=== PATIENT | male | born 1930 | race Caucasian/White ===

== ENCOUNTER 2018-11-11 22:08 | Inpatient (IN) | payer MEDICARE, OTHER ==
[~2018-11-11] VITALS: Ht 177.8 cm; Wt 76.3 kg
[2018-11-11 22:09] VITALS: BP 97/47
--- NOTE | 2018-11-11 22:09 | NUR ---
ED Nurse Note: Patient BIBA from home with complaints of respiratory distress. Full septic work-up initiated.
[2018-11-11] MEDS ORDERED: Albuterol ud Inhalation HHN ONE (22:15)
--- NOTE | 2018-11-11 22:18 | NUR ---
RESPIRATORY NOTE: Pt came in ED via EMT on portable CPAP c/o SOB/Respiratory Distress. Pt placed on BiPAP 15/5, backup rate 14, 60%. Pt still tachycardic & tachypneic on BiPAP. Breathing Tx to be given. Pt alert, follows commands. B/S hector. crackles, nonproductive cough. BiPAP plugged into red outlet. Pt tolerating tx well. Will continue to monitor pt.
--- NOTE | 2018-11-11 22:19 | Emergency Room Report ---
History of Present Illness General Chief Complaint: Dyspnea/Respdistress Source: Medical Record, EMS Present Illness HPI This is an 87-year-old elderly English-speaking male presents with chief complaint of respiratory distress. Per EMS, family said he has a history of high blood pressure and COPD. Unknown medication. He presents with chief complaint of shortness of breath started today. Also with nausea vomiting and diarrhea. On route rest or distress worse and so he was put on CPAP. History is limited in this patient because of his condition. Unknown fever. Patient has a cough here. Per , he had shaking chills at home. Allergies: Coded Allergies: No Known Allergies (Unverified , 12/10/11) Patient History Past Medical History: see triage record, old chart reviewed, HTN, COPD Past Surgical History: other Pertinent Family History: none Social History: Denies: smoking Immunizations: other Reviewed Nursing Documentation: PMH: Agreed; PSxH: Agreed Nursing Documentation-PMH Hx Cardiac Problems: Yes - COPD Hx Hypertension: Yes Review of Systems Eye: Denies: eye pain, blurred vision ENT: Denies: ear pain, nose congestion, throat swelling Respiratory: Reports: cough, shortness of breath Cardiovascular: Denies: chest pain, palpitations Gastrointestinal: Reports: diarrhea, nausea, vomiting; Denies: abdominal pain Musculoskeletal: Denies: back pain, joint pain Skin: Denies: rash Neurological: Denies: headache, numbness Endocrine: Denies: increased thirst, increased urine Hematologic/Lymphatic: Denies: easy bruising All Other Systems: negative except mentioned in HPI Physical Exam Vital Signs Date Time Temp Pulse Resp B/P (MAP) Pulse Ox O2 Delivery O2 Flow Rate FiO2 11/11/18 22:09 98.1 132 26 97 Room Air vitals with tachycardia and hypoxia. Pulse ox 94% on BiPAP Sp02 EP Interpretation: abnormal General Appearance: moderate distress, Chronically Ill Head: normocephalic, atraumatic Eyes: bilateral eye PERRL, bilateral eye EOMI ENT: hearing grossly normal, normal pharynx Neck: full range of motion, supple, no meningismus Respiratory: chest non-tender, respiratory distress, decreased breath sounds, wheezing Cardiovascular #1: regular rate, rhythm, no murmur, tachycardia Gastrointestinal: normal bowel sounds, non tender, no mass, no organomegaly, no bruit, distended Musculoskeletal: back normal, normal range of motion Psychiatric: mood/affect normal Skin: warm/dry Procedures Critical Care Time Critical Care Time Critical care is mandated in this patient who presented with severe sepsis from pneumonia. Patient require my urgent intervention to attenuate the risks of metabolic collapse which may lead to cardiovascular collapse and . Critical care time is 35 minutes excluding any reportable procedure. Critical care time included evaluation, multiple reevaluation, looking at old charts, interpreting laboratory and diagnostic data, discussing case with patient and family and consultants, and charting. Medical Decision Making Diagnostic Impression: Primary Impression: Severe sepsis Additional Impressions: Pneumonia Qualified Codes: J18.1 - Lobar pneumonia, unspecified organism Respiratory failure with hypoxia Qualified Codes: J96.01 - Acute respiratory failure with hypoxia COPD exacerbation ER Course Patient with severe sepsis from bilateral lobar pneumonia. He had respiratory failure secondary to hypoxemia. Much improved on BiPAP. Breathing much more comfortably. White spectrum antibiotic started. I discussed the CODE STATUS with his and son. She wanted him to be Comfort Care DO NOT RESUSCITATE. No intubation. No CPR. Discussed the case with Dr. Malave and Dr. Nugent for admission. Sepsis reevaluation: Vitals: Heart rate 100, blood pressure 97/47, respiration rate 16, pulse oxing 100% on BiPAP. Mental status: More alert Cardiovascular: Regular rate and rhythm. Lungs: Better air movement Abdomen: Soft nontender Extremity: No edema Skin: No mottling Capillary refills: Less than 2 second Lab Results Impression labs with leukocytosis EKG Diagnostic Results Rate: tachycardiac Rhythm: NSR ST Segments: other - NSST changes Rhythm Strip Diag. Results EP Interpretation: yes Rate: 110 Rhythm: NSR, no PVC's, no ectopy Chest X-Ray Diagnostic Results Chest X-Ray Diagnostic Results : Chest X-Ray Ordered: Yes # of Views/Limited/Complete: 1 View Indication: Shortness of Breath EP Interpretation: Yes Interpretation: no effusion, no pneumothorax, other - Bilateral lobar infiltrates Impression: Other - b/l infiltrates Electronically Signed by: Drew Rice MD Last Vital Signs Date Time Temp Pulse Resp B/P (MAP) Pulse Ox O2 Delivery O2 Flow Rate FiO2 11/11/18 22:09 98.1 132 26 97 Room Air Status: improved Disposition: ADMITTED INPATIENT Condition: Critical Drew Rice MD November 11, 2018 22:19
[2018-11-11] MEDS ORDERED: BYSTOLIC2.5 MG ORAL (22:30)
[2018-11-11] MEDS ORDERED: CRESTOR20 MG ORAL (22:30)
[2018-11-11] MEDS ORDERED: PREDNISONE2.5 MG ORAL (22:30)
[2018-11-11 22:39] VITALS: BP 88/49
[2018-11-11 22:50] LABS: HEMATOCRIT 47.1 % (42.0-52.0); HEMOGLOBIN 15.7 G/DL (14.2-18.0); MEAN CORPUSCULAR VOLUME 90 FL (80-99); PLATELET COUNT 120 K/UL (150-450); RED BLOOD COUNT 5.25 M/UL (4.70-6.10); RED CELL DISTRIBUTION WIDTH 15.4 % (11.6-14.8); WHITE BLOOD COUNT 15.6 K/UL (4.8-10.8)
[2018-11-11 22:51] LABS: BASOPHILS % (AUTO) 0.7 % (0.0-2.0); EOSINOPHILS % (AUTO) 0.3 % (0.0-3.0); MONOCYTES % (AUTO) 1.4 % (1.0-10.0); NEUTROPHILS % (AUTO) 86.6 % (45.0-75.0)
[2018-11-11 22:54] VITALS: BP 88/46
[2018-11-11] MEDS ORDERED: Cefepime HCl 1 GM in D5W 55 ML IVPB ONE (23:00)
--- NOTE | 2018-11-11 23:00 | NUR ---
ED Nurse Note: Patient is hypotensive, ERMD informed. orders carried out.
[2018-11-11 23:03] LABS: INR 1.2 (0.9-1.1)
[2018-11-11 23:04] LABS: ANION GAP 10 mmol/L (5-15); BLOOD UREA NITROGEN 43 mg/dL (7-18); CALCIUM 8.7 MG/DL (8.5-10.1); CARBON DIOXIDE 23 MMOL/L (21-32); CHLORIDE 104 MMOL/L (98-107); CREATININE 1.2 MG/DL (0.55-1.30); POTASSIUM 4.5 MMOL/L (3.5-5.1); SODIUM 137 MMOL/L (136-145)
[2018-11-11 23:15] VITALS: BP 81/48
[2018-11-11 23:19] LABS: ALANINE AMINOTRANSFERASE 67 U/L (12-78); ALBUMIN 3.5 G/DL (3.4-5.0); ALKALINE PHOSPHATASE 65 U/L (46-116); ASPARTATE AMINO TRANSFERASE 38 U/L (15-37); BILIRUBIN,TOTAL 1.2 MG/DL (0.2-1.0); CKMB 1.8 NG/ML (0.0-3.6); CREATINE KINASE 97 U/L (26-308)
--- NOTE | 2018-11-11 23:22 | NUR ---
ED Nurse Note: Patient BP responsive to iV fluid. Patient tolerated antibiotics well, family , and son, at bedside.
[2018-11-11 23:23] LABS: BILIRUBIN,DIRECT 0.2 MG/DL (0.0-0.3)
[2018-11-11 23:30] VITALS: BP 97/47
[2018-11-11 23:45] VITALS: BP 97/47
[2018-11-12] VITALS (25 sets, daily range): BP systolic 70–130; BP diastolic 43–74
--- NOTE | 2018-11-12 00:05 | NUR ---
ED Nurse Note: Patient ready for transport to floor. Report called in to [facility] prior to departure. Patient accompanied by an RN and [employer] along with manager cardiac and o2 mask. RT notified before departure and awaited patient arrival in the room. Patient transported to SDU without incident, belonging sheet completed in SDU to sign.
--- NOTE | 2018-11-12 00:40 | NUR ---
NURSE NOTES: Pt admitted from ER. Given report from ANN Esteves. Pt is drowsy, confused and agitated. Able to open the eyes spontaneously. Family; his and son stay at bedside. On BiPAP setting with 15/5 and FiO2 70% and SaO2 97% noted. IV site on Rt. AC area patent and no sign of infiltration noted. Lt AC IV site occluded and removed. Applied Tele monitor. Checked belonging list and belongings noted. Noted Brownish diarrhea noted. Cleaned Pt and applied lotion and cream. Applied condom cath. Given admission instruction to Pt and family but Pt didn't understand at this time. Denied pain at this time. Noted perianal excoriation with redness. Provided skin barrier cream. no open wound on pressure point area. Changed position. Placed fall precaution. Will continue to care plan.
--- NOTE | 2018-11-12 01:00 | NUR ---
NURSE NOTES: Rechecked BT 98.8F by axillary. Keep cooling measure. Family didn't remember his home medications. His said she will bring medication list in the morning. Will continue to monitor any change of condition.
--- NOTE | 2018-11-12 01:40 | NUR ---
NURSE NOTES: Pt admitted from ER. Given report from ANN Esteves. Pt is drowsy, confused and agitated. Able to open the eyes spontaneously. Family; his and son stay at bedside. On BiPAP setting with 15/5 and FiO2 70% and SaO2 97% noted. IV site on Rt. AC area patent and no sign of infiltration noted. Lt AC IV site occluded and removed. Applied Tele monitor. Checked belonging list and belongings noted. Noted Brownish diarrhea noted. Cleaned Pt and applied lotion and cream. Applied condom cath. Given admission instruction to Pt and family but Pt didn't understand at this time. Denied pain at this time. Noted perianal excoriation with redness. Provided skin barrier cream. no open wound on pressure point area. Changed position. Placed fall precaution. Will continue to care plan. Addendum: 11/12/18 at 0305 by RANDY MARTINEZ RN RN incorrect time change time to 00:40am
[2018-11-12] MEDS ORDERED: Vancomycin 750mg/NS 275ml IVPB SCH ×2 (02:00)
--- NOTE | 2018-11-12 04:54 | NUR ---
NURSE NOTES: Pt is resting on the bed and awake and confused and agitated. Able to open the eyes spontaneously,. On BiPAP and setting with 15/5 FiO2 70% and Sao2 93%. But noted low BP 70/46mmHg and HR: 90's and SR. Keep Trendelenburg position. BS checked 96mg/dl. BT: 98.9F. Notified to Charge nurse. Called BLOCK SAW OPERATOR.
--- NOTE | 2018-11-12 04:55 | NUR ---
NURSE NOTES: Paged Dr. Nugent and Ananda Arias and awaiting call back.
--- NOTE | 2018-11-12 05:10 | NUR ---
NURSE NOTES: Rechecked BP 85/45mmHg, HR: 95's with SR. Get ABG result with PH:7.292, PCo2: 37.5, PO2:82.2, HCO3 17.7 O2 Sat: 94.9. Left message to Dr. Nugent and Dr. Ananda smith awaiting call back.
--- NOTE | 2018-11-12 05:20 | NUR ---
NURSE NOTES: Pt is resting on the bed and able to response. Rechecked BP 98/48 HR: 90 SaO2 94% noted. Dindn't call back fro, Dr. tricia crouch amd awaiting call back.
--- NOTE | 2018-11-12 05:20 | NUR ---
DIATHERMY EQUIPMENT REPAIRER Note: DIATHERMY EQUIPMENT REPAIRER was called at 0454 by sdu, and notified MD solorio. Pt transferred to at . See DIATHERMY EQUIPMENT REPAIRER documentation form for full report.drill press operator for metal called due to hypotension, bp 70/46, ivf of normal saline one liter bolus given, compliance monitor shows sinus tach at 102/min, blood sugar 96, abg 's done, patient on bipap 15/5 fio2 70%. o2 sat 93-95%, after iv bolus, bp improved to 98/48, patient remains in sdu, pls see drill press operator for metal record
[2018-11-12 05:53] LABS: HEMATOCRIT 37.9 % (42.0-52.0); HEMOGLOBIN 12.5 G/DL (14.2-18.0); MEAN CORPUSCULAR VOLUME 91 FL (80-99); PLATELET COUNT 93 K/UL (150-450); RED BLOOD COUNT 4.16 M/UL (4.70-6.10); RED CELL DISTRIBUTION WIDTH 16.3 % (11.6-14.8); WHITE BLOOD COUNT 7.3 K/UL (4.8-10.8)
[2018-11-12 06:06] LABS: ALBUMIN 2.1 G/DL (3.4-5.0); ANION GAP 10 mmol/L (5-15); BLOOD UREA NITROGEN 46 mg/dL (7-18); CALCIUM 7.1 MG/DL (8.5-10.1); CARBON DIOXIDE 21 MMOL/L (21-32); CHLORIDE 112 MMOL/L (98-107); CREATININE 1.5 MG/DL (0.55-1.30); PHOSPHORUS 3.4 MG/DL (2.5-4.9); POTASSIUM 3.9 MMOL/L (3.5-5.1); SODIUM 143 MMOL/L (136-145)
--- NOTE | 2018-11-12 06:20 | NUR ---
NURSE NOTES: Left message to Dr. Malave and awaiting call back. Pt was resting on the bed and on BiPAP setting with 15/5 and FiO2 100% and SaO2 97% noted. BP checked 109/48mmHg. On tele monitor with SR. Will continue to monitor any change of condition.
--- NOTE | 2018-11-12 06:58 | NUR ---
NURSE NOTES: Get call back from Dr. Nugent and new order received with transfer to ICU. Informed Charge nurse and nursing supervisor hot dip tinning.
--- NOTE | 2018-11-12 07:05 | NUR ---
RESPIRATORY NOTE:Received pt on bipap 15/5 with facial mask and tape in place. No signs of skin breakdown on face or redness. pt is resting comfortably with no s/s of distress. will cont. to monitor pt.
--- NOTE | 2018-11-12 07:45 | NUR ---
NURSE NOTES: Inserted Chavez cath and cl color urine urinated. Rechecked BP 109/48mmHg. Awaing room for ICU.
--- NOTE | 2018-11-12 08:00 | NUR ---
TRANSFER TO FLOOR: Patient transferred to ICU. Report given to ANN Karimi. No belongings noted. Family; Son; Javy informed of transfer.
[2018-11-12] MEDS ORDERED: Albuterol/Ipratropium 3ml neb HHN PRN ×2 (08:08)
[2018-11-12] MEDS ORDERED: Promethazine/Codeine 5ml UD ORAL PRN ×2 (08:09)
[2018-11-12] MEDS ORDERED: Miralax 17gm pkt ORAL PRN ×2 (08:09)
[2018-11-12] MEDS ORDERED: Nitroglycerin Subl 0.4mg tab SL PRN ×2 (08:15)
--- NOTE | 2018-11-12 08:45 | NUR ---
ST NOTE: PT TRANSFERRED TO ICU WITH BIPAP. HOLD OFF THE B/S EVAL. D/W RN, HOSSEIN.
[2018-11-12] MEDS ORDERED: Heparin 5000 units/ml inj SUBQ SCH ×2 (09:00)
[2018-11-12] MEDS ORDERED: Cefepime HCl 1 GM in D5W 55 ML IV SCH (09:00)
--- NOTE | 2018-11-12 09:25 | Diagnostic Imaging Report ---
Indication: Dyspnea Comparison: 12/10/2011 A single view chest radiograph was obtained. Findings: Pulmonary vascular congestion suspected with prominent vascularity and heart size. Interstitial densities are noted. There is also some degree of new airspace disease in the right upper lung field. Query pneumonia. IMPRESSION: Pulmonary vascular congestion suspected. Airspace disease in the right mid and upper lung field. Could be superimposed pneumonia or related to the vascular congestion. Correlate clinically
--- NOTE | 2018-11-12 09:30 | NUR ---
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 RESPIRATORY FAILURE W/HYPOXIA . PNA VS: BP 151/103, P 132, T 102.9, RR 30, SpO2 97 on Bi-pap WBC 15.6, RBC 4.16, H&H 12.5/37.9, PLT. COUNT 93, BUN 46, Cr 1.5, LACTIC ACID 3.40 CXR: Pulmonary vascular congestion suspected. IS:PROVENTIL 2.5mg LEVOFLOXACIN 100ml IVPB CEFEPIME HCI 55ml IVPB NS x1L IV ADMITTED TO ICU DCP: RETURN HOME
[2018-11-12] MEDS: Cefepime HCl 1 GM in D5W 55 ML IV SCH ×2 (10:00→21:16)
--- NOTE | 2018-11-12 10:03 | Consultation ---
History of Present Illness General Date patient seen: November 12, 2018 Chief Complaint: Dyspnea/Respdistress Present Illness HPI 87-year-old elderly Tongan-speaking male with hx of HTN, COPD (Unknown medication) presented to ER with chief complaint of shortness of breath started yesterday, with nausea vomiting and diarrhea. On route to ER his respiratory status worsened and he was put on CPAP. Er physician apparently had a conversation with the family members who agreed with DNR. Allergies: Coded Allergies: No Known Allergies (Unverified , 12/10/11) Medication History Scheduled Nebivolol Hcl* (Bystolic*), 5 MG ORAL DAILY, (Reported) Prednisone* (Prednisone*), MG ORAL DAILY, (Reported) Rosuvastatin Calcium* (Crestor*), 20 MG ORAL DAILY, (Reported) Patient History Healthcare decision maker Resuscitation status Full Code Advanced Directive on File Past Medical/Surgical History Past Medical/Surgical History: (1) Arrhythmia (2) History of hypertension Review of Systems Constitutional: Reports: chills, fever Respiratory: Reports: shortness of breath All Other Systems: negative except mentioned in HPI Physical Exam General Appearance: WD/WN Lines, tubes and drains: peripheral HEENT: normocephalic, atraumatic Neck: non-tender, normal alignment Respiratory/Chest: rhonchi - left, rhonchi - right Cardiovascular/Chest: normal peripheral pulses, normal rate Abdomen: normal bowel sounds, non tender Genitourinary/Rectal: normal genital exam Extremities: normal range of motion, non-tender Skin Exam: normal pigmentation Neurologic: livestock agent II-XII grossly normal Last 24 Hour Vital Signs Date Time Temp Pulse Resp B/P (MAP) Pulse Ox O2 Delivery O2 Flow Rate FiO2 11/12/18 09:08 102 26 95 Facial 100 11/12/18 09:00 103 23 95/49 (64) 96 11/12/18 08:00 96 27 88/50 (63) 93 11/12/18 07:50 95 24 84/52 (63) 93 11/12/18 07:04 100 24 93 Facial 100 11/12/18 05:20 90 98/48 (65) 11/12/18 05:10 95 85/47 (60) 94 11/12/18 05:07 89 22 94 Facial 100 11/12/18 05:02 94 89/43 (58) 95 11/12/18 04:59 90 81/50 (60) 94 11/12/18 04:54 98.9 90 22 70/46 (54) 93 11/12/18 04:00 101 11/12/18 04:00 Bi-pap 11/12/18 04:00 98.9 91 22 90/55 (67) 94 11/12/18 04:00 70 11/12/18 03:13 104 34 94 Facial 70 11/12/18 01:03 102 11/12/18 01:01 102 25 96 Facial 70 11/12/18 01:00 Bi-pap 11/12/18 01:00 70 11/12/18 00:57 98.8 11/12/18 00:40 98.8 107 22 108/67 (81) 97 11/12/18 00:05 102.9 116 34 97/47 93 Bi-pap 100 11/12/18 00:02 102.9 103 25 130/54 93 Bi-pap 100 11/11/18 23:45 102.9 114 28 97/47 93 100 11/11/18 23:30 102.9 114 28 97/47 93 100 11/11/18 23:30 126 34 93 Facial 100 11/11/18 23:15 102.9 122 32 81/48 100 Bi-pap 100 11/11/18 22:54 102.9 121 30 88/46 100 Bi-pap 100 11/11/18 22:39 102.9 118 28 88/49 100 Bi-pap 100 11/11/18 22:35 116 30 93 Bi-pap 60 11/11/18 22:20 127 35 97 Bi-pap 60 11/11/18 22:15 133 37 96 Facial 60 11/11/18 22:15 133 37 96 Bi-pap 60 11/11/18 22:09 102.9 116 26 97/47 100 Bi-pap 100 11/11/18 22:09 98.1 132 26 97 Room Air 11/11/18 22:09 132 26 Room Air Intake and Output 11/11/18 11/12/18 19:00 07:00 Intake Total 6436.000 ml Output Total 1 ml Balance 6435.000 ml Intake Oral 0 ml IV Total 6436.000 ml Output Stool Total 1 ml # Voids 1 # Bowel Movements 1 Laboratory Tests Test 11/11/18 22:28 11/12/18 00:30 11/12/18 04:49 11/12/18 05:40 White Blood Count 15.6 K/UL (4.8-10.8) H 7.3 K/UL (4.8-10.8) # Red Blood Count 5.25 M/UL (4.70-6.10) 4.16 M/UL (4.70-6.10) L Hemoglobin 15.7 G/DL (14.2-18.0) 12.5 G/DL (14.2-18.0) L Hematocrit 47.1 % (42.0-52.0) 37.9 % (42.0-52.0) L Mean Corpuscular Volume 90 FL (80-99) 91 FL (80-99) Mean Corpuscular Hemoglobin 29.9 PG (27.0-31.0) 30.0 PG (27.0-31.0) Mean Corpuscular Hemoglobin Concent 33.3 G/DL (32.0-36.0) 33.0 G/DL (32.0-36.0) Red Cell Distribution Width 15.4 % (11.6-14.8) H 16.3 % (11.6-14.8) H Platelet Count 120 K/UL (150-450) L 93 K/UL (150-450) L Mean Platelet Volume 6.7 FL (6.5-10.1) 6.7 FL (6.5-10.1) Neutrophils (%) (Auto) 86.6 % (45.0-75.0) H % (45.0-75.0) Lymphocytes (%) (Auto) 11.0 % (20.0-45.0) L % (20.0-45.0) Monocytes (%) (Auto) 1.4 % (1.0-10.0) % (1.0-10.0) Eosinophils (%) (Auto) 0.3 % (0.0-3.0) % (0.0-3.0) Basophils (%) (Auto) 0.7 % (0.0-2.0) % (0.0-2.0) Prothrombin Time 12.2 SEC (9.30-11.50) H Prothromb Time International Ratio 1.2 (0.9-1.1) H Activated Partial Thromboplast Time 23 SEC (23-33) Sodium Level 137 MMOL/L (136-145) 143 MMOL/L (136-145) Potassium Level 4.5 MMOL/L (3.5-5.1) 3.9 MMOL/L (3.5-5.1) Chloride Level 104 MMOL/L (98-107) 112 MMOL/L (98-107) H Carbon Dioxide Level 23 MMOL/L (21-32) 21 MMOL/L (21-32) Anion Gap 10 mmol/L (5-15) 10 mmol/L (5-15) Blood Urea Nitrogen 43 mg/dL (7-18) H 46 mg/dL (7-18) H Creatinine 1.2 MG/DL (0.55-1.30) 1.5 MG/DL (0.55-1.30) H Estimat Glomerular Filtration Rate mL/min (>60) mL/min (>60) Glucose Level 110 MG/DL (74-106) H 93 MG/DL (74-106) Lactic Acid Level 3.40 mmol/L (0.4-2.0) H 1.70 mmol/L (0.66-2.22) 2.40 mmol/L (0.4-2.0) H Calcium Level 8.7 MG/DL (8.5-10.1) 7.1 MG/DL (8.5-10.1) L Total Bilirubin 1.2 MG/DL (0.2-1.0) H Direct Bilirubin 0.2 MG/DL (0.0-0.3) Aspartate Amino Transf (AST/SGOT) 38 U/L (15-37) H Alanine Aminotransferase (ALT/SGPT) 67 U/L (12-78) Alkaline Phosphatase 65 U/L (46-116) Total Creatine Kinase 97 U/L (26-308) Creatine Kinase MB 1.8 NG/ML (0.0-3.6) Creatine Kinase MB Relative Index 1.8 Troponin I 0.015 ng/mL (0.000-0.056) Pro-B-Type Natriuretic Peptide 506 pg/mL (0-125) H Total Protein 7.0 G/DL (6.4-8.2) Albumin 3.5 G/DL (3.4-5.0) 2.1 G/DL (3.4-5.0) L Globulin 3.5 g/dL Albumin/Globulin Ratio 1.0 (1.0-2.7) Arterial Blood pH 7.292 (7.350-7.450) Arterial Blood Partial Pressure CO2 37.5 mmHg (35.0-45.0) Arterial Blood Partial Pressure O2 82.2 mmHg (75.0-100.0) Arterial Blood HCO3 17.7 mmol/L (22.0-26.0) *L Arterial Blood Oxygen Saturation 94.9 % (95-100) L Arterial Blood Base Excess -8.1 (-2-2) L Alejandro Test Positive Differential Total Cells Counted 100 Neutrophils % (Manual) 69 % (45-75) Lymphocytes % (Manual) 8 % (20-45) L Monocytes % (Manual) 1 % (1-10) Eosinophils % (Manual) 0 % (0-3) Basophils % (Manual) 0 % (0-2) Band Neutrophils 22 % (0-8) H Platelet Estimate Decreased L Platelet Morphology Normal Anisocytosis 1+ Phosphorus Level 3.4 MG/DL (2.5-4.9) Height (Feet): 5 Height (Inches): 10.00 Weight (Pounds): 185 Medications Current Medications Medications (Trade) Dose Ordered Sig/Keith Route PRN Reason Start Time Stop Time Status Last Admin Dose Admin Acetaminophen (Tylenol) 650 mg Q4H PRN ORAL Mild Pain/Temp > 100.5 11/12/18 08:08 12/12/18 08:07 Albuterol/ Ipratropium (Albuterol/ Ipratropium) 3 ml Q4H PRN HHN Shortness of Breath 11/12/18 08:08 11/17/18 08:07 Cefepime HCl 1 gm/ Dextrose 55 ml @ 110 mls/hr EVERY 12 HOURS IV 11/12/18 09:00 11/19/18 08:59 Heparin Sodium (Porcine) (Heparin 5000 units/ml) 5,000 units EVERY 12 HOURS SUBQ 11/12/18 09:00 12/12/18 08:59 Nitroglycerin (Ntg) 0.4 mg Q5M PRN SL Prn Chest Pain 11/12/18 08:15 12/12/18 00:00 Ondansetron HCl (Zofran) 4 mg Q6H PRN IVP Nausea & Vomiting 11/12/18 08:09 12/12/18 08:08 Polyethylene Glycol (Miralax) 17 gm DAILYPRN PRN ORAL Constipation 11/12/18 08:09 12/12/18 08:08 Promethazine HCl/ Codeine (Phenergan with Codeine) 5 ml Q4H PRN ORAL For Cough 11/12/18 08:09 12/12/18 08:08 Temazepam (Restoril) 15 mg HSPRN PRN ORAL Insomnia 11/12/18 08:09 11/19/18 08:08 Vancomycin HCl (Vanco rx to dose) 1 ea DAILY PRN MISC Per rx protocol 11/12/18 09:00 12/12/18 00:00 Vancomycin HCl 750 mg/Sodium Chloride 275 ml @ 183.333 mls/hr Q12H IVPB 11/12/18 14:00 11/17/18 01:59 Assessment/Plan Problem List: (1) Respiratory failure with hypoxia ICD Codes: J96.91 - Respiratory failure, unspecified with hypoxia SNOMED: 13411716414443853 Qualifiers: Qualified Codes: J96.01 - Acute respiratory failure with hypoxia (2) Severe sepsis ICD Codes: A41.9 - Sepsis, unspecified organism; R65.20 - Severe sepsis without septic shock SNOMED: 88334716 (3) Pneumonia ICD Codes: J18.9 - Pneumonia, unspecified organism SNOMED: 610284138 Qualifiers: Qualified Codes: J18.1 - Lobar pneumonia, unspecified organism (4) Arrhythmia ICD Codes: I49.9 - Cardiac arrhythmia, unspecified SNOMED: 376734984 (5) History of hypertension ICD Codes: Z86.79 - Personal history of other diseases of the circulatory system SNOMED: 603615485 Respiratory: monitor respiratory rate, adjust FIO2, CXR Cardiac: continue to monitor HR/BP Renal: F/U I&O, keep IV fluid, check electrolytes Infectious Disease: check cultures Gastrointestinal: continue feedings/current rate, hold feedings Endocrine: monitor blood sugar Hematologic: monitor H/H Neurologic: PRN Ativan, PRN Morphine, keep patient comfortable Prophylaxis: Protonix, Heparin Time Spent (Minutes): 40 Notes Reviewed: weight inspector, cardio, renal Discussed with: nurses, consultants, rehabilitation caseworker Joan Nugent MD November 12, 2018 10:03
[2018-11-12 10:34] LABS: CREATINE KINASE 68 U/L (26-308)
--- NOTE | 2018-11-12 10:45 | NUR ---
NURSE NOTES: Spoke with Family son Javy and for clarification of of patient code status since er report states patient wishes to be placed on do no resuscitate or intubate, after explanation of the use of ventilator and compression, they decided to have patient remain on full code, Dr. Nugent made aware of decision and patient remains at full code, remains at 15/5 with FIO2 of 100% with respiratrion at 25-32 shallow and rapid, no verbal orders given at this time,
--- NOTE | 2018-11-12 12:00 | NUR ---
NURSE NOTES: Son gave the phone numbers of patient previous hospital medical doctors, who are Dr. henri Carlson for consultation for travel information center supervisor, Dr. Malave called to inform of consult and agrees with consulting,
--- NOTE | 2018-11-12 12:39 | NUR ---
Social Service Note BIA met with patient's Felicity Glover [phone] at patient's bedside. Patient is alert, wearing a bipap, provided eye contact and nodded head as SW met with his . states patient has had lung issues for a long time and has been treated at [facility]. Prior to admission patient was independent and occasionally required O2. Patient not currently on home health. states upon discharge home she would like to resume home health from Dr. Earl's office. BIA left a message for Dr. Earl [phone] to obtain home health information. states she has a cell phone however never answers the calls due to be hard of hearing and the best number to reach her is the home number, . Patient's son Javy [phone] and dgt Sharon [phone]. Code status readdressed as ER indicated patient is DNR/DNI. Primary nurse discussed with son who indicated Full Code. BIA addressed with who also indicated Full Code. No advance directives. Will monitor and assist as needed.
--- NOTE | 2018-11-12 13:22 | Cardiology Report ---
APPROVED REPORT EXAM: Two-dimensional and M-mode echocardiogram with Doppler and color Doppler. INDICATION LV FUNCTION M-Mode DIMENSIONS IVSd1.0 (0.7-1.1cm)Left Atrium (MM)3.9 (1.6-4.0cm) LVDd4.5 (3.5-5.6cm)Aortic Root3.5 (2.0-3.7cm) PWd1.0 (0.7-1.1cm)Aortic Cusp Exc.1.8 (1.5-2.0cm) IVSs3.1 cm LVDs1.2 (2.5-4.0cm) Technically difficult study off axis views Normal left ventricular chamber size, systolic function and wall motion. Left ventricular ejection fraction estimated to be 60-65%. No evidence of left ventricular hypertrophy . No evidence of pericardial effusion. Mild left atrial enlargement. Right cardiac chamber sizes are within normal limits. Aortic valve calcification with normal cusp excursion . Mildly thickened mitral valve leaflets with normal excursion. Mild mitral annulus and aortic root calcification. Pulmonic valve not well visualized. IVC dilated at 2.6 cm with physiologic collapse suggestive of mildly increased RA pressure. A color flow and spectral Doppler study was performed and revealed: No aortic insufficiency .PG across the aortic valve of 15 mmhg and MG of 6 mmhg Mitral diastolic velocities suggest reduced left ventricular relaxation c/w mild LV diastolic dysfunction (Grade I ) Trace mitral regurgitation. Trace tricuspid regurgitation. Tricuspid systolic velocities suggests peak right ventricular systolic pressure of 23 mmHg.
--- NOTE | 2018-11-12 13:45 | NUR ---
NURSE NOTES: Patient had a soft bowel movement with color of brown and loose, there is a redness noted on the sacral region, will continue to monitor. Patient titrated to 80% FIO2 and remains saturating at 98-99% with RR of 30-34 remains shallow and rapid, will continue plan of care.
[2018-11-12 14:12] LABS: APPEARANCE,URINE CLEAR; BILIRUBIN, URINE NEGATIVE (NEGATIVE); GLUCOSE, URINE (UA) NEGATIVE (NEGATIVE); KETONES,URINE NEGATIVE (NEGATIVE); LEUKOCYTE ESTERASE ,URINE 1+ (NEGATIVE); NITRITE,URINE NEGATIVE (NEGATIVE); PH,URINE 5 (4.5-8.0); PROTEIN,URINE 2+ (NEGATIVE); UROBILINOGEN,URINE NORMAL MG/DL (0.0-1.0)
[2018-11-12 14:19] LABS: COLOR,URINE YELLOW
--- NOTE | 2018-11-12 14:30 | NUR ---
NURSE NOTES: Dr. Solis made aware of consultation placed by Dr. Malave, patient seen by Dr. Solis at the bedside, at 0800 11/13/[address] Kim will continue to monitor
[2018-11-12] MEDS: Vancomycin 750 MG in NS 275 ML IVPB SCH (14:42)
--- NOTE | 2018-11-12 16:39 | Consultation ---
History of Present Illness General Date patient seen: November 12, 2018 Chief Complaint: Dyspnea/Respdistress Present Illness HPI 87 y/o M with hx of HTN, COPD presents to ED on 11/11 with respiratory distress, nausea, vomiting and diarrhea Allergies: Coded Allergies: No Known Allergies (Unverified , 12/10/11) Medication History Scheduled Alfuzosin 10Mg (Uroxatral), 10 MG ORAL DAILY, (Reported) Azilsartan Medoxomil (Edarbi), 40 MG ORAL DAILY, (Reported) Dutasteride (Dutasteride), 0.5 MG PO DAILY, (Reported) Nebivolol Hcl* (Bystolic*), 5 MG ORAL DAILY, (Reported) Prednisone (Prednisone), 10 MG PO DAILY, (Reported) Rosuvastatin Calcium* (Crestor*), 20 MG ORAL DAILY, (Reported) Vitamin D (Vitamin D3), 2,000 UNITS ORAL DAILY, (Reported) Miscellaneous Medications Azelastine Hcl (Azelastine Hcl), NS, (Reported) Cyanocobalamin/Fa/Pyridoxine (Folplex 2.2 Tablet), 1 EACH PO, (Reported) Cyclosporine (Restasis), 1 DROP BOTH EYES, (Reported) Gabapentin* (Gabapentin*), 300 MG ORAL, (Reported) Loratadine (Loratadine), MG PO, (Reported) Montelukast Sodium* (Montelukast Sodium*), 10 MG ORAL, (Reported) Olopatadine (Patanol), 1 DROP, (Reported) Umeclidinium [place] (Incruse Ellipta), 62.5 MCG IH, (Reported) Patient History Healthcare decision maker Resuscitation status Full Code Advanced Directive on File Patient History Narrative Pmhx: as above Shx: Denies: smoking Fhx: non contributory Review of Systems All Other Systems: negative except mentioned in HPI Physical Exam Physical Exam Narrative General Appearance: WD/WN Lines, tubes and drains: peripheral HEENT: normocephalic, atraumatic Neck: non-tender, normal alignment Respiratory/Chest: rhonchi - left, rhonchi - right Cardiovascular/Chest: normal peripheral pulses, normal rate Abdomen: normal bowel sounds, non tender Genitourinary/Rectal: normal genital exam Extremities: normal range of motion, non-tender Skin Exam: normal pigmentation Neurologic: dental therapist II-XII grossly normal Last 24 Hour Vital Signs Date Time Temp Pulse Resp B/P (MAP) Pulse Ox O2 Delivery O2 Flow Rate FiO2 11/12/18 14:51 100 34 98 Facial 80 11/12/18 14:00 98 31 122/56 (78) 98 11/12/18 13:00 101 31 100 Facial 80 11/12/18 13:00 99 27 109/60 (76) 100 11/12/18 12:00 99.1 97 27 121/50 (73) 98 11/12/18 12:00 96 11/12/18 12:00 100 11/12/18 12:00 Bi-pap 11/12/18 11:30 96 29 100 Facial 100 11/12/18 11:00 95 26 91/55 (67) 98 11/12/18 10:00 99.6 95 24 103/47 (65) 96 11/12/18 09:08 102 26 95 Facial 100 11/12/18 09:00 103 23 95/49 (64) 96 11/12/18 08:00 96 27 88/50 (63) 93 11/12/18 08:00 Bi-pap 11/12/18 08:00 100 11/12/18 08:00 91 11/12/18 07:50 95 24 84/52 (63) 93 11/12/18 07:04 100 24 93 Facial 100 11/12/18 05:20 90 98/48 (65) 11/12/18 05:10 95 85/47 (60) 94 11/12/18 05:07 89 22 94 Facial 100 11/12/18 05:02 94 89/43 (58) 95 11/12/18 04:59 90 81/50 (60) 94 11/12/18 04:54 98.9 90 22 70/46 (54) 93 11/12/18 04:00 101 11/12/18 04:00 Bi-pap 11/12/18 04:00 98.9 91 22 90/55 (67) 94 11/12/18 04:00 70 11/12/18 03:13 104 34 94 Facial 70 11/12/18 01:03 102 11/12/18 01:01 102 25 96 Facial 70 11/12/18 01:00 Bi-pap 11/12/18 01:00 70 11/12/18 00:57 98.8 11/12/18 00:40 98.8 107 22 108/67 (81) 97 11/12/18 00:05 102.9 116 34 97/47 93 Bi-pap 100 11/12/18 00:02 102.9 103 25 130/54 93 Bi-pap 100 11/11/18 23:45 102.9 114 28 97/47 93 100 11/11/18 23:30 102.9 114 28 97/47 93 100 11/11/18 23:30 126 34 93 Facial 100 11/11/18 23:15 102.9 122 32 81/48 100 Bi-pap 100 11/11/18 22:54 102.9 121 30 88/46 100 Bi-pap 100 11/11/18 22:39 102.9 118 28 88/49 100 Bi-pap 100 11/11/18 22:35 116 30 93 Bi-pap 60 11/11/18 22:20 127 35 97 Bi-pap 60 11/11/18 22:15 133 37 96 Facial 60 11/11/18 22:15 133 37 96 Bi-pap 60 11/11/18 22:09 102.9 116 26 97/47 100 Bi-pap 100 11/11/18 22:09 98.1 132 26 97 Room Air 11/11/18 22:09 132 26 Room Air Intake and Output 11/11/18 11/12/18 19:00 07:00 Intake Total 6436.000 ml Output Total 1 ml Balance 6435.000 ml Intake Oral 0 ml IV Total 6436.000 ml Stool Total 1 ml # Voids 1 # Bowel Movements 1 Laboratory Tests Test 11/11/18 22:28 11/12/18 00:30 11/12/18 04:49 11/12/18 05:40 White Blood Count 15.6 K/UL (4.8-10.8) H 7.3 K/UL (4.8-10.8) # Red Blood Count 5.25 M/UL (4.70-6.10) 4.16 M/UL (4.70-6.10) L Hemoglobin 15.7 G/DL (14.2-18.0) 12.5 G/DL (14.2-18.0) L Hematocrit 47.1 % (42.0-52.0) 37.9 % (42.0-52.0) L Mean Corpuscular Volume 90 FL (80-99) 91 FL (80-99) Mean Corpuscular Hemoglobin 29.9 PG (27.0-31.0) 30.0 PG (27.0-31.0) Mean Corpuscular Hemoglobin Concent 33.3 G/DL (32.0-36.0) 33.0 G/DL (32.0-36.0) Red Cell Distribution Width 15.4 % (11.6-14.8) H 16.3 % (11.6-14.8) H Platelet Count 120 K/UL (150-450) L 93 K/UL (150-450) L Mean Platelet Volume 6.7 FL (6.5-10.1) 6.7 FL (6.5-10.1) Neutrophils (%) (Auto) 86.6 % (45.0-75.0) H % (45.0-75.0) Lymphocytes (%) (Auto) 11.0 % (20.0-45.0) L % (20.0-45.0) Monocytes (%) (Auto) 1.4 % (1.0-10.0) % (1.0-10.0) Eosinophils (%) (Auto) 0.3 % (0.0-3.0) % (0.0-3.0) Basophils (%) (Auto) 0.7 % (0.0-2.0) % (0.0-2.0) Prothrombin Time 12.2 SEC (9.30-11.50) H Prothromb Time International Ratio 1.2 (0.9-1.1) H Activated Partial Thromboplast Time 23 SEC (23-33) Sodium Level 137 MMOL/L (136-145) 143 MMOL/L (136-145) Potassium Level 4.5 MMOL/L (3.5-5.1) 3.9 MMOL/L (3.5-5.1) Chloride Level 104 MMOL/L (98-107) 112 MMOL/L (98-107) H Carbon Dioxide Level 23 MMOL/L (21-32) 21 MMOL/L (21-32) Anion Gap 10 mmol/L (5-15) 10 mmol/L (5-15) Blood Urea Nitrogen 43 mg/dL (7-18) H 46 mg/dL (7-18) H Creatinine 1.2 MG/DL (0.55-1.30) 1.5 MG/DL (0.55-1.30) H Estimat Glomerular Filtration Rate mL/min (>60) mL/min (>60) Glucose Level 110 MG/DL (74-106) H 93 MG/DL (74-106) Lactic Acid Level 3.40 mmol/L (0.4-2.0) H 1.70 mmol/L (0.66-2.22) 2.40 mmol/L (0.4-2.0) H Calcium Level 8.7 MG/DL (8.5-10.1) 7.1 MG/DL (8.5-10.1) L Total Bilirubin 1.2 MG/DL (0.2-1.0) H Direct Bilirubin 0.2 MG/DL (0.0-0.3) Aspartate Amino Transf (AST/SGOT) 38 U/L (15-37) H Alanine Aminotransferase (ALT/SGPT) 67 U/L (12-78) Alkaline Phosphatase 65 U/L (46-116) Total Creatine Kinase 97 U/L (26-308) Creatine Kinase MB 1.8 NG/ML (0.0-3.6) Creatine Kinase MB Relative Index 1.8 Troponin I 0.015 ng/mL (0.000-0.056) Pro-B-Type Natriuretic Peptide 506 pg/mL (0-125) H Total Protein 7.0 G/DL (6.4-8.2) Albumin 3.5 G/DL (3.4-5.0) 2.1 G/DL (3.4-5.0) L Globulin 3.5 g/dL Albumin/Globulin Ratio 1.0 (1.0-2.7) Arterial Blood pH 7.292 (7.350-7.450) Arterial Blood Partial Pressure CO2 37.5 mmHg (35.0-45.0) Arterial Blood Partial Pressure O2 82.2 mmHg (75.0-100.0) Arterial Blood HCO3 17.7 mmol/L (22.0-26.0) *L Arterial Blood Oxygen Saturation 94.9 % (95-100) L Arterial Blood Base Excess -8.1 (-2-2) L Alejandro Test Positive Differential Total Cells Counted 100 Neutrophils % (Manual) 69 % (45-75) Lymphocytes % (Manual) 8 % (20-45) L Monocytes % (Manual) 1 % (1-10) Eosinophils % (Manual) 0 % (0-3) Basophils % (Manual) 0 % (0-2) Band Neutrophils 22 % (0-8) H Platelet Estimate Decreased L Platelet Morphology Normal Anisocytosis 1+ Phosphorus Level 3.4 MG/DL (2.5-4.9) Test 11/12/18 07:15 11/12/18 13:10 Uric Acid 4.3 MG/DL (2.6-7.2) Total Creatine Kinase 68 U/L (26-308) Urine Color Yellow Urine Appearance Clear Urine pH 5 (4.5-8.0) Urine Specific [place] 1.020 (1.005-1.035) Urine Protein 2+ (NEGATIVE) H Urine Glucose (UA) Negative (NEGATIVE) Urine Ketones Negative (NEGATIVE) Urine Blood 2+ (NEGATIVE) H Urine Nitrite Negative (NEGATIVE) Urine Bilirubin Negative (NEGATIVE) Urine Urobilinogen Normal MG/DL (0.0-1.0) Urine Leukocyte Esterase 1+ (NEGATIVE) H Urine RBC 2-4 /HPF (0 - 0) H Urine WBC 0-2 /HPF (0 - 0) Urine Squamous Epithelial Cells Occasional /LPF Urine Bacteria Few /HPF (NONE) Urine Granular Casts 2-4 /LPF (NONE) H Urine Eosinophils None seen (NONE SEEN) Urine Osmolality 782 mOsm/kg (429-449) H Urine Random Creatinine Pending Urine Random Microalbumin Pending Urine Random Sodium 81 mmol/L (20-110) Urine Microalbumin/Creatinine Ratio Pending Height (Feet): 5 Height (Inches): 10.00 Weight (Pounds): 185 Medications Current Medications Medications (Trade) Dose Ordered Sig/Keith Route PRN Reason Start Time Stop Time Status Last Admin Dose Admin Acetaminophen (Tylenol) 650 mg Q4H PRN ORAL Mild Pain/Temp > 100.5 11/12/18 08:08 12/12/18 08:07 Albuterol/ Ipratropium (Albuterol/ Ipratropium) 3 ml Q4H PRN HHN Shortness of Breath 11/12/18 08:08 11/17/18 08:07 Cefepime HCl 1 gm/ Dextrose 55 ml @ 110 mls/hr EVERY 12 HOURS IV 11/12/18 09:00 11/19/18 08:59 11/12/18 10:00 Heparin Sodium (Porcine) (Heparin 5000 units/ml) 5,000 units EVERY 12 HOURS SUBQ 11/12/18 21:00 12/12/18 08:59 Ondansetron HCl (Zofran) 4 mg Q6H PRN IVP Nausea & Vomiting 11/12/18 08:09 12/12/18 08:08 Promethazine HCl/ Codeine (Phenergan with Codeine) 5 ml Q4H PRN ORAL For Cough 11/12/18 08:09 12/12/18 08:08 Temazepam (Restoril) 15 mg HSPRN PRN ORAL Insomnia 11/12/18 08:09 11/19/18 08:08 Vancomycin HCl (Vanco rx to dose) 1 ea DAILY PRN MISC Per rx protocol 11/12/18 09:00 12/12/18 00:00 Vancomycin HCl 750 mg/Sodium Chloride 275 ml @ 183.333 mls/hr Q12H IVPB 11/12/18 14:00 11/17/18 01:59 11/12/18 14:42 Assessment/Plan Assessment/Plan: Abx: IV Vancomycin 11/12- Cefepime 11/11- Levaquin x 1 11/11 Assessment: Sepsis 2ry to PNA -u/a neg -Bcx p -CXR: Pulmonary vascular congestion suspected. Airspace disease in the right mid and upper lung field. Could be superimposed pneumonia or related to the vascular congestion. Correlate clinically Fever, improving Leukocytosis, SP Diarrhea- r/o Cdiff Lactic acidosis; improving VARSHA HTN COPD Plan: -Continue empiric IV Vancomycin #1 and Cefepime #2 and add empiric Azithromycin for atypical coverage -f/u cx -Monitor CBC/CMP, temperatures -Cdiff, sp cx, influenza sc, legionella ag urine -ICU care -aspiration precautions Thank you for this consultation. Will continue to follow along with you. Discussed with Bety Carrasco M.D. November 12, 2018 16:39
--- NOTE | 2018-11-12 17:45 | NUR ---
NURSE NOTES: Dr. Galarza updated on patient condition and transfer to ICU, made aware of patient is unable to have fluids or food due to NPO status, will place orders for fluids.
--- NOTE | 2018-11-12 18:09 | History & Physical ---
History and Physical History & Physicial Dictated for Int Med-Dr Malave no. [id number]. Louis Galarza MD November 12, 2018 18:09
[2018-11-12] MEDS: Azithromycin 500 MG in D5W 275 ML IV SCH (18:30)
--- NOTE | 2018-11-12 19:46 | NUR ---
HAND-OFF: Report given to ANN Vasquez.
--- NOTE | 2018-11-12 19:47 | NUR ---
NURSE NOTES: Endorsement received from ANN Karimi. Patient opens eyes spontaneously, follows commands. [place] Rican speaking, understands a little bit Jordanian. On BiPAP 15/5 80%. With right AC g 20 heplock, left AC g 22. Right AC noted with bleeding and leaking, removed and applied dressing. [place] F 16 connected to urine bag. Head of bed elevated. Bed locked and in low position. Call light within reach. Reminded patient to use call light for assistance. Bed alarm on.
[2018-11-12] MEDS: D5 1/2NS w/KCl 20mEq 1,000 ML IV SCH (19:54)
--- NOTE | 2018-11-12 20:00 | NUR ---
NURSE NOTES: Inserted g20 IV at left hand.
[2018-11-12] MEDS: Heparin 5000 units/ml inj SUBQ SCH (21:00)
--- NOTE | 2018-11-12 21:00 | NUR ---
NURSE NOTES: Heparin SQ not given due to low platelet count
--- NOTE | 2018-11-12 21:30 | NUR ---
NURSE NOTES: Son at bedside with list of medications the patient was taking at home. Home medications updated. Son translated to the patient regarding how to use call light
[2018-11-12] MEDS ORDERED: GABAPENTIN300 MG ORAL (21:45)
[2018-11-12] MEDS ORDERED: DUTASTERIDE0.5 MG PO (21:46)
[2018-11-12] MEDS ORDERED: FOLPLEX 2.2 TA1 EACH PO (21:56)
[2018-11-12] MEDS ORDERED: PREDNISONE10 M2 PO (21:56)
[2018-11-12] MEDS ORDERED: LORATADINE10 M2 PO (21:56)
[2018-11-12] MEDS ORDERED: INCRUSE ELLI62.5 MCG IH (21:56)
[2018-11-12] MEDS ORDERED: EDARBI40 MG ORAL (21:56)
[2018-11-12] MEDS ORDERED: PATANOL1 DROP (22:01)
[2018-11-12] MEDS ORDERED: AZELASTINE137 MCG/0. NS (22:01)
[2018-11-12] MEDS ORDERED: VITAMIN D400 INTLU ORAL (22:08)
[2018-11-12] MEDS ORDERED: MONTELUKAST SOD10 MG ORAL (22:08)
[2018-11-12] MEDS ORDERED: UROXATRAL10 MG ORAL (22:08)
[2018-11-12] MEDS ORDERED: RESTASIS1 EACH BOTH EYES (22:08)
--- NOTE | 2018-11-12 22:15 | History and Physical Report ---
DATE OF ADMISSION: 11/11/2018 CHIEF COMPLAINT: The patient is an 87-year-old [place] male, who presents with a chief complaint of nausea, vomiting, diarrhea, and shortness of breath. HISTORY OF PRESENT ILLNESS: It began two days prior to admission. The patient began to experience nausea and vomiting. The patient then had profuse diarrhea. The patient then began to experience cough and shortness of breath. The patient was evaluated at [facility] emergency room. The patient was admitted. The patient was found to be in respiratory distress. The patient was admitted for respiratory distress to rule out aspiration pneumonia. REVIEW OF SYSTEMS: Unable to assess secondary to the patient's mental status. PAST MEDICAL HISTORY: Significant for, 1. Hypertension. 2. Chronic obstructive pulmonary disease. PAST SURGICAL HISTORY: Significant for hip replacement. CURRENT MEDICATIONS: 1. Bystolic 5 mg one tablet p.o. daily. 2. Prednisone 2.5 mg p.o. daily. 3. Crestor 20 mg p.o. daily. ALLERGIES: No known drug allergies. SOCIAL HISTORY: The patient is and lives with his . The patient denies tobacco use having quit 20 years previously. The patient admits to rare alcohol use. PHYSICAL EXAMINATION: VITAL SIGNS: Temperature 99.6, respirations 24, blood pressure 84/52, pulse 95 to 100, and oxygen saturation 93% on BiPAP. GENERAL: The patient is well-developed and well-nourished white male, in respiratory distress. HEENT: Eyes, pupils are equal and responsive to light and accommodation. Extraocular movements are intact. NECK: Supple without lymphadenopathy. CHEST: Decreased breath sounds in bilateral bases with crackles on the left. Otherwise, without wheezes. ABDOMEN: Soft, nontender, and nondistended. Positive bowel sounds. No evidence of hepatosplenomegaly. Currently, no rebound or guarding noted. EXTREMITIES: Negative for clubbing, cyanosis, or edema. RECTAL/GENITAL: Refused. NEUROLOGIC: Cranial nerves II through XII are grossly intact without focal deficits. Motor strength is 5/5 bilaterally. Deep tendon reflexes are 2+ plantar. LABORATORY STUDIES: WBC 15.6, hemoglobin 15.7, hematocrit 47.7, and platelets 120,000. Sodium 143, potassium 3.9, chloride 112, CO2 21, BUN 46, creatinine 1.5, and glucose 93. Lactic acid 3.40. A chest x-ray was reported as pulmonary vascular congestion with airspace disease in the right mid to right upper lung field. ASSESSMENT: This is an 87-year-old white male. 1. Pneumonia. 2. Respiratory failure. 3. Diarrhea. 4. Nausea with vomiting. 5. Fever. 6. Hypertension. 7. Hypercholesterolemia. TREATMENT: 1. Pneumonia/respiratory failure. A Pulmonary consultation has been obtained with Dr. Joan Nugent. The patient is currently on BiPAP in the intensive care unit. We will follow recommendations of Pulmonary. The patient has been started empirically on intravenous vancomycin, cefepime, and azithromycin. 2. Diarrhea/nausea/vomiting. A Gastroenterology consultation has been obtained with Dr. Nito Joseph. 3. Fever. This probably is secondary to pneumonia as above. 4. Hypertension. The patient is currently hypotensive. 5. Hypercholesterolemia. Continue Crestor as above. Louis Galarza M.D. DR: OMAR JOB#: [id number] CC:
--- NOTE | 2018-11-12 23:00 | NUR ---
NURSE NOTES: Patient asleep. Afebrile. No shortness of breath. Vital signs stable.
--- NOTE | 2018-11-12 23:55 | NUR ---
NURSE NOTES: Urine sample sent for Legionella antigen urine
[2018-11-13] VITALS (24 sets, daily range): BP systolic 82–119; BP diastolic 26–86
[2018-11-13] MEDS: Vancomycin 750 MG in NS 275 ML IVPB SCH (01:35)
--- NOTE | 2018-11-13 02:00 | NUR ---
NURSE NOTES: Patient asleep at this time. Bed locked and in low position. Bed alarm on. No episode of diarrhea or bowel movement.
--- NOTE | 2018-11-13 03:45 | NUR ---
NURSE NOTES: Patient's rhythm afib with RVR, rate between 120s-140s. 12L EKG done. Called Dr. Malave on his emergency line. Left a message, awaiting for return call.
--- NOTE | 2018-11-13 04:05 | NUR ---
NURSE NOTES: Still no return call from Dr. Malave. Called Dr. Malave again, as per him no new order at this time.
--- NOTE | 2018-11-13 04:25 | NUR ---
NURSE NOTES: Patient still Afib with RVR. Called Dr. Nugent, left a message. Awaiting for return call.
[2018-11-13 05:16] LABS: HEMATOCRIT 36.1 % (42.0-52.0); MEAN CORPUSCULAR VOLUME 90 FL (80-99); PLATELET COUNT 71 K/UL (150-450); RED BLOOD COUNT 3.99 M/UL (4.70-6.10); RED CELL DISTRIBUTION WIDTH 16.2 % (11.6-14.8); WHITE BLOOD COUNT 11.8 K/UL (4.8-10.8)
--- NOTE | 2018-11-13 05:30 | NUR ---
NURSE NOTES: Patient converted back to sinus rhythm. Rhythm strip attached to chart
[2018-11-13 05:53] LABS: ALANINE AMINOTRANSFERASE 38 U/L (12-78); ALBUMIN/GLOBULIN RATIO 0.7 (1.0-2.7); ALKALINE PHOSPHATASE 39 U/L (46-116); ANION GAP 10 mmol/L (5-15); ASPARTATE AMINO TRANSFERASE 20 U/L (15-37); BLOOD UREA NITROGEN 42 mg/dL (7-18); CALCIUM 7.7 MG/DL (8.5-10.1); CARBON DIOXIDE 19 MMOL/L (21-32); CHLORIDE 110 MMOL/L (98-107); CREATININE 1.2 MG/DL (0.55-1.30); PHOSPHORUS 3.8 MG/DL (2.5-4.9); POTASSIUM 4.2 MMOL/L (3.5-5.1); SODIUM 139 MMOL/L (136-145)
--- NOTE | 2018-11-13 06:39 | NUR ---
NURSE NOTES: Received a telephone order from Dr. Nugent to give Digoxin 0.5mg IV times one. Informed him that patient converted back to sinus rhythm at 5:30AM and if he still wants it to be given. Awaiting for return call.
--- NOTE | 2018-11-13 07:18 | NUR ---
NURSE NOTES: Received a verification of a telephone order from Dr. Nugent to cancel his previous Digoxin IVP x1 order as patient has converted back to sinus.
--- NOTE | 2018-11-13 07:35 | NUR ---
HAND-OFF: Report given to ANN Cardoso per SBAR.
[2018-11-13] MEDS: D5 1/2NS w/KCl 20mEq 1,000 ML IV SCH ×2 (08:20→12:41)
--- NOTE | 2018-11-13 08:30 | NUR ---
AWAKE/ALERT FOLLOWS SIMPLE COMANDS CON ON BIPAP/ENCOURAGED TO TAKE DEEP BREATH, COUGH WILL NEED REINFORCED HOB UP
--- NOTE | 2018-11-13 08:42 | NUR ---
RADIOLOGY DEPT., CHEST X-RAY DONE.-P.DYE
[2018-11-13] MEDS: Heparin 5000 units/ml inj SUBQ SCH ×2 (09:00→21:00)
[2018-11-13] MEDS: Cefepime HCl 1 GM in D5W 55 ML IV SCH ×2 (09:18→21:05)
--- NOTE | 2018-11-13 10:09 | GI Initial Consult Note ---
History of Present Illness General Date patient seen: November 13, 2018 Time patient seen: 10:01 Reason for Hospitalization: Dyspnea/Respdistress Referring physician: MARTINA KOEHLER Reason for Consultation: DIARRHEA Present Illness HPI This is an 87-year-old elderly Jordanian-speaking male presents with chief complaint of respiratory distress. Per EMS, family said he has a history of high blood pressure and COPD. Unknown medication. He presents with chief complaint of shortness of breath started today. Also with nausea vomiting and diarrhea. On route rest or distress worse and so he was put on CPAP. History is limited in this patient because of his condition. Unknown fever. Patient has a cough here. Per , he had shaking chills at home. GI consulted for reported nausea vomiting, diarrhea. Patient seen, awake alert and oriented currently on BiPAP. ROS limited, patient unable to provide any history at this time. No reports of melena or hematochezia, no reports of coffee-ground or not emesis. No active nausea or vomiting at this time. Labs reviewed; no leukocytosis, hemoglobin of 12, no transaminitis, hypomagnesemia. Unknown history of endoscopic or colonoscopy at this time. Home Meds Reported Medications Vitamin D (Vitamin D3) 400 Unit Tablet, 2000 UNITS ORAL DAILY, TAB 11/12/18 Cyclosporine (RESTASIS) 1 Each Droperette, 1 DROP BOTH EYES, #1 EA 0 Refills 11/12/18 Montelukast Sodium* (MONTELUKAST SODIUM*) 10 Mg Tablet, 10 MG ORAL, TAB 11/12/18 Alfuzosin 10Mg (Uroxatral) 10 Mg Tab.er.24h, 10 MG ORAL DAILY, #10 TAB 11/12/18 Azelastine Hcl (AZELASTINE HCL) 137 Mcg/0.137 Ml [place].pump, NS 11/12/18 Olopatadine (Patanol) 5 Ml Drops, 1 DROP, ML 11/12/18 Prednisone (PREDNISONE) 10 Mg Tab.ds.pk, 10 MG PO DAILY, PACK 2 tabs 11/12/18 Azilsartan Medoxomil (EDARBI) 40 Mg Tablet, 40 MG ORAL DAILY, TAB 11/12/18 Loratadine (LORATADINE) 10 Mg Tablet, MG PO, TAB unknown dose 11/12/18 Cyanocobalamin/Fa/Pyridoxine (FOLPLEX 2.2 TABLET) 1 Each Tablet, 1 EACH PO, TAB 11/12/18 Umeclidinium [place] (Incruse Ellipta) 62.5 Mcg Blst.w.dev, 62.5 MCG IH 11/12/18 Dutasteride (Dutasteride) 0.5 Mg Capsule, 0.5 MG PO DAILY, CAP 11/12/18 Gabapentin* (GABAPENTIN*) 300 Mg Capsule, 300 MG ORAL, CAP 0 Refills 11/12/18 Rosuvastatin Calcium* (CRESTOR*) 20 Mg Tablet, 20 MG ORAL DAILY, TAB 11/11/18 Nebivolol Hcl* (BYSTOLIC*) 2.5 Mg Tablet, 5 MG ORAL DAILY, TAB 11/11/18 Med list reviewed/reconciled: Yes Allergies: Coded Allergies: No Known Allergies (Unverified , 12/10/11) Patient History Limited by: medical condition History Provided By: Medical Record PMH Narrative Past Medical History: see triage record, old chart reviewed, HTN, COPD Past Surgical History: other Pertinent Family History: none Social History: Denies: smoking Immunizations: other Reviewed Nursing Documentation: PMH: Agreed; PSxH: Agreed Nursing Documentation-PMH Hx Cardiac Problems: Yes - COPD Hx Hypertension: Yes PAST MEDICAL HISTORY: Significant for, 1. Hypertension. 2. Chronic obstructive pulmonary disease. PAST SURGICAL HISTORY: Significant for hip replacement. Review of Systems All Other Systems: limited Physical Exam Vital Signs Date Time Temp Pulse Resp B/P (MAP) Pulse Ox O2 Delivery O2 Flow Rate FiO2 11/11/18 22:09 132 26 Room Air 11/11/18 22:09 98.1 97 11/11/18 22:09 97/47 100 Sp02 EP Interpretation: reviewed, normal Labs Laboratory Tests Test 11/12/18 13:10 11/12/18 18:30 11/12/18 23:50 11/13/18 04:30 Urine Color Yellow Urine Appearance Clear Urine pH 5 (4.5-8.0) Urine Specific [place] 1.020 (1.005-1.035) Urine Protein 2+ (NEGATIVE) H Urine Glucose (UA) Negative (NEGATIVE) Urine Ketones Negative (NEGATIVE) Urine Blood 2+ (NEGATIVE) H Urine Nitrite Negative (NEGATIVE) Urine Bilirubin Negative (NEGATIVE) Urine Urobilinogen Normal MG/DL (0.0-1.0) Urine Leukocyte Esterase 1+ (NEGATIVE) H Urine RBC 2-4 /HPF (0 - 0) H Urine WBC 0-2 /HPF (0 - 0) Urine Squamous Epithelial Cells Occasional /LPF Urine Bacteria Few /HPF (NONE) Urine Granular Casts 2-4 /LPF (NONE) H Urine Eosinophils None seen (NONE SEEN) Urine Osmolality 782 mOsm/kg (429-449) H Urine Random Creatinine Pending Urine Random Microalbumin Pending Urine Random Sodium 81 mmol/L (20-110) Urine Microalbumin/Creatinine Ratio Pending Lactic Acid Level 2.00 mmol/L (0.4-2.0) 1.60 mmol/L (0.4-2.0) Urine Legionella Antigen Pending White Blood Count 11.8 K/UL (4.8-10.8) #H Red Blood Count 3.99 M/UL (4.70-6.10) L Hemoglobin 12.0 G/DL (14.2-18.0) L Hematocrit 36.1 % (42.0-52.0) L Mean Corpuscular Volume 90 FL (80-99) Mean Corpuscular Hemoglobin 30.0 PG (27.0-31.0) Mean Corpuscular Hemoglobin Concent 33.2 G/DL (32.0-36.0) Red Cell Distribution Width 16.2 % (11.6-14.8) H Platelet Count 71 K/UL (150-450) L Mean Platelet Volume 8.3 FL (6.5-10.1) Neutrophils (%) (Auto) % (45.0-75.0) Lymphocytes (%) (Auto) % (20.0-45.0) Monocytes (%) (Auto) % (1.0-10.0) Eosinophils (%) (Auto) % (0.0-3.0) Basophils (%) (Auto) % (0.0-2.0) Differential Total Cells Counted 100 Neutrophils % (Manual) 79 % (45-75) H Lymphocytes % (Manual) 3 % (20-45) L Monocytes % (Manual) 2 % (1-10) Eosinophils % (Manual) 0 % (0-3) Basophils % (Manual) 0 % (0-2) Band Neutrophils 16 % (0-8) H Platelet Estimate Decreased L Platelet Morphology Normal Anisocytosis 1+ Sodium Level 139 MMOL/L (136-145) Potassium Level 4.2 MMOL/L (3.5-5.1) Chloride Level 110 MMOL/L (98-107) H Carbon Dioxide Level 19 MMOL/L (21-32) L Anion Gap 10 mmol/L (5-15) Blood Urea Nitrogen 42 mg/dL (7-18) H Creatinine 1.2 MG/DL (0.55-1.30) Estimat Glomerular Filtration Rate mL/min (>60) Glucose Level 99 MG/DL (74-106) Calcium Level 7.7 MG/DL (8.5-10.1) L Phosphorus Level 3.8 MG/DL (2.5-4.9) Magnesium Level 1.4 MG/DL (1.8-2.4) L Total Bilirubin 1.0 MG/DL (0.2-1.0) Aspartate Amino Transf (AST/SGOT) 20 U/L (15-37) Alanine Aminotransferase (ALT/SGPT) 38 U/L (12-78) Alkaline Phosphatase 39 U/L (46-116) L Total Protein 4.8 G/DL (6.4-8.2) #L Albumin 2.0 G/DL (3.4-5.0) L Globulin 2.8 g/dL Albumin/Globulin Ratio 0.7 (1.0-2.7) L Test 11/13/18 06:29 Arterial Blood pH 7.299 (7.350-7.450) Arterial Blood Partial Pressure CO2 39.0 mmHg (35.0-45.0) Arterial Blood Partial Pressure O2 142.9 mmHg (75.0-100.0) H Arterial Blood HCO3 18.7 mmol/L (22.0-26.0) L Arterial Blood Oxygen Saturation 98.1 % (95-100) Arterial Blood Base Excess -7.2 (-2-2) L Alejandro Test Positive General Appearance: other - on bipap Head: normocephalic EENT: PERRL/EOMI, normal ENT inspection Neck: supple Respiratory: normal breath sounds, no respiratory distress Cardiovascular: normal rate Gastrointestinal: normal inspection, non tender, soft, normal bowel sounds, distended Rectal: deferred Genitourinary: deferred Neurologic: alert, responsive Skin: normal inspection, normal color, no rash, warm/dry, palpation normal, well hydrated Lymphatic: normal inspection, no adenopathy Current Medications Current Medications Medications (Trade) Dose Ordered Sig/Keith Route PRN Reason Start Time Stop Time Status Last Admin Dose Admin Acetaminophen (Tylenol) 650 mg Q4H PRN ORAL Mild Pain/Temp > 100.5 11/12/18 08:08 12/12/18 08:07 11/12/18 16:39 Albuterol/ Ipratropium (Albuterol/ Ipratropium) 3 ml Q4H PRN HHN Shortness of Breath 11/12/18 08:08 11/17/18 08:07 Azithromycin 500 mg/Dextrose 275 ml @ 275 mls/hr Q24HRS IV 11/12/18 18:00 11/18/18 18:59 11/12/18 18:30 Cefepime HCl 1 gm/ Dextrose 55 ml @ 110 mls/hr EVERY 12 HOURS IV 11/12/18 09:00 11/19/18 08:59 11/13/18 09:18 Dextrose/ Electrolytes 1,000 ml @ 75 mls/hr [id number] IV 11/12/18 19:00 12/12/18 18:59 11/12/18 19:54 Heparin Sodium (Porcine) (Heparin 5000 units/ml) 5,000 units EVERY 12 HOURS SUBQ 11/12/18 21:00 12/12/18 08:59 Magnesium Sulfate 100 ml @ 100 mls/hr Q1H IVPB 11/13/18 09:15 11/13/18 11:14 Ondansetron HCl (Zofran) 4 mg Q6H PRN IVP Nausea & Vomiting 11/12/18 08:09 12/12/18 08:08 Promethazine HCl/ Codeine (Phenergan with Codeine) 5 ml Q4H PRN ORAL For Cough 11/12/18 08:09 12/12/18 08:08 Temazepam (Restoril) 15 mg HSPRN PRN ORAL Insomnia 11/12/18 08:09 11/19/18 08:08 Vancomycin HCl (Vanco rx to dose) 1 ea DAILY PRN MISC Per rx protocol 11/12/18 09:00 12/12/18 00:00 Vancomycin HCl 750 mg/Sodium Chloride 275 ml @ 183.333 mls/hr Q12H IVPB 11/12/18 14:00 11/17/18 01:59 11/13/18 01:35 GI: Plan Problems: (1) Diarrhea (2) Nausea & vomiting (3) Dehydration (4) Electrolyte imbalance Plan Defer any GI procedures at this time, respiratory status not stable Sent for C. difficile, stool studies >> will consider Imodium prn pending work up Zofran as needed, Reglan for persistent vomiting IV hydration plus electrolyte correction anemia work up OB stool r/o GI bleed monitor H&H, prn transfusions bowel regime ppi abx per ID fu labs Discussed with Dr. Joseph. Thank you for this patient referral, we will follow. The patient was seen and examined at bedside and all new and available data was reviewed in the patients chart. I agree with the above findings, impression and plan. (Patient seen earlier today. Signature stamp does not reflect patient encounter time.). - MD Krystal Heller AnhSpencerMahamed ZARA November 13, 2018 10:09
--- NOTE | 2018-11-13 11:02 | NUR ---
RD ASSESSMENT & RECOMMENDATIONS SEE CARE ACTIVITY FOR COMPLETE ASSESSMENT DAILY ESTIMATED NEEDS: Needs based on Pulmonary, wound 77.8kg adj 25-30 kcals/kg 2803-8012 total kcals 1.25-1.5 g protein/kg 97-117 g total protein 20-25 mL/kg 7611-7797 total fluid mLs NUTRITION DIAGNOSIS: 1) Increased protein needs r/t wound healing as evidenced by pt w/ unstageable buttock wound. 2) Swallowing difficulty r/t respiratory status as evidenced by pt on Bipap, NPO at this time CURRENT DIET:NPO PO DIET RECOMMENDATIONS: LOW NA (texture per [employer]ORER) ENTERAL NUTRITION RECOMMENDATIONS: CONSULT RD NEEDED ----- ADDITIONAL RECOMMENDATIONS: 1) Recalibrate bed scale wt as able for accurate CBW 2) Wound care/ w/ diet order: Add LAI BID + MVI x1 + Vit C 250mg daily 3) [employer] eval for texture and appropriateness for oral diet 4) Monitor NPO status, now day 2
--- NOTE | 2018-11-13 11:06 | NUR ---
ST SWALLOW EVAL PENDING FOR NOW DUE TO PT, STILL ON BIPAP /FIO2 100% DOWN TO 80% WILL CONT, ITTRATE/ FOLLOW
--- NOTE | 2018-11-13 11:31 | Diagnostic Imaging Report ---
Indication: Dyspnea Comparison: 11/11/2018 A single view chest radiograph was obtained. Findings: Pulmonary vascular congestion again noted. There is a confluent density at the right lung base which could be atelectasis or possibly a pleural effusion. The heart is enlarged. IMPRESSION: Suspected CHF/interstitial edema. Right pleural effusion not excluded
[2018-11-13] MEDS ORDERED: Levalbuterol Inh UD 1.25mg/0.5ml HHN PRN (12:00)
[2018-11-13] MEDS ORDERED: Ipratropium 0.02% Inh Soln 2.5ml UD HHN PRN (12:00)
--- NOTE | 2018-11-13 12:05 | Pulmonolgy Critical Care Note ---
Critical Care - Asmt/Plan Problems: (1) Respiratory failure with hypoxia (2) COPD exacerbation (3) Pneumonia (4) Thrombocytopenia (5) UTI (urinary tract infection) (6) Electrolyte imbalance (7) Nausea & vomiting (8) Dehydration (9) Paroxysmal atrial fibrillation Assessment/Plan: COPD with acute exacerbation Acute hypoxemic and hypercapnic respiratory failure CAP UTI Chronic thrombocytopenia Anemia H/O OP dysphagia NVD - RESOLVED VARSHA - RESOLVED pAF ---> NSR Protein calorie malnutrition Respiratory: other - Inc BiPAP to 18/5, titrate down FiO2 to keep SaO2 > 90%, attempt to wean off as able, D/C DUOnebs, start Atrovent and Levalbuterol HHN's RTC and PRN, start SM 40 IV qDaily (D1) - transition to PO Pred when off BiPAP Cardiac: continue to monitor HR/BP, other - Monitor volumes, TTE noted, no LV failure but elevated filling pressures, decrese IVF Renal: decrease IV fluid - to 30 cc/hr , check electrolytes Infectious Disease: continue antibiotics - Vanco/Mary Jane/Azithro (D2) per ID, F/U Cx's Gastrointestinal: other - NPO, once off BiPAP and respiratory status stable will need an DERMATOLOGIST eval Endocrine: monitor blood sugar Hematologic: monitor H/H - and platelets, other - No further w/u of thrombocytopenia, extensive w/u by Dr. 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 Neurologic: keep patient comfortable - monitor MS Prophylaxis: Protonix, Heparin Disposition: keep in ICU Time Spent (Minutes): 40 Notes Reviewed: solar crew member, ID, other - CS LINK RECORDS REVIEWED Discussed with: nurses, consultants, family member, other - DNAR/DNI, BiPAP OK Critical Care - Objective Last 24 Hour Vital Signs Date Time Temp Pulse Resp B/P (MAP) Pulse Ox O2 Delivery O2 Flow Rate FiO2 11/13/18 11:00 109 25 99/55 (70) 100 11/13/18 10:44 110 24 100 Full Face 80 11/13/18 10:00 98 20 110/86 (94) 100 11/13/18 09:02 103 22 100 Full Face 80 11/13/18 09:00 106 18 100/67 (78) 99 11/13/18 08:00 80 11/13/18 08:00 98.6 117 22 93/51 (65) 99 11/13/18 08:00 112 11/13/18 08:00 Bi-pap 11/13/18 07:00 92 18 100/49 (66) 100 11/13/18 06:50 99 22 94 Full Face 100 11/13/18 06:00 92 20 106/50 (68) 95 11/13/18 05:03 115 22 97 Full Face 80 11/13/18 05:00 92 20 94/61 (72) 100 11/13/18 04:00 123 11/13/18 04:00 80 11/13/18 04:00 Bi-pap 11/13/18 04:00 98.8 122 27 101/69 (80) 99 11/13/18 03:00 127 23 102/42 (62) 98 11/13/18 02:57 109 26 98 Full Face 60 11/13/18 02:00 89 22 100/45 (63) 98 11/13/18 01:00 104 27 119/58 (78) 99 11/13/18 00:46 93 27 97 Full Face 70 11/13/18 00:00 86 11/13/18 00:00 Bi-pap 11/13/18 00:00 98.7 87 22 95/53 (67) 95 85 11/13/18 00:00 70 11/12/18 23:00 70 11/12/18 23:00 87 24 103/44 (63) 100 87 11/12/18 22:44 97 26 99 Full Face 70 11/12/18 22:00 87 24 113/50 (71) 99 87 11/12/18 21:00 88 26 104/45 (64) 99 88 11/12/18 20:49 90 25 98 Full Face 80 11/12/18 20:00 92 11/12/18 20:00 80 11/12/18 20:00 97.5 88 23 96/49 (65) 98 88 11/12/18 20:00 Bi-pap 11/12/18 19:02 93 29 96 Facial 80 11/12/18 19:00 93 26 108/44 (65) 98 11/12/18 18:24 99.5 11/12/18 18:00 99.5 94 27 109/55 (73) 98 11/12/18 17:00 102.0 99 95/74 (81) 98 11/12/18 16:50 103 32 95 Facial 80 11/12/18 16:00 Bi-pap 11/12/18 16:00 80 11/12/18 16:00 103 27 120/62 (81) 96 11/12/18 16:00 101 11/12/18 15:00 99 23 119/63 (81) 98 11/12/18 14:51 100 34 98 Facial 80 11/12/18 14:00 98 31 122/56 (78) 98 11/12/18 13:00 101 31 100 Facial 80 11/12/18 13:00 99 27 109/60 (76) 100 11/12/18 12:00 99.1 97 27 121/50 (73) 98 11/12/18 12:00 96 11/12/18 12:00 100 11/12/18 12:00 Bi-pap Status: awake - on BiPAP Condition: improving HEENT: atraumatic, normocephalic Lungs: rhonchi Heart: HR/BP stable Abdomen: soft, non-tender, active bowel sounds Extremities: no C/C/E Micro: Microbiology Date/Time Source Procedure Growth Status 11/11/18 22:35 Blood Blood Culture - Preliminary NO GROWTH AFTER 24 HOURS Resulted 11/11/18 22:28 Blood Blood Culture - Preliminary NO GROWTH AFTER 24 HOURS Resulted 11/12/18 19:00 Nasopharynx - Final Complete 11/12/18 19:00 Nasopharynx - Final Complete Blood Sugars: BS controlled Critical Care - Subjective ROS Limited/Unobtainable: Yes ICU Day: 2 Intubation Day: D2 BiPAP 05/10 --> 7.28/39/142/18/98 Interval Events: AFcRVR ON now back in NSR BiPAP 05/10, FiO2 80 More alert no cough + SOB no further NVD + BM ON Per family had an episode of blood tinged sputum @ home, no hemoptysis here Patient followed by my partner Dr. Kim as an outpatient, family requested that we resume PCCM care - D/W Dr. Nugent who transferred care to us Condition: improving IV Access: peripheral EKG Rhythm: Sinus Rhythm FI02: 80 Vent Support Mode: BiLevel Sputum Amount: None Fluids: [id number]@75 Drips: None I&O: Intake and Output 11/12/18 11/13/18 19:00 07:00 Intake Total 65 ml 875 ml Output Total 780 ml 510 ml Balance -715 ml 365 ml IV Total 55 ml 875 ml Other 10 ml Output Urine Total 780 ml 510 ml # Bowel Movements 2 Subjective: Feels better no cough less SOB wants BiPAP off no wheezing no hemoptysis CXR: PVC scattered b infiltrates Labs: Laboratory Tests Test 11/12/18 13:10 11/12/18 18:30 11/12/18 23:50 11/13/18 04:30 Urine Color Yellow Urine Appearance Clear Urine pH 5 (4.5-8.0) Urine Specific [place] 1.020 (1.005-1.035) Urine Protein 2+ (NEGATIVE) H Urine Glucose (UA) Negative (NEGATIVE) Urine Ketones Negative (NEGATIVE) Urine Blood 2+ (NEGATIVE) H Urine Nitrite Negative (NEGATIVE) Urine Bilirubin Negative (NEGATIVE) Urine Urobilinogen Normal MG/DL (0.0-1.0) Urine Leukocyte Esterase 1+ (NEGATIVE) H Urine RBC 2-4 /HPF (0 - 0) H Urine WBC 0-2 /HPF (0 - 0) Urine Squamous Epithelial Cells Occasional /LPF Urine Bacteria Few /HPF (NONE) Urine Granular Casts 2-4 /LPF (NONE) H Urine Eosinophils None seen (NONE SEEN) Urine Osmolality 782 mOsm/kg (429-449) H Urine Random Creatinine Pending Urine Random Microalbumin Pending Urine Random Sodium 81 mmol/L (20-110) Urine Microalbumin/Creatinine Ratio Pending Lactic Acid Level 2.00 mmol/L (0.4-2.0) 1.60 mmol/L (0.4-2.0) Urine Legionella Antigen Pending White Blood Count 11.8 K/UL (4.8-10.8) #H Red Blood Count 3.99 M/UL (4.70-6.10) L Hemoglobin 12.0 G/DL (14.2-18.0) L Hematocrit 36.1 % (42.0-52.0) L Mean Corpuscular Volume 90 FL (80-99) Mean Corpuscular Hemoglobin 30.0 PG (27.0-31.0) Mean Corpuscular Hemoglobin Concent 33.2 G/DL (32.0-36.0) Red Cell Distribution Width 16.2 % (11.6-14.8) H Platelet Count 71 K/UL (150-450) L Mean Platelet Volume 8.3 FL (6.5-10.1) Neutrophils (%) (Auto) % (45.0-75.0) Lymphocytes (%) (Auto) % (20.0-45.0) Monocytes (%) (Auto) % (1.0-10.0) Eosinophils (%) (Auto) % (0.0-3.0) Basophils (%) (Auto) % (0.0-2.0) Differential Total Cells Counted 100 Neutrophils % (Manual) 79 % (45-75) H Lymphocytes % (Manual) 3 % (20-45) L Monocytes % (Manual) 2 % (1-10) Eosinophils % (Manual) 0 % (0-3) Basophils % (Manual) 0 % (0-2) Band Neutrophils 16 % (0-8) H Platelet Estimate Decreased L Platelet Morphology Normal Anisocytosis 1+ Sodium Level 139 MMOL/L (136-145) Potassium Level 4.2 MMOL/L (3.5-5.1) Chloride Level 110 MMOL/L (98-107) H Carbon Dioxide Level 19 MMOL/L (21-32) L Anion Gap 10 mmol/L (5-15) Blood Urea Nitrogen 42 mg/dL (7-18) H Creatinine 1.2 MG/DL (0.55-1.30) Estimat Glomerular Filtration Rate mL/min (>60) Glucose Level 99 MG/DL (74-106) Calcium Level 7.7 MG/DL (8.5-10.1) L Phosphorus Level 3.8 MG/DL (2.5-4.9) Magnesium Level 1.4 MG/DL (1.8-2.4) L Total Bilirubin 1.0 MG/DL (0.2-1.0) Aspartate Amino Transf (AST/SGOT) 20 U/L (15-37) Alanine Aminotransferase (ALT/SGPT) 38 U/L (12-78) Alkaline Phosphatase 39 U/L (46-116) L Total Protein 4.8 G/DL (6.4-8.2) #L Albumin 2.0 G/DL (3.4-5.0) L Globulin 2.8 g/dL Albumin/Globulin Ratio 0.7 (1.0-2.7) L Test 11/13/18 06:29 Arterial Blood pH 7.299 (7.350-7.450) Arterial Blood Partial Pressure CO2 39.0 mmHg (35.0-45.0) Arterial Blood Partial Pressure O2 142.9 mmHg (75.0-100.0) H Arterial Blood HCO3 18.7 mmol/L (22.0-26.0) L Arterial Blood Oxygen Saturation 98.1 % (95-100) Arterial Blood Base Excess -7.2 (-2-2) L Alejandro Test Positive Ashish Solis MD November 13, 2018 12:05
--- NOTE | 2018-11-13 12:15 | NUR ---
NURSE NOTES: Endorsement received from ANN Jackson. Patient opens eyes spontaneously, follows commands, very agitated with . Czech speaking, understands a little bit [place]. On BiPAP 15/5 80%. pt congested, rhonchi heard through out. MD here to change bipap order. W/ Lt HAND g20 heplock, left AC g22, bleeding and leaking, removed and applied dressing. abdomen round, hypoactive bowel sounds. no BM this shift. Chavez draining light cl urine, connected to urine bag. bilateral pedal pulses strong. Head of bed elevated. Bed locked and in low position. Call light within reach. Reminded patient to use call light for assistance. Bed alarm on.
[2018-11-13] MEDS: Levalbuterol Inh UD 1.25mg/0.5ml HHN SCH ×2 (13:00→19:23)
[2018-11-13] MEDS: Ipratropium 0.02% Inh Soln 2.5ml UD HHN SCH ×2 (13:00→19:23)
--- NOTE | 2018-11-13 15:04 | Infectious Diseases Prog Note ---
Assessment/Plan Assessment/Plan Abx: IV Vancomycin 11/12- Cefepime 11/11- Levaquin x 1 11/11 Assessment: Sepsis 2ry to PNA -11/13 CXR: Suspected CHF/interstitial edema. Right pleural effusion not excluded -u/a neg -Bcx NTD -CXR: Pulmonary vascular congestion suspected. Airspace disease in the right mid and upper lung field. Could be superimposed pneumonia or related to the vascular congestion. Correlate clinically -influenza sc neg Fever, improving Leukocytosis, recurrent mild (on high dose steroids) Diarrhea- r/o Cdiff Lactic acidosis; SP VARSHA HTN COPD Plan: -Continue empiric IV Vancomycin #2 and Cefepime #3 and add empiric Azithromycin #2 for atypical coverage -f/u cx -Monitor CBC/CMP, temperatures -f/u Cdiff, sp cx, influenza sc, legionella ag urine -ICU care -aspiration precautions Thank you for this consultation. Will continue to follow along with you. Discussed with RN. Subjective Allergies: Coded Allergies: No Known Allergies (Unverified , 12/10/11) Subjective Tm 102; afebrile>12hr Bcx NTD recurrent mild leukocytosis Objective Vital Signs Last 24 Hour Vital Signs Date Time Temp Pulse Resp B/P (MAP) Pulse Ox O2 Delivery O2 Flow Rate FiO2 11/13/18 14:00 115 20 94/61 (72) 99 11/13/18 13:12 102 22 100 Facial 60 11/13/18 13:01 104 18 103/66 (78) 99 11/13/18 13:00 70 11/13/18 13:00 70 11/13/18 12:00 118 11/13/18 12:00 Bi-pap 11/13/18 12:00 98.8 112 23 104/67 (79) 100 11/13/18 11:00 109 25 99/55 (70) 100 11/13/18 10:44 110 24 100 Full Face 80 11/13/18 10:00 98 20 110/86 (94) 100 11/13/18 09:02 103 22 100 Full Face 80 11/13/18 09:00 106 18 100/67 (78) 99 11/13/18 08:00 80 11/13/18 08:00 98.6 117 22 93/51 (65) 99 11/13/18 08:00 112 11/13/18 08:00 Bi-pap 11/13/18 07:00 92 18 100/49 (66) 100 11/13/18 06:50 99 22 94 Full Face 100 11/13/18 06:00 92 20 106/50 (68) 95 11/13/18 05:03 115 22 97 Full Face 80 11/13/18 05:00 92 20 94/61 (72) 100 11/13/18 04:00 123 11/13/18 04:00 80 11/13/18 04:00 Bi-pap 11/13/18 04:00 98.8 122 27 101/69 (80) 99 11/13/18 03:00 127 23 102/42 (62) 98 11/13/18 02:57 109 26 98 Full Face 60 11/13/18 02:00 89 22 100/45 (63) 98 11/13/18 01:00 104 27 119/58 (78) 99 11/13/18 00:46 93 27 97 Full Face 70 11/13/18 00:00 86 11/13/18 00:00 Bi-pap 11/13/18 00:00 98.7 87 22 95/53 (67) 95 85 11/13/18 00:00 70 11/12/18 23:00 70 11/12/18 23:00 87 24 103/44 (63) 100 87 11/12/18 22:44 97 26 99 Full Face 70 11/12/18 22:00 87 24 113/50 (71) 99 87 11/12/18 21:00 88 26 104/45 (64) 99 88 11/12/18 20:49 90 25 98 Full Face 80 11/12/18 20:00 92 11/12/18 20:00 80 11/12/18 20:00 97.5 88 23 96/49 (65) 98 88 11/12/18 20:00 Bi-pap 11/12/18 19:02 93 29 96 Facial 80 11/12/18 19:00 93 26 108/44 (65) 98 11/12/18 18:24 99.5 11/12/18 18:00 99.5 94 27 109/55 (73) 98 11/12/18 17:00 102.0 99 95/74 (81) 98 11/12/18 16:50 103 32 95 Facial 80 11/12/18 16:00 Bi-pap 11/12/18 16:00 80 11/12/18 16:00 103 27 120/62 (81) 96 11/12/18 16:00 101 11/12/18 15:00 99 23 119/63 (81) 98 Height (Feet): 5 Height (Inches): 10.00 Weight (Pounds): 172 Microbiology Date/Time Source Procedure Growth Status 11/11/18 22:35 Blood Blood Culture - Preliminary NO GROWTH AFTER 24 HOURS Resulted 11/11/18 22:28 Blood Blood Culture - Preliminary NO GROWTH AFTER 24 HOURS Resulted 11/12/18 19:00 Nasopharynx - Final Complete 11/12/18 19:00 Nasopharynx - Final Complete Laboratory Tests Test 11/12/18 18:30 11/12/18 23:50 11/13/18 04:30 11/13/18 06:29 Lactic Acid Level 2.00 mmol/L (0.4-2.0) 1.60 mmol/L (0.4-2.0) Urine Legionella Antigen Pending White Blood Count 11.8 K/UL (4.8-10.8) #H Red Blood Count 3.99 M/UL (4.70-6.10) L Hemoglobin 12.0 G/DL (14.2-18.0) L Hematocrit 36.1 % (42.0-52.0) L Mean Corpuscular Volume 90 FL (80-99) Mean Corpuscular Hemoglobin 30.0 PG (27.0-31.0) Mean Corpuscular Hemoglobin Concent 33.2 G/DL (32.0-36.0) Red Cell Distribution Width 16.2 % (11.6-14.8) H Platelet Count 71 K/UL (150-450) L Mean Platelet Volume 8.3 FL (6.5-10.1) Neutrophils (%) (Auto) % (45.0-75.0) Lymphocytes (%) (Auto) % (20.0-45.0) Monocytes (%) (Auto) % (1.0-10.0) Eosinophils (%) (Auto) % (0.0-3.0) Basophils (%) (Auto) % (0.0-2.0) Differential Total Cells Counted 100 Neutrophils % (Manual) 79 % (45-75) H Lymphocytes % (Manual) 3 % (20-45) L Monocytes % (Manual) 2 % (1-10) Eosinophils % (Manual) 0 % (0-3) Basophils % (Manual) 0 % (0-2) Band Neutrophils 16 % (0-8) H Platelet Estimate Decreased L Platelet Morphology Normal Anisocytosis 1+ Sodium Level 139 MMOL/L (136-145) Potassium Level 4.2 MMOL/L (3.5-5.1) Chloride Level 110 MMOL/L (98-107) H Carbon Dioxide Level 19 MMOL/L (21-32) L Anion Gap 10 mmol/L (5-15) Blood Urea Nitrogen 42 mg/dL (7-18) H Creatinine 1.2 MG/DL (0.55-1.30) Estimat Glomerular Filtration Rate mL/min (>60) Glucose Level 99 MG/DL (74-106) Calcium Level 7.7 MG/DL (8.5-10.1) L Phosphorus Level 3.8 MG/DL (2.5-4.9) Magnesium Level 1.4 MG/DL (1.8-2.4) L Total Bilirubin 1.0 MG/DL (0.2-1.0) Aspartate Amino Transf (AST/SGOT) 20 U/L (15-37) Alanine Aminotransferase (ALT/SGPT) 38 U/L (12-78) Alkaline Phosphatase 39 U/L (46-116) L Total Protein 4.8 G/DL (6.4-8.2) #L Albumin 2.0 G/DL (3.4-5.0) L Globulin 2.8 g/dL Albumin/Globulin Ratio 0.7 (1.0-2.7) L Arterial Blood pH 7.299 (7.350-7.450) Arterial Blood Partial Pressure CO2 39.0 mmHg (35.0-45.0) Arterial Blood Partial Pressure O2 142.9 mmHg (75.0-100.0) H Arterial Blood HCO3 18.7 mmol/L (22.0-26.0) L Arterial Blood Oxygen Saturation 98.1 % (95-100) Arterial Blood Base Excess -7.2 (-2-2) L Alejandro Test Positive Test 11/13/18 13:15 Vancomycin Level Trough 10.8 ug/mL (5.0-12.0) Current Medications Medications (Trade) Dose Ordered Sig/Keith Route PRN Reason Start Time Stop Time Status Last Admin Dose Admin Acetaminophen (Tylenol) 650 mg Q4H PRN ORAL Mild Pain/Temp > 100.5 11/12/18 08:08 12/12/18 08:07 11/12/18 16:39 Azithromycin 500 mg/Dextrose 275 ml @ 275 mls/hr Q24HRS IV 11/12/18 18:00 11/18/18 18:59 11/12/18 18:30 Cefepime HCl 1 gm/ Dextrose 55 ml @ 110 mls/hr EVERY 12 HOURS IV 11/12/18 09:00 11/19/18 08:59 11/13/18 09:18 Dextrose/ Electrolytes 1,000 ml @ 30 mls/hr Q24H IV 11/13/18 11:56 12/13/18 11:55 11/13/18 12:41 Heparin Sodium (Porcine) (Heparin 5000 units/ml) 5,000 units EVERY 12 HOURS SUBQ 11/12/18 21:00 12/12/18 08:59 Ipratropium [place] (Atrovent) 500 mcg Q4H PRN HHN Shortness of Breath 11/13/18 12:00 11/18/18 11:59 Ipratropium [place] (Atrovent) 500 mcg Q6HRT HHN 11/13/18 13:00 11/18/18 12:59 Levalbuterol HCl (Xopenex) 0.63 mg Q4H PRN HHN SOB and WHEEZING 11/13/18 12:00 11/18/18 11:59 Levalbuterol HCl (Xopenex) 0.63 mg Q6HRT HHN 11/13/18 13:00 11/18/18 12:59 Methylprednisolone Sodium Succinate (Solu-MEDROL) 40 mg DAILY IVP 11/14/18 09:00 12/14/18 08:59 Ondansetron HCl (Zofran) 4 mg Q6H PRN IVP Nausea & Vomiting 11/12/18 08:09 12/12/18 08:08 Pantoprazole (Protonix) 40 mg DAILY IVP 11/14/18 09:00 12/14/18 08:59 Promethazine HCl/ Codeine (Phenergan with Codeine) 5 ml Q4H PRN ORAL For Cough 11/12/18 08:09 12/12/18 08:08 Temazepam (Restoril) 15 mg HSPRN PRN ORAL Insomnia 11/12/18 08:09 11/19/18 08:08 Vancomycin HCl (Vanco rx to dose) 1 ea DAILY PRN MISC Per rx protocol 11/12/18 09:00 12/12/18 00:00 Vancomycin HCl 1 gm/Dextrose 275 ml @ 183.708 mls/hr Q12HR@0300,1500 IVPB 11/13/18 15:00 11/18/18 14:59 Bety William M.D. November 13, 2018 15:03
[2018-11-13] MEDS: Vancomycin 1gm/D5W 275ml IVPB SCH ×2 (15:28)
--- NOTE | 2018-11-13 15:34 | NUR ---
NURSE NOTES: arrived in room C.N AND R.T attempting to keep pt in bed and adjust bipap mask. at bedside arguing w/ pt HR 120's RR25, o2sat 80's. R.T reported pt striking him. pt informed that restraints will be applied if continue to be danger to others. pt refusing bipap, taking it off face. translation provided by and staff. after 10min pt willing to have non rebreather applied at 12L sating 98%, hr 110. hob 45. bed alarm on. will offer bipap at a later time. will continue to monitor pt closely
--- NOTE | 2018-11-13 16:57 | NUR ---
NURSE NOTES: pt son at bedside. repositioned pt, able to get him to wear bipap for a while, because increase in breathing and mask not helping or staying on pt face. called r.t to assist with face mask replacement. pt calm now. hob40. locked and in low position. left full denture set at bedside, added to belonging list and placed in cup with pt label.
--- NOTE | 2018-11-13 18:42 | Internal Med Progress Note ---
Subjective Date of Service: November 13, 2018 Physician Name Galarza,Louis Attending Physician Star Malave MD Current Medications Medications (Trade) Dose Ordered Sig/Keith Route PRN Reason Start Time Stop Time Status Last Admin Dose Admin Acetaminophen (Tylenol) 650 mg Q4H PRN ORAL Mild Pain/Temp > 100.5 11/12/18 08:08 12/12/18 08:07 11/12/18 16:39 Azithromycin 500 mg/Dextrose 275 ml @ 275 mls/hr Q24HRS IV 11/12/18 18:00 11/18/18 18:59 11/12/18 18:30 Cefepime HCl 1 gm/ Dextrose 55 ml @ 110 mls/hr EVERY 12 HOURS IV 11/12/18 09:00 11/19/18 08:59 11/13/18 09:18 Dextrose/ Electrolytes 1,000 ml @ 30 mls/hr Q24H IV 11/13/18 11:56 12/13/18 11:55 11/13/18 12:41 Heparin Sodium (Porcine) (Heparin 5000 units/ml) 5,000 units EVERY 12 HOURS SUBQ 11/12/18 21:00 12/12/18 08:59 Ipratropium [place] (Atrovent) 500 mcg Q4H PRN HHN Shortness of Breath 11/13/18 12:00 11/18/18 11:59 Ipratropium [place] (Atrovent) 500 mcg Q6HRT HHN 11/13/18 13:00 11/18/18 12:59 Levalbuterol HCl (Xopenex) 0.63 mg Q4H PRN HHN SOB and WHEEZING 11/13/18 12:00 11/18/18 11:59 Levalbuterol HCl (Xopenex) 0.63 mg Q6HRT HHN 11/13/18 13:00 11/18/18 12:59 Methylprednisolone Sodium Succinate (Solu-MEDROL) 40 mg DAILY IVP 11/14/18 09:00 12/14/18 08:59 Ondansetron HCl (Zofran) 4 mg Q6H PRN IVP Nausea & Vomiting 11/12/18 08:09 12/12/18 08:08 Pantoprazole (Protonix) 40 mg DAILY IVP 11/14/18 09:00 12/14/18 08:59 Promethazine HCl/ Codeine (Phenergan with Codeine) 5 ml Q4H PRN ORAL For Cough 11/12/18 08:09 12/12/18 08:08 Temazepam (Restoril) 15 mg HSPRN PRN ORAL Insomnia 11/12/18 08:09 11/19/18 08:08 Vancomycin HCl (Vanco rx to dose) 1 ea DAILY PRN MISC Per rx protocol 11/12/18 09:00 12/12/18 00:00 Vancomycin HCl 1 gm/Dextrose 275 ml @ 183.708 mls/hr Q12HR@0300,1500 IVPB 11/13/18 15:00 11/18/18 14:59 11/13/18 15:28 Allergies: Coded Allergies: No Known Allergies (Unverified , 12/10/11) ROS Limited/Unobtainable: Yes Subjective 87 YO M admitted with respiratory failure and pneumonia. Cover for Int Med-Dr Malave. ICU. BIPAP Objective Last Vital Signs Date Time Temp Pulse Resp B/P (MAP) Pulse Ox O2 Delivery O2 Flow Rate FiO2 11/13/18 18:00 92 22 101/26 (51) 97 11/13/18 17:30 Facial 100 11/13/18 16:00 97.1 Laboratory Tests Test 11/12/18 23:50 11/13/18 04:30 11/13/18 06:29 11/13/18 13:15 Urine Legionella Antigen Pending White Blood Count 11.8 K/UL (4.8-10.8) #H Red Blood Count 3.99 M/UL (4.70-6.10) L Hemoglobin 12.0 G/DL (14.2-18.0) L Hematocrit 36.1 % (42.0-52.0) L Mean Corpuscular Volume 90 FL (80-99) Mean Corpuscular Hemoglobin 30.0 PG (27.0-31.0) Mean Corpuscular Hemoglobin Concent 33.2 G/DL (32.0-36.0) Red Cell Distribution Width 16.2 % (11.6-14.8) H Platelet Count 71 K/UL (150-450) L Mean Platelet Volume 8.3 FL (6.5-10.1) Neutrophils (%) (Auto) % (45.0-75.0) Lymphocytes (%) (Auto) % (20.0-45.0) Monocytes (%) (Auto) % (1.0-10.0) Eosinophils (%) (Auto) % (0.0-3.0) Basophils (%) (Auto) % (0.0-2.0) Differential Total Cells Counted 100 Neutrophils % (Manual) 79 % (45-75) H Lymphocytes % (Manual) 3 % (20-45) L Monocytes % (Manual) 2 % (1-10) Eosinophils % (Manual) 0 % (0-3) Basophils % (Manual) 0 % (0-2) Band Neutrophils 16 % (0-8) H Platelet Estimate Decreased L Platelet Morphology Normal Anisocytosis 1+ Sodium Level 139 MMOL/L (136-145) Potassium Level 4.2 MMOL/L (3.5-5.1) Chloride Level 110 MMOL/L (98-107) H Carbon Dioxide Level 19 MMOL/L (21-32) L Anion Gap 10 mmol/L (5-15) Blood Urea Nitrogen 42 mg/dL (7-18) H Creatinine 1.2 MG/DL (0.55-1.30) Estimat Glomerular Filtration Rate mL/min (>60) Glucose Level 99 MG/DL (74-106) Lactic Acid Level 1.60 mmol/L (0.4-2.0) Calcium Level 7.7 MG/DL (8.5-10.1) L Phosphorus Level 3.8 MG/DL (2.5-4.9) Magnesium Level 1.4 MG/DL (1.8-2.4) L Total Bilirubin 1.0 MG/DL (0.2-1.0) Aspartate Amino Transf (AST/SGOT) 20 U/L (15-37) Alanine Aminotransferase (ALT/SGPT) 38 U/L (12-78) Alkaline Phosphatase 39 U/L (46-116) L Total Protein 4.8 G/DL (6.4-8.2) #L Albumin 2.0 G/DL (3.4-5.0) L Globulin 2.8 g/dL Albumin/Globulin Ratio 0.7 (1.0-2.7) L Arterial Blood pH 7.299 (7.350-7.450) Arterial Blood Partial Pressure CO2 39.0 mmHg (35.0-45.0) Arterial Blood Partial Pressure O2 142.9 mmHg (75.0-100.0) H Arterial Blood HCO3 18.7 mmol/L (22.0-26.0) L Arterial Blood Oxygen Saturation 98.1 % (95-100) Arterial Blood Base Excess -7.2 (-2-2) L Alejandro Test Positive Vancomycin Level Trough 10.8 ug/mL (5.0-12.0) Microbiology Date/Time Source Procedure Growth Status 11/11/18 22:35 Blood Blood Culture - Preliminary NO GROWTH AFTER 24 HOURS Resulted 11/11/18 22:28 Blood Blood Culture - Preliminary NO GROWTH AFTER 24 HOURS Resulted 11/12/18 19:00 Nasopharynx - Final Complete 11/12/18 19:00 Nasopharynx - Final Complete Intake and Output 11/12/18 11/13/18 19:00 07:00 Intake Total 65 ml 875 ml Output Total 780 ml 510 ml Balance -715 ml 365 ml IV Total 55 ml 875 ml Other 10 ml Output Urine Total 780 ml 510 ml # Bowel Movements 2 Objective PHYSICAL EXAMINATION: GENERAL: The patient is well-developed and well-nourished white male, in respiratory distress. HEENT: Eyes, pupils are equal and responsive to light and accommodation. Extraocular movements are intact. NECK: Supple without lymphadenopathy. CHEST: BIPAP; Decreased breath sounds in bilateral bases with crackles on the left. Otherwise, without wheezes. ABDOMEN: Soft, nontender, and nondistended. Positive bowel sounds. No evidence of hepatosplenomegaly. Currently, no rebound or guarding noted. EXTREMITIES: Negative for clubbing, cyanosis, or edema. RECTAL/GENITAL: Refused. NEUROLOGIC: Cranial nerves II through XII are grossly intact without focal deficits. Motor strength is 5/5 bilaterally. Deep tendon reflexes are 2+ plantar. Assessment/Plan Assessment/Plan ASSESSMENT: This is an 87-year-old white male. 1. Pneumonia. 2. Respiratory failure. 3. Diarrhea. 4. Nausea with vomiting. 5. Fever. 6. Hypertension. 7. Hypercholesterolemia. TREATMENT: 1. Pneumonia/respiratory failure. A Pulmonary consultation has been obtained with Dr. Joan Nugent. The patient is currently on BiPAP in the intensive care unit. We will follow recommendations of Pulmonary. The patient has been started empirically on intravenous vancomycin, cefepime, and azithromycin. 2. Diarrhea/nausea/vomiting. A Gastroenterology consultation has been obtained with Dr. Nito Joseph. 3. Fever. This probably is secondary to pneumonia as above. 4. Hypertension. The patient is currently hypotensive. 5. Hypercholesterolemia. Continue Crestor as above. Louis Galarza MD November 13, 2018 18:42
[2018-11-13] MEDS: Azithromycin 500 MG in D5W 275 ML IV SCH (18:48)
--- NOTE | 2018-11-13 19:00 | NUR ---
HAND-OFF: Report given to ara nolen. pt in no acute distress.NURSE NOTES:
--- NOTE | 2018-11-13 19:11 | NUR ---
NURSE NOTES: Endorsement received from Lola RN, RN. Patient opens eyes spontaneously, follows commands. Indonesian speaking. On BiPAP 18/5 100%. With left hand g20, ongoing D5 1/2 NS with KCl 20 meqs 30ml/hr. Chavez F 16 connected to urine bag. Head of bed elevated. Bed locked and in low position. Call light within reach. Reminded patient to use call light for assistance. Bed alarm on.
--- NOTE | 2018-11-13 19:15 | NUR ---
NURSE NOTES: Noted with blanchable redness on the bridge of the nose, skin intact. RT aware, applied double tape for protection from the pressure from the BiPAP mask.
--- NOTE | 2018-11-13 19:25 | NUR ---
RESPIRATORY NOTE: Received pt on BiPAP 18/5, back up rate 14, 100%. Pt was on a Full Face mask, skin intact, but noted to have slight redness on nosebridge. Bedside RN aware & took pictures, no skin breakdowns noted. Double foam tape applied on pt's nosebridge/cheeks/chin to prevent any mask irritations. Pt awake, follows commands w/ little reinforcements. B/S hector. crackles, nonproductive cough. Pt placed on Facial mask to give inline breathing tx. BiPAP plugged into red outlet, ambubag at bedside. Pt in no apparent distress at this time. Will continue to monitor pt.
--- NOTE | 2018-11-13 20:00 | NUR ---
NURSE NOTES: Attempted to insert another IV, patient however refuses and pulling out his arm.
--- NOTE | 2018-11-13 20:21 | Cardiology Report ---
APPROVED REPORT EKG Measurement Heart [id number] Atrial fibrillation with rapid ventricular response Abnormal ECG
--- NOTE | 2018-11-13 21:00 | NUR ---
NURSE NOTES: Heparin not given due to low platelet. Patient passed small formed brown stool. Sample collected and sent to the lab for culture and occult blood test.
[2018-11-14] VITALS (23 sets, daily range): BP systolic 90–151; BP diastolic 50–121
--- NOTE | 2018-11-14 | NUR ---
NURSE NOTES: Patient asleep at this time. Arousable by name. No shortness of breath. Appears comfortable, no pain.
[2018-11-14] MEDS: Levalbuterol Inh UD 1.25mg/0.5ml HHN SCH ×4 (01:33→19:19)
[2018-11-14] MEDS: Ipratropium 0.02% Inh Soln 2.5ml UD HHN SCH ×4 (01:33→19:19)
--- NOTE | 2018-11-14 02:00 | NUR ---
NURSE NOTES: Patient asleep at this time. Afebrile
[2018-11-14] MEDS: Vancomycin 1gm/D5W 275ml IVPB SCH ×4 (03:28→15:25)
--- NOTE | 2018-11-14 04:00 | NUR ---
NURSE NOTES: Patient awake and extremely agitated. Removing mask, offered non rebreather but keeps saying "I won't take it" and "Call my son". Desating at 80s% on room air while attempting to put back the BiPAP mask on. RT at bedside. Attempting to kick staff. Unable to redirect. Bilateral soft wrists restraints applied. Called his son, no answer. Left a message.
--- NOTE | 2018-11-14 05:00 | NUR ---
NURSE NOTES: Patient asleep at this time.
[2018-11-14 05:02] LABS: HEMATOCRIT 34.7 % (42.0-52.0); HEMOGLOBIN 11.6 G/DL (14.2-18.0); MEAN CORPUSCULAR VOLUME 90 FL (80-99); PLATELET COUNT 53 K/UL (150-450); RED BLOOD COUNT 3.85 M/UL (4.70-6.10); RED CELL DISTRIBUTION WIDTH 15.9 % (11.6-14.8); WHITE BLOOD COUNT 11.3 K/UL (4.8-10.8)
[2018-11-14 05:13] LABS: INR 1.2 (0.9-1.1)
[2018-11-14 05:53] LABS: ALANINE AMINOTRANSFERASE 47 U/L (12-78); ALBUMIN 2.1 G/DL (3.4-5.0); ALBUMIN/GLOBULIN RATIO 0.7 (1.0-2.7); ALKALINE PHOSPHATASE 64 U/L (46-116); ANION GAP 9 mmol/L (5-15); ASPARTATE AMINO TRANSFERASE 25 U/L (15-37); BLOOD UREA NITROGEN 31 mg/dL (7-18); CALCIUM 8.4 MG/DL (8.5-10.1); CARBON DIOXIDE 23 MMOL/L (21-32); CHLORIDE 107 MMOL/L (98-107); CREATININE 1.1 MG/DL (0.55-1.30); FERRITIN 709 NG/ML (8-388); PHOSPHORUS 2.9 MG/DL (2.5-4.9); POTASSIUM 4.1 MMOL/L (3.5-5.1); SODIUM 139 MMOL/L (136-145)
[2018-11-14 05:56] LABS: % IRON SATURATION 5 % (15-50); IRON 9 ug/dL (50-175); TOTAL IRON BINDING CAPACITY 165 ug/dL (250-450)
--- NOTE | 2018-11-14 06:41 | NUR ---
RESPIRATORY NOTE: Received pt on BiPAP 18/5, back up rate 14, 90%. Pt was on a Full Face mask, skin intact, but noted to have slight redness on nose bridge. Per ANN Valdivia, she aware & took pictures. No skin breakdowns noted. Changed Full face mask to facial maskto give inline breathing Tx. Double foam tape applied on pt's nose bridge/cheeks/chin to prevent any mask irritations. Pt awake, follows commands.Nonproductive cough. Alarms are set and audible, BiPAP plugged into red outlet, ambubag at bedside. ANN Davila made aware. Pt in no apparent distress at this time. Will continue to monitor pt.
--- NOTE | 2018-11-14 07:18 | NUR ---
HAND-OFF: Report given to ANN Davila per SBAR
--- NOTE | 2018-11-14 07:30 | NUR ---
NURSE NOTES: Received report from ANN Valdivia. Patient resting w/ eyes close. responsive to shaking. Czech speaking. On BiPAP 18/ 100%. lt hand g20, ongoing D5 1/2 NS with KCl 20 meqs @ 30ml/hr. Chavez draining yellow urine by gravity. bilateral wrist restraints noted. Head of bed elevated 30. Bed locked and in low position. Call light within reach. Bed alarm on. will continue to monitor pt.
--- NOTE | 2018-11-14 08:23 | NUR ---
HAND-OFF: Report given to Faraz Alexandra RN. Endorsed need for sedation, possibly Haldol for aggiation. Restraints applied. pt in no acute distress.
--- NOTE | 2018-11-14 08:24 | NUR ---
NURSE NOTES: RECEIVED PATIENT FROM Yo JOYA RN. PATIENT IS LYING IN BED ASLEEP. HOOKED TO ORDER EDITOR. ON CONTINUOUS BIPAP 18/5, FIO2 90%. NO SIGNS OF DISTRESS. NPO EXCEPT ICE CHIPS/MEDS. NOTED RUCKER CONNECTED TO BAG, PATENT AND DRAINING YELLOW URINE. NOTED SKIN ALTERATION. IV ON L HAND G20 WITH IVF RUNNING D5 1/2 NS + 20MEQS KCL AT 30ML/HR. NOTED BILATERAL SOFT WRIST RESTRAINTS ON BILATERAL. CALL LIGHT WITHIN REACH. BED AT LOWEST POSITION. SIDE RAILS UP. WILL CONTINUE TO MONITOR.
[2018-11-14] MEDS: Heparin 5000 units/ml inj SUBQ SCH ×2 (09:00→21:00)
--- NOTE | 2018-11-14 09:42 | Pulmonolgy Critical Care Note ---
Critical Care - Asmt/Plan Problems: (1) Respiratory failure with hypoxia (2) COPD exacerbation (3) Pneumonia (4) Thrombocytopenia (5) UTI (urinary tract infection) (6) Electrolyte imbalance (7) Nausea & vomiting (8) Dehydration (9) Paroxysmal atrial fibrillation Assessment/Plan: COPD with acute exacerbation Acute hypoxemic and hypercapnic respiratory failure CAP UTI Chronic thrombocytopenia Anemia H/O OP dysphagia NVD - RESOLVED VARSHA - RESOLVED pAF ---> NSR Protein calorie malnutrition Respiratory: ABG, CXR, BNP, continue BiPAP 17/5, titrate down FiO2 to keep SaO2 > 90%, attempt to wean off as able, continue Atrovent and Levalbuterol HHN' s RTC and PRN, SM 40 IV qDaily (D2) - transition to PO Pred when off BiPAP Cardiac: continue to monitor HR/BP, other - Monitor volumes, TTE noted, no LV failure but elevated filling pressures, mIVF Renal: mIVF @ 30 cc/hr , monitor electrolytes Infectious Disease: continue antibiotics - Vanco/Cefepime/Azithro (D3) per ID, F/U Cx's Gastrointestinal: other - NPO, once off BiPAP and respiratory status stable will need an DRAG SAWYER eval Endocrine: monitor blood sugar Hematologic: monitor H/H - and platelets, other - No further w/u of thrombocytopenia, extensive w/u by Dr. 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 Neurologic: keep patient comfortable - monitor MS Prophylaxis: Protonix, Heparin Disposition: keep in ICU Time Spent (Minutes): 30 Notes Reviewed: occupational safety specialist, ID, other - CS LINK RECORDS REVIEWED Discussed with: nurses, consultants, family member, other - DNAR/DNI, BiPAP OK Critical Care - Objective Last 24 Hour Vital Signs Date Time Temp Pulse Resp B/P (MAP) Pulse Ox O2 Delivery O2 Flow Rate FiO2 11/14/18 09:21 75 19 98 Full Face 80 11/14/18 08:00 98.9 76 19 110/61 (77) 98 11/14/18 08:00 90 11/14/18 07:00 76 16 97/50 (66) 97 11/14/18 06:52 75 19 95 Bi-pap 90 11/14/18 06:41 75 15 96 Facial 90 11/14/18 06:41 75 15 96 Bi-pap 90 11/14/18 06:00 76 23 114/58 (76) 99 11/14/18 05:25 80 21 99 Full Face 90 11/14/18 05:00 79 22 108/64 (79) 99 11/14/18 04:00 100 11/14/18 04:00 Bi-pap 11/14/18 04:00 93 11/14/18 04:00 88 20 118/67 (84) 100 11/14/18 03:00 99.0 83 19 118/62 (80) 100 11/14/18 02:55 84 16 98 Facial 90 11/14/18 02:00 85 22 103/66 (78) 96 11/14/18 01:43 85 26 99 Bi-pap 100 11/14/18 01:33 85 25 97 Bi-pap 100 11/14/18 01:30 86 25 97 Facial 100 11/14/18 01:00 88 24 102/58 (73) 98 11/14/18 00:00 98.7 87 21 122/73 (89) 100 11/14/18 00:00 Bi-pap 11/14/18 00:00 100 11/14/18 00:00 91 11/13/18 23:14 82 15 98 Facial 100 11/13/18 23:00 79 18 103/53 (70) 100 11/13/18 22:00 77 20 96/60 (72) 99 11/13/18 21:20 83 18 98 Facial 100 11/13/18 21:00 87 26 92/53 (66) 100 11/13/18 20:00 99.1 90 23 113/56 (75) 99 11/13/18 20:00 86 11/13/18 20:00 100 11/13/18 20:00 Bi-pap 11/13/18 19:32 94 24 98 Bi-pap 100 11/13/18 19:22 93 24 96 Bi-pap 100 11/13/18 19:21 93 24 96 Facial 100 11/13/18 19:00 99 24 82/49 (60) 95 11/13/18 18:00 92 22 101/26 (51) 97 11/13/18 17:30 118 28 90 Facial 100 11/13/18 17:00 113 24 92/53 (66) 99 11/13/18 16:00 108 11/13/18 16:00 Bi-pap 11/13/18 16:00 97.1 121 29 115/70 (85) 95 11/13/18 15:13 110 96 11/13/18 15:00 121 24 97/59 (72) 99 11/13/18 14:00 115 20 94/61 (72) 99 11/13/18 13:12 102 22 100 Facial 60 11/13/18 13:01 104 18 103/66 (78) 99 11/13/18 13:00 70 11/13/18 13:00 70 11/13/18 12:00 118 11/13/18 12:00 Bi-pap 11/13/18 12:00 98.8 112 23 104/67 (79) 100 11/13/18 11:00 109 25 99/55 (70) 100 11/13/18 10:44 110 24 100 Full Face 80 11/13/18 10:00 98 20 110/86 (94) 100 Status: somnolent, other - on BiPAP\ Condition: grave HEENT: atraumatic, normocephalic Neck: full ROM Lungs: rhonchi Heart: HR/BP stable Abdomen: soft, non-tender, active bowel sounds Extremities: no C/C/E Micro: Microbiology Date/Time Source Procedure Growth Status 11/11/18 22:35 Blood Blood Culture - Preliminary NO GROWTH AFTER 48 HOURS Resulted 11/11/18 22:28 Blood Blood Culture - Preliminary NO GROWTH AFTER 48 HOURS Resulted 11/12/18 20:50 Sputum Induced Gram Stain - Final Resulted 11/12/18 20:50 Sputum Culture - Preliminary Staphylococcus Aureus Usual Respiratory [place] Resulted 11/12/18 19:00 Nasopharynx - Final Complete 11/12/18 19:00 Nasopharynx - Final Complete Blood Sugars: BS controlled Critical Care - Subjective ROS Limited/Unobtainable: Yes - 3 ICU Day: 3 Interval Events: BiPAP D3 - currently on 06/11 Taken off BiPAP to VM ON, was placed on 100% NRB, unable to tolerated Condition: critical IV Access: peripheral EKG Rhythm: Sinus Rhythm FI02: 80 Vent Support Mode: BiLevel Sputum Amount: None Secretions: None Fluids: [id number]/[id number]@30 I&O: Intake and Output 11/13/18 11/14/18 19:00 07:00 Intake Total 827.416 ml 605.000 ml Output Total 725 ml 750 ml Balance 102.416 ml -145.000 ml IV Total 827.416 ml 605.000 ml Output Urine Total 725 ml 750 ml # Bowel Movements 1 Subjective: Feels better no cough less SOB wants BiPAP off no wheezing no hemoptysis Labs: Laboratory Tests Test 11/13/18 13:15 11/13/18 20:30 11/14/18 04:00 Vancomycin Level Trough 10.8 ug/mL (5.0-12.0) Stool Occult Blood Positive (NEGATIVE) White Blood Count 11.3 K/UL (4.8-10.8) H Red Blood Count 3.85 M/UL (4.70-6.10) L Hemoglobin 11.6 G/DL (14.2-18.0) L Hematocrit 34.7 % (42.0-52.0) L Mean Corpuscular Volume 90 FL (80-99) Mean Corpuscular Hemoglobin 30.1 PG (27.0-31.0) Mean Corpuscular Hemoglobin Concent 33.4 G/DL (32.0-36.0) Red Cell Distribution Width 15.9 % (11.6-14.8) H Platelet Count 53 K/UL (150-450) L Mean Platelet Volume 9.7 FL (6.5-10.1) Neutrophils (%) (Auto) % (45.0-75.0) Lymphocytes (%) (Auto) % (20.0-45.0) Monocytes (%) (Auto) % (1.0-10.0) Eosinophils (%) (Auto) % (0.0-3.0) Basophils (%) (Auto) % (0.0-2.0) Neutrophils % (Manual) Pending Lymphocytes % (Manual) Pending Platelet Estimate Pending Platelet Morphology Pending Reticulocyte Count Pending Prothrombin Time 12.1 SEC (9.30-11.50) H Prothromb Time International Ratio 1.2 (0.9-1.1) H Activated Partial Thromboplast Time 44 SEC (23-33) H Sodium Level 139 MMOL/L (136-145) Potassium Level 4.1 MMOL/L (3.5-5.1) Chloride Level 107 MMOL/L (98-107) Carbon Dioxide Level 23 MMOL/L (21-32) Anion Gap 9 mmol/L (5-15) Blood Urea Nitrogen 31 mg/dL (7-18) H Creatinine 1.1 MG/DL (0.55-1.30) Estimat Glomerular Filtration Rate mL/min (>60) Glucose Level 95 MG/DL (74-106) Calcium Level 8.4 MG/DL (8.5-10.1) L Phosphorus Level 2.9 MG/DL (2.5-4.9) Magnesium Level 1.9 MG/DL (1.8-2.4) Iron Level 9 ug/dL (50-175) L Total Iron Binding Capacity 165 ug/dL (250-450) L Percent Iron Saturation 5 % (15-50) L Unsaturated Iron Binding 156 ug/dL (112-346) Ferritin 709 NG/ML (8-388) H Total Bilirubin 1.0 MG/DL (0.2-1.0) Aspartate Amino Transf (AST/SGOT) 25 U/L (15-37) Alanine Aminotransferase (ALT/SGPT) 47 U/L (12-78) Alkaline Phosphatase 64 U/L (46-116) Total Protein 5.3 G/DL (6.4-8.2) L Albumin 2.1 G/DL (3.4-5.0) L Globulin 3.2 g/dL Albumin/Globulin Ratio 0.7 (1.0-2.7) L Carcinoembryonic Antigen Pending Vitamin B12 Level 582 PG/ML (193-986) Folate 17.6 NG/ML (8.6-58.9) Thyroid Stimulating Hormone (TSH) 1.423 uiU/mL (0.358-3.740) Free Thyroxine 0.95 NG/DL (0.76-1.46) Ashish Solis MD November 14, 2018 09:42
[2018-11-14] MEDS: Pantoprazole Inj IVP SCH (09:58)
[2018-11-14] MEDS: Cefepime HCl 1 GM in D5W 55 ML IV SCH (09:58)
[2018-11-14] MEDS: Solu-MEDROL 40mg Inj IVP SCH (10:01)
--- NOTE | 2018-11-14 10:30 | NUR ---
NURSE NOTES: SEEN FAMILY MEMBER AT THE BEDSIDE. STILL ON RESTRAINTS ON BILATERAL WRISTS. WILL CONTINUE TO MONITOR.
--- NOTE | 2018-11-14 11:02 | GI Progress Note ---
Assessment/Plan Problems: (1) Thrombocytopenia ICD Codes: D69.6 - Thrombocytopenia, unspecified SNOMED: 527528758 (2) Nausea & vomiting ICD Codes: R11.2 - Nausea with vomiting, unspecified SNOMED: 13636759 (3) Dehydration ICD Codes: E86.0 - Dehydration SNOMED: 83255106 (4) Diarrhea ICD Codes: R19.7 - Diarrhea, unspecified SNOMED: 37523947 (5) Electrolyte imbalance ICD Codes: E87.8 - Other disorders of electrolyte and fluid balance, not elsewhere classified SNOMED: 380048199 Status: unchanged Status Narrative Discussed with Dr. Joseph. Assessment/Plan OB stool positive Defer any GI procedures at this time, respiratory status not stable Follow C. difficile, stool studies >> will consider Imodium prn pending work up Zofran as needed, Reglan for persistent vomiting IV hydration plus electrolyte correction monitor H&H, prn transfusions bowel regime ppi abx per ID fu labs The patient was seen and examined at bedside and all new and available data was reviewed in the patients chart. I agree with the above findings, impression and plan. (Patient seen earlier today. Signature stamp does not reflect patient encounter time.). - Nito Joseph MD Subjective Subjective limited Objective Last 24 Hour Vital Signs Date Time Temp Pulse Resp B/P (MAP) Pulse Ox O2 Delivery O2 Flow Rate FiO2 11/14/18 10:41 75 18 96 Full Face 70 11/14/18 09:21 75 19 98 Full Face 80 11/14/18 08:00 98.9 76 19 110/61 (77) 98 11/14/18 08:00 76 11/14/18 08:00 90 11/14/18 07:00 76 16 97/50 (66) 97 11/14/18 06:52 75 19 95 Bi-pap 90 11/14/18 06:41 75 15 96 Facial 90 11/14/18 06:41 75 15 96 Bi-pap 90 11/14/18 06:00 76 23 114/58 (76) 99 11/14/18 05:25 80 21 99 Full Face 90 11/14/18 05:00 79 22 108/64 (79) 99 11/14/18 04:00 100 11/14/18 04:00 Bi-pap 11/14/18 04:00 93 11/14/18 04:00 88 20 118/67 (84) 100 11/14/18 03:00 99.0 83 19 118/62 (80) 100 11/14/18 02:55 84 16 98 Facial 90 11/14/18 02:00 85 22 103/66 (78) 96 11/14/18 01:43 85 26 99 Bi-pap 100 11/14/18 01:33 85 25 97 Bi-pap 100 11/14/18 01:30 86 25 97 Facial 100 11/14/18 01:00 88 24 102/58 (73) 98 11/14/18 00:00 98.7 87 21 122/73 (89) 100 11/14/18 00:00 Bi-pap 11/14/18 00:00 100 11/14/18 00:00 91 11/13/18 23:14 82 15 98 Facial 100 11/13/18 23:00 79 18 103/53 (70) 100 11/13/18 22:00 77 20 96/60 (72) 99 11/13/18 21:20 83 18 98 Facial 100 11/13/18 21:00 87 26 92/53 (66) 100 11/13/18 20:00 99.1 90 23 113/56 (75) 99 11/13/18 20:00 86 11/13/18 20:00 100 11/13/18 20:00 Bi-pap 11/13/18 19:32 94 24 98 Bi-pap 100 11/13/18 19:22 93 24 96 Bi-pap 100 11/13/18 19:21 93 24 96 Facial 100 11/13/18 19:00 99 24 82/49 (60) 95 11/13/18 18:00 92 22 101/26 (51) 97 11/13/18 17:30 118 28 90 Facial 100 11/13/18 17:00 113 24 92/53 (66) 99 11/13/18 16:00 108 11/13/18 16:00 Bi-pap 11/13/18 16:00 97.1 121 29 115/70 (85) 95 11/13/18 15:13 110 96 11/13/18 15:00 121 24 97/59 (72) 99 11/13/18 14:00 115 20 94/61 (72) 99 11/13/18 13:12 102 22 100 Facial 60 11/13/18 13:01 104 18 103/66 (78) 99 11/13/18 13:00 70 11/13/18 13:00 70 11/13/18 12:00 118 11/13/18 12:00 Bi-pap 11/13/18 12:00 98.8 112 23 104/67 (79) 100 11/13/18 11:00 109 25 99/55 (70) 100 Intake and Output 11/13/18 11/14/18 19:00 07:00 Intake Total 827.416 ml 605.000 ml Output Total 725 ml 750 ml Balance 102.416 ml -145.000 ml IV Total 827.416 ml 605.000 ml Output Urine Total 725 ml 750 ml # Bowel Movements 1 Laboratory Tests Test 11/13/18 13:15 11/13/18 20:30 11/14/18 04:00 11/14/18 09:40 Vancomycin Level Trough 10.8 ug/mL (5.0-12.0) Stool Occult Blood Positive (NEGATIVE) White Blood Count 11.3 K/UL (4.8-10.8) H Red Blood Count 3.85 M/UL (4.70-6.10) L Hemoglobin 11.6 G/DL (14.2-18.0) L Hematocrit 34.7 % (42.0-52.0) L Mean Corpuscular Volume 90 FL (80-99) Mean Corpuscular Hemoglobin 30.1 PG (27.0-31.0) Mean Corpuscular Hemoglobin Concent 33.4 G/DL (32.0-36.0) Red Cell Distribution Width 15.9 % (11.6-14.8) H Platelet Count 53 K/UL (150-450) L Mean Platelet Volume 9.7 FL (6.5-10.1) Neutrophils (%) (Auto) % (45.0-75.0) Lymphocytes (%) (Auto) % (20.0-45.0) Monocytes (%) (Auto) % (1.0-10.0) Eosinophils (%) (Auto) % (0.0-3.0) Basophils (%) (Auto) % (0.0-2.0) Differential Total Cells Counted 100 Neutrophils % (Manual) 90 % (45-75) H Lymphocytes % (Manual) 9 % (20-45) L Monocytes % (Manual) 1 % (1-10) Eosinophils % (Manual) 0 % (0-3) Basophils % (Manual) 0 % (0-2) Band Neutrophils 0 % (0-8) Platelet Estimate Decreased L Platelet Morphology Normal Anisocytosis 1+ Reticulocyte Count Pending Prothrombin Time 12.1 SEC (9.30-11.50) H Prothromb Time International Ratio 1.2 (0.9-1.1) H Activated Partial Thromboplast Time 44 SEC (23-33) H Sodium Level 139 MMOL/L (136-145) Potassium Level 4.1 MMOL/L (3.5-5.1) Chloride Level 107 MMOL/L (98-107) Carbon Dioxide Level 23 MMOL/L (21-32) Anion Gap 9 mmol/L (5-15) Blood Urea Nitrogen 31 mg/dL (7-18) H Creatinine 1.1 MG/DL (0.55-1.30) Estimat Glomerular Filtration Rate mL/min (>60) Glucose Level 95 MG/DL (74-106) Calcium Level 8.4 MG/DL (8.5-10.1) L Phosphorus Level 2.9 MG/DL (2.5-4.9) Magnesium Level 1.9 MG/DL (1.8-2.4) Iron Level 9 ug/dL (50-175) L Total Iron Binding Capacity 165 ug/dL (250-450) L Percent Iron Saturation 5 % (15-50) L Unsaturated Iron Binding 156 ug/dL (112-346) Ferritin 709 NG/ML (8-388) H Total Bilirubin 1.0 MG/DL (0.2-1.0) Aspartate Amino Transf (AST/SGOT) 25 U/L (15-37) Alanine Aminotransferase (ALT/SGPT) 47 U/L (12-78) Alkaline Phosphatase 64 U/L (46-116) Total Protein 5.3 G/DL (6.4-8.2) L Albumin 2.1 G/DL (3.4-5.0) L Globulin 3.2 g/dL Albumin/Globulin Ratio 0.7 (1.0-2.7) L Carcinoembryonic Antigen Pending Vitamin B12 Level 582 PG/ML (193-986) Folate 17.6 NG/ML (8.6-58.9) Thyroid Stimulating Hormone (TSH) 1.423 uiU/mL (0.358-3.740) Free Thyroxine 0.95 NG/DL (0.76-1.46) Arterial Blood pH 7.363 (7.350-7.450) Arterial Blood Partial Pressure CO2 40.6 mmHg (35.0-45.0) Arterial Blood Partial Pressure O2 107.1 mmHg (75.0-100.0) H Arterial Blood HCO3 22.6 mmol/L (22.0-26.0) Arterial Blood Oxygen Saturation 97.2 % (95-100) Arterial Blood Base Excess -2.6 (-2-2) L Alejandro Test Positive Height (Feet): 5 Height (Inches): 10.00 Weight (Pounds): 185 Respiratory/Chest: other - BIPAP Edy Rice NP November 14, 2018 11:02
--- NOTE | 2018-11-14 11:50 | Infectious Diseases Prog Note ---
Assessment/Plan Assessment/Plan Abx: IV Vancomycin 11/12- Cefepime 11/11- Levaquin x 1 11/11 Assessment: Sepsis 2ry to S. aureus PNA -11/13 CXR: Suspected CHF/interstitial edema. Right pleural effusion not excluded -u/a neg -Bcx NTD -CXR: Pulmonary vascular congestion suspected. Airspace disease in the right mid and upper lung field. Could be superimposed pneumonia or related to the vascular congestion. Correlate clinically -influenza sc neg -sp cx S. aureus (sensi p) Fever, improving Leukocytosis, recurrent mild (on high dose steroids) Diarrhea- r/o Cdiff Lactic acidosis; SP VARSHA HTN COPD Plan: -Continue empiric IV Vancomycin #3 pending S. aureus sensi -d/c Cefepime #4 -cont empiric Azithromycin #3 for atypical coverage pending legionella ag urine -f/u cx -Monitor CBC/CMP, temperatures -f/u Cdiff, sp cx, legionella ag urine -ICU care -aspiration precautions Thank you for this consultation. Will continue to follow along with you. Discussed with RN. Subjective Allergies: Coded Allergies: No Known Allergies (Unverified , 12/10/11) Subjective afebrile >36hrs Bcx NTD mild leukocytosis on Bipap Objective Vital Signs Last 24 Hour Vital Signs Date Time Temp Pulse Resp B/P (MAP) Pulse Ox O2 Delivery O2 Flow Rate FiO2 11/14/18 10:41 75 18 96 Full Face 70 11/14/18 09:21 75 19 98 Full Face 80 11/14/18 08:00 98.9 76 19 110/61 (77) 98 11/14/18 08:00 Bi-pap 11/14/18 08:00 76 11/14/18 08:00 90 11/14/18 07:00 76 16 97/50 (66) 97 11/14/18 06:52 75 19 95 Bi-pap 90 11/14/18 06:41 75 15 96 Facial 90 11/14/18 06:41 75 15 96 Bi-pap 90 11/14/18 06:00 76 23 114/58 (76) 99 11/14/18 05:25 80 21 99 Full Face 90 11/14/18 05:00 79 22 108/64 (79) 99 11/14/18 04:00 100 5/23/19 04:00 Bi-pap 11/14/18 04:00 93 11/14/18 04:00 88 20 118/67 (84) 100 11/14/18 03:00 99.0 83 19 118/62 (80) 100 11/14/18 02:55 84 16 98 Facial 90 11/14/18 02:00 85 22 103/66 (78) 96 11/14/18 01:43 85 26 99 Bi-pap 100 11/14/18 01:33 85 25 97 Bi-pap 100 11/14/18 01:30 86 25 97 Facial 100 11/14/18 01:00 88 24 102/58 (73) 98 11/14/18 00:00 98.7 87 21 122/73 (89) 100 11/14/18 00:00 Bi-pap 11/14/18 00:00 100 11/14/18 00:00 91 11/13/18 23:14 82 15 98 Facial 100 11/13/18 23:00 79 18 103/53 (70) 100 11/13/18 22:00 77 20 96/60 (72) 99 11/13/18 21:20 83 18 98 Facial 100 11/13/18 21:00 87 26 92/53 (66) 100 11/13/18 20:00 99.1 90 23 113/56 (75) 99 11/13/18 20:00 86 11/13/18 20:00 100 11/13/18 20:00 Bi-pap 11/13/18 19:32 94 24 98 Bi-pap 100 11/13/18 19:22 93 24 96 Bi-pap 100 11/13/18 19:21 93 24 96 Facial 100 11/13/18 19:00 99 24 82/49 (60) 95 11/13/18 18:00 92 22 101/26 (51) 97 11/13/18 17:30 118 28 90 Facial 100 11/13/18 17:00 113 24 92/53 (66) 99 11/13/18 16:00 108 11/13/18 16:00 Bi-pap 11/13/18 16:00 97.1 121 29 115/70 (85) 95 11/13/18 15:13 110 96 11/13/18 15:00 121 24 97/59 (72) 99 11/13/18 14:00 115 20 94/61 (72) 99 11/13/18 13:12 102 22 100 Facial 60 11/13/18 13:01 104 18 103/66 (78) 99 11/13/18 13:00 70 11/13/18 13:00 70 11/13/18 12:00 118 11/13/18 12:00 Bi-pap 11/13/18 12:00 98.8 112 23 104/67 (79) 100 Height (Feet): 5 Height (Inches): 10.00 Weight (Pounds): 185 Objective General Appearance: WD/WN Lines, tubes and drains: peripheral HEENT: normocephalic, atraumatic Neck: non-tender, normal alignment Respiratory/Chest: rhonchi - left, rhonchi - right Cardiovascular/Chest: normal peripheral pulses, normal rate Abdomen: normal bowel sounds, non tender Genitourinary/Rectal: normal genital exam Extremities: normal range of motion, non-tender Skin Exam: normal pigmentation Microbiology Date/Time Source Procedure Growth Status 11/11/18 22:35 Blood Blood Culture - Preliminary NO GROWTH AFTER 48 HOURS Resulted 11/11/18 22:28 Blood Blood Culture - Preliminary NO GROWTH AFTER 48 HOURS Resulted 11/12/18 20:50 Sputum Induced Gram Stain - Final Resulted 11/12/18 20:50 Sputum Culture - Preliminary Staphylococcus Aureus Usual Respiratory [place] Resulted 11/12/18 19:00 Nasopharynx - Final Complete 11/12/18 19:00 Nasopharynx - Final Complete Laboratory Tests Test 11/13/18 13:15 11/13/18 20:30 11/14/18 04:00 11/14/18 09:40 Vancomycin Level Trough 10.8 ug/mL (5.0-12.0) Stool Occult Blood Positive (NEGATIVE) White Blood Count 11.3 K/UL (4.8-10.8) H Red Blood Count 3.85 M/UL (4.70-6.10) L Hemoglobin 11.6 G/DL (14.2-18.0) L Hematocrit 34.7 % (42.0-52.0) L Mean Corpuscular Volume 90 FL (80-99) Mean Corpuscular Hemoglobin 30.1 PG (27.0-31.0) Mean Corpuscular Hemoglobin Concent 33.4 G/DL (32.0-36.0) Red Cell Distribution Width 15.9 % (11.6-14.8) H Platelet Count 53 K/UL (150-450) L Mean Platelet Volume 9.7 FL (6.5-10.1) Neutrophils (%) (Auto) % (45.0-75.0) Lymphocytes (%) (Auto) % (20.0-45.0) Monocytes (%) (Auto) % (1.0-10.0) Eosinophils (%) (Auto) % (0.0-3.0) Basophils (%) (Auto) % (0.0-2.0) Differential Total Cells Counted 100 Neutrophils % (Manual) 90 % (45-75) H Lymphocytes % (Manual) 9 % (20-45) L Monocytes % (Manual) 1 % (1-10) Eosinophils % (Manual) 0 % (0-3) Basophils % (Manual) 0 % (0-2) Band Neutrophils 0 % (0-8) Platelet Estimate Decreased L Platelet Morphology Normal Anisocytosis 1+ Reticulocyte Count 0.8 % (0.5-2.0) Prothrombin Time 12.1 SEC (9.30-11.50) H Prothromb Time International Ratio 1.2 (0.9-1.1) H Activated Partial Thromboplast Time 44 SEC (23-33) H Sodium Level 139 MMOL/L (136-145) Potassium Level 4.1 MMOL/L (3.5-5.1) Chloride Level 107 MMOL/L (98-107) Carbon Dioxide Level 23 MMOL/L (21-32) Anion Gap 9 mmol/L (5-15) Blood Urea Nitrogen 31 mg/dL (7-18) H Creatinine 1.1 MG/DL (0.55-1.30) Estimat Glomerular Filtration Rate mL/min (>60) Glucose Level 95 MG/DL (74-106) Calcium Level 8.4 MG/DL (8.5-10.1) L Phosphorus Level 2.9 MG/DL (2.5-4.9) Magnesium Level 1.9 MG/DL (1.8-2.4) Iron Level 9 ug/dL (50-175) L Total Iron Binding Capacity 165 ug/dL (250-450) L Percent Iron Saturation 5 % (15-50) L Unsaturated Iron Binding 156 ug/dL (112-346) Ferritin 709 NG/ML (8-388) H Total Bilirubin 1.0 MG/DL (0.2-1.0) Aspartate Amino Transf (AST/SGOT) 25 U/L (15-37) Alanine Aminotransferase (ALT/SGPT) 47 U/L (12-78) Alkaline Phosphatase 64 U/L (46-116) Total Protein 5.3 G/DL (6.4-8.2) L Albumin 2.1 G/DL (3.4-5.0) L Globulin 3.2 g/dL Albumin/Globulin Ratio 0.7 (1.0-2.7) L Carcinoembryonic Antigen Pending Vitamin B12 Level 582 PG/ML (193-986) Folate 17.6 NG/ML (8.6-58.9) Thyroid Stimulating Hormone (TSH) 1.423 uiU/mL (0.358-3.740) Free Thyroxine 0.95 NG/DL (0.76-1.46) Arterial Blood pH 7.363 (7.350-7.450) Arterial Blood Partial Pressure CO2 40.6 mmHg (35.0-45.0) Arterial Blood Partial Pressure O2 107.1 mmHg (75.0-100.0) H Arterial Blood HCO3 22.6 mmol/L (22.0-26.0) Arterial Blood Oxygen Saturation 97.2 % (95-100) Arterial Blood Base Excess -2.6 (-2-2) L Alejandro Test Positive Current Medications Medications (Trade) Dose Ordered Sig/Keith Route PRN Reason Start Time Stop Time Status Last Admin Dose Admin Acetaminophen (Tylenol) 650 mg Q4H PRN ORAL Mild Pain/Temp > 100.5 11/12/18 08:08 12/12/18 08:07 11/12/18 16:39 Azithromycin 500 mg/Dextrose 275 ml @ 275 mls/hr Q24HRS IV 11/12/18 18:00 11/18/18 18:59 11/13/18 18:48 Cefepime HCl 1 gm/ Dextrose 55 ml @ 110 mls/hr EVERY 12 HOURS IV 11/12/18 09:00 11/19/18 08:59 11/14/18 09:58 Dextrose/ Electrolytes 1,000 ml @ 30 mls/hr Q24H IV 11/13/18 11:56 12/13/18 11:55 11/13/18 12:41 Heparin Sodium (Porcine) (Heparin 5000 units/ml) 5,000 units EVERY 12 HOURS SUBQ 11/12/18 21:00 12/12/18 08:59 Ipratropium [place] (Atrovent) 500 mcg Q4H PRN HHN Shortness of Breath 11/13/18 12:00 11/18/18 11:59 Ipratropium [place] (Atrovent) 500 mcg Q6HRT HHN 11/13/18 13:00 11/18/18 12:59 11/14/18 06:40 Levalbuterol HCl (Xopenex) 0.63 mg Q4H PRN HHN SOB and WHEEZING 11/13/18 12:00 11/18/18 11:59 Levalbuterol HCl (Xopenex) 0.63 mg Q6HRT HHN 11/13/18 13:00 11/18/18 12:59 11/14/18 06:41 Methylprednisolone Sodium Succinate (Solu-MEDROL) 40 mg DAILY IVP 11/14/18 09:00 12/14/18 08:59 11/14/18 10:01 Ondansetron HCl (Zofran) 4 mg Q6H PRN IVP Nausea & Vomiting 11/12/18 08:09 12/12/18 08:08 Pantoprazole (Protonix) 40 mg DAILY IVP 11/14/18 09:00 12/14/18 08:59 11/14/18 09:58 Promethazine HCl/ Codeine (Phenergan with Codeine) 5 ml Q4H PRN ORAL For Cough 11/12/18 08:09 12/12/18 08:08 Temazepam (Restoril) 15 mg HSPRN PRN ORAL Insomnia 11/12/18 08:09 11/19/18 08:08 Vancomycin HCl (Vanco rx to dose) 1 ea DAILY PRN MISC Per rx protocol 11/12/18 09:00 12/12/18 00:00 Vancomycin HCl 1 gm/Dextrose 275 ml @ 183.708 mls/hr Q12HR@0300,1500 IVPB 11/13/18 15:00 11/18/18 14:59 11/14/18 03:28 Bety William M.D. November 14, 2018 11:50
[2018-11-14] MEDS: D5 1/2NS w/KCl 20mEq 1,000 ML IV SCH (12:02)
--- NOTE | 2018-11-14 12:45 | NUR ---
NURSE NOTES: TOLERATED WEANING FROM BIPAP. FIO2 AT 70%. NO SIGNS OF DISTRESS. WILL CONTINUE TO MONITOR.
--- NOTE | 2018-11-14 14:30 | NUR ---
NURSE NOTES: PATIENT TOLERATED VENTI MASK. PATIENT KEPT CLEAN AND DRY. WILL CONTINUE TO MONITOR.
--- NOTE | 2018-11-14 16:30 | NUR ---
NURSE NOTES: DC RESTRAINTS. PATIENT IS NOTED TO BE CALM. PLACED ON NC AT 4L. NO SIGNS OF DISTRESS. WILL CONTINUE TO MONITOR.
[2018-11-14] MEDS: Azithromycin 500 MG in D5W 275 ML IV SCH (17:43)
--- NOTE | 2018-11-14 18:20 | Internal Med Progress Note ---
Subjective Date of Service: November 14, 2018 Physician Name GalarzaLouis avendaño Attending Physician Star Malave MD Current Medications Medications (Trade) Dose Ordered Sig/Keith Route PRN Reason Start Time Stop Time Status Last Admin Dose Admin Acetaminophen (Tylenol) 650 mg Q4H PRN ORAL Mild Pain/Temp > 100.5 11/12/18 08:08 12/12/18 08:07 11/14/18 15:26 Azithromycin 500 mg/Dextrose 275 ml @ 275 mls/hr Q24HRS IV 11/12/18 18:00 11/18/18 18:59 11/14/18 17:43 Dextrose/ Electrolytes 1,000 ml @ 30 mls/hr Q24H IV 11/13/18 11:56 12/13/18 11:55 11/14/18 12:02 Heparin Sodium (Porcine) (Heparin 5000 units/ml) 5,000 units EVERY 12 HOURS SUBQ 11/12/18 21:00 12/12/18 08:59 Ipratropium [place] (Atrovent) 500 mcg Q4H PRN HHN Shortness of Breath 11/13/18 12:00 11/18/18 11:59 Ipratropium [place] (Atrovent) 500 mcg Q6HRT HHN 11/13/18 13:00 11/18/18 12:59 11/14/18 13:09 Levalbuterol HCl (Xopenex) 0.63 mg Q4H PRN HHN SOB and WHEEZING 11/13/18 12:00 11/18/18 11:59 Levalbuterol HCl (Xopenex) 0.63 mg Q6HRT HHN 11/13/18 13:00 11/18/18 12:59 11/14/18 13:09 Methylprednisolone Sodium Succinate (Solu-MEDROL) 40 mg DAILY IVP 11/14/18 09:00 12/14/18 08:59 11/14/18 10:01 Ondansetron HCl (Zofran) 4 mg Q6H PRN IVP Nausea & Vomiting 11/12/18 08:09 12/12/18 08:08 Pantoprazole (Protonix) 40 mg DAILY IVP 11/14/18 09:00 12/14/18 08:59 11/14/18 09:58 Promethazine HCl/ Codeine (Phenergan with Codeine) 5 ml Q4H PRN ORAL For Cough 11/12/18 08:09 12/12/18 08:08 Temazepam (Restoril) 15 mg HSPRN PRN ORAL Insomnia 11/12/18 08:09 11/19/18 08:08 Vancomycin HCl (Vanco rx to dose) 1 ea DAILY PRN MISC Per rx protocol 11/12/18 09:00 12/12/18 00:00 Vancomycin HCl 1 gm/Dextrose 275 ml @ 183.708 mls/hr Q12HR@0300,1500 IVPB 11/13/18 15:00 11/18/18 14:59 11/14/18 15:25 Allergies: Coded Allergies: No Known Allergies (Unverified , 12/10/11) ROS Limited/Unobtainable: No Constitutional: Reports: no symptoms HEENT: Reports: no symptoms Cardiovascular: Reports: no symptoms Respiratory: Reports: shortness of breath Gastrointestinal/Abdominal: Reports: no symptoms Genitourinary: Reports: no symptoms Neurologic/Psychiatric: Reports: no symptoms Subjective 87 YO M admitted with respiratory failure and pneumonia. Cover for Int Med-Dr Malave. ICU. Off BIPAP Objective Last Vital Signs Date Time Temp Pulse Resp B/P (MAP) Pulse Ox O2 Delivery O2 Flow Rate FiO2 11/14/18 16:00 8.0 40 11/14/18 16:00 Venturi Mask 11/14/18 16:00 82 11/14/18 16:00 98.1 20 110/64 (79) 96 Laboratory Tests Test 11/13/18 20:30 11/14/18 04:00 11/14/18 09:40 Stool Occult Blood Positive (NEGATIVE) White Blood Count 11.3 K/UL (4.8-10.8) H Red Blood Count 3.85 M/UL (4.70-6.10) L Hemoglobin 11.6 G/DL (14.2-18.0) L Hematocrit 34.7 % (42.0-52.0) L Mean Corpuscular Volume 90 FL (80-99) Mean Corpuscular Hemoglobin 30.1 PG (27.0-31.0) Mean Corpuscular Hemoglobin Concent 33.4 G/DL (32.0-36.0) Red Cell Distribution Width 15.9 % (11.6-14.8) H Platelet Count 53 K/UL (150-450) L Mean Platelet Volume 9.7 FL (6.5-10.1) Neutrophils (%) (Auto) % (45.0-75.0) Lymphocytes (%) (Auto) % (20.0-45.0) Monocytes (%) (Auto) % (1.0-10.0) Eosinophils (%) (Auto) % (0.0-3.0) Basophils (%) (Auto) % (0.0-2.0) Differential Total Cells Counted 100 Neutrophils % (Manual) 90 % (45-75) H Lymphocytes % (Manual) 9 % (20-45) L Monocytes % (Manual) 1 % (1-10) Eosinophils % (Manual) 0 % (0-3) Basophils % (Manual) 0 % (0-2) Band Neutrophils 0 % (0-8) Platelet Estimate Decreased L Platelet Morphology Normal Anisocytosis 1+ Reticulocyte Count 0.8 % (0.5-2.0) Prothrombin Time 12.1 SEC (9.30-11.50) H Prothromb Time International Ratio 1.2 (0.9-1.1) H Activated Partial Thromboplast Time 44 SEC (23-33) H Sodium Level 139 MMOL/L (136-145) Potassium Level 4.1 MMOL/L (3.5-5.1) Chloride Level 107 MMOL/L (98-107) Carbon Dioxide Level 23 MMOL/L (21-32) Anion Gap 9 mmol/L (5-15) Blood Urea Nitrogen 31 mg/dL (7-18) H Creatinine 1.1 MG/DL (0.55-1.30) Estimat Glomerular Filtration Rate mL/min (>60) Glucose Level 95 MG/DL (74-106) Calcium Level 8.4 MG/DL (8.5-10.1) L Phosphorus Level 2.9 MG/DL (2.5-4.9) Magnesium Level 1.9 MG/DL (1.8-2.4) Iron Level 9 ug/dL (50-175) L Total Iron Binding Capacity 165 ug/dL (250-450) L Percent Iron Saturation 5 % (15-50) L Unsaturated Iron Binding 156 ug/dL (112-346) Ferritin 709 NG/ML (8-388) H Total Bilirubin 1.0 MG/DL (0.2-1.0) Aspartate Amino Transf (AST/SGOT) 25 U/L (15-37) Alanine Aminotransferase (ALT/SGPT) 47 U/L (12-78) Alkaline Phosphatase 64 U/L (46-116) Total Protein 5.3 G/DL (6.4-8.2) L Albumin 2.1 G/DL (3.4-5.0) L Globulin 3.2 g/dL Albumin/Globulin Ratio 0.7 (1.0-2.7) L Carcinoembryonic Antigen Pending Vitamin B12 Level 582 PG/ML (193-986) Folate 17.6 NG/ML (8.6-58.9) Thyroid Stimulating Hormone (TSH) 1.423 uiU/mL (0.358-3.740) Free Thyroxine 0.95 NG/DL (0.76-1.46) Arterial Blood pH 7.363 (7.350-7.450) Arterial Blood Partial Pressure CO2 40.6 mmHg (35.0-45.0) Arterial Blood Partial Pressure O2 107.1 mmHg (75.0-100.0) H Arterial Blood HCO3 22.6 mmol/L (22.0-26.0) Arterial Blood Oxygen Saturation 97.2 % (95-100) Arterial Blood Base Excess -2.6 (-2-2) L Alejandro Test Positive Microbiology Date/Time Source Procedure Growth Status 11/11/18 22:35 Blood Blood Culture - Preliminary NO GROWTH AFTER 48 HOURS Resulted 11/11/18 22:28 Blood Blood Culture - Preliminary NO GROWTH AFTER 48 HOURS Resulted 11/12/18 20:50 Sputum Induced Gram Stain - Final Resulted 11/12/18 20:50 Sputum Culture - Preliminary Staphylococcus Aureus Usual Respiratory [place] Resulted 11/12/18 19:00 Nasopharynx - Final Complete 11/12/18 19:00 Nasopharynx - Final Complete Intake and Output 11/13/18 11/14/18 19:00 07:00 Intake Total 827.416 ml 605.000 ml Output Total 725 ml 750 ml Balance 102.416 ml -145.000 ml IV Total 827.416 ml 605.000 ml Output Urine Total 725 ml 750 ml # Bowel Movements 1 Objective PHYSICAL EXAMINATION: GENERAL: The patient is well-developed and well-nourished white male, in respiratory distress. HEENT: Eyes, pupils are equal and responsive to light and accommodation. Extraocular movements are intact. NECK: Supple without lymphadenopathy. CHEST: BIPAP; Decreased breath sounds in bilateral bases with crackles on the left. Otherwise, without wheezes. ABDOMEN: Soft, nontender, and nondistended. Positive bowel sounds. No evidence of hepatosplenomegaly. Currently, no rebound or guarding noted. EXTREMITIES: Negative for clubbing, cyanosis, or edema. RECTAL/GENITAL: Refused. NEUROLOGIC: Cranial nerves II through XII are grossly intact without focal deficits. Motor strength is 5/5 bilaterally. Deep tendon reflexes are 2+ plantar. Assessment/Plan Assessment/Plan ASSESSMENT: This is an 87-year-old white male. 1. Pneumonia. 2. Respiratory failure. 3. Diarrhea. 4. Nausea with vomiting. 5. Fever. 6. Hypertension. 7. Hypercholesterolemia. TREATMENT: 1. Pneumonia/respiratory failure. A Pulmonary consultation has been obtained with Dr. Joan Nugent. The patient is currently off BiPAP in the intensive care unit. We will follow recommendations of Pulmonary. The patient has been started empirically on intravenous vancomycin, cefepime, and azithromycin. 2. Diarrhea/nausea/vomiting. A Gastroenterology consultation has been obtained with Dr. Nito Joseph. 3. Fever. This probably is secondary to pneumonia as above. 4. Hypertension. The patient is currently hypotensive. 5. Hypercholesterolemia. Continue Crestor as above. Louis Galarza MD November 14, 2018 18:20
--- NOTE | 2018-11-14 18:22 | NUR ---
NURSE NOTES: SEEN AND EXAMINED BY DR UGARTE. PATIENT IS ON 4L NC, NO SIGNS OF DISTRESS. WILL CONTINUE TO MONITOR.
--- NOTE | 2018-11-14 19:26 | NUR ---
HAND-OFF: Report given to Ney Mcmahan RN.
--- NOTE | 2018-11-14 19:30 | NUR ---
NURSE NOTES: Endorsement received from ANN Lawson. Patient opens eyes spontaneously, follows commands. Croatian speaking, understands a little bit Maltese. On 4L/NC. VS stable. SR on monitoring coordinator. With left hand 20G, running D5 1/2 NS + 20 meq KCl. Multiple ecchymosis on bilateral arms. Chavez F 16 connected to urine bag, draining clear yellow urine. Head of bed elevated. Bed locked and in low position. Call light within reach. Reminded patient to use call light for assistance. Bed alarm on. Will continue to monitor.
[2018-11-14] MEDS ORDERED: LORazepam Inj 2mg/ml 1ml IVP SCH (21:30)
--- NOTE | 2018-11-14 21:30 | NUR ---
NURSE NOTES: Pt became agitated, took off his NC, trying to get out of bed, and screaming, also being aggressive with staff. Dr Maurer was paged and order Ativan 0.5mg IVP x 1. Also pt's son was called for help to calm the pt down, however unsuccessful.
--- NOTE | 2018-11-14 23:00 | NUR ---
NURSE NOTES: Pt's calm, resting in bed, has been put back on BiPap 18/5, 90% for comfort. Will continue to monitor.
[2018-11-15] VITALS (28 sets, daily range): BP systolic 94–164; BP diastolic 55–108
--- NOTE | 2018-11-15 01:00 | NUR ---
NURSE NOTES: Pt's resting in bed, asleep, with eyes closed. VS stable. Will continue to monitor.
[2018-11-15] MEDS: Levalbuterol Inh UD 1.25mg/0.5ml HHN SCH ×4 (01:28→19:33)
[2018-11-15] MEDS: Ipratropium 0.02% Inh Soln 2.5ml UD HHN SCH ×4 (01:28→19:33)
--- NOTE | 2018-11-15 03:00 | NUR ---
NURSE NOTES: Pt's asleep with eyes closed. VS stable. Call light within reach. Bed in low, and alarmed. Will continue to monitor.
[2018-11-15] MEDS: Vancomycin 1gm/D5W 275ml IVPB SCH ×4 (03:50→15:30)
--- NOTE | 2018-11-15 05:00 | NUR ---
NURSE NOTES: Pt's asleep with eyes closed. VS stable. Call light within reach. Bed in low, and alarmed. Will continue to monitor.
[2018-11-15 05:08] LABS: HEMATOCRIT 37.5 % (42.0-52.0); HEMOGLOBIN 12.6 G/DL (14.2-18.0); MEAN CORPUSCULAR VOLUME 90 FL (80-99); PLATELET COUNT 53 K/UL (150-450); RED BLOOD COUNT 4.18 M/UL (4.70-6.10); RED CELL DISTRIBUTION WIDTH 15.8 % (11.6-14.8); WHITE BLOOD COUNT 10.2 K/UL (4.8-10.8)
[2018-11-15 05:38] LABS: ALANINE AMINOTRANSFERASE 55 U/L (12-78); ALBUMIN 2.3 G/DL (3.4-5.0); ALBUMIN/GLOBULIN RATIO 0.6 (1.0-2.7); ALKALINE PHOSPHATASE 71 U/L (46-116); ANION GAP 3 mmol/L (5-15); ASPARTATE AMINO TRANSFERASE 28 U/L (15-37); BILIRUBIN,TOTAL 0.8 MG/DL (0.2-1.0); BLOOD UREA NITROGEN 28 mg/dL (7-18); CALCIUM 9.2 MG/DL (8.5-10.1); CARBON DIOXIDE 28 MMOL/L (21-32); CHLORIDE 106 MMOL/L (98-107); CREATININE 1.2 MG/DL (0.55-1.30); PHOSPHORUS 4.3 MG/DL (2.5-4.9); POTASSIUM 4.7 MMOL/L (3.5-5.1); SODIUM 137 MMOL/L (136-145)
--- NOTE | 2018-11-15 07:00 | NUR ---
HAND-OFF: Report given to ANN Gant.
--- NOTE | 2018-11-15 07:15 | NUR ---
NURSE NOTES: Received pt from ANN Pinto. Pt is asleep, audible snoring heard. No signs of distress. Bilateral soft wrist restraints applied at 0630 for patient safety and impulsiveness. Skin intact and warm to touch. 4LNC, spo2 100%, RR 18. BIPAP at night only. Diminished bilateral breath sounds. Afebrile. BP 144/82, SR, HR 84 on library monitor. NPO maintained, abdomen round and non-tender. No diarrhea during PM shift. Updated son, Javy regarding care plan. RAC 20G running D51/2NS with 20 KCL@30cc/hr. Bilateral arms noted with bruising, sacral redness with Optifoam. Bed locked, alarmed and in lowest position. Will continue plan of care.
--- NOTE | 2018-11-15 07:28 | NUR ---
RESPIRATORY NOTE: received pt on bipap 18/5 with fio2 70%. pt received breathing tx as well and removed pt off bipap post tx. pt placed on 4L NC with saturation of 94-96%. no redness or skin breakdowns visible around face. foam tape was in place. will cont to monitor.
[2018-11-15] MEDS: Solu-MEDROL 40mg Inj IVP SCH (08:52)
[2018-11-15] MEDS: Heparin 5000 units/ml inj SUBQ SCH (08:52)
[2018-11-15] MEDS: Pantoprazole Inj IVP SCH (08:52)
--- NOTE | 2018-11-15 08:58 | Pulmonolgy Critical Care Note ---
Critical Care - Asmt/Plan Problems: (1) Respiratory failure with hypoxia (2) COPD exacerbation (3) Pneumonia (4) Thrombocytopenia (5) UTI (urinary tract infection) (6) Electrolyte imbalance (7) Nausea & vomiting (8) Dehydration (9) Paroxysmal atrial fibrillation Assessment/Plan: COPD with acute exacerbation Acute hypoxemic and hypercapnic respiratory failure CAP UTI Chronic thrombocytopenia Anemia H/O OP dysphagia NVD - RESOLVED VARSHA - RESOLVED pAF ---> NSR Protein calorie malnutrition Respiratory: Optimize pulmonary hygiene/mobilize as tolerated, titrate down FiO2 to keep SaO2 > 90%, BiPAP 18/5 qHS and PRN only, Atrovent and Levalbuterol HHN's RTC and PRN, SM 40 IV qDaily (D3) - transition to PO Pred when gustavo PO Cardiac: continue to monitor HR/BP Renal: mIVF @ 30 cc/hr , monitor electrolytes - once gustavo PO can D/C Abx Infectious Disease: continue antibiotics - Vanco/Cefepime/Azithro (D4) per ID, F/U Cx's Gastrointestinal: NPO, INSTRUMENT TECHNOLOGIST eval, GI recs, PPI, hold of on endoscopy for the time being Endocrine: monitor blood sugar Hematologic: monitor H/H - and platelets, other - No further w/u of thrombocytopenia, extensive w/u by Dr. 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 Neurologic: keep patient comfortable - monitor MS Prophylaxis: Protonix, Heparin Disposition: Transfer to [facility] Time Spent (Minutes): 30 Notes Reviewed: director of assisted living, ID, other - CS LINK RECORDS REVIEWED Discussed with: nurses, consultants, family member, other - DNAR/DNI, BiPAP OK Critical Care - Objective Last 24 Hour Vital Signs Date Time Temp Pulse Resp B/P (MAP) Pulse Ox O2 Delivery O2 Flow Rate FiO2 11/15/18 08:00 4.0 11/15/18 08:00 97.8 86 18 138/86 (103) 95 11/15/18 08:00 Nasal Cannula 4.0 11/15/18 07:27 95 Nasal Cannula 4.0 36 11/15/18 07:25 80 21 94 Bi-pap 30 11/15/18 07:16 93 14 98 Bi-pap 70 11/15/18 07:00 94 18 141/69 (93) 100 11/15/18 06:00 94 18 120/76 (91) 100 11/15/18 05:03 93 16 99 Full Face 70 11/15/18 05:00 99 19 116/70 (85) 98 11/15/18 04:00 70 11/15/18 04:00 99 11/15/18 04:00 80 18 111/57 (75) 94 11/15/18 04:00 Venturi Mask 8.0 11/15/18 03:34 96 21 99 Full Face 70 11/15/18 03:00 110 20 164/108 (126) 96 11/15/18 02:00 98.0 93 24 141/100 (114) 100 11/15/18 01:38 80 19 99 Nasal Cannula 4.0 36 11/15/18 01:28 76 14 98 Bi-pap 80 11/15/18 01:28 76 14 98 Full Face 80 11/15/18 01:00 74 17 105/64 (78) 98 11/15/18 00:00 78 18 94/60 (71) 98 11/15/18 00:00 Venturi Mask 8.0 11/15/18 00:00 77 11/15/18 00:00 80 11/14/18 23:00 103 21 90/59 (69) 97 11/14/18 22:51 96 15 98 Full Face 90 11/14/18 22:00 147 23 103/70 (81) 93 11/14/18 21:52 149 38 94 Full Face 100 11/14/18 21:00 95 21 151/121 (131) 89 11/14/18 20:00 Venturi Mask 8.0 11/14/18 20:00 4.0 11/14/18 20:00 78 11/14/18 20:00 98.7 90 18 135/81 (99) 91 11/14/18 19:30 80 19 97 Nasal Cannula 4.0 36 11/14/18 19:19 89 22 94 Nasal Cannula 4.0 36 11/14/18 19:19 94 Nasal Cannula 4.0 36 11/14/18 19:00 94 17 106/74 (85) 94 11/14/18 18:00 97 23 109/80 (90) 92 11/14/18 17:00 81 22 112/67 (82) 91 11/14/18 16:00 8.0 40 11/14/18 16:00 Venturi Mask 8.0 11/14/18 16:00 82 11/14/18 16:00 98.1 86 20 110/64 (79) 96 11/14/18 15:14 94 Venturi Mask 8.0 40 11/14/18 15:00 85 18 97/63 (74) 98 11/14/18 14:00 86 25 138/62 (87) 98 11/14/18 13:21 94 21 89 11/14/18 13:20 83 21 94 Venturi Mask 14.0 55 11/14/18 13:09 79 22 95 Bi-pap 70 11/14/18 13:00 85 23 100/61 (74) 95 11/14/18 12:00 70 11/14/18 12:00 97.9 81 22 113/63 (80) 95 11/14/18 12:00 Bi-pap 11/14/18 12:00 75 11/14/18 10:41 75 18 96 Full Face 70 11/14/18 10:00 79 22 113/63 (80) 96 11/14/18 09:21 75 19 98 Full Face 80 11/14/18 09:00 78 20 96/54 (68) 97 Status: somnolent Condition: improving HEENT: atraumatic, normocephalic Neck: full ROM Lungs: rhonchi Heart: HR/BP stable Abdomen: soft, non-tender, active bowel sounds Extremities: no C/C/E Micro: Microbiology Date/Time Source Procedure Growth Status 11/12/18 20:50 Sputum Induced Gram Stain - Final Complete 11/12/18 20:50 Sputum Culture - Final Staphylococcus Aureus - Mrsa Liss Albicans Complete 11/12/18 19:00 Nasopharynx - Final Complete 11/12/18 19:00 Nasopharynx - Final Complete Blood Sugars: BS controlled Critical Care - Subjective ROS Limited/Unobtainable: Yes ICU Day: 4 Intubation Day: 4 Interval Events: Gustavo 4 L NC was on BiPAP ON Arousable, better overall + cough + SOB no FC Condition: improving EKG Rhythm: Sinus Rhythm FI02: 36 Vent Support Mode: BiLevel Sputum Amount: None Secretions: None Fluids: D51/[id number]@30/hr I&O: Intake and Output 11/14/18 11/15/18 18:59 06:59 Intake Total 972.416 ml 635.000 ml Output Total 1035 ml 1400 ml Balance -62.584 ml -765.000 ml IV Total 972.416 ml 635.000 ml Output Urine Total 1035 ml 1400 ml Labs: Laboratory Tests Test 11/14/18 09:40 11/15/18 02:00 11/15/18 04:00 Arterial Blood pH 7.363 (7.350-7.450) Arterial Blood Partial Pressure CO2 40.6 mmHg (35.0-45.0) Arterial Blood Partial Pressure O2 107.1 mmHg (75.0-100.0) H Arterial Blood HCO3 22.6 mmol/L (22.0-26.0) Arterial Blood Oxygen Saturation 97.2 % (95-100) Arterial Blood Base Excess -2.6 (-2-2) L Alejandro Test Positive Vancomycin Level Trough 16.8 ug/mL (5.0-12.0) H White Blood Count 10.2 K/UL (4.8-10.8) Red Blood Count 4.18 M/UL (4.70-6.10) L Hemoglobin 12.6 G/DL (14.2-18.0) L Hematocrit 37.5 % (42.0-52.0) L Mean Corpuscular Volume 90 FL (80-99) Mean Corpuscular Hemoglobin 30.1 PG (27.0-31.0) Mean Corpuscular Hemoglobin Concent 33.6 G/DL (32.0-36.0) Red Cell Distribution Width 15.8 % (11.6-14.8) H Platelet Count 53 K/UL (150-450) L Mean Platelet Volume 8.4 FL (6.5-10.1) Neutrophils (%) (Auto) % (45.0-75.0) Lymphocytes (%) (Auto) % (20.0-45.0) Monocytes (%) (Auto) % (1.0-10.0) Eosinophils (%) (Auto) % (0.0-3.0) Basophils (%) (Auto) % (0.0-2.0) Neutrophils % (Manual) Pending Lymphocytes % (Manual) Pending Platelet Estimate Pending Platelet Morphology Pending Sodium Level 137 MMOL/L (136-145) Potassium Level 4.7 MMOL/L (3.5-5.1) Chloride Level 106 MMOL/L (98-107) Carbon Dioxide Level 28 MMOL/L (21-32) Anion Gap 3 mmol/L (5-15) L Blood Urea Nitrogen 28 mg/dL (7-18) H Creatinine 1.2 MG/DL (0.55-1.30) Estimat Glomerular Filtration Rate mL/min (>60) Glucose Level 129 MG/DL (74-106) H Calcium Level 9.2 MG/DL (8.5-10.1) Phosphorus Level 4.3 MG/DL (2.5-4.9) Magnesium Level 1.9 MG/DL (1.8-2.4) Total Bilirubin 0.8 MG/DL (0.2-1.0) Aspartate Amino Transf (AST/SGOT) 28 U/L (15-37) Alanine Aminotransferase (ALT/SGPT) 55 U/L (12-78) Alkaline Phosphatase 71 U/L (46-116) Total Protein 6.2 G/DL (6.4-8.2) L Albumin 2.3 G/DL (3.4-5.0) L Globulin 3.9 g/dL Albumin/Globulin Ratio 0.6 (1.0-2.7) L Ashish Solis MD November 15, 2018 08:58
--- NOTE | 2018-11-15 09:00 | NUR ---
NURSE NOTES: Received orders to place SCD's after venous duplex. Turned and repositioned.
--- NOTE | 2018-11-15 10:04 | GI Progress Note ---
Assessment/Plan Problems: (1) Thrombocytopenia ICD Codes: D69.6 - Thrombocytopenia, unspecified SNOMED: 716607089 (2) Nausea & vomiting ICD Codes: R11.2 - Nausea with vomiting, unspecified SNOMED: 96834356 (3) Dehydration ICD Codes: E86.0 - Dehydration SNOMED: 63013549 (4) Diarrhea ICD Codes: R19.7 - Diarrhea, unspecified SNOMED: 35441642 (5) Electrolyte imbalance ICD Codes: E87.8 - Other disorders of electrolyte and fluid balance, not elsewhere classified SNOMED: 060927460 Status: stable Status Narrative Discussed with Dr. Joseph. Assessment/Plan OB stool positive BIPAP qHS ST evaluation today, diet per defer any GI procedures at this time, respiratory status not stable Follow C. difficile, stool studies >> will consider Imodium prn pending work up Zofran as needed, Reglan for persistent vomiting IV hydration plus electrolyte correction monitor H&H, prn transfusions bowel regime ppi abx per ID fu labs The patient was seen and examined at bedside and all new and available data was reviewed in the patients chart. I agree with the above findings, impression and plan. (Patient seen earlier today. Signature stamp does not reflect patient encounter time.). - Nito Joseph MD Subjective Subjective limited Objective Last 24 Hour Vital Signs Date Time Temp Pulse Resp B/P (MAP) Pulse Ox O2 Delivery O2 Flow Rate FiO2 11/15/18 08:00 4.0 11/15/18 08:00 97.8 86 18 138/86 (103) 95 11/15/18 08:00 Nasal Cannula 4.0 11/15/18 08:00 80 11/15/18 07:27 95 Nasal Cannula 4.0 36 11/15/18 07:25 80 21 94 Bi-pap 30 11/15/18 07:16 93 14 98 Bi-pap 70 11/15/18 07:00 94 18 141/69 (93) 100 11/15/18 06:00 94 18 120/76 (91) 100 11/15/18 05:03 93 16 99 Full Face 70 11/15/18 05:00 99 19 116/70 (85) 98 11/15/18 04:00 70 11/15/18 04:00 99 11/15/18 04:00 80 18 111/57 (75) 94 11/15/18 04:00 Venturi Mask 8.0 11/15/18 03:34 96 21 99 Full Face 70 11/15/18 03:00 110 20 164/108 (126) 96 11/15/18 02:00 98.0 93 24 141/100 (114) 100 11/15/18 01:38 80 19 99 Nasal Cannula 4.0 36 11/15/18 01:28 76 14 98 Bi-pap 80 11/15/18 01:28 76 14 98 Full Face 80 11/15/18 01:00 74 17 105/64 (78) 98 11/15/18 00:00 78 18 94/60 (71) 98 11/15/18 00:00 Venturi Mask 8.0 11/15/18 00:00 77 11/15/18 00:00 80 11/14/18 23:00 103 21 90/59 (69) 97 11/14/18 22:51 96 15 98 Full Face 90 11/14/18 22:00 147 23 103/70 (81) 93 11/14/18 21:52 149 38 94 Full Face 100 11/14/18 21:00 95 21 151/121 (131) 89 11/14/18 20:00 Venturi Mask 8.0 11/14/18 20:00 4.0 11/14/18 20:00 78 11/14/18 20:00 98.7 90 18 135/81 (99) 91 11/14/18 19:30 80 19 97 Nasal Cannula 4.0 36 11/14/18 19:19 89 22 94 Nasal Cannula 4.0 36 11/14/18 19:19 94 Nasal Cannula 4.0 36 11/14/18 19:00 94 17 106/74 (85) 94 11/14/18 18:00 97 23 109/80 (90) 92 11/14/18 17:00 81 22 112/67 (82) 91 11/14/18 16:00 8.0 40 11/14/18 16:00 Venturi Mask 8.0 11/14/18 16:00 82 11/14/18 16:00 98.1 86 20 110/64 (79) 96 11/14/18 15:14 94 Venturi Mask 8.0 40 11/14/18 15:00 85 18 97/63 (74) 98 11/14/18 14:00 86 25 138/62 (87) 98 11/14/18 13:21 94 21 89 11/14/18 13:20 83 21 94 Venturi Mask 14.0 55 11/14/18 13:09 79 22 95 Bi-pap 70 11/14/18 13:00 85 23 100/61 (74) 95 11/14/18 12:00 70 11/14/18 12:00 97.9 81 22 113/63 (80) 95 11/14/18 12:00 Bi-pap 11/14/18 12:00 75 11/14/18 10:41 75 18 96 Full Face 70 11/14/18 10:00 79 22 113/63 (80) 96 Intake and Output 11/14/18 11/15/18 18:59 06:59 Intake Total 972.416 ml 635.000 ml Output Total 1035 ml 1400 ml Balance -62.584 ml -765.000 ml IV Total 972.416 ml 635.000 ml Output Urine Total 1035 ml 1400 ml Laboratory Tests Test 11/15/18 02:00 11/15/18 04:00 Vancomycin Level Trough 16.8 ug/mL (5.0-12.0) H White Blood Count 10.2 K/UL (4.8-10.8) Red Blood Count 4.18 M/UL (4.70-6.10) L Hemoglobin 12.6 G/DL (14.2-18.0) L Hematocrit 37.5 % (42.0-52.0) L Mean Corpuscular Volume 90 FL (80-99) Mean Corpuscular Hemoglobin 30.1 PG (27.0-31.0) Mean Corpuscular Hemoglobin Concent 33.6 G/DL (32.0-36.0) Red Cell Distribution Width 15.8 % (11.6-14.8) H Platelet Count 53 K/UL (150-450) L Mean Platelet Volume 8.4 FL (6.5-10.1) Neutrophils (%) (Auto) % (45.0-75.0) Lymphocytes (%) (Auto) % (20.0-45.0) Monocytes (%) (Auto) % (1.0-10.0) Eosinophils (%) (Auto) % (0.0-3.0) Basophils (%) (Auto) % (0.0-2.0) Differential Total Cells Counted 100 Neutrophils % (Manual) 93 % (45-75) H Lymphocytes % (Manual) 6 % (20-45) L Monocytes % (Manual) 1 % (1-10) Eosinophils % (Manual) 0 % (0-3) Basophils % (Manual) 0 % (0-2) Band Neutrophils 0 % (0-8) Platelet Estimate Decreased L Platelet Morphology Normal Anisocytosis 1+ Sodium Level 137 MMOL/L (136-145) Potassium Level 4.7 MMOL/L (3.5-5.1) Chloride Level 106 MMOL/L (98-107) Carbon Dioxide Level 28 MMOL/L (21-32) Anion Gap 3 mmol/L (5-15) L Blood Urea Nitrogen 28 mg/dL (7-18) H Creatinine 1.2 MG/DL (0.55-1.30) Estimat Glomerular Filtration Rate mL/min (>60) Glucose Level 129 MG/DL (74-106) H Calcium Level 9.2 MG/DL (8.5-10.1) Phosphorus Level 4.3 MG/DL (2.5-4.9) Magnesium Level 1.9 MG/DL (1.8-2.4) Total Bilirubin 0.8 MG/DL (0.2-1.0) Aspartate Amino Transf (AST/SGOT) 28 U/L (15-37) Alanine Aminotransferase (ALT/SGPT) 55 U/L (12-78) Alkaline Phosphatase 71 U/L (46-116) Total Protein 6.2 G/DL (6.4-8.2) L Albumin 2.3 G/DL (3.4-5.0) L Globulin 3.9 g/dL Albumin/Globulin Ratio 0.6 (1.0-2.7) L Height (Feet): 5 Height (Inches): 10.00 Weight (Pounds): 186 General Appearance: no apparent distress Cardiovascular: normal rate Respiratory/Chest: normal breath sounds, no respiratory distress Abdominal Exam: normal bowel sounds, non tender, soft Extremities: non-tender Edy Rice NP November 15, 2018 10:04
--- NOTE | 2018-11-15 11:00 | NUR ---
NURSE NOTES: Patient is sedated. Venous Duplex being done at bedside.
--- NOTE | 2018-11-15 11:14 | NUR ---
SWALLOW/SPEECH THERAPY NOTE: REFERRED BY DR BRADSHAW FOR SWALLOW EVALUATION, SEE FULL REPORT TO FOLLOW. DYSPHAGIA RISK FACTORS FOR THIS GABONESE 87 Y.O.M.: ACUTE PNA (BILATERAL LOBAR INFILTRATES AND RHONCHI) HAD A LOT OF ORAL SECRETIONS DURING ADMIT, RESPIRATORY FAILURE WITH NEED FOR CPAP, THEN BIPAP, NOW 4 LITERS 02 NC, COUGH, NAUSEA / VOMITING INITIALLY BUT RESOLVED, DEHYDRATION, SEPSIS, DIARRHEA, HYPERCHOLESTEROLEMIA. H/O PRIOR CT HEAD 11/2011 HAD MILD BRAIN ATROPHY, COPD, GERD MEDS, HIGH BP, HTN, CARDIAC D/O. NO POLST NOR ADVANCE DIRECTIVE REGARDING TUBE FEEDINGS PREFERENCES IF NEEDED. [place] [facility] [place] AND SEEN BY RD ON A 2 GM NA [facility] SOFT CHOPPED AND THIN LIQUID DIET. FROM HOME ? DIET. CURRENTLY NPO EXCEPT ICE CHIPS AND MEDS. DAY 4 NO PO INTAKE (SINCE 11/11/18 ADMIT). PER RD OK TO HAVE LOW NA DIET BUT FOR NOW SHE WILL PUT IN TF RECOMMENDATIONS. PER RN, GIVEN ATIVAN FOR AGITATION. NOT VERY ALERT NOW. PER HIS , HE AND SHE SOME TAJIK BUT MOSTLY GABONESE. SHE STATES HE DOES NOT HAVE ANY SWALLOWING PROBLEMS AND THAT SHE GAVE HIS UPPER/LOWER DENTURES TO THE RN. INITIAL IMPRESSIONS: NOT ALERT ENOUGH FOR PO INTAKE (HAD ATIVAN DUE TO AGITATION). WHEN ALERT, VERY AGITATED AND NEEDS TO BE RESTRAINED, HIGH RISK FOR ASPIRATION AND POOR INTAKE. HIGH ASPIRATION ALSO RELATED TO RESPIRATORY INCOORDINATION WITH SWALLOWING (RR 26 INITIALLY NOW BETTER AT 18 ? WHEN AGITATED). DAY 4 NO PO AND NOT READY FOR PO ESPECIALLY OVER THE WEEKEND. RECOMMENDATIONS: COMPLETE MODIFIED BARIUM SWALLOW (MBSS) WHEN STABLE (NOT STABLE AND IN ICU NOW) TO FURTHER ASSESS SWALLOW, DETERMINE SILENT ASP RISK AND ETIOLOGY, AND ATTEMPT TRIAL TX TECHNIQUES. NOT READY FOR MBSS AT THIS TIME AND CANNOT COMPLETE OVER THE WEEKEND. INITIATE NONORAL FEEDINGS (12 HUNGARIAN NGT) AND CONTINUE WITH ORAL CARE KEEP OUT DENTURES FOR NOW. EDUCATED/TRAINED RN IN POSTED ORAL CARE / ASP SIGN. DYSPHAGIA MANAGEMENT AND TX AND COG-COM EVAL/TX COMPLETE EAT-10 QUESTIONNAIRE WITH PATIENT OR . D/W RN SOHAM AND SHE WILL CONVEY INFORMATION TO DR. MCCRAY. D/W RD NEED FOR TF RECOMMENDATIONS. Addendum: 11/15/18 at 1119 by WSE HARVEY OLIVE PACKER LEFT MESSAGE WITH DR BRADSHAW
--- NOTE | 2018-11-15 11:37 | NUR ---
RD ASSESSMENT & RECOMMENDATIONS SEE CARE ACTIVITY FOR COMPLETE ASSESSMENT DAILY ESTIMATED NEEDS: Needs based on Pulmonary, wound 77.8kg adj 25-30 kcals/kg 5675-0920 total kcals 1.25-1.5 g protein/kg 97-117 g total protein 20-25 mL/kg 6486-7477 total fluid mLs NUTRITION DIAGNOSIS: 1) Increased protein needs r/t wound healing as evidenced by pt w/ unstageable buttock wound. 2) Swallowing difficulty r/t respiratory status as evidenced by pt on Bipap, NPO at this time CURRENT DIET:NPO ENTERAL NUTRITION RECOMMENDATIONS: Glucerna 1.5 @55ml/hr x24 hrs to provide 1320ml, 1980 kcal, 109g pro, 1002ml free H2O - as medically able, rec to start glucerna 1.5 @15ml/hr for 6 hrs - advance as tolerated 10ml/hr q4-6 hrs to goal rate. - flush per MD/ HOB over 30 degrees ------- FOR 12 HR FEEDS IF ON BIPAP QHS: rec Glucena 1.5 w/ a goal of 110ml/hr x12 hrs when off Bipap to meet 100% est needs and provide 1320ml, 1980kcal, 109g pro, 1002ml free H2O. ADDITIONAL RECOMMENDATIONS: 1) Recalibrate bed scale wt as able for accurate CBW 2) Wound care/ w/ diet order: Add LAI BID + MVI x1 + Vit C 250mg daily 3) COORDINATOR OF GENETIC SERVICES eval for texture and appropriateness for oral diet 4) Monitor NPO status, now day 4 TF RECS ABOVE FOR 24HR and 12HRS FEEDS
--- NOTE | 2018-11-15 11:40 | Infectious Diseases Prog Note ---
Assessment/Plan Assessment/Plan Abx: IV Vancomycin 11/12- Cefepime 11/11- Levaquin x 1 11/11 Assessment: Sepsis 2ry to MRSA PNA -11/13 CXR: Suspected CHF/interstitial edema. Right pleural effusion not excluded -u/a neg -Bcx NTD -CXR: Pulmonary vascular congestion suspected. Airspace disease in the right mid and upper lung field. Could be superimposed pneumonia or related to the vascular congestion. Correlate clinically -influenza sc neg -sp cx MRSA, jodie albicans Fever, improving Leukocytosis, recurrent mild (on high dose steroids)- resolved Diarrhea- r/o Cdiff Lactic acidosis; SP VARSHA HTN COPD Plan: -Continue IV Vancomycin #10/02 for MRSA PNA -cont empiric Azithromycin #4/ for atypical coverage pending legionella ag urine -11/14 SP Cefepime #4 -f/u cx -Monitor CBC/CMP, temperatures -f/u Cdiff, sp cx, legionella ag urine -ICU care -aspiration precautions Thank you for this consultation. Will continue to follow along with you. Discussed with RN. Subjective Allergies: Coded Allergies: No Known Allergies (Unverified , 12/10/11) Subjective afebrile >48 hrs Bcx NTD mild leukocytosis resolved now on 4l NC more awake Bcx NTD Objective Vital Signs Last 24 Hour Vital Signs Date Time Temp Pulse Resp B/P (MAP) Pulse Ox O2 Delivery O2 Flow Rate FiO2 11/15/18 10:00 81 18 153/78 (103) 92 11/15/18 08:00 4.0 11/15/18 08:00 97.8 86 18 138/86 (103) 95 11/15/18 08:00 Nasal Cannula 4.0 11/15/18 08:00 80 11/15/18 07:27 95 Nasal Cannula 4.0 36 11/15/18 07:25 80 21 94 Bi-pap 30 11/15/18 07:16 93 14 98 Bi-pap 70 11/15/18 07:00 94 18 141/69 (93) 100 11/15/18 06:00 94 18 120/76 (91) 100 11/15/18 05:03 93 16 99 Full Face 70 11/15/18 05:00 99 19 116/70 (85) 98 11/15/18 04:00 70 11/15/18 04:00 99 11/15/18 04:00 80 18 111/57 (75) 94 11/15/18 04:00 Venturi Mask 8.0 11/15/18 03:34 96 21 99 Full Face 70 11/15/18 03:00 110 20 164/108 (126) 96 11/15/18 02:00 98.0 93 24 141/100 (114) 100 11/15/18 01:38 80 19 99 Nasal Cannula 4.0 36 11/15/18 01:28 76 14 98 Bi-pap 80 11/15/18 01:28 76 14 98 Full Face 80 11/15/18 01:00 74 17 105/64 (78) 98 11/15/18 00:00 78 18 94/60 (71) 98 11/15/18 00:00 Venturi Mask 8.0 11/15/18 00:00 77 11/15/18 00:00 80 11/14/18 23:00 103 21 90/59 (69) 97 11/14/18 22:51 96 15 98 Full Face 90 11/14/18 22:00 147 23 103/70 (81) 93 11/14/18 21:52 149 38 94 Full Face 100 11/14/18 21:00 95 21 151/121 (131) 89 11/14/18 20:00 Venturi Mask 8.0 11/14/18 20:00 4.0 11/14/18 20:00 78 11/14/18 20:00 98.7 90 18 135/81 (99) 91 11/14/18 19:30 80 19 97 Nasal Cannula 4.0 36 11/14/18 19:19 89 22 94 Nasal Cannula 4.0 36 11/14/18 19:19 94 Nasal Cannula 4.0 36 11/14/18 19:00 94 17 106/74 (85) 94 11/14/18 18:00 97 23 109/80 (90) 92 11/14/18 17:00 81 22 112/67 (82) 91 11/14/18 16:00 8.0 40 11/14/18 16:00 Venturi Mask 8.0 11/14/18 16:00 82 11/14/18 16:00 98.1 86 20 110/64 (79) 96 11/14/18 15:14 94 Venturi Mask 8.0 40 11/14/18 15:00 85 18 97/63 (74) 98 11/14/18 14:00 86 25 138/62 (87) 98 11/14/18 13:21 94 21 89 11/14/18 13:20 83 21 94 Venturi Mask 14.0 55 11/14/18 13:09 79 22 95 Bi-pap 70 11/14/18 13:00 85 23 100/61 (74) 95 11/14/18 12:00 70 11/14/18 12:00 97.9 81 22 113/63 (80) 95 11/14/18 12:00 Bi-pap 11/14/18 12:00 75 Height (Feet): 5 Height (Inches): 10.00 Weight (Pounds): 186 Objective General Appearance: WD/WN Lines, tubes and drains: peripheral HEENT: normocephalic, atraumatic Neck: non-tender, normal alignment Respiratory/Chest: rhonchi - left, rhonchi - right Cardiovascular/Chest: normal peripheral pulses, normal rate Abdomen: normal bowel sounds, non tender Genitourinary/Rectal: normal genital exam Extremities: normal range of motion, non-tender Skin Exam: normal pigmentation Microbiology Date/Time Source Procedure Growth Status 11/12/18 20:50 Sputum Induced Gram Stain - Final Complete 11/12/18 20:50 Sputum Culture - Final Staphylococcus Aureus - Mrsa Jodie Albicans Complete 11/12/18 19:00 Nasopharynx - Final Complete 11/12/18 19:00 Nasopharynx - Final Complete Laboratory Tests Test 11/15/18 02:00 11/15/18 04:00 Vancomycin Level Trough 16.8 ug/mL (5.0-12.0) H White Blood Count 10.2 K/UL (4.8-10.8) Red Blood Count 4.18 M/UL (4.70-6.10) L Hemoglobin 12.6 G/DL (14.2-18.0) L Hematocrit 37.5 % (42.0-52.0) L Mean Corpuscular Volume 90 FL (80-99) Mean Corpuscular Hemoglobin 30.1 PG (27.0-31.0) Mean Corpuscular Hemoglobin Concent 33.6 G/DL (32.0-36.0) Red Cell Distribution Width 15.8 % (11.6-14.8) H Platelet Count 53 K/UL (150-450) L Mean Platelet Volume 8.4 FL (6.5-10.1) Neutrophils (%) (Auto) % (45.0-75.0) Lymphocytes (%) (Auto) % (20.0-45.0) Monocytes (%) (Auto) % (1.0-10.0) Eosinophils (%) (Auto) % (0.0-3.0) Basophils (%) (Auto) % (0.0-2.0) Differential Total Cells Counted 100 Neutrophils % (Manual) 93 % (45-75) H Lymphocytes % (Manual) 6 % (20-45) L Monocytes % (Manual) 1 % (1-10) Eosinophils % (Manual) 0 % (0-3) Basophils % (Manual) 0 % (0-2) Band Neutrophils 0 % (0-8) Platelet Estimate Decreased L Platelet Morphology Normal Anisocytosis 1+ Sodium Level 137 MMOL/L (136-145) Potassium Level 4.7 MMOL/L (3.5-5.1) Chloride Level 106 MMOL/L (98-107) Carbon Dioxide Level 28 MMOL/L (21-32) Anion Gap 3 mmol/L (5-15) L Blood Urea Nitrogen 28 mg/dL (7-18) H Creatinine 1.2 MG/DL (0.55-1.30) Estimat Glomerular Filtration Rate mL/min (>60) Glucose Level 129 MG/DL (74-106) H Calcium Level 9.2 MG/DL (8.5-10.1) Phosphorus Level 4.3 MG/DL (2.5-4.9) Magnesium Level 1.9 MG/DL (1.8-2.4) Total Bilirubin 0.8 MG/DL (0.2-1.0) Aspartate Amino Transf (AST/SGOT) 28 U/L (15-37) Alanine Aminotransferase (ALT/SGPT) 55 U/L (12-78) Alkaline Phosphatase 71 U/L (46-116) Total Protein 6.2 G/DL (6.4-8.2) L Albumin 2.3 G/DL (3.4-5.0) L Globulin 3.9 g/dL Albumin/Globulin Ratio 0.6 (1.0-2.7) L Current Medications Medications (Trade) Dose Ordered Sig/Keith Route PRN Reason Start Time Stop Time Status Last Admin Dose Admin Acetaminophen (Tylenol) 650 mg Q4H PRN ORAL Mild Pain/Temp > 100.5 11/12/18 08:08 12/12/18 08:07 11/14/18 15:26 Azithromycin 500 mg/Dextrose 275 ml @ 275 mls/hr Q24HRS IV 11/12/18 18:00 11/18/18 18:59 11/14/18 17:43 Dextrose/ Electrolytes 1,000 ml @ 30 mls/hr Q24H IV 11/13/18 11:56 12/13/18 11:55 11/14/18 12:02 Haloperidol Lactate (Haldol) 5 mg Q6H PRN IM Agitation 11/14/18 22:00 12/14/18 21:59 Heparin Sodium (Porcine) (Heparin 5000 units/ml) 5,000 units EVERY 12 HOURS SUBQ 11/12/18 21:00 12/12/18 08:59 Ipratropium [place] (Atrovent) 500 mcg Q4H PRN HHN Shortness of Breath 11/13/18 12:00 11/18/18 11:59 Ipratropium [place] (Atrovent) 500 mcg Q6HRT HHN 11/13/18 13:00 11/18/18 12:59 11/15/18 07:16 Levalbuterol HCl (Xopenex) 0.63 mg Q4H PRN HHN SOB and WHEEZING 11/13/18 12:00 11/18/18 11:59 Levalbuterol HCl (Xopenex) 0.63 mg Q6HRT HHN 11/13/18 13:00 11/18/18 12:59 11/15/18 07:16 Methylprednisolone Sodium Succinate (Solu-MEDROL) 40 mg DAILY IVP 11/14/18 09:00 12/14/18 08:59 11/15/18 08:52 Ondansetron HCl (Zofran) 4 mg Q6H PRN IVP Nausea & Vomiting 11/12/18 08:09 12/12/18 08:08 Pantoprazole (Protonix) 40 mg DAILY IVP 11/14/18 09:00 12/14/18 08:59 11/15/18 08:52 Promethazine HCl/ Codeine (Phenergan with Codeine) 5 ml Q4H PRN ORAL For Cough 11/12/18 08:09 12/12/18 08:08 Temazepam (Restoril) 15 mg HSPRN PRN ORAL Insomnia 11/12/18 08:09 11/19/18 08:08 11/14/18 20:39 Vancomycin HCl (Vanco rx to dose) 1 ea DAILY PRN MISC Per rx protocol 11/12/18 09:00 12/12/18 00:00 Vancomycin HCl 1 gm/Dextrose 275 ml @ 183.708 mls/hr Q12HR@0300,1500 IVPB 11/13/18 15:00 11/18/18 14:59 11/15/18 03:50 Bety William M.D. November 15, 2018 11:40
--- NOTE | 2018-11-15 12:30 | NUR ---
NURSE NOTES: Attempted to insert NGT, failed with 3-4 staff members. patient became very combative/agitated and went into SVT, HR in 150's, SPo2 75% with tachypnea. Dr. Malave at bedside and gave orders to place patient back on BIPAP, STAT EKG, metoprolol 5mg IVP x1 now. Addendum: 11/15/18 at 1358 by SOHAM GARCIA RN Haldol IM given per PRN orders for agitation
[2018-11-15] MEDS: Haloperidol 5mg/ml Inj IM PRN (12:44)
[2018-11-15] MEDS ORDERED: Metoprolol 5mg/5ml Inj IVP SCH (13:15)
--- NOTE | 2018-11-15 13:44 | Internal Med Progress Note ---
Subjective Physician Name Star Malave Attending Physician Star Malave MD Current Medications Medications (Trade) Dose Ordered Sig/Keith Route PRN Reason Start Time Stop Time Status Last Admin Dose Admin Acetaminophen (Tylenol) 650 mg Q4H PRN ORAL Mild Pain/Temp > 100.5 11/12/18 08:08 12/12/18 08:07 11/14/18 15:26 Azithromycin 500 mg/Dextrose 275 ml @ 275 mls/hr Q24HRS IV 11/12/18 18:00 11/18/18 18:59 11/14/18 17:43 Dextrose/ Electrolytes 1,000 ml @ 30 mls/hr Q24H IV 11/13/18 11:56 12/13/18 11:55 11/14/18 12:02 Haloperidol Lactate (Haldol) 5 mg Q6H PRN IM Agitation 11/14/18 22:00 12/14/18 21:59 11/15/18 12:44 Heparin Sodium (Porcine) (Heparin 5000 units/ml) 5,000 units EVERY 12 HOURS SUBQ 11/12/18 21:00 12/12/18 08:59 Ipratropium [place] (Atrovent) 500 mcg Q4H PRN HHN Shortness of Breath 11/13/18 12:00 11/18/18 11:59 Ipratropium [place] (Atrovent) 500 mcg Q6HRT HHN 11/13/18 13:00 11/18/18 12:59 11/15/18 12:25 Levalbuterol HCl (Xopenex) 0.63 mg Q4H PRN HHN SOB and WHEEZING 11/13/18 12:00 11/18/18 11:59 Levalbuterol HCl (Xopenex) 0.63 mg Q6HRT HHN 11/13/18 13:00 11/18/18 12:59 11/15/18 12:25 Methylprednisolone Sodium Succinate (Solu-MEDROL) 40 mg DAILY IVP 11/14/18 09:00 12/14/18 08:59 11/15/18 08:52 Metoprolol Tartrate (Lopressor) 5 mg Q5MIN X 3 IVP 11/15/18 13:15 11/15/18 18:00 Ondansetron HCl (Zofran) 4 mg Q6H PRN IVP Nausea & Vomiting 11/12/18 08:09 12/12/18 08:08 Pantoprazole (Protonix) 40 mg DAILY IVP 11/14/18 09:00 12/14/18 08:59 11/15/18 08:52 Promethazine HCl/ Codeine (Phenergan with Codeine) 5 ml Q4H PRN ORAL For Cough 11/12/18 08:09 12/12/18 08:08 Temazepam (Restoril) 15 mg HSPRN PRN ORAL Insomnia 11/12/18 08:09 11/19/18 08:08 11/14/18 20:39 Vancomycin HCl (Vanco rx to dose) 1 ea DAILY PRN MISC Per rx protocol 11/12/18 09:00 12/12/18 00:00 Vancomycin HCl 1 gm/Dextrose 275 ml @ 183.708 mls/hr Q12HR@0300,1500 IVPB 11/13/18 15:00 11/18/18 14:59 11/15/18 03:50 Allergies: Coded Allergies: No Known Allergies (Unverified , 12/10/11) Subjective awake, open eyes with deep stimulation, weak, in SOB and tachycardia, in ICU. Objective Last Vital Signs Date Time Temp Pulse Resp B/P (MAP) Pulse Ox O2 Delivery O2 Flow Rate FiO2 11/15/18 12:36 153 40 78 Nasal Cannula 3.0 32 11/15/18 12:00 98.6 132/76 (94) Laboratory Tests Test 11/15/18 02:00 11/15/18 04:00 Vancomycin Level Trough 16.8 ug/mL (5.0-12.0) H White Blood Count 10.2 K/UL (4.8-10.8) Red Blood Count 4.18 M/UL (4.70-6.10) L Hemoglobin 12.6 G/DL (14.2-18.0) L Hematocrit 37.5 % (42.0-52.0) L Mean Corpuscular Volume 90 FL (80-99) Mean Corpuscular Hemoglobin 30.1 PG (27.0-31.0) Mean Corpuscular Hemoglobin Concent 33.6 G/DL (32.0-36.0) Red Cell Distribution Width 15.8 % (11.6-14.8) H Platelet Count 53 K/UL (150-450) L Mean Platelet Volume 8.4 FL (6.5-10.1) Neutrophils (%) (Auto) % (45.0-75.0) Lymphocytes (%) (Auto) % (20.0-45.0) Monocytes (%) (Auto) % (1.0-10.0) Eosinophils (%) (Auto) % (0.0-3.0) Basophils (%) (Auto) % (0.0-2.0) Differential Total Cells Counted 100 Neutrophils % (Manual) 93 % (45-75) H Lymphocytes % (Manual) 6 % (20-45) L Monocytes % (Manual) 1 % (1-10) Eosinophils % (Manual) 0 % (0-3) Basophils % (Manual) 0 % (0-2) Band Neutrophils 0 % (0-8) Platelet Estimate Decreased L Platelet Morphology Normal Anisocytosis 1+ Sodium Level 137 MMOL/L (136-145) Potassium Level 4.7 MMOL/L (3.5-5.1) Chloride Level 106 MMOL/L (98-107) Carbon Dioxide Level 28 MMOL/L (21-32) Anion Gap 3 mmol/L (5-15) L Blood Urea Nitrogen 28 mg/dL (7-18) H Creatinine 1.2 MG/DL (0.55-1.30) Estimat Glomerular Filtration Rate mL/min (>60) Glucose Level 129 MG/DL (74-106) H Calcium Level 9.2 MG/DL (8.5-10.1) Phosphorus Level 4.3 MG/DL (2.5-4.9) Magnesium Level 1.9 MG/DL (1.8-2.4) Total Bilirubin 0.8 MG/DL (0.2-1.0) Aspartate Amino Transf (AST/SGOT) 28 U/L (15-37) Alanine Aminotransferase (ALT/SGPT) 55 U/L (12-78) Alkaline Phosphatase 71 U/L (46-116) Total Protein 6.2 G/DL (6.4-8.2) L Albumin 2.3 G/DL (3.4-5.0) L Globulin 3.9 g/dL Albumin/Globulin Ratio 0.6 (1.0-2.7) L Microbiology Date/Time Source Procedure Growth Status 11/12/18 20:50 Sputum Induced Gram Stain - Final Complete 11/12/18 20:50 Sputum Culture - Final Staphylococcus Aureus - Mrsa Liss Albicans Complete 11/12/18 19:00 Nasopharynx - Final Complete 11/12/18 19:00 Nasopharynx - Final Complete Intake and Output 11/14/18 11/15/18 19:00 07:00 Intake Total 1002.416 ml 635.000 ml Output Total 1110 ml 1350 ml Balance -107.584 ml -715.000 ml IV Total 1002.416 ml 635.000 ml Output Urine Total 1110 ml 1350 ml Objective General: in respiratory dress, tachycardia, open eyes with deep stimulation HEENT: NCAT, sclera anicteric, PERRL, EOMI. Neck: Supple, no significant jugular venous distention, Lungs: decrease air at bases, coarse breath sound, no Wheeze. Heart: Irregular rate and Tachycardia, normal S1/S2, no murmurs Abdomen: soft, nontender, nondistended. Normoactive bowel sounds. Extremities: No Cyanosis , clubbing or edema. bilateral heel dressing. Neuro: motor 5/5 , less responsive Skin: warm, no rash. Assessment/Plan Assessment/Plan (1) Respiratory failure with hypoxia (2) COPD exacerbation (3) Pneumonia (4) Thrombocytopenia (5) UTI (urinary tract infection) (6) Electrolyte imbalance (7) Nausea & vomiting (8) Dehydration (9) Paroxysmal atrial fibrillation (10) VARSHA Plan: Resume BiPAP Metoprolol 5mg IV X 1 dose F/U with cultures and labs Dr. [facility] and Dr. Vee cardiology. Abx: Vanco IV, Zithromax IV Solumedral 40mg IV Ryan. Star Malave MD November 15, 2018 13:44
--- NOTE | 2018-11-15 13:59 | NUR ---
OPERATIONS COORDINATORSURFACE SUPPLY BREATHING APPARATUS SI:SEVERE SEPSIS . RESPIRATORY FAILURE W/HYPOXIA . THROMBOCYTOPENIA VS: BP 158/78, P 158, T 98.6, RR 40, SpO2 78 on 4.0L NC RBC 4.18, H&H 12.6/37.5, BUN 28 IS:LOPRESSOR 5mg IVP HALDOL 5mg IM ATROVENT 500mcg HHN XOPENEX 0.63mg HHN VANCOMYCIN 275ml IVPB SOLU-MEDROL 40mg IVP ICU STATUS
--- NOTE | 2018-11-15 14:04 | Diagnostic Imaging Report ---
APPROVED REPORT CPT Code: 44073 Present Symptoms Shortness of breath BILATERAL: Imaging reveals a patent deep venous system bilaterally. There is no evidence of thrombus within the femoral, popliteal or tibial segments. The greater saphenous veins are also within normal limits. Doppler indicates normal spontaneous flow within these segments.
--- NOTE | 2018-11-15 14:16 | NUR ---
NURSE NOTES: Patient converted back to SR and paroxysmal A-fib, highest HR 107. Patient is sedated, and tolerating BIPAP well, spo2 92%.
--- NOTE | 2018-11-15 15:00 | NUR ---
NURSE NOTES:WOUND CARE NOTES:Pt presented on admission with Incontinence associated dermatitis perianal area. Erythema with satellite lesions noted. Sacrum is pink and blanchable. Base of Scrotum red. Non-blanchable erythema without fluctuance noted to L heel. Periwound is pink and blanchable. R heel pink and blanchable. Cavilon Skin Barrier applied to heel and each heel covered with Optifoam drsg. Pt restless and removed Optifoam drsg. Drsg reapplied and both heel reinforced with Kerlix wrap. Triad paste applied to scrotum and perianal areas. Optifoam drsg applied to sacral area as skin prevention . Py positioned on side with both heels floated off bed . Tx.Plan: Apply Triad Paste to Scrotum and idalmis-anal areas with each incontinence care. Apply Triad paste to Sacrum .Cover with Optifoam drsg. Change every 3 days and prn. Apply Cavilon Skin Barrier to R and L heels. Cover each heel with Optifoam drsg. Change every 7 days and prn. Reposition at least every 2 hours or as tolerated. Off-load heels with Pillow.
[2018-11-15] MEDS: D5 1/2NS w/KCl 20mEq 1,000 ML IV SCH (15:30)
--- NOTE | 2018-11-15 15:54 | NUR ---
NURSE NOTES: NSR 84 on monitoring tech, Spo2 96% on BIPAP 18/5, 100% Fio2 70%. No signs of distress.
--- NOTE | 2018-11-15 17:00 | Cardiac Electrophysiology PN ---
Subjective Subjective [id number] Objective Last 24 Hour Vital Signs Date Time Temp Pulse Resp B/P (MAP) Pulse Ox O2 Delivery O2 Flow Rate FiO2 11/15/18 16:00 98.9 83 24 128/58 (81) 96 11/15/18 16:00 70 11/15/18 16:00 84 11/15/18 16:00 Nasal Cannula 4.0 11/15/18 15:00 82 22 120/63 (82) 96 11/15/18 14:48 111 15 94 Full Face 40 11/15/18 14:00 102 22 103/64 (77) 91 11/15/18 13:32 158 132/76 11/15/18 13:00 159 30 101/65 (77) 96 11/15/18 12:36 153 40 78 Nasal Cannula 3.0 32 11/15/18 12:25 149 38 86 Nasal Cannula 4.0 36 11/15/18 12:00 4.0 11/15/18 12:00 Nasal Cannula 4.0 11/15/18 12:00 87 11/15/18 12:00 98.6 158 18 132/76 (94) 89 11/15/18 11:00 80 18 132/72 (92) 98 11/15/18 10:00 81 18 153/78 (103) 92 11/15/18 08:00 4.0 11/15/18 08:00 97.8 86 18 138/86 (103) 95 11/15/18 08:00 Nasal Cannula 4.0 11/15/18 08:00 80 11/15/18 07:27 95 Nasal Cannula 4.0 36 11/15/18 07:25 80 21 94 Bi-pap 30 11/15/18 07:16 93 14 98 Bi-pap 70 11/15/18 07:00 94 18 141/69 (93) 100 11/15/18 06:00 94 18 120/76 (91) 100 11/15/18 05:03 93 16 99 Full Face 70 11/15/18 05:00 99 19 116/70 (85) 98 11/15/18 04:00 70 11/15/18 04:00 99 11/15/18 04:00 80 18 111/57 (75) 94 11/15/18 04:00 Venturi Mask 8.0 11/15/18 03:34 96 21 99 Full Face 70 11/15/18 03:00 110 20 164/108 (126) 96 11/15/18 02:00 98.0 93 24 141/100 (114) 100 11/15/18 01:38 80 19 99 Nasal Cannula 4.0 36 11/15/18 01:28 76 14 98 Bi-pap 80 11/15/18 01:28 76 14 98 Full Face 80 11/15/18 01:00 74 17 105/64 (78) 98 11/15/18 00:00 78 18 94/60 (71) 98 11/15/18 00:00 Venturi Mask 8.0 11/15/18 00:00 77 11/15/18 00:00 80 11/14/18 23:00 103 21 90/59 (69) 97 11/14/18 22:51 96 15 98 Full Face 90 11/14/18 22:00 147 23 103/70 (81) 93 11/14/18 21:52 149 38 94 Full Face 100 11/14/18 21:00 95 21 151/121 (131) 89 11/14/18 20:00 Venturi Mask 8.0 11/14/18 20:00 4.0 11/14/18 20:00 78 11/14/18 20:00 98.7 90 18 135/81 (99) 91 11/14/18 19:30 80 19 97 Nasal Cannula 4.0 36 11/14/18 19:19 89 22 94 Nasal Cannula 4.0 36 11/14/18 19:19 94 Nasal Cannula 4.0 36 11/14/18 19:00 94 17 106/74 (85) 94 11/14/18 18:00 97 23 109/80 (90) 92 Intake and Output 11/14/18 11/15/18 19:00 07:00 Intake Total 1002.416 ml 635.000 ml Output Total 1110 ml 1350 ml Balance -107.584 ml -715.000 ml IV Total 1002.416 ml 635.000 ml Output Urine Total 1110 ml 1350 ml Laboratory Tests Test 11/15/18 02:00 11/15/18 04:00 Vancomycin Level Trough 16.8 ug/mL (5.0-12.0) H White Blood Count 10.2 K/UL (4.8-10.8) Red Blood Count 4.18 M/UL (4.70-6.10) L Hemoglobin 12.6 G/DL (14.2-18.0) L Hematocrit 37.5 % (42.0-52.0) L Mean Corpuscular Volume 90 FL (80-99) Mean Corpuscular Hemoglobin 30.1 PG (27.0-31.0) Mean Corpuscular Hemoglobin Concent 33.6 G/DL (32.0-36.0) Red Cell Distribution Width 15.8 % (11.6-14.8) H Platelet Count 53 K/UL (150-450) L Mean Platelet Volume 8.4 FL (6.5-10.1) Neutrophils (%) (Auto) % (45.0-75.0) Lymphocytes (%) (Auto) % (20.0-45.0) Monocytes (%) (Auto) % (1.0-10.0) Eosinophils (%) (Auto) % (0.0-3.0) Basophils (%) (Auto) % (0.0-2.0) Differential Total Cells Counted 100 Neutrophils % (Manual) 93 % (45-75) H Lymphocytes % (Manual) 6 % (20-45) L Monocytes % (Manual) 1 % (1-10) Eosinophils % (Manual) 0 % (0-3) Basophils % (Manual) 0 % (0-2) Band Neutrophils 0 % (0-8) Platelet Estimate Decreased L Platelet Morphology Normal Anisocytosis 1+ Sodium Level 137 MMOL/L (136-145) Potassium Level 4.7 MMOL/L (3.5-5.1) Chloride Level 106 MMOL/L (98-107) Carbon Dioxide Level 28 MMOL/L (21-32) Anion Gap 3 mmol/L (5-15) L Blood Urea Nitrogen 28 mg/dL (7-18) H Creatinine 1.2 MG/DL (0.55-1.30) Estimat Glomerular Filtration Rate mL/min (>60) Glucose Level 129 MG/DL (74-106) H Calcium Level 9.2 MG/DL (8.5-10.1) Phosphorus Level 4.3 MG/DL (2.5-4.9) Magnesium Level 1.9 MG/DL (1.8-2.4) Total Bilirubin 0.8 MG/DL (0.2-1.0) Aspartate Amino Transf (AST/SGOT) 28 U/L (15-37) Alanine Aminotransferase (ALT/SGPT) 55 U/L (12-78) Alkaline Phosphatase 71 U/L (46-116) Total Protein 6.2 G/DL (6.4-8.2) L Albumin 2.3 G/DL (3.4-5.0) L Globulin 3.9 g/dL Albumin/Globulin Ratio 0.6 (1.0-2.7) L Microbiology Date/Time Source Procedure Growth Status 11/12/18 20:50 Sputum Induced Gram Stain - Final Complete 11/12/18 20:50 Sputum Culture - Final Staphylococcus Aureus - Mrsa Liss Albicans Complete 11/12/18 19:00 Nasopharynx - Final Complete 11/12/18 19:00 Nasopharynx - Final Complete Jose Vee MD November 15, 2018 17:00
--- NOTE | 2018-11-15 17:16 | NUR ---
NURSE NOTES: Dr. Vee seen patient at bedside. Received orders to start Cardizem gtt, keep dose at 5mg/hr. Addendum: 11/15/18 at 1728 by SOHAM GARCIA RN edit: keep Cardizem gtt max dose at 5mg/hr
[2018-11-15] MEDS: Azithromycin 500 MG in D5W 275 ML IV SCH (17:54)
--- NOTE | 2018-11-15 17:58 | NUR ---
NURSE NOTES: Cardizem gtt started and running at 2.5mg/hr. Turned and repositioned. No signs of distress.
--- NOTE | 2018-11-15 18:00 | Progress Note ---
DATE: 11/15/2018 SUBJECTIVE: The patient is confused, disoriented. Continues to have episodes of agitation. Requires p.r.n. medications. He was asleep. He is arousable. MENTAL STATUS EXAMINATION: The patient is alert, however, disoriented and confused. Mood is neutral to agitation. Affect is flat. Thought process, there is a paucity of thought content. Memory is impaired. ASSESSMENT: Acute encephalopathy. PLAN: Continue the Haldol 5 mg IM every 6 hours p.r.n. Avoid prescribing benzodiazepines or opiate pain medications. Discussed the case with his . Trace Rodarte M.D. DR: KAREN JOB#: [id number] CC:
--- NOTE | 2018-11-15 19:15 | NUR ---
HAND-OFF: Report given to ANN Fowler using SBAR
--- NOTE | 2018-11-15 19:30 | NUR ---
NURSE NOTES: Received Pt from ANN Gant. Pt is resting on the bed and confused and slight agitated. Family; son stay at bedside. On BiPAP setting with 18/5, FiO2 30% and SaO2 97% noted. Pt has bilateral soft wrist restraint. Checked circulation and comfort. Trying to release restraint when during care Pt still trying to touch BiPAP mask. Given verbal cueing but doesn't understand. On Tele monitor with SR. V/S stable. On Cardizem drip with 2.5cc/hr. IV site intact and no sign of infiltration noted. On NPO. On Chavez cath and patent and drainage well. Placed fall precaution. Will continue to care plan.
[2018-11-15] MEDS ORDERED: Amiodarone 200mg tab ORAL SCH (21:00)
--- NOTE | 2018-11-15 21:29 | NUR ---
NURSE NOTES: Dr. Vee ordered d/c Cardizem drip change to Amiodarone drip without bolus. Carried out order. Will continue monitor any change of condition.
[2018-11-15] MEDS ORDERED: Amiodarone 900 MG in D5W 500ml 482 ML IV SCH (22:00)
--- NOTE | 2018-11-15 22:19 | NUR ---
NURSE NOTES: Pt is sleeping on the bed and still slight agitate and confused. Medication delivered from pharmacy and started amiodarone drip with 1mg/hr. BP checked 132/57mmHg and HR: 78's with SR. On Venturi mask 10L FiO2 45% ans SaO2 92% noted. Will continue to monitor any change of condition.
--- NOTE | 2018-11-15 22:30 | Consultation ---
DATE OF CONSULTATION: 11/14/2018 CONSULTING PHYSICIAN: Trace Rodarte M.D. HISTORY OF PRESENT ILLNESS: This is an 87-year-old [place] male with a history of multiple medical problems including hypertension, pneumonia, sepsis, COPD, diarrhea, thrombocytopenia, UTI admitted to the hospital due to nausea, vomiting, diarrhea, and shortness of breath. Psychiatry was consulted as the patient has been agitated and presents with waxing and waning consciousness. The is next to bed. The patient was confused, disoriented, and was unable to provide any history. The patient has been receiving Ativan for agitation. PAST PSYCHIATRY HISTORY: Not significant for any psychiatric issues. PAST MEDICAL HISTORY: Hypertension and COPD. ALLERGIES: No known drug allergies. SUBSTANCE ABUSE HISTORY: No known history of illicit drug use or alcohol. SOCIAL HISTORY: The patient is . He is [place]. Lives with his who is also [place]ese. MENTAL STATUS EXAMINATION: The patient is confused, disoriented, has waxing and waning consciousness. Mood is agitated. Affect is flat. Thought process, there is a paucity of thought content. Thought content, no suicidal or homicidal ideation. ASSESSMENT: [place] I Acute metabolic encephalopathy. [place] II Deferred. [place] III As above. [place] IV Low. [place] V 20. PLAN: 1. The patient will be started on Haldol 5 mg IM q.6 h. p.r.n. 2. The patient lacks capacity and his should make the decisions. 3. We will recommend to reduce the use of opiate pain medications and Ativan. 4. We will continue to follow and readjust the medications. Trace Rodarte M.D. DR: PARAMJIT JOB#: [id number] CC: MONY
--- NOTE | 2018-11-15 22:45 | Consultation ---
DATE OF CONSULTATION: 11/15/2018 CARDIOLOGY CONSULTATION CONSULTING PHYSICIAN: Jose Vee M.D. REFERRING PHYSICIAN: Star Malave M.D. REASON FOR CONSULTATION: Atrial fibrillation with rapid ventricular response. HISTORY OF PRESENT ILLNESS: The patient is an 87-year-old [place] gentleman with history of hypertension, COPD, was admitted to the hospital with nausea, vomiting, and diarrhea, as well as shortness of breath for two days prior to the admission. The patient also still had profuse diarrhea. The patient was admitted and had atrial fibrillation and rapid ventricular response in the 120s. The patient subsequently was started on IV antibiotics. Today, the patient was initially in sinus rhythm, again developed atrial fibrillation with rapid ventricular response with heart rate of 170s. The patient received 5 mg IV metoprolol and subsequently converted to sinus rhythm. Cardiac electrophysiology consultation was requested for further evaluation and management. REVIEW OF SYSTEMS: Cannot be obtained at this time as the patient is on BiPAP. PAST MEDICAL HISTORY: 1. Hypertension. 2. COPD. 3. Atrial fibrillation, paroxysmal. FAMILY HISTORY: Noncontributory. SOCIAL HISTORY: He lives at home. Does not smoke or drink alcohol. PHYSICAL EXAMINATION: VITAL SIGNS: Show blood pressure of 120/58, pulse 84, respirations 20, and temperature 98.9. HEAD AND NECK: Shows no JVD. LUNGS: Decreased breath sounds. He has a BiPAP on. CARDIOVASCULAR: Shows regular S1-S2 with no gallop. ABDOMEN: Soft. EXTREMITIES: 1+ pitting edema. LABORATORY AND DIAGNOSTIC DATA: His labs show white count of 10.2, hemoglobin of 12.7, hematocrit of 37.5, and platelet count of . Sodium 137, potassium 4.7, BUN of 20, creatinine of 1.2, and glucose of 129. T4 and TSH are within normal range. ASSESSMENT AND PLAN: 1. Atrial fibrillation with rapid ventricular response. He has . The patient is off anticoagulation. I would start the patient on Cardizem drip to stabilize him overnight while he is on BiPAP. We can switch to p.o. Cardizem in the morning. In the meantime, we will completely rule out GA protocol. His echocardiogram also showed ejection fraction of 60% to 65%. 2. Hypertension, on Cardizem. 3. COPD and pneumonia, on IV vancomycin and Zithromax as well as Solu-Medrol. 4. Thrombocytopenia, off anticoagulation. 5. Nausea, vomiting, and abdominal pain. Follow up with Dr. Joseph. Thank you very much, Dr. Malave, for allowing me to participate in the care of this patient. Please do not hesitate to contact me for any questions regarding my evaluation. Jose Vee M.D. DR: FAUSTINO JOB#: [id number] CC:
[2018-11-16] VITALS (41 sets, daily range): BP systolic 122–168; BP diastolic 55–129
--- NOTE | 2018-11-16 | NUR ---
NURSE NOTES: Pt is sleeping on the bed and confused and disoriented. Given realty orientation. When release restraint during care, Pt still trying to touch emergency medical technician. Changed position. Placed fall precaution. On running with Amiodarone drip 1mg/hr. V/S stable. Will continue to monitor any change of condition.
[2018-11-16] MEDS: Ipratropium 0.02% Inh Soln 2.5ml UD HHN SCH ×6 (01:10→22:55)
[2018-11-16] MEDS: Levalbuterol Inh UD 1.25mg/0.5ml HHN SCH ×6 (01:10→22:55)
--- NOTE | 2018-11-16 02:00 | NUR ---
NURSE NOTES: Pt is resting on the bed and still confused and slight agitated. On running with Amiodarone drip as ordered and noted stable V/S. On Venturi mask 10L FiO2 45% and SaO2 94% noted. Changed position. Provided good sleep environment. Placed fall precaution. Will continue to care plan.
[2018-11-16] MEDS: Haloperidol 5mg/ml Inj IM PRN ×2 (02:35→15:29)
[2018-11-16] MEDS: Vancomycin 1gm/D5W 275ml IVPB SCH ×4 (02:36→14:19)
--- NOTE | 2018-11-16 04:00 | NUR ---
NURSE NOTES: Morning care was done. Cleaned Pt and applied lotion and cream. No open wound on sacral area. Still noted. multiple bruise on both arm area and skin tear on Rt. wrist area. Changed dressing. Changed position. Will continue to monitor any change of condition.
--- NOTE | 2018-11-16 04:19 | NUR ---
NURSE NOTES: Changed Amiodarone drip does from 1mg/hr to 0.5mg/hr as ordered. BP checked 141/78mmHg and HR: 74's with SR. Will continue to monitor any change of condition.
--- NOTE | 2018-11-16 06:00 | NUR ---
NURSE NOTES: Pt is resting on the bed and awake and confused and agitated. Repositioned. No sign of acute distress noted. On O2 8L via Venturi mask and SaO2 95% noted. Will continue to monitor any change of condition.
[2018-11-16 06:10] LABS: HEMATOCRIT 33.6 % (42.0-52.0); HEMOGLOBIN 11.4 G/DL (14.2-18.0); MEAN CORPUSCULAR VOLUME 89 FL (80-99); PLATELET COUNT 69 K/UL (150-450); RED BLOOD COUNT 3.79 M/UL (4.70-6.10); RED CELL DISTRIBUTION WIDTH 15.4 % (11.6-14.8); WHITE BLOOD COUNT 9.7 K/UL (4.8-10.8)
[2018-11-16 06:38] LABS: ANION GAP 6 mmol/L (5-15); BLOOD UREA NITROGEN 28 mg/dL (7-18); CARBON DIOXIDE 28 MMOL/L (21-32); CHLORIDE 104 MMOL/L (98-107); CREATININE 1.1 MG/DL (0.55-1.30); POTASSIUM 4.2 MMOL/L (3.5-5.1); SODIUM 138 MMOL/L (136-145)
[2018-11-16 06:42] LABS: PHOSPHORUS 3.2 MG/DL (2.5-4.9)
--- NOTE | 2018-11-16 07:27 | NUR ---
HAND-OFF: Report given to ANN Aguirre. Pt is resting on the bed and confused agitated. V/S stable and SaO2 95% with Venturi mask FiO2 40%.
--- NOTE | 2018-11-16 07:28 | NUR ---
NURSE NOTES: Received patient in bed. Agitated, on bilateral soft wrist restraint, awake, verbal. Venturi mask noted at 40%, no respiratory distress noted. Contact isolation observed. Will continue plan of care.
[2018-11-16] MEDS ORDERED: NS 275ml ONE ×2 (08:06→10:29)
[2018-11-16] MEDS: Solu-MEDROL 40mg Inj IVP SCH (08:47)
[2018-11-16] MEDS: Pantoprazole Inj IVP SCH (08:48)
--- NOTE | 2018-11-16 10:18 | Pulmonolgy Critical Care Note ---
Critical Care - Asmt/Plan Assessment/Plan: COPD with acute exacerbation Acute hypoxemic and hypercapnic respiratory failure CAP UTI Chronic thrombocytopenia Anemia H/O OP dysphagia NVD - RESOLVED VARSHA - RESOLVED pAF ---> NSR Protein calorie malnutrition improving bipap prn steroids nebs abx titrate o2 Respiratory: CXR, ABG, other Disposition: keep in ICU Time Spent (Minutes): 40 Notes Reviewed: recycler, renal Discussed with: nurses Critical Care - Objective Last 24 Hour Vital Signs Date Time Temp Pulse Resp B/P (MAP) Pulse Ox O2 Delivery O2 Flow Rate FiO2 11/16/18 10:00 75 28 143/73 (96) 97 11/16/18 09:30 75 24 131/73 (92) 96 11/16/18 09:00 72 26 139/74 (95) 97 11/16/18 08:30 80 21 150/68 (95) 97 11/16/18 08:00 Venturi Mask 8.0 11/16/18 08:00 98.0 78 18 147/66 (93) 96 11/16/18 07:30 90 27 143/83 (103) 92 11/16/18 07:21 81 11/16/18 07:18 82 21 95 Venturi Mask 10.0 45 11/16/18 07:11 94 Venturi Mask 40 11/16/18 07:11 87 20 94 Venturi Mask 8.0 11/16/18 07:00 94 24 155/81 (105) 94 11/16/18 06:30 68 24 138/56 (83) 95 11/16/18 06:00 71 26 146/68 (94) 95 11/16/18 05:30 75 26 146/68 (94) 95 11/16/18 05:27 8.0 40 11/16/18 05:00 68 26 130/75 (93) 95 11/16/18 04:30 74 28 136/64 (88) 95 11/16/18 04:00 10.0 45 11/16/18 04:00 98.5 74 24 141/78 (99) 96 11/16/18 04:00 72 11/16/18 04:00 Venturi Mask 10.0 11/16/18 03:30 74 20 131/58 (82) 95 11/16/18 03:00 76 20 124/62 (82) 95 11/16/18 02:30 74 20 125/64 (84) 95 11/16/18 02:00 73 20 122/60 (80) 95 11/16/18 01:30 74 20 133/74 (93) 95 11/16/18 01:20 74 24 96 Venturi Mask 10.0 45 11/16/18 01:07 75 26 95 Venturi Mask 10.0 45 11/16/18 01:00 74 20 130/71 (90) 95 11/16/18 00:30 73 20 125/72 (89) 95 11/16/18 00:00 Venturi Mask 10.0 11/16/18 00:00 10.0 45 11/16/18 00:00 98.2 72 24 130/55 (80) 96 11/16/18 00:00 73 11/15/18 23:30 73 20 143/60 (87) 96 11/15/18 23:00 73 20 121/64 (83) 94 11/15/18 22:30 78 20 132/57 (82) 94 11/15/18 22:00 76 22 118/80 (93) 92 11/15/18 21:30 72 20 130/55 (80) 93 11/15/18 21:25 10.0 45 11/15/18 21:00 75 20 130/67 (88) 95 11/15/18 20:58 65 18 95 Full Face 25 11/15/18 20:30 68 20 107/68 (81) 94 11/15/18 20:00 96.9 68 24 109/67 (81) 97 11/15/18 20:00 30 11/15/18 20:00 72 11/15/18 20:00 Bi-pap 11/15/18 19:31 97 Bi-pap 30 11/15/18 19:30 69 20 120/60 (80) 96 11/15/18 19:29 70 16 97 Nasal Cannula 3.0 32 11/15/18 19:25 70 20 96 Full Face 30 11/15/18 19:10 72 20 97 Bi-pap 35 11/15/18 19:00 71 20 117/62 (80) 97 11/15/18 18:00 82 24 137/74 (95) 96 11/15/18 17:57 81 128/58 11/15/18 17:19 81 19 93 Full Face 35 11/15/18 17:00 87 22 128/58 (81) 93 11/15/18 16:00 98.9 83 24 128/58 (81) 96 11/15/18 16:00 70 11/15/18 16:00 84 11/15/18 16:00 Nasal Cannula 4.0 11/15/18 15:00 82 22 120/63 (82) 96 11/15/18 14:48 111 15 94 Full Face 40 11/15/18 14:00 102 22 103/64 (77) 91 11/15/18 13:32 158 132/76 11/15/18 13:00 159 30 101/65 (77) 96 11/15/18 12:36 153 40 78 Nasal Cannula 3.0 32 11/15/18 12:25 149 38 86 Nasal Cannula 4.0 36 11/15/18 12:00 4.0 11/15/18 12:00 Nasal Cannula 4.0 11/15/18 12:00 87 11/15/18 12:00 98.6 158 18 132/76 (94) 89 11/15/18 11:00 80 18 132/72 (92) 98 Status: awake Lungs: rhonchi Heart: HR/BP stable Abdomen: non-tender Extremities: edema Micro: Microbiology Date/Time Source Procedure Growth Status 11/13/18 20:30 Stool Stool Culture - Preliminary NO SALMONELLA,SHIGELLA,OR CAMPYLOBACT... Resulted Critical Care - Subjective ROS Limited/Unobtainable: Yes Condition: improving FI02: 45 Vent Support Mode: BiLevel Sputum Amount: None I&O: Intake and Output 11/15/18 11/16/18 18:59 06:59 Intake Total 360 ml 1429.210 ml Output Total 1200 ml 1900 ml Balance -840 ml -470.790 ml IV Total 360 ml 1429.210 ml Output Urine Total 1200 ml 1900 ml # Bowel Movements 1 Subjective: off bipap no distress no bleeding nPo on o2 neb helpful CXr pening Labs: Current Medications Medications (Trade) Dose Ordered Sig/Keith Route PRN Reason Start Time Stop Time Status Last Admin Dose Admin Acetaminophen (Tylenol) 650 mg Q4H PRN ORAL Mild Pain/Temp > 100.5 11/12/18 08:08 12/12/18 08:07 11/16/18 20:33 Amiodarone HCl (Cordarone) 400 mg EVERY 12 HOURS NG 11/16/18 21:00 12/16/18 20:59 11/16/18 20:32 Amiodarone HCl 900 mg/Dextrose 500 ml @ 0 mls/hr Q24H IV 11/15/18 22:00 11/16/18 21:59 11/15/18 22:19 Azithromycin 500 mg/Dextrose 275 ml @ 275 mls/hr Q24HRS IV 11/12/18 18:00 11/18/18 18:59 11/16/18 17:12 Dextrose/ Electrolytes 1,000 ml @ 30 mls/hr Q24H IV 11/13/18 11:56 12/13/18 11:55 11/16/18 16:01 Diltiazem HCl (Cardizem) 60 mg EVERY 6 HOURS NG 11/16/18 18:00 12/16/18 17:59 11/16/18 18:13 Haloperidol Lactate (Haldol) 5 mg Q6H PRN IM Agitation 11/14/18 22:00 12/14/18 21:59 11/16/18 15:29 Ipratropium [place] (Atrovent) 500 mcg Q4H PRN HHN Shortness of Breath 11/13/18 12:00 11/18/18 11:59 Ipratropium [place] (Atrovent) 500 mcg Q4HRT HHN 11/16/18 11:00 11/18/18 12:59 11/16/18 19:06 Levalbuterol HCl (Xopenex) 0.63 mg Q4H PRN HHN SOB and WHEEZING 11/13/18 12:00 11/18/18 11:59 Levalbuterol HCl (Xopenex) 0.63 mg Q4HRT HHN 11/16/18 11:00 11/18/18 12:59 11/16/18 19:06 Methylprednisolone Sodium Succinate (Solu-MEDROL) 40 mg DAILY IVP 11/14/18 09:00 12/14/18 08:59 11/16/18 08:47 Ondansetron HCl (Zofran) 4 mg Q6H PRN IVP Nausea & Vomiting 11/12/18 08:09 12/12/18 08:08 Pantoprazole (Protonix) 40 mg DAILY IVP 11/14/18 09:00 12/14/18 08:59 11/16/18 08:48 Promethazine HCl/ Codeine (Phenergan with Codeine) 5 ml Q4H PRN ORAL For Cough 11/12/18 08:09 12/12/18 08:08 Temazepam (Restoril) 15 mg HSPRN PRN ORAL Insomnia 11/12/18 08:09 11/19/18 08:08 11/14/18 20:39 Vancomycin HCl (Vanco rx to dose) 1 ea DAILY PRN MISC Per rx protocol 11/12/18 09:00 12/12/18 00:00 Vancomycin HCl 1 gm/Dextrose 275 ml @ 183.708 mls/hr Q12HR@0300,1500 IVPB 11/13/18 15:00 11/18/18 14:59 11/16/18 14:19 Laboratory Tests Test 11/16/18 05:24 White Blood Count 9.7 K/UL (4.8-10.8) Red Blood Count 3.79 M/UL (4.70-6.10) L Hemoglobin 11.4 G/DL (14.2-18.0) L Hematocrit 33.6 % (42.0-52.0) L Mean Corpuscular Volume 89 FL (80-99) Mean Corpuscular Hemoglobin 30.0 PG (27.0-31.0) Mean Corpuscular Hemoglobin Concent 33.9 G/DL (32.0-36.0) Red Cell Distribution Width 15.4 % (11.6-14.8) H Platelet Count 69 K/UL (150-450) L Mean Platelet Volume 9.5 FL (6.5-10.1) Neutrophils (%) (Auto) % (45.0-75.0) Lymphocytes (%) (Auto) % (20.0-45.0) Monocytes (%) (Auto) % (1.0-10.0) Eosinophils (%) (Auto) % (0.0-3.0) Basophils (%) (Auto) % (0.0-2.0) Differential Total Cells Counted 100 Neutrophils % (Manual) 86 % (45-75) H Lymphocytes % (Manual) 10 % (20-45) L Monocytes % (Manual) 2 % (1-10) Eosinophils % (Manual) 0 % (0-3) Basophils % (Manual) 0 % (0-2) Band Neutrophils 2 % (0-8) Platelet Estimate Decreased L Platelet Morphology Normal Anisocytosis 1+ Sodium Level 138 MMOL/L (136-145) Potassium Level 4.2 MMOL/L (3.5-5.1) Chloride Level 104 MMOL/L (98-107) Carbon Dioxide Level 28 MMOL/L (21-32) Anion Gap 6 mmol/L (5-15) Blood Urea Nitrogen 28 mg/dL (7-18) H Creatinine 1.1 MG/DL (0.55-1.30) Estimat Glomerular Filtration Rate mL/min (>60) Glucose Level 182 MG/DL (74-106) H Calcium Level 9.0 MG/DL (8.5-10.1) Phosphorus Level 3.2 MG/DL (2.5-4.9) Magnesium Level 1.9 MG/DL (1.8-2.4) Troponin I 0.029 ng/mL (0.000-0.056) Radha Kmuar DO November 16, 2018 10:18
--- NOTE | 2018-11-16 10:24 | NUR ---
NURSE NOTES: Dr. Kumar at bedside. With order to change routine breathing treatment to every 4 hours.
[2018-11-16] MEDS ORDERED: Tubing IV Secondary IV ONE ×2 (10:29→14:35)
[2018-11-16] MEDS ORDERED: NS 500ML ONE (10:29)
--- NOTE | 2018-11-16 12:00 | NUR ---
NURSE NOTES: Dr. Frost at bedside, inserted left nare dubhoff tube feeding. Will wait for xray to confirm placement.
--- NOTE | 2018-11-16 12:55 | NUR ---
RADIOLOGY DEPT., ABDOMEN X-RAY DONE.-P.DYE
--- NOTE | 2018-11-16 13:00 | Diagnostic Imaging Report ---
EXAM: XR Abdomen, 1 View CLINICAL HISTORY: TUBE PLCMT TECHNIQUE: Frontal view of the abdomen/pelvis. COMPARISON: No relevant prior studies available. FINDINGS: Intraperitoneal space: No evidence of free air below the diaphragm. Gastrointestinal tract: Bowel gas pattern appears unremarkable. No evidence of pneumatosis intestinalis. Organs: Renal shadows are mildly obscured by overlying bowel gas. No abnormal calcifications in the abdomen or pelvis. Bones/joints: Status post right hip replacement with expected alignment. Multilevel degenerative changes throughout the lumbar spine. Tubes, lines and devices: The tip of an enteric feeding tube is coiled within the left upper quadrant, likely within the stomach body. IMPRESSION: The tip of an enteric feeding tube is coiled within the left upper quadrant, likely within the stomach body.
--- NOTE | 2018-11-16 14:57 | Cardiac Electrophysiology PN ---
Assessment/Plan Assessment/Plan 1. Atrial fibrillation with rapid ventricular response. The patient is off anticoagulation. DCed Cardizem. Switch to p.o. Cardizem 60 q 6 hr. Was ruled out GA protocol. His echocardiogram also showed ejection fraction of 60% to 65%. Change iv amiodarone to 400 NG tid 2. Hypertension, on Cardizem. 3. COPD and pneumonia, on IV vancomycin and Zithromax as well as Solu-Medrol. 4. Thrombocytopenia, off anticoagulation. 5. Nausea, vomiting, and abdominal pain. Follow up with Dr. Joseph. PITA RN Subjective Subjective In ICU. Cardizem Drip DCed. Now on Amiodarone drip 0.5. Just underwent NG tube placement Objective Last 24 Hour Vital Signs Date Time Temp Pulse Resp B/P (MAP) Pulse Ox O2 Delivery O2 Flow Rate FiO2 11/16/18 14:00 82 28 126/111 (116) 91 11/16/18 13:00 76 22 143/66 (91) 96 11/16/18 12:17 73 11/16/18 12:10 72 25 98 Venturi Mask 8.0 40 11/16/18 12:03 74 20 96 Venturi Mask 8.0 40 11/16/18 12:00 98.2 75 28 150/71 (97) 99 11/16/18 12:00 Venturi Mask 8.0 11/16/18 11:00 71 28 127/60 (82) 93 11/16/18 10:30 73 28 144/72 (96) 94 11/16/18 10:00 75 28 143/73 (96) 97 11/16/18 09:30 75 24 131/73 (92) 96 11/16/18 09:00 72 26 139/74 (95) 97 11/16/18 08:30 80 21 150/68 (95) 97 11/16/18 08:00 Venturi Mask 8.0 11/16/18 08:00 98.0 78 18 147/66 (93) 96 11/16/18 07:30 90 27 143/83 (103) 92 11/16/18 07:21 81 11/16/18 07:18 82 21 95 Venturi Mask 8.0 40 11/16/18 07:11 94 Venturi Mask 40 11/16/18 07:11 87 20 94 Venturi Mask 8.0 40 11/16/18 07:00 94 24 155/81 (105) 94 11/16/18 06:30 68 24 138/56 (83) 95 11/16/18 06:00 71 26 146/68 (94) 95 11/16/18 05:30 75 26 146/68 (94) 95 11/16/18 05:27 8.0 40 11/16/18 05:00 68 26 130/75 (93) 95 11/16/18 04:30 74 28 136/64 (88) 95 11/16/18 04:00 10.0 45 11/16/18 04:00 98.5 74 24 141/78 (99) 96 11/16/18 04:00 72 11/16/18 04:00 Venturi Mask 10.0 11/16/18 03:30 74 20 131/58 (82) 95 11/16/18 03:00 76 20 124/62 (82) 95 11/16/18 02:30 74 20 125/64 (84) 95 11/16/18 02:00 73 20 122/60 (80) 95 11/16/18 01:30 74 20 133/74 (93) 95 11/16/18 01:20 74 24 96 Venturi Mask 10.0 45 11/16/18 01:07 75 26 95 Venturi Mask 10.0 45 11/16/18 01:00 74 20 130/71 (90) 95 11/16/18 00:30 73 20 125/72 (89) 95 11/16/18 00:00 Venturi Mask 10.0 11/16/18 00:00 10.0 45 11/16/18 00:00 98.2 72 24 130/55 (80) 96 11/16/18 00:00 73 11/15/18 23:30 73 20 143/60 (87) 96 11/15/18 23:00 73 20 121/64 (83) 94 11/15/18 22:30 78 20 132/57 (82) 94 11/15/18 22:00 76 22 118/80 (93) 92 11/15/18 21:30 72 20 130/55 (80) 93 11/15/18 21:25 10.0 45 11/15/18 21:00 75 20 130/67 (88) 95 11/15/18 20:58 65 18 95 Full Face 25 11/15/18 20:30 68 20 107/68 (81) 94 11/15/18 20:00 96.9 68 24 109/67 (81) 97 11/15/18 20:00 30 11/15/18 20:00 72 11/15/18 20:00 Bi-pap 11/15/18 19:31 97 Bi-pap 30 11/15/18 19:30 69 20 120/60 (80) 96 11/15/18 19:29 70 16 97 Nasal Cannula 3.0 32 11/15/18 19:25 70 20 96 Full Face 30 11/15/18 19:10 72 20 97 Bi-pap 35 11/15/18 19:00 71 20 117/62 (80) 97 11/15/18 18:00 82 24 137/74 (95) 96 11/15/18 17:57 81 128/58 11/15/18 17:19 81 19 93 Full Face 35 11/15/18 17:00 87 22 128/58 (81) 93 11/15/18 16:00 98.9 83 24 128/58 (81) 96 11/15/18 16:00 70 11/15/18 16:00 84 11/15/18 16:00 Nasal Cannula 4.0 11/15/18 15:00 82 22 120/63 (82) 96 Intake and Output 11/15/18 11/16/18 19:00 07:00 Intake Total 912.62 ml 876.590 ml Output Total 1200 ml 2100 ml Balance -287.38 ml -1223.410 ml IV Total 912.62 ml 876.590 ml Output Urine Total 1200 ml 2100 ml # Bowel Movements 1 Laboratory Tests Test 11/16/18 05:24 White Blood Count 9.7 K/UL (4.8-10.8) Red Blood Count 3.79 M/UL (4.70-6.10) L Hemoglobin 11.4 G/DL (14.2-18.0) L Hematocrit 33.6 % (42.0-52.0) L Mean Corpuscular Volume 89 FL (80-99) Mean Corpuscular Hemoglobin 30.0 PG (27.0-31.0) Mean Corpuscular Hemoglobin Concent 33.9 G/DL (32.0-36.0) Red Cell Distribution Width 15.4 % (11.6-14.8) H Platelet Count 69 K/UL (150-450) L Mean Platelet Volume 9.5 FL (6.5-10.1) Neutrophils (%) (Auto) % (45.0-75.0) Lymphocytes (%) (Auto) % (20.0-45.0) Monocytes (%) (Auto) % (1.0-10.0) Eosinophils (%) (Auto) % (0.0-3.0) Basophils (%) (Auto) % (0.0-2.0) Differential Total Cells Counted 100 Neutrophils % (Manual) 86 % (45-75) H Lymphocytes % (Manual) 10 % (20-45) L Monocytes % (Manual) 2 % (1-10) Eosinophils % (Manual) 0 % (0-3) Basophils % (Manual) 0 % (0-2) Band Neutrophils 2 % (0-8) Platelet Estimate Decreased L Platelet Morphology Normal Anisocytosis 1+ Sodium Level 138 MMOL/L (136-145) Potassium Level 4.2 MMOL/L (3.5-5.1) Chloride Level 104 MMOL/L (98-107) Carbon Dioxide Level 28 MMOL/L (21-32) Anion Gap 6 mmol/L (5-15) Blood Urea Nitrogen 28 mg/dL (7-18) H Creatinine 1.1 MG/DL (0.55-1.30) Estimat Glomerular Filtration Rate mL/min (>60) Glucose Level 182 MG/DL (74-106) H Calcium Level 9.0 MG/DL (8.5-10.1) Phosphorus Level 3.2 MG/DL (2.5-4.9) Magnesium Level 1.9 MG/DL (1.8-2.4) Troponin I 0.029 ng/mL (0.000-0.056) Microbiology Date/Time Source Procedure Growth Status 11/13/18 20:30 Stool Stool Culture - Preliminary NO SALMONELLA,SHIGELLA,OR CAMPYLOBACT... Resulted Objective HEAD AND NECK: No JVD. LUNGS: Decreased breath sounds. He has a BiPAP on. CARDIOVASCULAR: Regular S1-S2 with no gallop. ABDOMEN: Soft. EXTREMITIES: 1+ pitting edema. Jose Vee MD November 16, 2018 14:57
--- NOTE | 2018-11-16 15:33 | Internal Med Progress Note ---
Subjective Date of Service: November 16, 2018 Physician Name GalarzaLouis Attending Physician Star Malave MD Current Medications Medications (Trade) Dose Ordered Sig/Keith Route PRN Reason Start Time Stop Time Status Last Admin Dose Admin Acetaminophen (Tylenol) 650 mg Q4H PRN ORAL Mild Pain/Temp > 100.5 11/12/18 08:08 12/12/18 08:07 11/14/18 15:26 Amiodarone HCl (Cordarone) 400 mg EVERY 12 HOURS NG 11/16/18 21:00 12/16/18 20:59 Amiodarone HCl 900 mg/Dextrose 500 ml @ 0 mls/hr Q24H IV 11/15/18 22:00 11/16/18 21:59 11/15/18 22:19 Azithromycin 500 mg/Dextrose 275 ml @ 275 mls/hr Q24HRS IV 11/12/18 18:00 11/18/18 18:59 11/15/18 17:54 Dextrose/ Electrolytes 1,000 ml @ 30 mls/hr Q24H IV 11/13/18 11:56 12/13/18 11:55 11/15/18 15:30 Diltiazem HCl (Cardizem) 60 mg EVERY 6 HOURS NG 11/16/18 18:00 12/16/18 17:59 Haloperidol Lactate (Haldol) 5 mg Q6H PRN IM Agitation 11/14/18 22:00 12/14/18 21:59 11/16/18 15:29 Ipratropium [place] (Atrovent) 500 mcg Q4H PRN HHN Shortness of Breath 11/13/18 12:00 11/18/18 11:59 Ipratropium [place] (Atrovent) 500 mcg Q4HRT HHN 11/16/18 11:00 11/18/18 12:59 11/16/18 15:19 Levalbuterol HCl (Xopenex) 0.63 mg Q4H PRN HHN SOB and WHEEZING 11/13/18 12:00 11/18/18 11:59 Levalbuterol HCl (Xopenex) 0.63 mg Q4HRT HHN 11/16/18 11:00 11/18/18 12:59 11/16/18 15:19 Methylprednisolone Sodium Succinate (Solu-MEDROL) 40 mg DAILY IVP 11/14/18 09:00 12/14/18 08:59 11/16/18 08:47 Ondansetron HCl (Zofran) 4 mg Q6H PRN IVP Nausea & Vomiting 11/12/18 08:09 12/12/18 08:08 Pantoprazole (Protonix) 40 mg DAILY IVP 11/14/18 09:00 12/14/18 08:59 11/16/18 08:48 Promethazine HCl/ Codeine (Phenergan with Codeine) 5 ml Q4H PRN ORAL For Cough 11/12/18 08:09 12/12/18 08:08 Temazepam (Restoril) 15 mg HSPRN PRN ORAL Insomnia 11/12/18 08:09 11/19/18 08:08 11/14/18 20:39 Vancomycin HCl (Vanco rx to dose) 1 ea DAILY PRN MISC Per rx protocol 11/12/18 09:00 12/12/18 00:00 Vancomycin HCl 1 gm/Dextrose 275 ml @ 183.708 mls/hr Q12HR@0300,1500 IVPB 11/13/18 15:00 11/18/18 14:59 11/16/18 14:19 Allergies: Coded Allergies: No Known Allergies (Unverified , 12/10/11) ROS Limited/Unobtainable: Yes Subjective 87 YO M admitted with respiratory failure and pneumonia. Cover for Int Arjun-Dr Malave. ICU. Off BIPAP; tolerating venturi mask Objective Last Vital Signs Date Time Temp Pulse Resp B/P (MAP) Pulse Ox O2 Delivery O2 Flow Rate FiO2 11/16/18 15:26 86 25 99 Venturi Mask 8.0 40 11/16/18 15:00 141/129 (133) 11/16/18 12:00 98.2 Laboratory Tests Test 11/16/18 05:24 White Blood Count 9.7 K/UL (4.8-10.8) Red Blood Count 3.79 M/UL (4.70-6.10) L Hemoglobin 11.4 G/DL (14.2-18.0) L Hematocrit 33.6 % (42.0-52.0) L Mean Corpuscular Volume 89 FL (80-99) Mean Corpuscular Hemoglobin 30.0 PG (27.0-31.0) Mean Corpuscular Hemoglobin Concent 33.9 G/DL (32.0-36.0) Red Cell Distribution Width 15.4 % (11.6-14.8) H Platelet Count 69 K/UL (150-450) L Mean Platelet Volume 9.5 FL (6.5-10.1) Neutrophils (%) (Auto) % (45.0-75.0) Lymphocytes (%) (Auto) % (20.0-45.0) Monocytes (%) (Auto) % (1.0-10.0) Eosinophils (%) (Auto) % (0.0-3.0) Basophils (%) (Auto) % (0.0-2.0) Differential Total Cells Counted 100 Neutrophils % (Manual) 86 % (45-75) H Lymphocytes % (Manual) 10 % (20-45) L Monocytes % (Manual) 2 % (1-10) Eosinophils % (Manual) 0 % (0-3) Basophils % (Manual) 0 % (0-2) Band Neutrophils 2 % (0-8) Platelet Estimate Decreased L Platelet Morphology Normal Anisocytosis 1+ Sodium Level 138 MMOL/L (136-145) Potassium Level 4.2 MMOL/L (3.5-5.1) Chloride Level 104 MMOL/L (98-107) Carbon Dioxide Level 28 MMOL/L (21-32) Anion Gap 6 mmol/L (5-15) Blood Urea Nitrogen 28 mg/dL (7-18) H Creatinine 1.1 MG/DL (0.55-1.30) Estimat Glomerular Filtration Rate mL/min (>60) Glucose Level 182 MG/DL (74-106) H Calcium Level 9.0 MG/DL (8.5-10.1) Phosphorus Level 3.2 MG/DL (2.5-4.9) Magnesium Level 1.9 MG/DL (1.8-2.4) Troponin I 0.029 ng/mL (0.000-0.056) Microbiology Date/Time Source Procedure Growth Status 11/13/18 20:30 Stool Stool Culture - Preliminary NO SALMONELLA,SHIGELLA,OR CAMPYLOBACT... Resulted Intake and Output 11/15/18 11/16/18 19:00 07:00 Intake Total 912.62 ml 876.590 ml Output Total 1200 ml 2100 ml Balance -287.38 ml -1223.410 ml IV Total 912.62 ml 876.590 ml Output Urine Total 1200 ml 2100 ml # Bowel Movements 1 Objective PHYSICAL EXAMINATION: GENERAL: The patient is well-developed and well-nourished white male, in respiratory distress. HEENT: Eyes, pupils are equal and responsive to light and accommodation. Extraocular movements are intact. NECK: Supple without lymphadenopathy. CHEST: venturi mask; Decreased breath sounds in bilateral bases with crackles on the left. Otherwise, without wheezes. ABDOMEN: Soft, nontender, and nondistended. Positive bowel sounds. No evidence of hepatosplenomegaly. Currently, no rebound or guarding noted. EXTREMITIES: Negative for clubbing, cyanosis, or edema. RECTAL/GENITAL: Refused. NEUROLOGIC: Cranial nerves II through XII are grossly intact without focal deficits. Motor strength is 5/5 bilaterally. Deep tendon reflexes are 2+ plantar. Assessment/Plan Assessment/Plan ASSESSMENT: This is an 87-year-old white male. 1. Pneumonia. 2. Respiratory failure. 3. Diarrhea. 4. Nausea with vomiting. 5. Fever. 6. Hypertension. 7. Hypercholesterolemia. TREATMENT: 1. Pneumonia/respiratory failure. A Pulmonary consultation has been obtained with Dr. Joan Nugent. The patient is currently off BiPAP in the intensive care unit. We will follow recommendations of Pulmonary. The patient has been started empirically on intravenous vancomycin, cefepime, and azithromycin. 2. Diarrhea/nausea/vomiting. A Gastroenterology consultation has been obtained with Dr. Nito Joseph. 3. Fever. This probably is secondary to pneumonia as above. 4. Hypertension. The patient is currently hypotensive. 5. Hypercholesterolemia. Continue Crestor as above. Louis Galarza MD November 16, 2018 15:33
--- NOTE | 2018-11-16 15:54 | NUR ---
NURSE NOTES: Patient converted to Afib 120-130's, patient is agitated, trying to get out of bed, kicking staff members. Patient is pulling everything he can grab. Left message to Dr. Vee. Awaiting for response.
--- NOTE | 2018-11-16 15:55 | NUR ---
NURSE NOTES: Called patient's son, informed about patient's behavior. He said that he will come back.
[2018-11-16] MEDS: D5 1/2NS w/KCl 20mEq 1,000 ML IV SCH (16:01)
--- NOTE | 2018-11-16 16:48 | NUR ---
NURSE NOTES: Dr. Vee made aware via telephone that patient converted to Afib 120-140's when he's agitated. No new order obtained at this time. Will continue to monitor patient's HR.
[2018-11-16] MEDS: Azithromycin 500 MG in D5W 275 ML IV SCH (17:12)
[2018-11-16] MEDS: dilTIAZem HCl 60mg tab NG SCH ×2 (18:13→23:53)
--- NOTE | 2018-11-16 19:30 | NUR ---
HAND-OFF: Report given to Waldo Brewster RN.
--- NOTE | 2018-11-16 19:30 | NUR ---
NURSE NOTES: Patient received from Carla JUAREZ. Patient is awake, [place] speaking only. Patient is responsive to communication, looks a little weak and lethargic. Patient is on a Venturi Mask at 40% FiO2 and saturation > 92%. Patient is on an Amiodarone gtt at 0.5mg for Afib control/HR control. Currently patients HR is 89 SR. BP 144/85. Afebrile. Chavez noted, and bilateral wrist restraints noted. Pulses noted and skin is intact. Patient has a newly inserted Dohoff gastric NGT running Glucerna 1.5 at 10ml with goal of 55ml. Multiple bruise around the body. Patient is agitated at times but currently calm. R AC 20G and L hand 22G both patent and intact running D5W1/2NS w/20mEq KCL at 30ml/hr. NAD at this time. Will continue to monitor.
--- NOTE | 2018-11-16 20:00 | NUR ---
NURSE NOTES: Patient repositioned and given oral care. Patient looks calm and content at this time. HR is SR in the 60s. BP is stable, SpO2 > 92%. Feeds started at 10ml/hr. Patient remians on Venturi Mask 40% FiO2.
[2018-11-16] MEDS: Amiodarone 200mg tab NG SCH (20:32)
--- NOTE | 2018-11-16 22:00 | NUR ---
NURSE NOTES: Patient repositioned. Feeds ongoing. Patient sleeping. Saturating 98%. Remains on Venturi mask 40% FiO2. Vitals stable.
--- NOTE | 2018-11-16 22:12 | General Progress Note ---
Assessment/Plan Status: stable Assessment/Plan: Assessment (1) Thrombocytopenia ICD Codes: D69.6 - Thrombocytopenia, unspecified SNOMED: 187747803 (2) Nausea & vomiting ICD Codes: R11.2 - Nausea with vomiting, unspecified SNOMED: 91370250 (3) Dehydration ICD Codes: E86.0 - Dehydration SNOMED: 71515392 (4) Diarrhea ICD Codes: R19.7 - Diarrhea, unspecified SNOMED: 19023049 (5) Electrolyte imbalance ICD Codes: E87.8 - Other disorders of electrolyte and fluid balance, not elsewhere classified SNOMED: 273414718 Status: stable (6() Heme (+) stools Assessment/Plan OB stool positive BIPAP qHS ST evaluation today, diet per defer any GI procedures at this time, respiratory status not stable Follow C. difficile, stool studies >> will consider Imodium prn pending work up Zofran as needed, Reglan for persistent vomiting IV hydration plus electrolyte correction monitor H&H, prn transfusions bowel regime ppi abx per ID fu labs Subjective Allergies: Coded Allergies: No Known Allergies (Unverified , 12/10/11) Subjective above noted seen in ICU son at bedside RN unable to place NGT Objective Last 24 Hour Vital Signs Date Time Temp Pulse Resp B/P (MAP) Pulse Ox O2 Delivery O2 Flow Rate FiO2 11/16/18 21:00 68 24 140/87 (104) 96 11/16/18 20:00 Venturi Mask 8.0 11/16/18 20:00 99.1 66 25 139/57 (84) 96 11/16/18 19:14 72 18 97 Venturi Mask 8.0 40 11/16/18 19:09 96 Venturi Mask 8.0 40 11/16/18 19:06 71 24 96 Venturi Mask 8.0 40 11/16/18 19:00 74 32 133/76 (95) 94 11/16/18 18:13 78 131/85 11/16/18 18:00 76 29 131/85 (100) 96 11/16/18 17:30 79 23 135/82 (99) 95 11/16/18 17:09 85 11/16/18 17:00 83 26 125/79 (94) 94 11/16/18 16:30 115 30 153/94 (113) 95 11/16/18 16:00 Venturi Mask 8.0 5/25/19 16:00 98.0 141 32 168/97 (120) 92 11/16/18 15:35 126 11/16/18 15:30 121 34 146/83 (104) 95 11/16/18 15:26 86 25 99 Venturi Mask 8.0 40 11/16/18 15:20 83 20 94 Venturi Mask 8.0 40 11/16/18 15:00 87 31 141/129 (133) 96 11/16/18 14:30 82 28 158/85 (109) 90 11/16/18 14:00 82 28 126/111 (116) 91 11/16/18 13:30 76 25 141/67 (91) 96 11/16/18 13:00 76 22 143/66 (91) 96 11/16/18 12:17 73 11/16/18 12:10 72 25 98 Venturi Mask 8.0 40 11/16/18 12:03 74 20 96 Venturi Mask 8.0 40 11/16/18 12:00 98.2 75 28 150/71 (97) 99 11/16/18 12:00 Venturi Mask 8.0 11/16/18 11:00 71 28 127/60 (82) 93 11/16/18 10:30 73 28 144/72 (96) 94 11/16/18 10:00 75 28 143/73 (96) 97 11/16/18 09:30 75 24 131/73 (92) 96 11/16/18 09:00 72 26 139/74 (95) 97 11/16/18 08:30 80 21 150/68 (95) 97 11/16/18 08:00 Venturi Mask 8.0 11/16/18 08:00 98.0 78 18 147/66 (93) 96 11/16/18 07:30 90 27 143/83 (103) 92 11/16/18 07:21 81 11/16/18 07:18 82 21 95 Venturi Mask 8.0 40 11/16/18 07:11 94 Venturi Mask 40 11/16/18 07:11 87 20 94 Venturi Mask 8.0 40 11/16/18 07:00 94 24 155/81 (105) 94 11/16/18 06:30 68 24 138/56 (83) 95 11/16/18 06:00 71 26 146/68 (94) 95 11/16/18 05:30 75 26 146/68 (94) 95 11/16/18 05:27 8.0 40 11/16/18 05:00 68 26 130/75 (93) 95 11/16/18 04:30 74 28 136/64 (88) 95 11/16/18 04:00 10.0 45 11/16/18 04:00 98.5 74 24 141/78 (99) 96 11/16/18 04:00 72 11/16/18 04:00 Venturi Mask 10.0 11/16/18 03:30 74 20 131/58 (82) 95 11/16/18 03:00 76 20 124/62 (82) 95 11/16/18 02:30 74 20 125/64 (84) 95 11/16/18 02:00 73 20 122/60 (80) 95 11/16/18 01:30 74 20 133/74 (93) 95 11/16/18 01:20 74 24 96 Venturi Mask 10.0 45 11/16/18 01:07 75 26 95 Venturi Mask 10.0 45 11/16/18 01:00 74 20 130/71 (90) 95 11/16/18 00:30 73 20 125/72 (89) 95 11/16/18 00:00 Venturi Mask 10.0 11/16/18 00:00 10.0 45 11/16/18 00:00 98.2 72 24 130/55 (80) 96 11/16/18 00:00 73 11/15/18 23:30 73 20 143/60 (87) 96 11/15/18 23:00 73 20 121/64 (83) 94 11/15/18 22:30 78 20 132/57 (82) 94 Intake and Output 11/15/18 11/16/18 19:00 07:00 Intake Total 912.62 ml 876.590 ml Output Total 1200 ml 2100 ml Balance -287.38 ml -1223.410 ml IV Total 912.62 ml 876.590 ml Output Urine Total 1200 ml 2100 ml # Bowel Movements 1 Laboratory Tests 11/16/18 05:24: White Blood Count 9.7, Red Blood Count 3.79L, Hemoglobin 11.4L, Hematocrit 33.6L , Mean Corpuscular Volume 89, Mean Corpuscular Hemoglobin 30.0, Mean Corpuscular Hemoglobin Concent 33.9, Red Cell Distribution Width 15.4H, Platelet Count 69L, Mean Platelet Volume 9.5, Neutrophils (%) (Auto) , Lymphocytes (%) (Auto) , Monocytes (%) (Auto) , Eosinophils (%) (Auto) , Basophils (%) (Auto) , Differential Total Cells Counted 100, Neutrophils % ( Manual) 86H, Lymphocytes % (Manual) 10L, Monocytes % (Manual) 2, Eosinophils % ( Manual) 0, Basophils % (Manual) 0, Band Neutrophils 2, Platelet Estimate DecreasedL, Platelet Morphology Normal, Anisocytosis 1+, Sodium Level 138, Potassium Level 4.2, Chloride Level 104, Carbon Dioxide Level 28, Anion Gap 6, Blood Urea Nitrogen 28H, Creatinine 1.1, Estimat Glomerular Filtration Rate , Glucose Level 182H, Calcium Level 9.0, Phosphorus Level 3.2, Magnesium Level 1.9 , Troponin I 0.029 Height (Feet): 5 Height (Inches): 10.00 Weight (Pounds): 181 Objective WDWN NCAT supple CTA RR abd soft ND No edeama NJT placed in ICU, KUB ordered. Alexis Frost MD November 16, 2018 22:12
[2018-11-17] VITALS (20 sets, daily range): BP systolic 108–168; BP diastolic 61–131
--- NOTE | 2018-11-17 | NUR ---
NURSE NOTES: Patient is resting in bed. Vitals have remained stable, no fever. Remains on the Venturi mask at 40% FiO2. No acute distress at this time. Was repositioned and sheets changed. No BM yet. Feeds ongoing. Will continue to monitor.
--- NOTE | 2018-11-17 02:00 | NUR ---
NURSE NOTES: Repositioned patient and given oral care. Patient sleeping, remains stable, does get short of breath when lying semi-lama, needs to be in high fowlers position. Remains on Venturi mask.
--- NOTE | 2018-11-17 02:45 | Progress Note ---
DATE: 11/16/2018 SUBJECTIVE: The patient is still in the intensive care unit. Continues to have waxing and waning consciousness, agitated, memory impairment. MENTAL STATUS EXAMINATION: The patient is alert, confused, disoriented. Mood is agitated. Affect is flat. Thought process, there is a paucity of thought content. Thought content, no suicidal or homicidal ideations. ASSESSMENT: Acute encephalopathy. PLAN: We will continue current medications. The patient lacks capacity to make decisions. Trace Rodarte M.D. DR: PARAMJIT JOB#: [id number] CC:
[2018-11-17] MEDS: Vancomycin 1gm/D5W 275ml IVPB SCH ×2 (03:00)
[2018-11-17] MEDS: Levalbuterol Inh UD 1.25mg/0.5ml HHN SCH ×5 (03:01→19:01)
[2018-11-17] MEDS: Ipratropium 0.02% Inh Soln 2.5ml UD HHN SCH ×5 (03:01→19:01)
--- NOTE | 2018-11-17 04:00 | NUR ---
NURSE NOTES: Patient repositioned and cleaned, No acute distress no acute changes,
[2018-11-17] MEDS: dilTIAZem HCl 60mg tab NG SCH ×3 (05:28→17:43)
[2018-11-17 06:01] LABS: HEMOGLOBIN 11.9 G/DL (14.2-18.0); MEAN CORPUSCULAR VOLUME 86 FL (80-99); PLATELET COUNT 95 K/UL (150-450); RED BLOOD COUNT 4.07 M/UL (4.70-6.10); RED CELL DISTRIBUTION WIDTH 14.3 % (11.6-14.8)
[2018-11-17 06:37] LABS: ALANINE AMINOTRANSFERASE 44 U/L (12-78); ALBUMIN 2.6 G/DL (3.4-5.0); ALBUMIN/GLOBULIN RATIO 0.8 (1.0-2.7); ALKALINE PHOSPHATASE 73 U/L (46-116); ANION GAP 7 mmol/L (5-15); ASPARTATE AMINO TRANSFERASE 23 U/L (15-37); BILIRUBIN,TOTAL 0.9 MG/DL (0.2-1.0); BLOOD UREA NITROGEN 29 mg/dL (7-18); CALCIUM 9.2 MG/DL (8.5-10.1); CARBON DIOXIDE 29 MMOL/L (21-32); CHLORIDE 102 MMOL/L (98-107); CREATININE 1.1 MG/DL (0.55-1.30); POTASSIUM 4.3 MMOL/L (3.5-5.1); SODIUM 138 MMOL/L (136-145)
[2018-11-17] MEDS ORDERED: Sterile Water Irrig 1000ml IRRIG ONE (08:19)
--- NOTE | 2018-11-17 08:30 | NUR ---
NURSE NOTES: Patient remains on bilateral wrist restraints with pulses and hands warm, he is agitated with no throwing legs at the bedside and pulling on Lines, patient repositioned and elevated feet to prevent movement,
[2018-11-17] MEDS: Haloperidol 5mg/ml Inj IM PRN ×2 (09:22→19:12)
--- NOTE | 2018-11-17 09:23 | NUR ---
NURSE NOTES: Haldol 5mg IVP PRN given for agitation and restlessness. Will continue o monitor. Addendum: 11/17/18 at 926 by BOYD SAGASTUME RN RN NURSE NOTES: PRN Haldol 5mg IM given for agitation and restlessness. Will continue o monitor.
[2018-11-17] MEDS: Amiodarone 200mg tab NG SCH ×2 (10:06→21:03)
[2018-11-17] MEDS: Solu-MEDROL 40mg Inj IVP SCH ×2 (10:06→21:03)
[2018-11-17] MEDS: Pantoprazole Inj IVP SCH (10:06)
--- NOTE | 2018-11-17 10:30 | NUR ---
NURSE NOTES: Dr. Kumar updated on patient condition at the bedside, ordered to have solumedrol to be given bid. notified patient is cough and clearing clear secretions,
--- NOTE | 2018-11-17 10:32 | Pulmonolgy Critical Care Note ---
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 Discussed with: nurses Critical Care - Objective Last 24 Hour Vital Signs Date Time Temp Pulse Resp B/P (MAP) Pulse Ox O2 Delivery O2 Flow Rate FiO2 11/17/18 10:00 101 20 141/85 (103) 94 11/17/18 09:00 106 27 161/99 (119) 93 11/17/18 08:00 Venturi Mask 8.0 11/17/18 08:00 84 11/17/18 08:00 97.3 89 21 162/131 (141) 92 11/17/18 07:29 95 Venturi Mask 8.0 40 11/17/18 07:29 83 24 95 Venturi Mask 8.0 40 11/17/18 07:29 84 21 99 Venturi Mask 8.0 40 11/17/18 07:00 81 32 168/85 (112) 96 11/17/18 06:00 76 32 159/79 (105) 92 11/17/18 05:28 76 144/68 11/17/18 05:00 72 31 152/78 (102) 92 11/17/18 04:00 Venturi Mask 8.0 11/17/18 04:00 76 11/17/18 04:00 99.3 71 22 144/68 (93) 95 11/17/18 03:13 75 21 98 Venturi Mask 8.0 40 11/17/18 03:00 74 24 97 Venturi Mask 8.0 40 11/17/18 03:00 72 18 161/79 (106) 96 11/17/18 02:00 68 21 132/64 (86) 96 11/17/18 01:04 72 17 97 Venturi Mask 8.0 40 11/17/18 01:00 79 22 144/73 (96) 95 11/17/18 00:00 Venturi Mask 8.0 11/17/18 00:00 98.3 66 32 128/61 (83) 95 11/17/18 00:00 66 11/16/18 23:53 77 143/70 11/16/18 23:08 77 17 99 Venturi Mask 8.0 40 11/16/18 23:00 69 34 143/70 (94) 96 11/16/18 22:55 73 16 98 Venturi Mask 8.0 40 11/16/18 22:00 68 26 124/63 (83) 97 11/16/18 21:00 68 24 140/87 (104) 96 11/16/18 20:00 Venturi Mask 8.0 11/16/18 20:00 99.1 66 25 139/57 (84) 96 11/16/18 19:14 72 18 97 Venturi Mask 8.0 40 11/16/18 19:09 96 Venturi Mask 8.0 40 11/16/18 19:06 71 24 96 Venturi Mask 8.0 40 11/16/18 19:00 74 32 133/76 (95) 94 11/16/18 18:13 78 131/85 11/16/18 18:00 76 29 131/85 (100) 96 11/16/18 17:30 79 23 135/82 (99) 95 11/16/18 17:09 85 11/16/18 17:00 83 26 125/79 (94) 94 11/16/18 16:30 115 30 153/94 (113) 95 11/16/18 16:00 Venturi Mask 8.0 11/16/18 16:00 98.0 141 32 168/97 (120) 92 11/16/18 15:35 126 11/16/18 15:30 121 34 146/83 (104) 95 11/16/18 15:26 86 25 99 Venturi Mask 8.0 40 11/16/18 15:20 83 20 94 Venturi Mask 8.0 40 11/16/18 15:00 87 31 141/129 (133) 96 11/16/18 14:30 82 28 158/85 (109) 90 11/16/18 14:00 82 28 126/111 (116) 91 11/16/18 13:30 76 25 141/67 (91) 96 11/16/18 13:00 76 22 143/66 (91) 96 11/16/18 12:17 73 11/16/18 12:10 72 25 98 Venturi Mask 8.0 40 11/16/18 12:03 74 20 96 Venturi Mask 8.0 40 11/16/18 12:00 98.2 75 28 150/71 (97) 99 11/16/18 12:00 Venturi Mask 8.0 11/16/18 11:00 71 28 127/60 (82) 93 Status: awake Condition: improving Lungs: rhonchi, wheezing Heart: HR/BP stable Abdomen: soft, non-tender Extremities: no C/C/E Critical Care - Subjective ROS Limited/Unobtainable: Yes Condition: critical FI02: 40 Vent Support Mode: BiLevel Sputum Amount: None Tube Feeding Amount: 55 I&O: Intake and Output 11/16/18 11/17/18 18:59 06:59 Intake Total 1109.920 ml 998.32 ml Output Total 2400 ml 1105 ml Balance -1290.080 ml -106.68 ml Free Water 60 ml IV Total 1079.920 ml 668.32 ml Tube Feeding 270 ml Other 30 ml Output Urine Total 2400 ml 1105 ml Subjective: off bipap still wheezing, only getting prednisone daily no distress no bleeding nPo on o2 neb helpful CXr pening Labs: Current Medications Medications (Trade) Dose Ordered Sig/Keith Route PRN Reason Start Time Stop Time Status Last Admin Dose Admin Acetaminophen (Tylenol) 650 mg Q4H PRN ORAL Mild Pain/Temp > 100.5 11/12/18 08:08 12/12/18 08:07 11/16/18 20:33 Amiodarone HCl (Cordarone) 400 mg EVERY 12 HOURS NG 11/16/18 21:00 12/16/18 20:59 11/17/18 10:06 Azithromycin 500 mg/Dextrose 275 ml @ 275 mls/hr Q24HRS IV 11/12/18 18:00 11/18/18 18:59 11/16/18 17:12 Dextrose/ Electrolytes 1,000 ml @ 30 mls/hr Q24H IV 11/13/18 11:56 12/13/18 11:55 11/16/18 16:01 Diltiazem HCl (Cardizem) 60 mg EVERY 6 HOURS NG 11/16/18 18:00 12/16/18 17:59 11/17/18 05:28 Haloperidol Lactate (Haldol) 5 mg Q6H PRN IM Agitation 11/14/18 22:00 12/14/18 21:59 11/17/18 09:22 Ipratropium [place] (Atrovent) 500 mcg Q4H PRN HHN Shortness of Breath 11/13/18 12:00 11/18/18 11:59 Ipratropium [place] (Atrovent) 500 mcg Q4HRT HHN 11/16/18 11:00 11/18/18 12:59 11/17/18 07:36 Levalbuterol HCl (Xopenex) 0.63 mg Q4H PRN HHN SOB and WHEEZING 11/13/18 12:00 11/18/18 11:59 Levalbuterol HCl (Xopenex) 0.63 mg Q4HRT HHN 11/16/18 11:00 11/18/18 12:59 11/17/18 07:36 Methylprednisolone Sodium Succinate (Solu-MEDROL) 40 mg DAILY IVP 11/14/18 09:00 12/14/18 08:59 11/17/18 10:06 Ondansetron HCl (Zofran) 4 mg Q6H PRN IVP Nausea & Vomiting 11/12/18 08:09 12/12/18 08:08 Pantoprazole (Protonix) 40 mg DAILY IVP 11/14/18 09:00 12/14/18 08:59 11/17/18 10:06 Promethazine HCl/ Codeine (Phenergan with Codeine) 5 ml Q4H PRN ORAL For Cough 11/12/18 08:09 12/12/18 08:08 Temazepam (Restoril) 15 mg HSPRN PRN ORAL Insomnia 11/12/18 08:09 11/19/18 08:08 11/14/18 20:39 Vancomycin HCl (Vanco rx to dose) 1 ea DAILY PRN MISC Per rx protocol 11/12/18 09:00 12/12/18 00:00 Vancomycin HCl 1 gm/Dextrose 275 ml @ 183.708 mls/hr Q12HR@0300,1500 IVPB 11/17/18 15:00 11/22/18 14:59 Laboratory Tests Test 11/17/18 04:30 White Blood Count 10.0 K/UL (4.8-10.8) Red Blood Count 4.07 M/UL (4.70-6.10) L Hemoglobin 11.9 G/DL (14.2-18.0) L Hematocrit 35.0 % (42.0-52.0) L Mean Corpuscular Volume 86 FL (80-99) Mean Corpuscular Hemoglobin 29.3 PG (27.0-31.0) Mean Corpuscular Hemoglobin Concent 34.2 G/DL (32.0-36.0) Red Cell Distribution Width 14.3 % (11.6-14.8) Platelet Count 95 K/UL (150-450) L Mean Platelet Volume 6.8 FL (6.5-10.1) Neutrophils (%) (Auto) % (45.0-75.0) Lymphocytes (%) (Auto) % (20.0-45.0) Monocytes (%) (Auto) % (1.0-10.0) Eosinophils (%) (Auto) % (0.0-3.0) Basophils (%) (Auto) % (0.0-2.0) Differential Total Cells Counted 100 Neutrophils % (Manual) 89 % (45-75) H Lymphocytes % (Manual) 6 % (20-45) L Monocytes % (Manual) 5 % (1-10) Eosinophils % (Manual) 0 % (0-3) Basophils % (Manual) 0 % (0-2) Band Neutrophils 0 % (0-8) Platelet Estimate Decreased L Platelet Morphology Normal Red Blood Cell Morphology Normal Anisocytosis Sodium Level 138 MMOL/L (136-145) Potassium Level 4.3 MMOL/L (3.5-5.1) Chloride Level 102 MMOL/L (98-107) Carbon Dioxide Level 29 MMOL/L (21-32) Anion Gap 7 mmol/L (5-15) Blood Urea Nitrogen 29 mg/dL (7-18) H Creatinine 1.1 MG/DL (0.55-1.30) Estimat Glomerular Filtration Rate mL/min (>60) Glucose Level 136 MG/DL (74-106) H Calcium Level 9.2 MG/DL (8.5-10.1) Total Bilirubin 0.9 MG/DL (0.2-1.0) Aspartate Amino Transf (AST/SGOT) 23 U/L (15-37) Alanine Aminotransferase (ALT/SGPT) 44 U/L (12-78) Alkaline Phosphatase 73 U/L (46-116) Total Protein 5.9 G/DL (6.4-8.2) L Albumin 2.6 G/DL (3.4-5.0) L Globulin 3.3 g/dL Albumin/Globulin Ratio 0.8 (1.0-2.7) L Radha Kumar DO November 17, 2018 10:32
--- NOTE | 2018-11-17 11:05 | Diagnostic Imaging Report ---
EXAM: XR Chest, 1 View CLINICAL HISTORY: F/U TECHNIQUE: Frontal view of the chest. COMPARISON: Chest x-rays dated 11/13/18 FINDINGS: Lungs: Patchy opacities throughout the lateral aspect of the right upper lung, concerning for pneumonia. No significant change in the increased interstitial markings. Pleural space: Small right pleural effusion. Heart: Unremarkable. No cardiomegaly. Mediastinum: Unremarkable. Bones/joints: Unremarkable. Tubes, lines and devices: Telemetry leads overlie the thorax. An NG tube extends below the diaphragm and its tip is not visualized. IMPRESSION: 1. Patchy opacities throughout the lateral aspect of the right upper lung, concerning for pneumonia. 2. No significant change in the increased interstitial markings. This is nonspecific but may suggest pulmonary vascular congestion or interstitial pneumonitis. 3. Small right pleural effusion.
--- NOTE | 2018-11-17 12:30 | NUR ---
NURSE NOTES: Dr. Vee updated at the bedside patient remains in and out of sinus rhythm to a-fibb and spontaneously to SR, patient remains on Amiodarone 400mg BID and on Diltiazem, patient is cleared by parole board member to transfer to SDU, no further verbal orders at this time.
[2018-11-17] MEDS: D5 1/2NS w/KCl 20mEq 1,000 ML IV SCH (12:44)
--- NOTE | 2018-11-17 13:13 | Cardiac Electrophysiology PN ---
Assessment/Plan Assessment/Plan 1. Atrial fibrillation with rapid ventricular response. In SR today The patient is off anticoagulation. Echo EF 60% to 65%. On amiodarone 400 bid and Cardizem 60q 6hr 2. Hypertension, on Cardizem. 3. COPD and pneumonia, on IV vancomycin and Zithromax as well as Solu-Medrol. 4. Thrombocytopenia, off anticoagulation. 5. Nausea, vomiting, and abdominal pain. Follow up with Dr. Joseph. PITA RN Subjective Subjective In ICU in SR on Amidarone and CArdizem via NGT Objective Last 24 Hour Vital Signs Date Time Temp Pulse Resp B/P (MAP) Pulse Ox O2 Delivery O2 Flow Rate FiO2 11/17/18 13:00 86 25 138/75 (96) 93 11/17/18 12:39 80 127/77 11/17/18 12:00 98.5 112 29 149/77 (101) 92 11/17/18 12:00 109 11/17/18 12:00 Venturi Mask 8.0 11/17/18 11:18 91 23 97 Venturi Mask 8.0 40 11/17/18 11:15 101 23 92 Venturi Mask 8.0 40 11/17/18 11:00 98 28 152/78 (102) 95 11/17/18 10:00 101 20 141/85 (103) 94 11/17/18 09:00 106 27 161/99 (119) 93 11/17/18 08:00 Venturi Mask 8.0 11/17/18 08:00 84 11/17/18 08:00 97.3 89 21 162/131 (141) 92 11/17/18 07:29 95 Venturi Mask 8.0 40 11/17/18 07:29 83 24 95 Venturi Mask 8.0 40 11/17/18 07:29 84 21 99 Venturi Mask 8.0 40 11/17/18 07:00 81 32 168/85 (112) 96 11/17/18 06:00 76 32 159/79 (105) 92 11/17/18 05:28 76 144/68 11/17/18 05:00 72 31 152/78 (102) 92 11/17/18 04:00 Venturi Mask 8.0 11/17/18 04:00 76 11/17/18 04:00 99.3 71 22 144/68 (93) 95 11/17/18 03:13 75 21 98 Venturi Mask 8.0 40 11/17/18 03:00 74 24 97 Venturi Mask 8.0 40 11/17/18 03:00 72 18 161/79 (106) 96 11/17/18 02:00 68 21 132/64 (86) 96 11/17/18 01:04 72 17 97 Venturi Mask 8.0 40 11/17/18 01:00 79 22 144/73 (96) 95 11/17/18 00:00 Venturi Mask 8.0 11/17/18 00:00 98.3 66 32 128/61 (83) 95 11/17/18 00:00 66 11/16/18 23:53 77 143/70 11/16/18 23:08 77 17 99 Venturi Mask 8.0 40 11/16/18 23:00 69 34 143/70 (94) 96 11/16/18 22:55 73 16 98 Venturi Mask 8.0 40 11/16/18 22:00 68 26 124/63 (83) 97 11/16/18 21:00 68 24 140/87 (104) 96 11/16/18 20:00 Venturi Mask 8.0 11/16/18 20:00 99.1 66 25 139/57 (84) 96 11/16/18 19:14 72 18 97 Venturi Mask 8.0 40 11/16/18 19:09 96 Venturi Mask 8.0 40 11/16/18 19:06 71 24 96 Venturi Mask 8.0 40 11/16/18 19:00 74 32 133/76 (95) 94 11/16/18 18:13 78 131/85 11/16/18 18:00 76 29 131/85 (100) 96 11/16/18 17:30 79 23 135/82 (99) 95 11/16/18 17:09 85 11/16/18 17:00 83 26 125/79 (94) 94 11/16/18 16:30 115 30 153/94 (113) 95 11/16/18 16:00 Venturi Mask 8.0 11/16/18 16:00 98.0 141 32 168/97 (120) 92 11/16/18 15:35 126 11/16/18 15:30 121 34 146/83 (104) 95 5/25/19 15:26 86 25 99 Venturi Mask 8.0 40 11/16/18 15:20 83 20 94 Venturi Mask 8.0 40 11/16/18 15:00 87 31 141/129 (133) 96 11/16/18 14:30 82 28 158/85 (109) 90 11/16/18 14:00 82 28 126/111 (116) 91 11/16/18 13:30 76 25 141/67 (91) 96 Intake and Output 11/16/18 11/17/18 18:59 06:59 Intake Total 1109.920 ml 998.32 ml Output Total 2400 ml 1105 ml Balance -1290.080 ml -106.68 ml Free Water 60 ml IV Total 1079.920 ml 668.32 ml Tube Feeding 270 ml Other 30 ml Output Urine Total 2400 ml 1105 ml Laboratory Tests Test 11/17/18 04:30 White Blood Count 10.0 K/UL (4.8-10.8) Red Blood Count 4.07 M/UL (4.70-6.10) L Hemoglobin 11.9 G/DL (14.2-18.0) L Hematocrit 35.0 % (42.0-52.0) L Mean Corpuscular Volume 86 FL (80-99) Mean Corpuscular Hemoglobin 29.3 PG (27.0-31.0) Mean Corpuscular Hemoglobin Concent 34.2 G/DL (32.0-36.0) Red Cell Distribution Width 14.3 % (11.6-14.8) Platelet Count 95 K/UL (150-450) L Mean Platelet Volume 6.8 FL (6.5-10.1) Neutrophils (%) (Auto) % (45.0-75.0) Lymphocytes (%) (Auto) % (20.0-45.0) Monocytes (%) (Auto) % (1.0-10.0) Eosinophils (%) (Auto) % (0.0-3.0) Basophils (%) (Auto) % (0.0-2.0) Differential Total Cells Counted 100 Neutrophils % (Manual) 89 % (45-75) H Lymphocytes % (Manual) 6 % (20-45) L Monocytes % (Manual) 5 % (1-10) Eosinophils % (Manual) 0 % (0-3) Basophils % (Manual) 0 % (0-2) Band Neutrophils 0 % (0-8) Platelet Estimate Decreased L Platelet Morphology Normal Red Blood Cell Morphology Normal Anisocytosis Sodium Level 138 MMOL/L (136-145) Potassium Level 4.3 MMOL/L (3.5-5.1) Chloride Level 102 MMOL/L (98-107) Carbon Dioxide Level 29 MMOL/L (21-32) Anion Gap 7 mmol/L (5-15) Blood Urea Nitrogen 29 mg/dL (7-18) H Creatinine 1.1 MG/DL (0.55-1.30) Estimat Glomerular Filtration Rate mL/min (>60) Glucose Level 136 MG/DL (74-106) H Calcium Level 9.2 MG/DL (8.5-10.1) Total Bilirubin 0.9 MG/DL (0.2-1.0) Aspartate Amino Transf (AST/SGOT) 23 U/L (15-37) Alanine Aminotransferase (ALT/SGPT) 44 U/L (12-78) Alkaline Phosphatase 73 U/L (46-116) Total Protein 5.9 G/DL (6.4-8.2) L Albumin 2.6 G/DL (3.4-5.0) L Globulin 3.3 g/dL Albumin/Globulin Ratio 0.8 (1.0-2.7) L Objective HEAD AND NECK: No JVD.NGT in place LUNGS: Decreased breath sounds. CARDIOVASCULAR: Regular S1-S2 with no gallop. ABDOMEN: Soft. EXTREMITIES: 1+ pitting edema. Jose Vee MD November 17, 2018 13:13
--- NOTE | 2018-11-17 14:45 | NUR ---
NURSE NOTES: Dr. Galarza updated on the patient condition, he remains on venturi-mask at 40% with 8L/min saturating at 94-96% with RR of 21-24 with no distress noted, he remains on Tube feeding at 55ml/hr with no residual noted, placed order to transfer to SDU
--- NOTE | 2018-11-17 14:55 | Internal Med Progress Note ---
Subjective Date of Service: November 17, 2018 Physician Name Galarza,Louis Attending Physician Star Malave MD Current Medications Medications (Trade) Dose Ordered Sig/Keith Route PRN Reason Start Time Stop Time Status Last Admin Dose Admin Acetaminophen (Tylenol) 650 mg Q4H PRN ORAL Mild Pain/Temp > 100.5 11/12/18 08:08 12/12/18 08:07 11/16/18 20:33 Amiodarone HCl (Cordarone) 400 mg EVERY 12 HOURS NG 11/16/18 21:00 12/16/18 20:59 11/17/18 10:06 Azithromycin 500 mg/Dextrose 275 ml @ 275 mls/hr Q24HRS IV 11/12/18 18:00 11/18/18 18:59 11/16/18 17:12 Dextrose/ Electrolytes 1,000 ml @ 30 mls/hr Q24H IV 11/13/18 11:56 12/13/18 11:55 11/17/18 12:44 Diltiazem HCl (Cardizem) 60 mg EVERY 6 HOURS NG 11/16/18 18:00 12/16/18 17:59 11/17/18 12:39 Haloperidol Lactate (Haldol) 5 mg Q6H PRN IM Agitation 11/14/18 22:00 12/14/18 21:59 11/17/18 09:22 Ipratropium [place] (Atrovent) 500 mcg Q4H PRN HHN Shortness of Breath 11/13/18 12:00 11/18/18 11:59 Ipratropium [place] (Atrovent) 500 mcg Q4HRT HHN 11/16/18 11:00 11/18/18 12:59 11/17/18 14:26 Levalbuterol HCl (Xopenex) 0.63 mg Q4H PRN HHN SOB and WHEEZING 11/13/18 12:00 11/18/18 11:59 Levalbuterol HCl (Xopenex) 0.63 mg Q4HRT HHN 11/16/18 11:00 11/18/18 12:59 11/17/18 14:26 Methylprednisolone Sodium Succinate (Solu-MEDROL) 40 mg EVERY 12 HOURS IVP 11/17/18 21:00 12/14/18 08:59 Ondansetron HCl (Zofran) 4 mg Q6H PRN IVP Nausea & Vomiting 11/12/18 08:09 12/12/18 08:08 Pantoprazole (Protonix) 40 mg DAILY IVP 11/14/18 09:00 12/14/18 08:59 11/17/18 10:06 Promethazine HCl/ Codeine (Phenergan with Codeine) 5 ml Q4H PRN ORAL For Cough 11/12/18 08:09 12/12/18 08:08 Temazepam (Restoril) 15 mg HSPRN PRN ORAL Insomnia 11/12/18 08:09 11/19/18 08:08 11/14/18 20:39 Vancomycin HCl (Vanco rx to dose) 1 ea DAILY PRN MISC Per rx protocol 11/12/18 09:00 12/12/18 00:00 Vancomycin HCl 1 gm/Dextrose 275 ml @ 183.708 mls/hr Q12HR@0300,1500 IVPB 11/17/18 15:00 11/22/18 14:59 Allergies: Coded Allergies: No Known Allergies (Unverified , 12/10/11) ROS Limited/Unobtainable: Yes Subjective 87 YO M admitted with respiratory failure and pneumonia. Cover for Int Med-Dr Malave. ICU. Off BIPAP; tolerating venturi mask Objective Last Vital Signs Date Time Temp Pulse Resp B/P (MAP) Pulse Ox O2 Delivery O2 Flow Rate FiO2 11/17/18 14:35 97 23 92 Venturi Mask 8.0 40 11/17/18 14:00 121/72 (88) 11/17/18 12:00 98.5 Laboratory Tests Test 11/17/18 04:30 White Blood Count 10.0 K/UL (4.8-10.8) Red Blood Count 4.07 M/UL (4.70-6.10) L Hemoglobin 11.9 G/DL (14.2-18.0) L Hematocrit 35.0 % (42.0-52.0) L Mean Corpuscular Volume 86 FL (80-99) Mean Corpuscular Hemoglobin 29.3 PG (27.0-31.0) Mean Corpuscular Hemoglobin Concent 34.2 G/DL (32.0-36.0) Red Cell Distribution Width 14.3 % (11.6-14.8) Platelet Count 95 K/UL (150-450) L Mean Platelet Volume 6.8 FL (6.5-10.1) Neutrophils (%) (Auto) % (45.0-75.0) Lymphocytes (%) (Auto) % (20.0-45.0) Monocytes (%) (Auto) % (1.0-10.0) Eosinophils (%) (Auto) % (0.0-3.0) Basophils (%) (Auto) % (0.0-2.0) Differential Total Cells Counted 100 Neutrophils % (Manual) 89 % (45-75) H Lymphocytes % (Manual) 6 % (20-45) L Monocytes % (Manual) 5 % (1-10) Eosinophils % (Manual) 0 % (0-3) Basophils % (Manual) 0 % (0-2) Band Neutrophils 0 % (0-8) Platelet Estimate Decreased L Platelet Morphology Normal Red Blood Cell Morphology Normal Anisocytosis Sodium Level 138 MMOL/L (136-145) Potassium Level 4.3 MMOL/L (3.5-5.1) Chloride Level 102 MMOL/L (98-107) Carbon Dioxide Level 29 MMOL/L (21-32) Anion Gap 7 mmol/L (5-15) Blood Urea Nitrogen 29 mg/dL (7-18) H Creatinine 1.1 MG/DL (0.55-1.30) Estimat Glomerular Filtration Rate mL/min (>60) Glucose Level 136 MG/DL (74-106) H Calcium Level 9.2 MG/DL (8.5-10.1) Total Bilirubin 0.9 MG/DL (0.2-1.0) Aspartate Amino Transf (AST/SGOT) 23 U/L (15-37) Alanine Aminotransferase (ALT/SGPT) 44 U/L (12-78) Alkaline Phosphatase 73 U/L (46-116) Total Protein 5.9 G/DL (6.4-8.2) L Albumin 2.6 G/DL (3.4-5.0) L Globulin 3.3 g/dL Albumin/Globulin Ratio 0.8 (1.0-2.7) L Intake and Output 11/16/18 11/17/18 18:59 06:59 Intake Total 1109.920 ml 998.32 ml Output Total 2400 ml 1105 ml Balance -1290.080 ml -106.68 ml Free Water 60 ml IV Total 1079.920 ml 668.32 ml Tube Feeding 270 ml Other 30 ml Output Urine Total 2400 ml 1105 ml Objective PHYSICAL EXAMINATION: GENERAL: The patient is well-developed and well-nourished white male, in respiratory distress. HEENT: Eyes, pupils are equal and responsive to light and accommodation. Extraocular movements are intact. NECK: Supple without lymphadenopathy. CHEST: venturi mask; Decreased breath sounds in bilateral bases with crackles on the left. Otherwise, without wheezes. ABDOMEN: Soft, nontender, and nondistended. Positive bowel sounds. No evidence of hepatosplenomegaly. Currently, no rebound or guarding noted. EXTREMITIES: Negative for clubbing, cyanosis, or edema. RECTAL/GENITAL: Refused. NEUROLOGIC: Cranial nerves II through XII are grossly intact without focal deficits. Motor strength is 5/5 bilaterally. Deep tendon reflexes are 2+ plantar. Assessment/Plan Assessment/Plan ASSESSMENT: This is an 87-year-old white male. 1. Pneumonia. 2. Respiratory failure. 3. Diarrhea. 4. Nausea with vomiting. 5. Fever. 6. Hypertension. 7. Hypercholesterolemia. TREATMENT: 1. Pneumonia/respiratory failure. A Pulmonary consultation has been obtained with Dr. Joan Nugent. The patient is currently off BiPAP in the intensive care unit. We will follow recommendations of Pulmonary. The patient has been started empirically on intravenous vancomycin, cefepime, and azithromycin. 2. Diarrhea/nausea/vomiting. A Gastroenterology consultation has been obtained with Dr. Nito Joseph. 3. Fever. This probably is secondary to pneumonia as above. 4. Hypertension. The patient is currently hypotensive. 5. Hypercholesterolemia. Continue Crestor as above. Louis Galarza MD November 17, 2018 14:55
[2018-11-17] MEDS ORDERED: Vancomycin 1gm/D5W 275ml IVPB SCH ×2 (15:00)
--- NOTE | 2018-11-17 15:10 | NUR ---
NURSE NOTES: Vancomycin 1gm started and running through left hand peripheral IV, No leaking or induration noted around the IV site while flushing, will continue plan of care.
--- NOTE | 2018-11-17 16:27 | General Progress Note ---
Assessment/Plan Status: stable Assessment/Plan: Assessment (1) Thrombocytopenia ICD Codes: D69.6 - Thrombocytopenia, unspecified SNOMED: 885571616 (2) Nausea & vomiting ICD Codes: R11.2 - Nausea with vomiting, unspecified SNOMED: 84422231 (3) Dehydration ICD Codes: E86.0 - Dehydration SNOMED: 20412959 (4) Diarrhea ICD Codes: R19.7 - Diarrhea, unspecified SNOMED: 88505647 (5) Electrolyte imbalance ICD Codes: E87.8 - Other disorders of electrolyte and fluid balance, not elsewhere classified SNOMED: 321217240 Status: stable (6() Heme (+) stools Assessment/Plan OB stool positive BIPAP qHS ST evaluation today, diet per defer any GI procedures at this time, respiratory status not stable Follow C. 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 agitated, restrained tolerating NG feeds Objective Last 24 Hour Vital Signs Date Time Temp Pulse Resp B/P (MAP) Pulse Ox O2 Delivery O2 Flow Rate FiO2 11/17/18 16:00 98.1 79 31 134/72 (92) 94 11/17/18 15:00 93 24 122/75 (91) 94 11/17/18 14:35 97 23 92 Venturi Mask 8.0 40 11/17/18 14:31 89 22 97 Venturi Mask 8.0 40 11/17/18 14:00 88 23 121/72 (88) 93 11/17/18 13:00 86 25 138/75 (96) 93 11/17/18 12:39 80 127/77 11/17/18 12:00 98.5 112 29 149/77 (101) 92 11/17/18 12:00 109 11/17/18 12:00 Venturi Mask 8.0 11/17/18 11:18 91 23 97 Venturi Mask 8.0 40 11/17/18 11:15 101 23 92 Venturi Mask 8.0 40 11/17/18 11:00 98 28 152/78 (102) 95 11/17/18 10:00 101 20 141/85 (103) 94 11/17/18 09:00 106 27 161/99 (119) 93 11/17/18 08:00 Venturi Mask 8.0 11/17/18 08:00 84 11/17/18 08:00 97.3 89 21 162/131 (141) 92 11/17/18 07:29 95 Venturi Mask 8.0 40 11/17/18 07:29 83 24 95 Venturi Mask 8.0 40 11/17/18 07:29 84 21 99 Venturi Mask 8.0 40 11/17/18 07:00 81 32 168/85 (112) 96 11/17/18 06:00 76 32 159/79 (105) 92 11/17/18 05:28 76 144/68 11/17/18 05:00 72 31 152/78 (102) 92 11/17/18 04:00 Venturi Mask 8.0 11/17/18 04:00 76 11/17/18 04:00 99.3 71 22 144/68 (93) 95 11/17/18 03:13 75 21 98 Venturi Mask 8.0 40 11/17/18 03:00 74 24 97 Venturi Mask 8.0 40 11/17/18 03:00 72 18 161/79 (106) 96 11/17/18 02:00 68 21 132/64 (86) 96 11/17/18 01:04 72 17 97 Venturi Mask 8.0 40 11/17/18 01:00 79 22 144/73 (96) 95 11/17/18 00:00 Venturi Mask 8.0 11/17/18 00:00 98.3 66 32 128/61 (83) 95 11/17/18 00:00 66 11/16/18 23:53 77 143/70 11/16/18 23:08 77 17 99 Venturi Mask 8.0 40 11/16/18 23:00 69 34 143/70 (94) 96 11/16/18 22:55 73 16 98 Venturi Mask 8.0 40 11/16/18 22:00 68 26 124/63 (83) 97 11/16/18 21:00 68 24 140/87 (104) 96 11/16/18 20:00 Venturi Mask 8.0 11/16/18 20:00 99.1 66 25 139/57 (84) 96 11/16/18 19:14 72 18 97 Venturi Mask 8.0 40 11/16/18 19:09 96 Venturi Mask 8.0 40 11/16/18 19:06 71 24 96 Venturi Mask 8.0 40 11/16/18 19:00 74 32 133/76 (95) 94 11/16/18 18:13 78 131/85 11/16/18 18:00 76 29 131/85 (100) 96 11/16/18 17:30 79 23 135/82 (99) 95 11/16/18 17:09 85 11/16/18 17:00 83 26 125/79 (94) 94 11/16/18 16:30 115 30 153/94 (113) 95 Intake and Output 11/16/18 11/17/18 18:59 06:59 Intake Total 1109.920 ml 998.32 ml Output Total 2400 ml 1105 ml Balance -1290.080 ml -106.68 ml Free Water 60 ml IV Total 1079.920 ml 668.32 ml Tube Feeding 270 ml Other 30 ml Output Urine Total 2400 ml 1105 ml Laboratory Tests 11/17/18 04:30: White Blood Count 10.0, Red Blood Count 4.07L, Hemoglobin 11.9L, Hematocrit 35.0L, Mean Corpuscular Volume 86, Mean Corpuscular Hemoglobin 29.3, Mean Corpuscular Hemoglobin Concent 34.2, Red Cell Distribution Width 14.3, Platelet Count 95L, Mean Platelet Volume 6.8, Neutrophils (%) (Auto) , Lymphocytes (%) ( Auto) , Monocytes (%) (Auto) , Eosinophils (%) (Auto) , Basophils (%) (Auto) , Differential Total Cells Counted 100, Neutrophils % (Manual) 89H, Lymphocytes % (Manual) 6L, Monocytes % (Manual) 5, Eosinophils % (Manual) 0, Basophils % ( Manual) 0, Band Neutrophils 0, Platelet Estimate DecreasedL, Platelet Morphology Normal, Red Blood Cell Morphology Normal, Anisocytosis , Sodium Level 138, Potassium Level 4.3, Chloride Level 102, Carbon Dioxide Level 29, Anion Gap 7, Blood Urea Nitrogen 29H, Creatinine 1.1, Estimat Glomerular Filtration Rate , Glucose Level 136H, Calcium Level 9.2, Total Bilirubin 0.9, Aspartate Amino Transf (AST/SGOT) 23, Alanine Aminotransferase (ALT/SGPT) 44, Alkaline Phosphatase 73, Total Protein 5.9L, Albumin 2.6L, Globulin 3.3, Albumin /Globulin Ratio 0.8L Height (Feet): 5 Height (Inches): 10.00 Weight (Pounds): 181 Objective WDWN NCAT, (+) NGT supple CTA RR abd soft ND No Alexis Wiggins MD November 17, 2018 16:27
--- NOTE | 2018-11-17 16:58 | NUR ---
NURSE NOTES: Family is at the bedside with patient, he is talkative and answers questions accurately with no slur patient remains on 40% venturi-mask at 8L/min, urine output remains at greater than 75ml/hr. will continue to monitor.
[2018-11-17] MEDS: Azithromycin 500 MG in D5W 275 ML IV SCH (17:43)
--- NOTE | 2018-11-17 18:20 | NUR ---
NURSE NOTES: Patient transferred to [facility] to SDu, Report given to ANN Montalvo. Medication given to ANN Montalvo and patient belongings, tube feeding resumed at 55ml/hr through NG-tube, patient remains on Venturi-mask at 40% with no distress noted.
--- NOTE | 2018-11-17 18:49 | NUR ---
NURSE NOTES: Patient arrived to unit via hospital bed accompanied with RN. Observed patient in bed sleeping. Arousable by voice and touching and verbally responsive. NGT noted with ongoing feeding. HOB elevated. No residual noted. F/C intact and draining well. IV site intact with IV ATB and IVF running at prescribed rate. Restraint noted on bilateral wrists with no skin breakdown noted. Belonging checked with RN. Skin assessment done with no open wound noted. Bed in lowest position. Call light within reach. Will continue to monitor.
[2018-11-17] MEDS ORDERED: Ipratropium 0.02% Inh Soln 2.5ml UD HHN PRN (19:00)
[2018-11-17] MEDS ORDERED: Promethazine/Codeine 5ml UD ORAL PRN (19:00)
[2018-11-17] MEDS ORDERED: Levalbuterol Inh UD 1.25mg/0.5ml HHN PRN (19:00)
--- NOTE | 2018-11-17 19:10 | NUR ---
NURSE NOTES: Received patient from Katia JUAREZ. Patient is awake, showing signs of agitation, and has restraints on. He is receiving oxygen via venturi mask Fio2 at 40% at 8L/min. NGT is patent and receiving Glucerna 1.5 at 55cc/hr. Chavez catheter is patent and draining. IV site is right AC 20g patent and asymptomatic, other IV site is Left hand 22g receiving D5 1/2 NS with 20 mEq KCL. Bed is locked, placed in lowest position, side rails up x3, call light within reach. Will continue to monitor.
--- NOTE | 2018-11-17 19:23 | NUR ---
HAND-OFF: Report given to ANN Lyon. Stable condition.
[2018-11-17] MEDS ORDERED: D5 1/2NS w/KCl 20mEq 1,000 ML IV SCH (19:30)
[2018-11-17] MEDS ORDERED: Solu-MEDROL 40mg Inj IVP SCH (21:00)
--- NOTE | 2018-11-17 21:04 | Infectious Diseases Prog Note ---
Assessment/Plan Assessment/Plan Assessment: Sepsis 2ry to MRSA PNA -11/13 CXR: Suspected CHF/interstitial edema. Right pleural effusion not excluded -u/a neg -Bcx NTD -CXR: Pulmonary vascular congestion suspected. Airspace disease in the right mid and upper lung field. Could be superimposed pneumonia or related to the vascular congestion. Correlate clinically -influenza sc and legionella neg -sp cx MRSA, jodie albicans Fever, Sp Leukocytosis, recurrent mild (on high dose steroids)- resolved Diarrhea- r/o Cdiff Lactic acidosis; SP VARSHA HTN COPD Plan: -Continue IV Vancomycin # / for MRSA PNA - 11/16 sp Azithromycin # 5 for atypical coverage -11/14 SP Cefepime #4 -f/u cx -Monitor CBC/CMP, temperatures -f/u Cdiff, sp cx, -ICU care -aspiration precautions Subjective Allergies: Coded Allergies: No Known Allergies (Unverified , 12/10/11) Subjective Afebrile NGT +ve Objective Vital Signs Last 24 Hour Vital Signs Date Time Temp Pulse Resp B/P (MAP) Pulse Ox O2 Delivery O2 Flow Rate FiO2 11/17/18 19:37 82 23 93 Venturi Mask 8.0 40 11/17/18 19:03 85 20 97 Venturi Mask 8.0 40 11/17/18 18:58 96 Venturi Mask 8.0 40 11/17/18 18:00 80 22 108/76 (87) 95 11/17/18 17:43 92 149/79 11/17/18 17:03 81 23 136/77 (96) 95 11/17/18 16:00 98.1 79 31 134/72 (92) 94 11/17/18 16:00 Venturi Mask 8.0 11/17/18 15:36 89 11/17/18 15:00 93 24 122/75 (91) 94 11/17/18 14:35 97 23 92 Venturi Mask 8.0 40 11/17/18 14:31 89 22 97 Venturi Mask 8.0 40 11/17/18 14:00 88 23 121/72 (88) 93 11/17/18 13:00 86 25 138/75 (96) 93 11/17/18 12:39 80 127/77 11/17/18 12:00 98.5 112 29 149/77 (101) 92 11/17/18 12:00 109 11/17/18 12:00 Venturi Mask 8.0 11/17/18 11:18 91 23 97 Venturi Mask 8.0 40 11/17/18 11:15 101 23 92 Venturi Mask 8.0 40 11/17/18 11:00 98 28 152/78 (102) 95 11/17/18 10:00 101 20 141/85 (103) 94 11/17/18 09:00 106 27 161/99 (119) 93 11/17/18 08:00 Venturi Mask 8.0 11/17/18 08:00 84 11/17/18 08:00 97.3 89 21 162/131 (141) 92 11/17/18 07:29 95 Venturi Mask 8.0 40 11/17/18 07:29 83 24 95 Venturi Mask 8.0 40 11/17/18 07:29 84 21 99 Venturi Mask 8.0 40 11/17/18 07:00 81 32 168/85 (112) 96 11/17/18 06:00 76 32 159/79 (105) 92 11/17/18 05:28 76 144/68 11/17/18 05:00 72 31 152/78 (102) 92 11/17/18 04:00 Venturi Mask 8.0 11/17/18 04:00 76 11/17/18 04:00 99.3 71 22 144/68 (93) 95 11/17/18 03:13 75 21 98 Venturi Mask 8.0 40 11/17/18 03:00 74 24 97 Venturi Mask 8.0 40 11/17/18 03:00 72 18 161/79 (106) 96 11/17/18 02:00 68 21 132/64 (86) 96 11/17/18 01:04 72 17 97 Venturi Mask 8.0 40 11/17/18 01:00 79 22 144/73 (96) 95 11/17/18 00:00 Venturi Mask 8.0 11/17/18 00:00 98.3 66 32 128/61 (83) 95 11/17/18 00:00 66 11/16/18 23:53 77 143/70 11/16/18 23:08 77 17 99 Venturi Mask 8.0 40 11/16/18 23:00 69 34 143/70 (94) 96 11/16/18 22:55 73 16 98 Venturi Mask 8.0 40 11/16/18 22:00 68 26 124/63 (83) 97 Height (Feet): 5 Height (Inches): 10.00 Weight (Pounds): 181 HEENT: atraumatic Respiratory/Chest: no accessory muscle use Cardiovascular: no gallop/murmur Abdomen: non distended Laboratory Tests Test 11/17/18 04:30 White Blood Count 10.0 K/UL (4.8-10.8) Red Blood Count 4.07 M/UL (4.70-6.10) L Hemoglobin 11.9 G/DL (14.2-18.0) L Hematocrit 35.0 % (42.0-52.0) L Mean Corpuscular Volume 86 FL (80-99) Mean Corpuscular Hemoglobin 29.3 PG (27.0-31.0) Mean Corpuscular Hemoglobin Concent 34.2 G/DL (32.0-36.0) Red Cell Distribution Width 14.3 % (11.6-14.8) Platelet Count 95 K/UL (150-450) L Mean Platelet Volume 6.8 FL (6.5-10.1) Neutrophils (%) (Auto) % (45.0-75.0) Lymphocytes (%) (Auto) % (20.0-45.0) Monocytes (%) (Auto) % (1.0-10.0) Eosinophils (%) (Auto) % (0.0-3.0) Basophils (%) (Auto) % (0.0-2.0) Differential Total Cells Counted 100 Neutrophils % (Manual) 89 % (45-75) H Lymphocytes % (Manual) 6 % (20-45) L Monocytes % (Manual) 5 % (1-10) Eosinophils % (Manual) 0 % (0-3) Basophils % (Manual) 0 % (0-2) Band Neutrophils 0 % (0-8) Platelet Estimate Decreased L Platelet Morphology Normal Red Blood Cell Morphology Normal Anisocytosis Sodium Level 138 MMOL/L (136-145) Potassium Level 4.3 MMOL/L (3.5-5.1) Chloride Level 102 MMOL/L (98-107) Carbon Dioxide Level 29 MMOL/L (21-32) Anion Gap 7 mmol/L (5-15) Blood Urea Nitrogen 29 mg/dL (7-18) H Creatinine 1.1 MG/DL (0.55-1.30) Estimat Glomerular Filtration Rate mL/min (>60) Glucose Level 136 MG/DL (74-106) H Calcium Level 9.2 MG/DL (8.5-10.1) Total Bilirubin 0.9 MG/DL (0.2-1.0) Aspartate Amino Transf (AST/SGOT) 23 U/L (15-37) Alanine Aminotransferase (ALT/SGPT) 44 U/L (12-78) Alkaline Phosphatase 73 U/L (46-116) Total Protein 5.9 G/DL (6.4-8.2) L Albumin 2.6 G/DL (3.4-5.0) L Globulin 3.3 g/dL Albumin/Globulin Ratio 0.8 (1.0-2.7) L Current Medications Medications (Trade) Dose Ordered Sig/Keith Route PRN Reason Start Time Stop Time Status Last Admin Dose Admin Acetaminophen (Tylenol) 650 mg Q4H PRN ORAL Mild Pain/Temp > 100.5 11/17/18 19:00 12/12/18 18:59 Amiodarone HCl (Cordarone) 400 mg EVERY 12 HOURS NG 11/17/18 21:00 12/16/18 20:59 Azithromycin 500 mg/Dextrose 275 ml @ 275 mls/hr Q24HRS IV 11/18/18 18:00 11/18/18 18:59 Dextrose/ Electrolytes 1,000 ml @ 30 mls/hr Q24H IV 11/17/18 19:30 12/13/18 19:29 11/17/18 19:42 Diltiazem HCl (Cardizem) 60 mg EVERY 6 HOURS NG 11/18/18 00:00 12/16/18 17:59 Haloperidol Lactate (Haldol) 5 mg Q6H PRN IM Agitation 11/17/18 19:00 12/14/18 18:59 11/17/18 19:12 Ipratropium [place] (Atrovent) 500 mcg Q4H PRN HHN Shortness of Breath 11/17/18 19:00 11/18/18 18:59 Ipratropium [place] (Atrovent) 500 mcg Q4HRT HHN 11/17/18 19:00 11/18/18 12:59 11/17/18 19:01 Levalbuterol HCl (Xopenex) 0.625 mg Q4H PRN HHN SOB and WHEEZING 11/17/18 19:00 11/18/18 18:59 Levalbuterol HCl (Xopenex) 0.625 mg Q4HRT HHN 11/17/18 19:00 11/18/18 12:59 11/17/18 19:01 Methylprednisolone Sodium Succinate (Solu-MEDROL) 40 mg EVERY 12 HOURS IVP 11/17/18 21:00 12/14/18 08:59 Ondansetron HCl (Zofran) 4 mg Q6H PRN IVP Nausea & Vomiting 11/17/18 19:00 12/12/18 18:59 Pantoprazole (Protonix) 40 mg DAILY IVP 11/18/18 09:00 12/14/18 08:59 Promethazine HCl/ Codeine (Phenergan with Codeine) 5 ml Q4H PRN ORAL For Cough 11/17/18 19:00 12/17/18 18:59 Temazepam (Restoril) 15 mg HSPRN PRN ORAL Insomnia 11/17/18 21:00 11/24/18 20:59 Vancomycin HCl (Vanco rx to dose) 1 ea DAILY PRN MISC Per rx protocol 11/17/18 19:00 12/17/18 18:59 Vancomycin HCl 1 gm/Dextrose 275 ml @ 183.708 mls/hr Q12HR@0300,1500 IVPB 11/18/18 03:00 11/22/18 14:59 Daren Cordero MD November 17, 2018 21:04
[2018-11-18] VITALS: BP 128/73
[2018-11-18] MEDS: dilTIAZem HCl 60mg tab NG SCH ×4 (00:35→18:02)
[2018-11-18] MEDS: Ipratropium 0.02% Inh Soln 2.5ml UD HHN SCH ×4 (00:39→11:46)
[2018-11-18] MEDS: Levalbuterol Inh UD 1.25mg/0.5ml HHN SCH ×4 (00:40→11:46)
[2018-11-18] MEDS: Vancomycin 1 GM in D5W 275 ML IVPB SCH ×2 (03:09→15:09)
[2018-11-18 04:00] VITALS: BP 142/73
[2018-11-18 04:43] LABS: HEMATOCRIT 40.4 % (42.0-52.0); HEMOGLOBIN 13.2 G/DL (14.2-18.0); MEAN CORPUSCULAR VOLUME 92 FL (80-99); PLATELET COUNT 62 K/UL (150-450); RED BLOOD COUNT 4.38 M/UL (4.70-6.10); RED CELL DISTRIBUTION WIDTH 16.4 % (11.6-14.8); WHITE BLOOD COUNT 4.9 K/UL (4.8-10.8)
--- NOTE | 2018-11-18 04:45 | Progress Note ---
DATE: 11/17/2018 SUBJECTIVE: The patient is [facility]. Now, the patient continues to have episodes of agitation. He is having waxing and waning consciousness, received one dose of Haldol today for agitation. MENTAL STATUS EXAMINATION: The patient is waxing and waning in consciousness, disoriented. Mood is agitated. Affect is flat. Thought process, there is a paucity of thought content. Thought content, no suicidal or homicidal ideation. ASSESSMENT: Acute encephalopathy. PLAN: We will continue the Haldol as needed. Continue to follow and readjust the medications. Trace Rodarte M.D. DR: GABINO JOB#: [id number] CC:
[2018-11-18 04:58] LABS: ANION GAP 13 mmol/L (5-15); BLOOD UREA NITROGEN 28 mg/dL (7-18); CARBON DIOXIDE 22 MMOL/L (21-32); CHLORIDE 107 MMOL/L (98-107); CREATININE 1.1 MG/DL (0.55-1.30); SODIUM 142 MMOL/L (136-145)
[2018-11-18] MEDS: Haloperidol 5mg/ml Inj IM PRN (05:00)
--- NOTE | 2018-11-18 07:30 | NUR ---
NURSE NOTES: Received pt from [facility] in stable condition with no cardiopulmonary distress noted. Pt is awake in bed, combative, AAO x1, on Bipap 18/5 80% O2 with SaO2 of 93%. NGT noted clamped. F/C noted draining yellow, cloudy urine. Skin alterations noted. Pt has bilat soft wrist restraints, bilat radial pulses palpable and skin intact- bruising noted on bilat arms. Pt has a R AC 20g IV. SCDs on bilat lower extremities. Bed is in lowest position with alarm on, side rails up x3, call light within reach. Will continue to monitor pt. Addendum: 11/18/18 at 0952 by Alexandria Michaud RN Amendment: Small circular skin opening noted on R wrist covered with optifoam.
--- NOTE | 2018-11-18 07:43 | NUR ---
HAND-OFF: Report given to Carrington JUAREZ. Patient is awake showing no signs of distress.
[2018-11-18 08:00] VITALS: BP 134/77
--- NOTE | 2018-11-18 08:57 | NUR ---
NURSE NOTES: Left message for Dr Malave regarding pt's K level today and advise on IV fluid order. Pt's IVF currently on hold since 729 until I hear back from Dr. Malave. Dr. Nugent also notified about pt being back on BiPap. Awaiting call back.
[2018-11-18] MEDS: Solu-MEDROL 40mg Inj IVP SCH ×2 (09:05→21:01)
[2018-11-18] MEDS: Pantoprazole Inj IVP SCH (09:05)
[2018-11-18] MEDS: Amiodarone 200mg tab NG SCH ×2 (09:05→21:01)
[2018-11-18] MEDS: D5 1/2NS 1,000 ML IV SCH ×2 (09:25→22:24)
--- NOTE | 2018-11-18 09:29 | NUR ---
NURSE NOTES: Dr Nugent called back and instructed me to forward info to Dr. Kumar. Left message for Dr. Kumar. Awaiting call back.
--- NOTE | 2018-11-18 10:08 | NUR ---
NURSE NOTES: Dr. Kumar came in to see pt and put in new orders. Will continue to monitor pt.
--- NOTE | 2018-11-18 10:18 | Pulmonology Progress Note ---
Assessment/Plan Problems: (1) COPD exacerbation (2) Respiratory failure with hypoxia (3) Pneumonia (4) Paroxysmal atrial fibrillation (5) Thrombocytopenia (6) Electrolyte imbalance (7) History of hypertension Assessment/Plan Continue BiPAP 18/5 qHS & PRN, wean as able CXR ABG Optimize pulmonary hygiene/mobilize as tolerated Titrate down FiO2 to keep SaO2 > 90% RTC and PRN ATROVENT/LEVALBUTEROL HHn's SM 40 IV BID Abx (Vanco/Azithro) per ID Monitor volumes and renal function, cautious IVF NPO, resume NGTF's when stable off BiPAP, ACQUISITIONS ANALYST re-eval once respiratory status improved DVT Px: SCD FC D/W RN and RT Subjective Allergies: Coded Allergies: No Known Allergies (Unverified , 12/10/11) Subjective Inc WOB and O2 needs this am placed back on BiPAP TF's held and IVF inc No SOB + cough + some wheezing no FC Objective Last 24 Hour Vital Signs Date Time Temp Pulse Resp B/P (MAP) Pulse Ox O2 Delivery O2 Flow Rate FiO2 11/18/18 08:00 98.5 75 20 134/77 (96) 95 11/18/18 07:23 86 22 95 Bi-pap 30 11/18/18 07:21 78 22 96 Full Face 30 11/18/18 07:16 96 Bi-pap 30 11/18/18 07:16 78 22 96 Bi-pap 30 11/18/18 06:19 95 132/80 11/18/18 05:21 73 16 94 Full Face 30 11/18/18 04:00 Venturi Mask 8.0 11/18/18 04:00 96.7 83 24 142/73 (96) 95 11/18/18 03:40 75 23 96 Venturi Mask 8.0 40 11/18/18 03:32 77 11/18/18 03:30 79 20 97 Bi-pap 40 11/18/18 02:19 69 16 97 Full Face 40 11/18/18 00:50 79 23 95 Venturi Mask 8.0 40 11/18/18 00:40 73 20 95 Venturi Mask 8.0 40 11/18/18 00:35 84 128/73 11/18/18 00:00 96.6 84 22 128/73 (91) 95 11/18/18 00:00 75 11/18/18 00:00 Venturi Mask 8.0 11/17/18 20:00 Venturi Mask 8.0 11/17/18 20:00 96.1 83 21 114/67 (83) 95 11/17/18 19:37 82 23 93 Venturi Mask 8.0 40 11/17/18 19:25 76 11/17/18 19:03 85 20 97 Venturi Mask 8.0 40 11/17/18 18:58 96 Venturi Mask 8.0 40 11/17/18 18:00 80 22 108/76 (87) 95 11/17/18 17:43 92 149/79 11/17/18 17:03 81 23 136/77 (96) 95 11/17/18 16:00 98.1 79 31 134/72 (92) 94 11/17/18 16:00 Venturi Mask 8.0 11/17/18 15:36 89 11/17/18 15:00 93 24 122/75 (91) 94 11/17/18 14:35 97 23 92 Venturi Mask 8.0 40 11/17/18 14:31 89 22 97 Venturi Mask 8.0 40 11/17/18 14:00 88 23 121/72 (88) 93 11/17/18 13:00 86 25 138/75 (96) 93 11/17/18 12:39 80 127/77 11/17/18 12:00 98.5 112 29 149/77 (101) 92 11/17/18 12:00 109 11/17/18 12:00 Venturi Mask 8.0 11/17/18 11:18 91 23 97 Venturi Mask 8.0 40 11/17/18 11:15 101 23 92 Venturi Mask 8.0 40 11/17/18 11:00 98 28 152/78 (102) 95 Intake and Output 11/17/18 11/18/18 19:00 07:00 Intake Total 1234 ml 999 ml Output Total 2325 ml 1225 ml Balance -1091 ml -226 ml Free Water 100 ml IV Total 474 ml 614 ml Tube Feeding 660 ml 385 ml Output Urine Total 2325 ml 1225 ml # Bowel Movements 2 1 General Appearance: no acute distress, cachetic HEENT: normocephalic, atraumatic, anicteric, mucous membranes moist, other - BiPAP NGT Respiratory/Chest: rhonchi - but distant Cardiovascular: normal peripheral pulses, normal rate, regular rhythm Abdomen: normal bowel sounds, soft, non tender, no organomegaly, non distended , no mass Extremities: no cyanosis, no clubbing, no edema Laboratory Tests 11/18/18 02:17: Arterial Blood pH 7.436, Arterial Blood Partial Pressure CO2 43.6, Arterial Blood Partial Pressure O2 109.6H, Arterial Blood HCO3 28.7H, Arterial Blood Oxygen Saturation 97.7, Arterial Blood Base Excess 4H, Alejandro Test Positive 11/18/18 03:30: White Blood Count 4.9#, Red Blood Count 4.38L, Hemoglobin 13.2L, Hematocrit 40.4L, Mean Corpuscular Volume 92, Mean Corpuscular Hemoglobin 30.1, Mean Corpuscular Hemoglobin Concent 32.6, Red Cell Distribution Width 16.4H, Platelet Count 62L, Mean Platelet Volume 6.6, Neutrophils (%) (Auto) , Lymphocytes (%) (Auto) , Monocytes (%) (Auto) , Eosinophils (%) (Auto) , Basophils (%) (Auto) , Differential Total Cells Counted 100, Neutrophils % ( Manual) 69, Lymphocytes % (Manual) 28, Monocytes % (Manual) 3, Eosinophils % ( Manual) 0, Basophils % (Manual) 0, Band Neutrophils 0, Platelet Estimate DecreasedL, Platelet Morphology Normal, Anisocytosis 1+, [place] Cells Occasional, Sodium Level 142, Potassium Level 5.0, Chloride Level 107, Carbon Dioxide Level 22, Anion Gap 13, Blood Urea Nitrogen 28H, Creatinine 1.1, Estimat Glomerular Filtration Rate , Glucose Level 129H, Calcium Level 9.0 Current Medications Medications (Trade) Dose Ordered Sig/Keith Route PRN Reason Start Time Stop Time Status Last Admin Dose Admin Acetaminophen (Tylenol) 650 mg Q4H PRN ORAL Mild Pain/Temp > 100.5 11/17/18 19:00 12/12/18 18:59 Amiodarone HCl (Cordarone) 400 mg EVERY 12 HOURS NG 11/17/18 21:00 12/16/18 20:59 11/18/18 09:05 Azithromycin 500 mg/Dextrose 275 ml @ 275 mls/hr Q24HRS IV 11/18/18 18:00 11/18/18 18:59 Dextrose/Sodium Chloride 1,000 ml @ 75 mls/hr [id number] IV 11/18/18 09:30 12/18/18 09:29 11/18/18 09:25 Diltiazem HCl (Cardizem) 60 mg EVERY 6 HOURS NG 11/18/18 00:00 12/16/18 17:59 11/18/18 06:19 Haloperidol Lactate (Haldol) 5 mg Q6H PRN IM Agitation 11/17/18 19:00 12/14/18 18:59 11/18/18 05:00 Ipratropium [place] (Atrovent) 500 mcg Q4H PRN HHN Shortness of Breath 11/17/18 19:00 11/18/18 18:59 Ipratropium [place] (Atrovent) 500 mcg Q4HRT HHN 11/17/18 19:00 11/18/18 12:59 11/18/18 07:16 Levalbuterol HCl (Xopenex) 0.625 mg Q4H PRN HHN SOB and WHEEZING 11/17/18 19:00 11/18/18 18:59 Levalbuterol HCl (Xopenex) 0.625 mg Q4HRT HHN 11/17/18 19:00 11/18/18 12:59 11/18/18 07:16 Methylprednisolone Sodium Succinate (Solu-MEDROL) 40 mg EVERY 12 HOURS IVP 11/17/18 21:00 12/14/18 08:59 11/18/18 09:05 Ondansetron HCl (Zofran) 4 mg Q6H PRN IVP Nausea & Vomiting 11/17/18 19:00 12/12/18 18:59 Pantoprazole (Protonix) 40 mg DAILY IVP 11/18/18 09:00 12/14/18 08:59 11/18/18 09:05 Promethazine HCl/ Codeine (Phenergan with Codeine) 5 ml Q4H PRN ORAL For Cough 11/17/18 19:00 12/17/18 18:59 Temazepam (Restoril) 15 mg HSPRN PRN ORAL Insomnia 11/17/18 21:00 11/24/18 20:59 Vancomycin HCl (Vanco rx to dose) 1 ea DAILY PRN MISC Per rx protocol 11/17/18 19:00 12/17/18 18:59 Vancomycin HCl 1 gm/Dextrose 275 ml @ 183.708 mls/hr Q12HR@0300,1500 IVPB 11/18/18 03:00 11/22/18 14:59 11/18/18 03:09 Ashish Solis MD November 18, 2018 10:18
--- NOTE | 2018-11-18 11:23 | NUR ---
NURSE NOTES: Left message for Dr. Malave regarding Pt's PLT level. Awaiting call back.
--- NOTE | 2018-11-18 11:30 | NUR ---
Dr. Moody is aware of pt's cardiac rhythm (in and out of Afib) - previous noted state pt was put on cardizem PO for that indication. Continuing to administer cardizem and monitor pt's response. Pt is asymptomatic. VS stable. Will continue to monitor pt. Addendum: 11/18/18 at 1256 by Alexandria Michaud RN typo: previous notes* state
--- NOTE | 2018-11-18 11:54 | General Progress Note ---
Assessment/Plan Status: stable Assessment/Plan: Assessment (1) Thrombocytopenia ICD Codes: D69.6 - Thrombocytopenia, unspecified SNOMED: 564600335 (2) Nausea & vomiting ICD Codes: R11.2 - Nausea with vomiting, unspecified SNOMED: 14026932 (3) Dehydration ICD Codes: E86.0 - Dehydration SNOMED: 47123592 (4) Diarrhea ICD Codes: R19.7 - Diarrhea, unspecified SNOMED: 28455119 (5) Electrolyte imbalance ICD Codes: E87.8 - Other disorders of electrolyte and fluid balance, not elsewhere classified SNOMED: 550962442 Status: stable (6() Heme (+) stools Assessment/Plan OB stool positive BIPAP defer any GI procedures at this time, respiratory status not stable Zofran as needed, Reglan for persistent vomiting IV hydration plus electrolyte correction monitor H&H, prn transfusions bowel regime ppi abx per ID fu labs Subjective Allergies: Coded Allergies: No Known Allergies (Unverified , 12/10/11) Subjective above 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, restrained on BIPAP TF held Objective Last 24 Hour Vital Signs Date Time Temp Pulse Resp B/P (MAP) Pulse Ox O2 Delivery O2 Flow Rate FiO2 11/18/18 11:47 74 26 97 Bi-pap 25 11/18/18 11:04 68 139/88 11/18/18 11:00 80 26 97 Full Face 25 11/18/18 09:00 76 23 96 Full Face 25 11/18/18 08:00 98.5 75 20 134/77 (96) 95 11/18/18 08:00 85 11/18/18 08:00 Bi-pap 11/18/18 07:23 86 22 95 Bi-pap 30 11/18/18 07:21 78 22 96 Full Face 30 11/18/18 07:16 96 Bi-pap 30 11/18/18 07:16 78 22 96 Bi-pap 30 11/18/18 06:19 95 132/80 11/18/18 05:21 73 16 94 Full Face 30 11/18/18 04:00 Venturi Mask 8.0 11/18/18 04:00 96.7 83 24 142/73 (96) 95 11/18/18 03:40 75 23 96 Venturi Mask 8.0 40 11/18/18 03:32 77 11/18/18 03:30 79 20 97 Bi-pap 40 11/18/18 02:19 69 16 97 Full Face 40 11/18/18 00:50 79 23 95 Venturi Mask 8.0 40 11/18/18 00:40 73 20 95 Venturi Mask 8.0 40 11/18/18 00:35 84 128/73 11/18/18 00:00 96.6 84 22 128/73 (91) 95 11/18/18 00:00 75 11/18/18 00:00 Venturi Mask 8.0 11/17/18 20:00 Venturi Mask 8.0 11/17/18 20:00 96.1 83 21 114/67 (83) 95 11/17/18 19:37 82 23 93 Venturi Mask 8.0 40 11/17/18 19:25 76 11/17/18 19:03 85 20 97 Venturi Mask 8.0 40 11/17/18 18:58 96 Venturi Mask 8.0 40 11/17/18 18:00 80 22 108/76 (87) 95 11/17/18 17:43 92 149/79 11/17/18 17:03 81 23 136/77 (96) 95 11/17/18 16:00 98.1 79 31 134/72 (92) 94 11/17/18 16:00 Venturi Mask 8.0 11/17/18 15:36 89 11/17/18 15:00 93 24 122/75 (91) 94 11/17/18 14:35 97 23 92 Venturi Mask 8.0 40 11/17/18 14:31 89 22 97 Venturi Mask 8.0 40 11/17/18 14:00 88 23 121/72 (88) 93 11/17/18 13:00 86 25 138/75 (96) 93 11/17/18 12:39 80 127/77 11/17/18 12:00 98.5 112 29 149/77 (101) 92 11/17/18 12:00 109 11/17/18 12:00 Venturi Mask 8.0 Intake and Output 11/17/18 11/18/18 19:00 07:00 Intake Total 1234 ml 999 ml Output Total 2325 ml 1225 ml Balance -1091 ml -226 ml Free Water 100 ml IV Total 474 ml 614 ml Tube Feeding 660 ml 385 ml Output Urine Total 2325 ml 1225 ml # Bowel Movements 2 1 Laboratory Tests 11/18/18 02:17: Arterial Blood pH 7.436, Arterial Blood Partial Pressure CO2 43.6, Arterial Blood Partial Pressure O2 109.6H, Arterial Blood HCO3 28.7H, Arterial Blood Oxygen Saturation 97.7, Arterial Blood Base Excess 4H, Alejandro Test Positive 11/18/18 03:30: White Blood Count 4.9#, Red Blood Count 4.38L, Hemoglobin 13.2L, Hematocrit 40.4L, Mean Corpuscular Volume 92, Mean Corpuscular Hemoglobin 30.1, Mean Corpuscular Hemoglobin Concent 32.6, Red Cell Distribution Width 16.4H, Platelet Count 62L, Mean Platelet Volume 6.6, Neutrophils (%) (Auto) , Lymphocytes (%) (Auto) , Monocytes (%) (Auto) , Eosinophils (%) (Auto) , Basophils (%) (Auto) , Differential Total Cells Counted 100, Neutrophils % ( Manual) 69, Lymphocytes % (Manual) 28, Monocytes % (Manual) 3, Eosinophils % ( Manual) 0, Basophils % (Manual) 0, Band Neutrophils 0, Platelet Estimate DecreasedL, Platelet Morphology Normal, Anisocytosis 1+, [place] Cells Occasional, Sodium Level 142, Potassium Level 5.0, Chloride Level 107, Carbon Dioxide Level 22, Anion Gap 13, Blood Urea Nitrogen 28H, Creatinine 1.1, Estimat Glomerular Filtration Rate , Glucose Level 129H, Calcium Level 9.0 Height (Feet): 5 Height (Inches): 10.00 Weight (Pounds): 185 Objective WDWN NCAT, (+) NGT, (+) BIPAP supple CTA RR abd soft ND No Alexis Wiggins MD November 18, 2018 11:54
[2018-11-18 12:00] VITALS: BP 139/88
--- NOTE | 2018-11-18 12:55 | NUR ---
NURSE NOTES: Dr Moody came in to assess the pt and is aware of cardiac rhythm (in and out of Afib and Aflutter). No new orders at this time.
--- NOTE | 2018-11-18 13:01 | Internal Med Progress Note ---
Subjective Date of Service: November 18, 2018 Physician Name Louis Galarza Attending Physician Star Malave MD Current Medications Medications (Trade) Dose Ordered Sig/Keith Route PRN Reason Start Time Stop Time Status Last Admin Dose Admin Acetaminophen (Tylenol) 650 mg Q4H PRN ORAL Mild Pain/Temp > 100.5 11/17/18 19:00 12/12/18 18:59 11/18/18 11:02 Amiodarone HCl (Cordarone) 400 mg EVERY 12 HOURS NG 11/17/18 21:00 12/16/18 20:59 11/18/18 09:05 Azithromycin 500 mg/Dextrose 275 ml @ 275 mls/hr Q24HRS IV 11/18/18 18:00 11/18/18 18:59 Dextrose/Sodium Chloride 1,000 ml @ 75 mls/hr [id number] IV 11/18/18 09:30 12/18/18 09:29 11/18/18 09:25 Diltiazem HCl (Cardizem) 60 mg EVERY 6 HOURS NG 11/18/18 00:00 12/16/18 17:59 11/18/18 11:04 Haloperidol Lactate (Haldol) 5 mg Q6H PRN IM Agitation 11/17/18 19:00 12/14/18 18:59 11/18/18 05:00 Ipratropium Aline (Atrovent) 500 mcg Q4H PRN HHN Shortness of Breath 11/17/18 19:00 11/18/18 18:59 Levalbuterol HCl (Xopenex) 0.625 mg Q4H PRN HHN SOB and WHEEZING 11/17/18 19:00 11/18/18 18:59 Methylprednisolone Sodium Succinate (Solu-MEDROL) 40 mg EVERY 12 HOURS IVP 11/17/18 21:00 12/14/18 08:59 11/18/18 09:05 Ondansetron HCl (Zofran) 4 mg Q6H PRN IVP Nausea & Vomiting 11/17/18 19:00 12/12/18 18:59 Pantoprazole (Protonix) 40 mg DAILY IVP 11/18/18 09:00 12/14/18 08:59 11/18/18 09:05 Promethazine HCl/ Codeine (Phenergan with Codeine) 5 ml Q4H PRN ORAL For Cough 11/17/18 19:00 12/17/18 18:59 Temazepam (Restoril) 15 mg HSPRN PRN ORAL Insomnia 11/17/18 21:00 11/24/18 20:59 Vancomycin HCl (Vanco rx to dose) 1 ea DAILY PRN MISC Per rx protocol 11/17/18 19:00 12/17/18 18:59 Vancomycin HCl 1 gm/Dextrose 275 ml @ 183.708 mls/hr Q12HR@0300,1500 IVPB 11/18/18 03:00 11/22/18 14:59 11/18/18 03:09 Allergies: Coded Allergies: No Known Allergies (Unverified , 12/10/11) ROS Limited/Unobtainable: Yes Subjective 87 YO M admitted with respiratory failure and pneumonia. Cover for Int Med-Dr Malave. MASSIEL. Objective Last Vital Signs Date Time Temp Pulse Resp B/P (MAP) Pulse Ox O2 Delivery O2 Flow Rate FiO2 11/18/18 12:00 71 11/18/18 12:00 Bi-pap 11/18/18 12:00 97.7 27 139/88 (105) 93 11/18/18 11:57 100 11/18/18 04:00 8.0 Laboratory Tests Test 11/18/18 02:17 11/18/18 03:30 Arterial Blood pH 7.436 (7.350-7.450) Arterial Blood Partial Pressure CO2 43.6 mmHg (35.0-45.0) Arterial Blood Partial Pressure O2 109.6 mmHg (75.0-100.0) H Arterial Blood HCO3 28.7 mmol/L (22.0-26.0) H Arterial Blood Oxygen Saturation 97.7 % (95-100) Arterial Blood Base Excess 4 (-2-2) H Alejandro Test Positive White Blood Count 4.9 K/UL (4.8-10.8) # Red Blood Count 4.38 M/UL (4.70-6.10) L Hemoglobin 13.2 G/DL (14.2-18.0) L Hematocrit 40.4 % (42.0-52.0) L Mean Corpuscular Volume 92 FL (80-99) Mean Corpuscular Hemoglobin 30.1 PG (27.0-31.0) Mean Corpuscular Hemoglobin Concent 32.6 G/DL (32.0-36.0) Red Cell Distribution Width 16.4 % (11.6-14.8) H Platelet Count 62 K/UL (150-450) L Mean Platelet Volume 6.6 FL (6.5-10.1) Neutrophils (%) (Auto) % (45.0-75.0) Lymphocytes (%) (Auto) % (20.0-45.0) Monocytes (%) (Auto) % (1.0-10.0) Eosinophils (%) (Auto) % (0.0-3.0) Basophils (%) (Auto) % (0.0-2.0) Differential Total Cells Counted 100 Neutrophils % (Manual) 69 % (45-75) Lymphocytes % (Manual) 28 % (20-45) Monocytes % (Manual) 3 % (1-10) Eosinophils % (Manual) 0 % (0-3) Basophils % (Manual) 0 % (0-2) Band Neutrophils 0 % (0-8) Platelet Estimate Decreased L Platelet Morphology Normal Anisocytosis 1+ Micki Cells Occasional Sodium Level 142 MMOL/L (136-145) Potassium Level 5.0 MMOL/L (3.5-5.1) Chloride Level 107 MMOL/L (98-107) Carbon Dioxide Level 22 MMOL/L (21-32) Anion Gap 13 mmol/L (5-15) Blood Urea Nitrogen 28 mg/dL (7-18) H Creatinine 1.1 MG/DL (0.55-1.30) Estimat Glomerular Filtration Rate mL/min (>60) Glucose Level 129 MG/DL (74-106) H Calcium Level 9.0 MG/DL (8.5-10.1) Intake and Output 11/17/18 11/18/18 18:59 06:59 Intake Total 1234 ml 1054 ml Output Total 2225 ml 1400 ml Balance -991 ml -346 ml Free Water 100 ml IV Total 474 ml 614 ml Tube Feeding 660 ml 440 ml Output Urine Total 2225 ml 1400 ml # Bowel Movements 2 1 Objective PHYSICAL EXAMINATION: GENERAL: The patient is well-developed and well-nourished white male, in respiratory distress. HEENT: Eyes, pupils are equal and responsive to light and accommodation. Extraocular movements are intact. NECK: Supple without lymphadenopathy. CHEST: nasal canula; Decreased breath sounds in bilateral bases with crackles on the left. Otherwise, without wheezes. ABDOMEN: Soft, nontender, and nondistended. Positive bowel sounds. No evidence of hepatosplenomegaly. Currently, no rebound or guarding noted. EXTREMITIES: Negative for clubbing, cyanosis, or edema. RECTAL/GENITAL: Refused. NEUROLOGIC: Cranial nerves II through XII are grossly intact without focal deficits. Motor strength is 5/5 bilaterally. Deep tendon reflexes are 2+ plantar. Assessment/Plan Assessment/Plan ASSESSMENT: This is an 87-year-old white male. 1. Pneumonia. 2. Respiratory failure. 3. Diarrhea. 4. Nausea with vomiting. 5. Fever. 6. Hypertension. 7. Hypercholesterolemia. 8. Attrial fibrillation witbh rapid ventricular rate TREATMENT: 1. Pneumonia/respiratory failure. A Pulmonary consultation has been obtained with Dr. Joan Nugent. The patient is currently off BiPAP in the intensive care unit. We will follow recommendations of Pulmonary. The patient has been started empirically on intravenous vancomycin, cefepime, and azithromycin. 2. Diarrhea/nausea/vomiting. A Gastroenterology consultation has been obtained with Dr. Nito Joseph. 3. Fever. This probably is secondary to pneumonia as above. 4. Hypertension. The patient is currently hypotensive. 5. Hypercholesterolemia. Continue Crestor as above. 6. Continue amiodarone and cardizem Louis Galarza MD November 18, 2018 13:01
--- NOTE | 2018-11-18 13:07 | NUR ---
NURSE NOTES: Dr. Galarza came to assess pt and made aware of Right big toe swelling and labs. No new orders at this time. Pt is being weaned off Bipap. currently on 2L NC SaO2 96%. Tube feeding back on running Glucerna 1.5 at 55cc/hr.
--- NOTE | 2018-11-18 13:14 | Cardiac Electrophysiology PN ---
Assessment/Plan Assessment/Plan 1. Paroxysmal Atrial fibrillation with rapid ventricular response. In and out of SR Off anticoagulation. Echo EF 60% to 65%. On amiodarone 400 bid and Cardizem 60q 6hr 2. Hypertension, on Cardizem. 3. COPD and pneumonia, on IV abx and Solu-Medrol. 4. Thrombocytopenia, off anticoagulation. 5. Nausea, vomiting, and abdominal pain. Follow up with Dr. Joseph. PITA RN Subjective Subjective Transferred outof ICU. Still in and out of atrial fib despite Amidarone and Cardizem via NGT Objective Last 24 Hour Vital Signs Date Time Temp Pulse Resp B/P (MAP) Pulse Ox O2 Delivery O2 Flow Rate FiO2 11/18/18 13:00 Nasal Cannula 2.0 11/18/18 12:00 71 11/18/18 12:00 Bi-pap 11/18/18 12:00 97.7 68 27 139/88 (105) 93 11/18/18 11:57 88 24 98 Non-Rebreather 100 11/18/18 11:47 74 26 97 Bi-pap 25 11/18/18 11:04 68 139/88 11/18/18 11:00 80 26 97 Full Face 25 11/18/18 09:00 76 23 96 Full Face 25 11/18/18 08:00 98.5 75 20 134/77 (96) 95 11/18/18 08:00 85 11/18/18 08:00 Bi-pap 11/18/18 07:23 86 22 95 Bi-pap 30 11/18/18 07:21 78 22 96 Full Face 30 11/18/18 07:16 96 Bi-pap 30 11/18/18 07:16 78 22 96 Bi-pap 30 11/18/18 06:19 95 132/80 11/18/18 05:21 73 16 94 Full Face 30 11/18/18 04:00 Venturi Mask 8.0 11/18/18 04:00 96.7 83 24 142/73 (96) 95 11/18/18 03:40 75 23 96 Venturi Mask 8.0 40 11/18/18 03:32 77 11/18/18 03:30 79 20 97 Bi-pap 40 11/18/18 02:19 69 16 97 Full Face 40 11/18/18 00:50 79 23 95 Venturi Mask 8.0 40 11/18/18 00:40 73 20 95 Venturi Mask 8.0 40 11/18/18 00:35 84 128/73 11/18/18 00:00 96.6 84 22 128/73 (91) 95 11/18/18 00:00 75 11/18/18 00:00 Venturi Mask 8.0 11/17/18 20:00 Venturi Mask 8.0 11/17/18 20:00 96.1 83 21 114/67 (83) 95 11/17/18 19:37 82 23 93 Venturi Mask 8.0 40 11/17/18 19:25 76 11/17/18 19:03 85 20 97 Venturi Mask 8.0 40 11/17/18 18:58 96 Venturi Mask 8.0 40 11/17/18 18:00 80 22 108/76 (87) 95 11/17/18 17:43 92 149/79 11/17/18 17:03 81 23 136/77 (96) 95 11/17/18 16:00 98.1 79 31 134/72 (92) 94 11/17/18 16:00 Venturi Mask 8.0 11/17/18 15:36 89 11/17/18 15:00 93 24 122/75 (91) 94 11/17/18 14:35 97 23 92 Venturi Mask 8.0 40 11/17/18 14:31 89 22 97 Venturi Mask 8.0 40 11/17/18 14:00 88 23 121/72 (88) 93 Intake and Output 11/17/18 11/18/18 18:59 06:59 Intake Total 1234 ml 1054 ml Output Total 2225 ml 1400 ml Balance -991 ml -346 ml Free Water 100 ml IV Total 474 ml 614 ml Tube Feeding 660 ml 440 ml Output Urine Total 2225 ml 1400 ml # Bowel Movements 2 1 Laboratory Tests Test 11/18/18 02:17 11/18/18 03:30 Arterial Blood pH 7.436 (7.350-7.450) Arterial Blood Partial Pressure CO2 43.6 mmHg (35.0-45.0) Arterial Blood Partial Pressure O2 109.6 mmHg (75.0-100.0) H Arterial Blood HCO3 28.7 mmol/L (22.0-26.0) H Arterial Blood Oxygen Saturation 97.7 % (95-100) Arterial Blood Base Excess 4 (-2-2) H Alejandro Test Positive White Blood Count 4.9 K/UL (4.8-10.8) # Red Blood Count 4.38 M/UL (4.70-6.10) L Hemoglobin 13.2 G/DL (14.2-18.0) L Hematocrit 40.4 % (42.0-52.0) L Mean Corpuscular Volume 92 FL (80-99) Mean Corpuscular Hemoglobin 30.1 PG (27.0-31.0) Mean Corpuscular Hemoglobin Concent 32.6 G/DL (32.0-36.0) Red Cell Distribution Width 16.4 % (11.6-14.8) H Platelet Count 62 K/UL (150-450) L Mean Platelet Volume 6.6 FL (6.5-10.1) Neutrophils (%) (Auto) % (45.0-75.0) Lymphocytes (%) (Auto) % (20.0-45.0) Monocytes (%) (Auto) % (1.0-10.0) Eosinophils (%) (Auto) % (0.0-3.0) Basophils (%) (Auto) % (0.0-2.0) Differential Total Cells Counted 100 Neutrophils % (Manual) 69 % (45-75) Lymphocytes % (Manual) 28 % (20-45) Monocytes % (Manual) 3 % (1-10) Eosinophils % (Manual) 0 % (0-3) Basophils % (Manual) 0 % (0-2) Band Neutrophils 0 % (0-8) Platelet Estimate Decreased L Platelet Morphology Normal Anisocytosis 1+ Micki Cells Occasional Sodium Level 142 MMOL/L (136-145) Potassium Level 5.0 MMOL/L (3.5-5.1) Chloride Level 107 MMOL/L (98-107) Carbon Dioxide Level 22 MMOL/L (21-32) Anion Gap 13 mmol/L (5-15) Blood Urea Nitrogen 28 mg/dL (7-18) H Creatinine 1.1 MG/DL (0.55-1.30) Estimat Glomerular Filtration Rate mL/min (>60) Glucose Level 129 MG/DL (74-106) H Calcium Level 9.0 MG/DL (8.5-10.1) Objective HEAD AND NECK: No JVD.NGT in place LUNGS: Decreased breath sounds. CARDIOVASCULAR: Regular S1-S2 with no gallop. ABDOMEN: Soft. EXTREMITIES: 1+ pitting edema. Jose Vee MD November 18, 2018 13:13
--- NOTE | 2018-11-18 14:10 | NUR ---
[facility] SI:PAROXYSMAL AFIB WITH RVR . RESPIRATORY FAILURE VS: BP 142/70, P 72, T 97.7, RR 27, SpO2 93 on Bi-pap RBC 4.38, H&H 13.2/40.4, BUN 28 CXR: Similar airspace opacities in the right lung. Right greater than left pleural effusions. IS:CORDARONE 400mg AZITHROMYCIN 275ml IV TYLENOL 650mg CARDIZEM 60mg VANCOMYCIN 275ml IVPB SOLU-MEDROL 40mg IVP D5/NS x1L IV SDU STATUS
[2018-11-18 16:00] VITALS: BP 142/70
[2018-11-18] MEDS ORDERED: Azithromycin 500 MG in D5W 275 ML IV SCH (18:00)
--- NOTE | 2018-11-18 19:32 | NUR ---
NURSE NOTES: HAND-OFF: Report given to ANN Araujo. Pt in stable condition.
--- NOTE | 2018-11-18 19:36 | NUR ---
NURSE NOTES: Received patient from Alexandria JUAREZ. The patient is in bed, awake on 2L NC saturating at 98%. Family at bedside and patient shows no sight of acute distress. Bed is at its lowest position, call light in reach, and X 3 bed rails are up. Will continue to monitor.
[2018-11-18 20:00] VITALS: BP 124/66
[2018-11-19] VITALS: BP 147/75
[2018-11-19] MEDS: dilTIAZem HCl 60mg tab NG SCH ×4 (00:18→18:00)
--- NOTE | 2018-11-19 00:45 | Progress Note ---
DATE: 11/18/2018 SUBJECTIVE: The patient is in no acute distress, awake, and is more stable. He is still confused and disoriented. Continues to have episodes of agitation. MENTAL STATUS EXAMINATION: The patient is alert and disoriented. Mood is neutral. Affect is flat. Thought process, there is a paucity of thought content. Thought content, no suicidal or homicidal ideation. ASSESSMENT: Encephalopathy and dementia. PLAN: We will continue the current medications. Provide the patient with reality orientation. Trace Rodarte M.D. DR: AZUCENA JOB#: [id number] CC:
[2018-11-19] MEDS: Haloperidol 5mg/ml Inj IM PRN ×3 (02:08→20:02)
--- NOTE | 2018-11-19 02:36 | NUR ---
NURSE NOTES: The charge nurse, Michelle and another nurse assisted the patient from leaving his bed. One dose of Haloperidol was administered. Patient is tolerating tx well and is resting comfortably. Will continue to monitor.
[2018-11-19] MEDS: Vancomycin 1 GM in D5W 275 ML IVPB SCH ×2 (03:09→14:30)
[2018-11-19 04:00] VITALS: BP 146/76
--- NOTE | 2018-11-19 06:31 | NUR ---
NURSE NOTES: Patient is attempting to get out of bed. Patient's initial response is combative, but obeys commands soon after with a smile. Patient is resting in bed comfortably with no signs of acute distress. Bed is at its lowest position, call light in reach and X3 bed rails up. Will continue to monitor.
--- NOTE | 2018-11-19 07:15 | NUR ---
HAND-OFF: Report given to Sarahy JUAREZ.
--- NOTE | 2018-11-19 07:17 | NUR ---
NURSE NOTES: Received report from ANN Araujo. Patient observed in bed, awake and verbally responsive; Singaporean speaking. On O2 2L via NC, SpO2 99%, no acute respiratory distress noted. Bilateral wrist restraints noted with optifoam. NGT on left nares intact and patent, tube feeding infusing at prescribed rate. HOB elevated. Chavez catheter intact and draining well to gravity. IV on right AC 20g intact and patent with IV fluids infusing at prescribed rate. Bed locked, alarmed, and in lowest position, and side rails up. Will continue to monitor.
[2018-11-19 08:00] VITALS: BP 137/98
--- NOTE | 2018-11-19 08:05 | NUR ---
NURSE NOTES: Found left nares NGT out. [employer] Mahamed notified and made aware. Bilateral wrist restraints noted. No acute distress noted at this time. Will continue to monitor and do visual checks.
[2018-11-19] MEDS: Solu-MEDROL 40mg Inj IVP SCH (08:22)
[2018-11-19] MEDS: Pantoprazole Inj IVP SCH (08:22)
[2018-11-19 09:04] LABS: HEMATOCRIT 36.6 % (42.0-52.0); HEMOGLOBIN 12.6 G/DL (14.2-18.0); MEAN CORPUSCULAR VOLUME 88 FL (80-99); PLATELET COUNT 140 K/UL (150-450); RED BLOOD COUNT 4.19 M/UL (4.70-6.10); RED CELL DISTRIBUTION WIDTH 14.5 % (11.6-14.8)
[2018-11-19 09:21] LABS: ANION GAP 3 mmol/L (5-15); BLOOD UREA NITROGEN 36 mg/dL (7-18); CALCIUM 9.2 MG/DL (8.5-10.1); CARBON DIOXIDE 36 MMOL/L (21-32); CHLORIDE 97 MMOL/L (98-107); CREATININE 1.1 MG/DL (0.55-1.30); POTASSIUM 5.3 MMOL/L (3.5-5.1); SODIUM 136 MMOL/L (136-145)
[2018-11-19 09:25] LABS: PHOSPHORUS 3.4 MG/DL (2.5-4.9)
--- NOTE | 2018-11-19 10:24 | GI Progress Note ---
Assessment/Plan Problems: (1) Thrombocytopenia ICD Codes: D69.6 - Thrombocytopenia, unspecified SNOMED: 645374819 (2) Nausea & vomiting ICD Codes: R11.2 - Nausea with vomiting, unspecified SNOMED: 76232265 (3) Dehydration ICD Codes: E86.0 - Dehydration SNOMED: 71802556 (4) Diarrhea ICD Codes: R19.7 - Diarrhea, unspecified SNOMED: 27038863 (5) Electrolyte imbalance ICD Codes: E87.8 - Other disorders of electrolyte and fluid balance, not elsewhere classified SNOMED: 857826819 Status: unchanged Status Narrative Discussed with Dr. Joseph Assessment/Plan OB stool positive BIPAP Stool culture negative ST evaluation today, diet per defer any GI procedures at this time, respiratory status not stable Imodium as needed Zofran as needed, Reglan for persistent vomiting IV hydration plus electrolyte correction monitor H&H, prn transfusions bowel regime ppi abx per ID fu labs The patient was seen and examined at bedside and all new and available data was reviewed in the patients chart. I agree with the above findings, impression and plan. (Patient seen earlier today. Signature stamp does not reflect patient encounter time.). - Nito Joseph MD Subjective Subjective limited Objective Last 24 Hour Vital Signs Date Time Temp Pulse Resp B/P (MAP) Pulse Ox O2 Delivery O2 Flow Rate FiO2 11/19/18 08:00 97.1 81 20 137/98 (111) 92 11/19/18 08:00 Nasal Cannula 2.0 11/19/18 07:42 74 11/19/18 07:32 99 Nasal Cannula 2.0 28 11/19/18 05:45 71 146/76 11/19/18 04:00 Nasal Cannula 2.0 11/19/18 04:00 97.1 71 20 146/76 (99) 98 11/19/18 03:40 84 11/19/18 00:18 68 124/66 11/19/18 00:00 Nasal Cannula 2.0 11/19/18 00:00 98.0 73 20 147/75 (99) 96 11/18/18 23:20 69 11/18/18 20:00 Nasal Cannula 2.0 11/18/18 20:00 96.8 68 20 124/66 (85) 99 11/18/18 19:29 66 11/18/18 19:00 98 Nasal Cannula 2.0 28 11/18/18 18:02 69 142/70 11/18/18 16:00 Nasal Cannula 2.0 11/18/18 16:00 72 11/18/18 16:00 97.9 69 20 142/70 (94) 99 11/18/18 13:00 Nasal Cannula 2.0 11/18/18 12:00 71 11/18/18 12:00 Bi-pap 11/18/18 12:00 97.7 68 27 139/88 (105) 93 11/18/18 11:57 88 24 98 Non-Rebreather 100 11/18/18 11:47 74 26 97 Bi-pap 25 11/18/18 11:04 68 139/88 11/18/18 11:00 80 26 97 Full Face 25 Intake and Output 11/18/18 11/19/18 19:00 07:00 Intake Total 1492.416 ml 1448.75 ml Output Total 1000 ml 1300 ml Balance 492.416 ml 148.75 ml Free Water 50 ml 200 ml IV Total 1057.416 ml 643.75 ml Tube Feeding 385 ml 605 ml Output Urine Total 1000 ml 1300 ml # Voids 1 Laboratory Tests Test 11/19/18 08:55 White Blood Count 9.0 K/UL (4.8-10.8) # Red Blood Count 4.19 M/UL (4.70-6.10) L Hemoglobin 12.6 G/DL (14.2-18.0) L Hematocrit 36.6 % (42.0-52.0) L Mean Corpuscular Volume 88 FL (80-99) Mean Corpuscular Hemoglobin 30.2 PG (27.0-31.0) Mean Corpuscular Hemoglobin Concent 34.5 G/DL (32.0-36.0) Red Cell Distribution Width 14.5 % (11.6-14.8) Platelet Count 140 K/UL (150-450) #L Mean Platelet Volume 7.0 FL (6.5-10.1) Neutrophils (%) (Auto) % (45.0-75.0) Lymphocytes (%) (Auto) % (20.0-45.0) Monocytes (%) (Auto) % (1.0-10.0) Eosinophils (%) (Auto) % (0.0-3.0) Basophils (%) (Auto) % (0.0-2.0) Neutrophils % (Manual) Pending Lymphocytes % (Manual) Pending Platelet Estimate Pending Platelet Morphology Pending Sodium Level 136 MMOL/L (136-145) Potassium Level 5.3 MMOL/L (3.5-5.1) H Chloride Level 97 MMOL/L (98-107) L Carbon Dioxide Level 36 MMOL/L (21-32) H Anion Gap 3 mmol/L (5-15) L Blood Urea Nitrogen 36 mg/dL (7-18) H Creatinine 1.1 MG/DL (0.55-1.30) Estimat Glomerular Filtration Rate mL/min (>60) Glucose Level 208 MG/DL (74-106) H Calcium Level 9.2 MG/DL (8.5-10.1) Phosphorus Level 3.4 MG/DL (2.5-4.9) Magnesium Level 2.1 MG/DL (1.8-2.4) Height (Feet): 5 Height (Inches): 10.00 Weight (Pounds): 181 General Appearance: WD/WN, no apparent distress, alert Cardiovascular: normal rate Respiratory/Chest: normal breath sounds, no respiratory distress Abdominal Exam: normal bowel sounds, non tender, soft Extremities: non-tender Objective Pulled out NGT today Edy Rice NP November 19, 2018 10:24
--- NOTE | 2018-11-19 10:29 | Cardiac Electrophysiology PN ---
Assessment/Plan Assessment/Plan 1. Paroxysmal Atrial fibrillation with rapid ventricular response. In and out of SR Off anticoagulation for thrombocytopenia. Echo EF 60% to 65%. On amiodarone 400 bid and Cardizem 60q 6hr Decrease Amio to 400 daily 2. Hypertension, on Cardizem. 3. COPD and pneumonia, on IV abx and Solu-Medrol. 4. Thrombocytopenia, off anticoagulation. 5. Nausea, vomiting, and abdominal pain. Follow up with Dr. Joseph. PITA RN Subjective Subjective In SR today on Amidarone and Cardizem Objective Last 24 Hour Vital Signs Date Time Temp Pulse Resp B/P (MAP) Pulse Ox O2 Delivery O2 Flow Rate FiO2 11/19/18 08:00 97.1 81 20 137/98 (111) 92 11/19/18 08:00 Nasal Cannula 2.0 11/19/18 07:42 74 11/19/18 07:32 99 Nasal Cannula 2.0 11/19/18 05:45 71 146/76 11/19/18 04:00 Nasal Cannula 2.0 11/19/18 04:00 97.1 71 20 146/76 (99) 98 11/19/18 03:40 84 11/19/18 00:18 68 124/66 11/19/18 00:00 Nasal Cannula 2.0 11/19/18 00:00 98.0 73 20 147/75 (99) 96 11/18/18 23:20 69 11/18/18 20:00 Nasal Cannula 2.0 11/18/18 20:00 96.8 68 20 124/66 (85) 99 11/18/18 19:29 66 11/18/18 19:00 98 Nasal Cannula 2.0 28 11/18/18 18:02 69 142/70 11/18/18 16:00 Nasal Cannula 2.0 11/18/18 16:00 72 11/18/18 16:00 97.9 69 20 142/70 (94) 99 11/18/18 13:00 Nasal Cannula 2.0 11/18/18 12:00 71 11/18/18 12:00 Bi-pap 11/18/18 12:00 97.7 68 27 139/88 (105) 93 11/18/18 11:57 88 24 98 Non-Rebreather 100 11/18/18 11:47 74 26 97 Bi-pap 25 11/18/18 11:04 68 139/88 11/18/18 11:00 80 26 97 Full Face 25 Intake and Output 11/18/18 11/19/18 19:00 07:00 Intake Total 1492.416 ml 1448.75 ml Output Total 1000 ml 1300 ml Balance 492.416 ml 148.75 ml Free Water 50 ml 200 ml IV Total 1057.416 ml 643.75 ml Tube Feeding 385 ml 605 ml Output Urine Total 1000 ml 1300 ml # Voids 1 Laboratory Tests Test 11/19/18 08:55 White Blood Count 9.0 K/UL (4.8-10.8) # Red Blood Count 4.19 M/UL (4.70-6.10) L Hemoglobin 12.6 G/DL (14.2-18.0) L Hematocrit 36.6 % (42.0-52.0) L Mean Corpuscular Volume 88 FL (80-99) Mean Corpuscular Hemoglobin 30.2 PG (27.0-31.0) Mean Corpuscular Hemoglobin Concent 34.5 G/DL (32.0-36.0) Red Cell Distribution Width 14.5 % (11.6-14.8) Platelet Count 140 K/UL (150-450) #L Mean Platelet Volume 7.0 FL (6.5-10.1) Neutrophils (%) (Auto) % (45.0-75.0) Lymphocytes (%) (Auto) % (20.0-45.0) Monocytes (%) (Auto) % (1.0-10.0) Eosinophils (%) (Auto) % (0.0-3.0) Basophils (%) (Auto) % (0.0-2.0) Neutrophils % (Manual) Pending Lymphocytes % (Manual) Pending Platelet Estimate Pending Platelet Morphology Pending Sodium Level 136 MMOL/L (136-145) Potassium Level 5.3 MMOL/L (3.5-5.1) H Chloride Level 97 MMOL/L (98-107) L Carbon Dioxide Level 36 MMOL/L (21-32) H Anion Gap 3 mmol/L (5-15) L Blood Urea Nitrogen 36 mg/dL (7-18) H Creatinine 1.1 MG/DL (0.55-1.30) Estimat Glomerular Filtration Rate mL/min (>60) Glucose Level 208 MG/DL (74-106) H Calcium Level 9.2 MG/DL (8.5-10.1) Phosphorus Level 3.4 MG/DL (2.5-4.9) Magnesium Level 2.1 MG/DL (1.8-2.4) Objective HEAD AND NECK: No JVD. NGT in place LUNGS: Decreased breath sounds. CARDIOVASCULAR: Regular S1-S2 with no gallop. ABDOMEN: Soft. EXTREMITIES: 1+ pitting edema. Jose Vee MD November 19, 2018 10:29
--- NOTE | 2018-11-19 10:55 | NUR ---
NURSE NOTES: [employer] Mahamed notified about pt's potassium level 5.3. NGT out, no further orders at this time.
--- NOTE | 2018-11-19 11:05 | Infectious Diseases Prog Note ---
Assessment/Plan Assessment/Plan Assessment: Sepsis 2ry to MRSA PNA -11/13 CXR: Suspected CHF/interstitial edema. Right pleural effusion not excluded -u/a neg -Bcx Neg -CXR: Pulmonary vascular congestion suspected. Airspace disease in the right mid and upper lung field. Could be superimposed pneumonia or related to the vascular congestion. Correlate clinically -influenza sc and legionella neg -sp cx MRSA, jodie albicans Fever, Sp Leukocytosis, recurrent mild (on high dose steroids)- resolved Diarrhea- r/o Cdiff -stool cx normal enteric montez Lactic acidosis; SP VARSHA HTN COPD Plan: -Continue IV Vancomycin # 8/10 for MRSA PNA - 11/16 sp Azithromycin # 5 for atypical coverage -11/14 SP Cefepime #4 -f/u cx -Monitor CBC/CMP, temperatures -f/u Cdiff, sp cx, -aspiration precautions Subjective Allergies: Coded Allergies: No Known Allergies (Unverified , 12/10/11) Subjective afebrile >48 hrs Bcx NTD mild leukocytosis resolved now on 4l NC more awake Bcx NTD Objective Vital Signs Last 24 Hour Vital Signs Date Time Temp Pulse Resp B/P (MAP) Pulse Ox O2 Delivery O2 Flow Rate FiO2 11/19/18 08:00 97.1 81 20 137/98 (111) 92 11/19/18 08:00 Nasal Cannula 2.0 11/19/18 07:42 74 11/19/18 07:32 99 Nasal Cannula 2.0 28 11/19/18 05:45 71 146/76 11/19/18 04:00 Nasal Cannula 2.0 11/19/18 04:00 97.1 71 20 146/76 (99) 98 11/19/18 03:40 84 11/19/18 00:18 68 124/66 11/19/18 00:00 Nasal Cannula 2.0 11/19/18 00:00 98.0 73 20 147/75 (99) 96 11/18/18 23:20 69 11/18/18 20:00 Nasal Cannula 2.0 11/18/18 20:00 96.8 68 20 124/66 (85) 99 11/18/18 19:29 66 11/18/18 19:00 98 Nasal Cannula 2.0 28 11/18/18 18:02 69 142/70 11/18/18 16:00 Nasal Cannula 2.0 11/18/18 16:00 72 11/18/18 16:00 97.9 69 20 142/70 (94) 99 11/18/18 13:00 Nasal Cannula 2.0 11/18/18 12:00 71 11/18/18 12:00 Bi-pap 11/18/18 12:00 97.7 68 27 139/88 (105) 93 11/18/18 11:57 88 24 98 Non-Rebreather 100 11/18/18 11:47 74 26 97 Bi-pap 25 11/18/18 11:04 68 139/88 Height (Feet): 5 Height (Inches): 10.00 Weight (Pounds): 181 Objective General Appearance: WD/WN Lines, tubes and drains: peripheral HEENT: normocephalic, atraumatic Neck: non-tender, normal alignment Respiratory/Chest: rhonchi - left, rhonchi - right Cardiovascular/Chest: normal peripheral pulses, normal rate Abdomen: normal bowel sounds, non tender Genitourinary/Rectal: normal genital exam Extremities: normal range of motion, non-tender Skin Exam: normal pigmentation Laboratory Tests Test 11/19/18 08:55 White Blood Count 9.0 K/UL (4.8-10.8) # Red Blood Count 4.19 M/UL (4.70-6.10) L Hemoglobin 12.6 G/DL (14.2-18.0) L Hematocrit 36.6 % (42.0-52.0) L Mean Corpuscular Volume 88 FL (80-99) Mean Corpuscular Hemoglobin 30.2 PG (27.0-31.0) Mean Corpuscular Hemoglobin Concent 34.5 G/DL (32.0-36.0) Red Cell Distribution Width 14.5 % (11.6-14.8) Platelet Count 140 K/UL (150-450) #L Mean Platelet Volume 7.0 FL (6.5-10.1) Neutrophils (%) (Auto) % (45.0-75.0) Lymphocytes (%) (Auto) % (20.0-45.0) Monocytes (%) (Auto) % (1.0-10.0) Eosinophils (%) (Auto) % (0.0-3.0) Basophils (%) (Auto) % (0.0-2.0) Neutrophils % (Manual) Pending Lymphocytes % (Manual) Pending Platelet Estimate Pending Platelet Morphology Pending Sodium Level 136 MMOL/L (136-145) Potassium Level 5.3 MMOL/L (3.5-5.1) H Chloride Level 97 MMOL/L (98-107) L Carbon Dioxide Level 36 MMOL/L (21-32) H Anion Gap 3 mmol/L (5-15) L Blood Urea Nitrogen 36 mg/dL (7-18) H Creatinine 1.1 MG/DL (0.55-1.30) Estimat Glomerular Filtration Rate mL/min (>60) Glucose Level 208 MG/DL (74-106) H Calcium Level 9.2 MG/DL (8.5-10.1) Phosphorus Level 3.4 MG/DL (2.5-4.9) Magnesium Level 2.1 MG/DL (1.8-2.4) Current Medications Medications (Trade) Dose Ordered Sig/Keith Route PRN Reason Start Time Stop Time Status Last Admin Dose Admin Acetaminophen (Tylenol) 650 mg Q4H PRN ORAL Mild Pain/Temp > 100.5 11/17/18 19:00 12/12/18 18:59 11/18/18 11:02 Amiodarone HCl (Cordarone) 400 mg DAILY NG 11/20/18 09:00 12/16/18 20:59 Dextrose/Sodium Chloride 1,000 ml @ 75 mls/hr [id number] IV 11/18/18 09:30 12/18/18 09:29 11/18/18 22:24 Diltiazem HCl (Cardizem) 60 mg EVERY 6 HOURS NG 11/18/18 00:00 12/16/18 17:59 11/19/18 05:45 Haloperidol Lactate (Haldol) 5 mg Q6H PRN IM Agitation 11/17/18 19:00 12/14/18 18:59 11/19/18 08:22 Methylprednisolone Sodium Succinate (Solu-MEDROL) 40 mg EVERY 12 HOURS IVP 11/17/18 21:00 12/14/18 08:59 11/19/18 08:22 Ondansetron HCl (Zofran) 4 mg Q6H PRN IVP Nausea & Vomiting 11/17/18 19:00 12/12/18 18:59 Pantoprazole (Protonix) 40 mg DAILY IVP 11/18/18 09:00 12/14/18 08:59 11/19/18 08:22 Promethazine HCl/ Codeine (Phenergan with Codeine) 5 ml Q4H PRN ORAL For Cough 11/17/18 19:00 12/17/18 18:59 Temazepam (Restoril) 15 mg HSPRN PRN ORAL Insomnia 11/17/18 21:00 11/24/18 20:59 Vancomycin HCl (Vanco rx to dose) 1 ea DAILY PRN MISC Per rx protocol 11/17/18 19:00 12/17/18 18:59 Vancomycin HCl 1 gm/Dextrose 275 ml @ 183.708 mls/hr Q12HR@0300,1500 IVPB 11/18/18 03:00 11/22/18 14:59 11/19/18 03:09 Bety William M.D. November 19, 2018 11:05
--- NOTE | 2018-11-19 11:13 | NUR ---
RD ASSESSMENT & RECOMMENDATIONS SEE CARE ACTIVITY FOR COMPLETE ASSESSMENT DAILY ESTIMATED NEEDS: Needs based on Pulmonary, wound 77.8kg adj 25-30 kcals/kg 3305-1591 total kcals 1.25-1.5 g protein/kg 97-117 g total protein 20-25 mL/kg 3261-8600 total fluid mLs NUTRITION DIAGNOSIS: 1) Increased protein needs r/t wound healing as evidenced by pt w/ unstageable buttock wound. 2) Swallowing difficulty r/t respiratory status as evidenced by pt on Bipap, NPO on NGT feeds at this time CURRENT TF:Glucerna 1.5 @55ml x24 hrs + Prosource BID PO DIET RECOMMENDATIONS: LOW NA (texture per TUBE MOUNTER) ENTERAL NUTRITION RECOMMENDATIONS: Glucerna 1.5 @55ml/hr x24 hrs to provide 1320ml, 1980 kcal, 109g pro, 1002ml free H2O - as medically able, rec to start Glucerna 1.5 @15ml/hr for 6 hrs - advance as tolerated 10ml/hr q4-6 hrs to goal rate. - flush per MD/ HOB over 30 degrees ------- FOR 12 HR FEEDS IF ON BIPAP QHS: rec Glucena 1.5 w/ a goal of 110ml/hr x12 hrs when off Bipap to meet 100% est needs and provide 1320ml, 1980kcal, 109g pro, 1002ml free H2O. ADDITIONAL RECOMMENDATIONS: 1) Recalibrate bed scale wt as able for accurate CBW 2) Wound care/ w/ diet order: Add LAI BID + MVI x1 + Vit C 250mg daily 3) TUBE MOUNTER eval for texture and appropriateness for oral diet 4) TF RECS ABOVE FOR 24HR and 12HRS FEEDS 5) Monitor K, renal labs- need for TF change
[2018-11-19 12:00] VITALS: BP 149/80
--- NOTE | 2018-11-19 12:43 | Diagnostic Imaging Report ---
Indication: Foot Pain Comparison: None Findings: 3 views of the right foot were obtained. There is soft tissue swelling of the big toe. There is severe joint space narrowing of the interphalangeal and metatarsophalangeal joints. Arthrosis also involving the second through fifth toes at the level of the interphalangeal joints. Bones are osteopenic. There is no fracture seen. IMPRESSION: Soft tissue swelling of the big toe etiology not known. Severe arthrosis. Correlate clinically. No obvious acute fracture
[2018-11-19] MEDS: D5 1/2NS 1,000 ML IV SCH (13:00)
--- NOTE | 2018-11-19 13:13 | Diagnostic Imaging Report ---
EXAM: XR Chest, 1 View CLINICAL HISTORY: COUGH TECHNIQUE: Frontal view of the chest. COMPARISON: Chest radiograph on 11/17/2018 FINDINGS: Hardware: Enteric tube courses into the region of the stomach and out of the [id number]. The tip of the enteric tube likely terminates in the region of the stomach. Lungs/pleura: Similar airspace opacities in the right lung. Right greater than left pleural effusions. Stable left basilar opacity. Stable pulmonary vasculature congestion. Heart/mediastinum: Stable enlargement of the cardiomediastinal silhouette. Soft tissues: Unremarkable. Bones: No acute fracture. Degenerative changes of the acromioclavicular joints and spine. Upper abdomen: Normal. IMPRESSION: Similar airspace opacities in the right lung. Stable left basilar opacity. Findings may represent infectious/inflammatory process and/or pulmonary edema. Stable pulmonary vasculature congestion. Right greater than left pleural effusions.
[2018-11-19] MEDS ORDERED: Ipratropium 0.02% Inh Soln 2.5ml UD HHN PRN (14:15)
--- NOTE | 2018-11-19 14:16 | Pulmonology Progress Note ---
Assessment/Plan Problems: (1) COPD exacerbation (2) Respiratory failure with hypoxia (3) Pneumonia (4) Paroxysmal atrial fibrillation (5) Thrombocytopenia (6) Electrolyte imbalance (7) History of hypertension Assessment/Plan Continue BiPAP 18/5 qHS & PRN, encourage nocturnal usage Optimize pulmonary hygiene/mobilize as tolerated Titrate down FiO2 to keep SaO2 > 90% RTC and PRN ATROVENT HHN's Decrease SM to 30 IV BID Abx (Vanco) per ID Monitor volumes and renal function, consider decrease IVF NPO, F/U ACTUARY recs and VSS, if he passes will need diet advanced, if he fails will need anohter NGT placed DVT Px: SCD FC D/W RN and RT Subjective Allergies: Coded Allergies: No Known Allergies (Unverified , 12/10/11) Subjective AFVSS on 2-4 L going for VSS agitated pulled out NGT no FC no CP no cough no wheezing + SOB Objective Last 24 Hour Vital Signs Date Time Temp Pulse Resp B/P (MAP) Pulse Ox O2 Delivery O2 Flow Rate FiO2 11/19/18 12:00 96.9 67 20 149/80 (103) 95 11/19/18 12:00 Nasal Cannula 2.0 11/19/18 12:00 67 149/80 11/19/18 11:26 61 11/19/18 08:00 97.1 81 20 137/98 (111) 92 11/19/18 08:00 Nasal Cannula 2.0 11/19/18 07:42 74 11/19/18 07:32 99 Nasal Cannula 2.0 11/19/18 05:45 71 146/76 11/19/18 04:00 Nasal Cannula 2.0 11/19/18 04:00 97.1 71 20 146/76 (99) 98 11/19/18 03:40 84 11/19/18 00:18 68 124/66 11/19/18 00:00 Nasal Cannula 2.0 11/19/18 00:00 98.0 73 20 147/75 (99) 96 11/18/18 23:20 69 11/18/18 20:00 Nasal Cannula 2.0 11/18/18 20:00 96.8 68 20 124/66 (85) 99 11/18/18 19:29 66 11/18/18 19:00 98 Nasal Cannula 2.0 28 11/18/18 18:02 69 142/70 11/18/18 16:00 Nasal Cannula 2.0 11/18/18 16:00 72 11/18/18 16:00 97.9 69 20 142/70 (94) 99 Intake and Output 11/18/18 11/19/18 19:00 07:00 Intake Total 1492.416 ml 1523.75 ml Output Total 1000 ml 1300 ml Balance 492.416 ml 223.75 ml Free Water 50 ml 200 ml IV Total 1057.416 ml 718.75 ml Tube Feeding 385 ml 605 ml Output Urine Total 1000 ml 1300 ml # Voids 1 General Appearance: no acute distress, cachetic HEENT: normocephalic, atraumatic, anicteric, mucous membranes moist Respiratory/Chest: rhonchi Cardiovascular: normal peripheral pulses, normal rate, regular rhythm Abdomen: normal bowel sounds, soft, non tender, no organomegaly, non distended , no mass Extremities: no cyanosis, no clubbing, no edema Laboratory Tests 11/19/18 08:55: White Blood Count 9.0#, Red Blood Count 4.19L, Hemoglobin 12.6L, Hematocrit 36.6L, Mean Corpuscular Volume 88, Mean Corpuscular Hemoglobin 30.2, Mean Corpuscular Hemoglobin Concent 34.5, Red Cell Distribution Width 14.5, Platelet Count 140#L, Mean Platelet Volume 7.0, Neutrophils (%) (Auto) , Lymphocytes (%) (Auto) , Monocytes (%) (Auto) , Eosinophils (%) (Auto) , Basophils (%) (Auto) , Differential Total Cells Counted 100, Neutrophils % (Manual) 86H, Lymphocytes % (Manual) 6L, Monocytes % (Manual) 3, Eosinophils % (Manual) 0, Basophils % ( Manual) 0, Band Neutrophils 5, Platelet Estimate DecreasedL, Platelet Morphology Normal, Anisocytosis 1+, Sodium Level 136, Potassium Level 5.3H, Chloride Level 97L, Carbon Dioxide Level 36H, Anion Gap 3L, Blood Urea Nitrogen 36H, Creatinine 1.1, Estimat Glomerular Filtration Rate , Glucose Level 208H, Calcium Level 9.2, Phosphorus Level 3.4, Magnesium Level 2.1 Current Medications Medications (Trade) Dose Ordered Sig/Keith Route PRN Reason Start Time Stop Time Status Last Admin Dose Admin Acetaminophen (Tylenol) 650 mg Q4H PRN ORAL Mild Pain/Temp > 100.5 11/17/18 19:00 12/12/18 18:59 11/18/18 11:02 Amiodarone HCl (Cordarone) 400 mg DAILY NG 11/20/18 09:00 12/16/18 20:59 Dextrose/Sodium Chloride 1,000 ml @ 75 mls/hr [id number] IV 11/18/18 09:30 12/18/18 09:29 11/19/18 13:00 Diltiazem HCl (Cardizem) 60 mg EVERY 6 HOURS NG 11/18/18 00:00 12/16/18 17:59 11/19/18 05:45 Haloperidol Lactate (Haldol) 5 mg Q6H PRN IM Agitation 11/17/18 19:00 12/14/18 18:59 11/19/18 08:22 Methylprednisolone Sodium Succinate (Solu-MEDROL) 40 mg EVERY 12 HOURS IVP 11/17/18 21:00 12/14/18 08:59 11/19/18 08:22 Ondansetron HCl (Zofran) 4 mg Q6H PRN IVP Nausea & Vomiting 11/17/18 19:00 12/12/18 18:59 Pantoprazole (Protonix) 40 mg DAILY IVP 11/18/18 09:00 12/14/18 08:59 11/19/18 08:22 Promethazine HCl/ Codeine (Phenergan with Codeine) 5 ml Q4H PRN ORAL For Cough 11/17/18 19:00 12/17/18 18:59 Temazepam (Restoril) 15 mg HSPRN PRN ORAL Insomnia 11/17/18 21:00 11/24/18 20:59 Vancomycin HCl (Vanco rx to dose) 1 ea DAILY PRN MISC Per rx protocol 11/17/18 19:00 12/17/18 18:59 Vancomycin HCl 1 gm/Dextrose 275 ml @ 183.708 mls/hr Q12HR@0300,1500 IVPB 11/18/18 03:00 11/22/18 14:59 11/19/18 03:09 Ashish Solis MD November 19, 2018 14:16
[2018-11-19] MEDS: Amiodarone 200mg tab NG SCH (15:40)
--- NOTE | 2018-11-19 15:42 | NUR ---
ST NOTE: MODIFIED BARIUM SWALLOW STUDY COMPLETED MODIFIED BARIUM SWALLOW STUDY PT ALERT, COOPERATIVE, CONFUSED, ABLE TO FOLLOW SIMPLE DIRECTIONS INCONSISTENTLY WITH MAX CUES. PT WITH 4 LITER OXYGEN THROUGH NASAL CANNULA. GIVEN PO TRIALS: THIN(TSPX2), NECTAR THICK(TSP), HONEY THICK(TSP) AND PUDDING(TSP) IMPRESSION: PT PRESENTS WITH SIGNIFICANT(SEVERE) OROPHARYNGEAL DYSPHAGIA ORAL PHASE: MILDLY TO MODERATELY INCREASED ORAL TRANSIT TIME( 5 TO 7 SECONDS), ESPECIALLY WITH PUDDING, DUE TO ORAL APRAXIA AND SENSORIMOTOR DEFICITS. PHARYNGEAL PHASE: DEEP TRACE SILENT LARYNGEAL PENETRATION, TO PROBABLE TRACE SILENT ASPIRATION WITH THIN/NECTAR THICK/HONEY THICK LIQUIDS DURING SWALLOW, NOT EJECTED DUE TO DELAYED SWALLOW, REDUCED/WEAK HYO-LARYNGEAL ELEVATION/EXCURSION, NO EPIGLOTTIC INVERSION AND LARYNGEAL VESTIBULE CLOSURE. 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 PT IS AT HIGH RISK FOR CHRONIC ASPIRATION RISK WITH ALL CONSISTENCIES DUE TO OVERALL PHARYNGEAL WEAKNESS AND OROPHARYNGEAL DYSMOTILITY. PT BENEFITS FROM SWALLOW X 3 TO 4 TIMES WITH EFFORTFUL SWALLOW. CHIN DOWN AND HEAD TURN TO LEFT SIDE ARE NOT EFFECTIVE. RECOMMENDATIONS: 1. CONTINUE STRICT NPO 2. SLOWLY INITIATE NGT FEEDING 3. SWALLOW TX D/W , DR. MCCRAY( APPROVED FOR [facility]) AND Robyn.ALIA Sales
[2018-11-19 16:00] VITALS: BP 148/79
--- NOTE | 2018-11-19 17:05 | NUR ---
NURSE NOTES: Informed Dr Vee that patient failed video swallow eval today and patient does not have NGT at this time; did not receive amiodarone and cardizem today and will probably miss tonight's dose. Patient's cardiac rehabilitation program director shows sinus rhythm at this time; BP 148/79 HR 68. Made aware of ZARA Irby's plan to insert Dobhoff NGT tomorrow morning, patient remains NPO. acknowledged, no further orders at this time. Will continue to monitor patient.
[2018-11-19] MEDS ORDERED: Tubing IV Secondary IV ONE (17:24)
[2018-11-19] MEDS ORDERED: D5 1/2NS 1000ml IV ONE (17:24)
--- NOTE | 2018-11-19 18:20 | NUR ---
NURSE NOTES: Bilateral soft wrist restraints discontinued as ordered. Patient remains in bed, calm and asleep at this time. Patient's at bedside. Bed locked, alarmed, and in lowest position; side rails up, call light within reach. Will continue to monitor.
--- NOTE | 2018-11-19 18:35 | Internal Med Progress Note ---
Subjective Date of Service: November 19, 2018 Physician Name GalarzaLouis Attending Physician Star Malave MD Current Medications Medications (Trade) Dose Ordered Sig/Keith Route PRN Reason Start Time Stop Time Status Last Admin Dose Admin Acetaminophen (Tylenol) 650 mg Q4H PRN ORAL Mild Pain/Temp > 100.5 11/17/18 19:00 12/12/18 18:59 11/18/18 11:02 Amiodarone HCl (Cordarone) 400 mg DAILY NG 11/20/18 09:00 12/16/18 20:59 Dextrose/Sodium Chloride 1,000 ml @ 75 mls/hr [id number] IV 11/18/18 09:30 12/18/18 09:29 11/19/18 13:00 Diltiazem HCl (Cardizem) 60 mg EVERY 6 HOURS NG 11/18/18 00:00 12/16/18 17:59 11/19/18 05:45 Haloperidol Lactate (Haldol) 5 mg Q6H PRN IM Agitation 11/17/18 19:00 12/14/18 18:59 11/19/18 08:22 Ipratropium Sherborn (Atrovent) 500 mcg Q4H PRN HHN Shortness of Breath 11/19/18 14:15 11/24/18 14:14 Ipratropium Sherborn (Atrovent) 500 mcg Q6HRT HHN 11/19/18 19:00 11/24/18 18:59 Methylprednisolone Sodium Succinate (Solu-MEDROL) 30 mg EVERY 12 HOURS IVP 11/19/18 21:00 12/14/18 08:59 Ondansetron HCl (Zofran) 4 mg Q6H PRN IVP Nausea & Vomiting 11/17/18 19:00 12/12/18 18:59 Pantoprazole (Protonix) 40 mg DAILY IVP 11/18/18 09:00 12/14/18 08:59 11/19/18 08:22 Promethazine HCl/ Codeine (Phenergan with Codeine) 5 ml Q4H PRN ORAL For Cough 11/17/18 19:00 12/17/18 18:59 Temazepam (Restoril) 15 mg HSPRN PRN ORAL Insomnia 11/17/18 21:00 11/24/18 20:59 Vancomycin HCl (Vanco rx to dose) 1 ea DAILY PRN MISC Per rx protocol 11/17/18 19:00 12/17/18 18:59 Vancomycin HCl 1 gm/Dextrose 275 ml @ 183.708 mls/hr Q12HR@0300,1500 IVPB 11/18/18 03:00 11/22/18 14:59 11/19/18 14:30 Allergies: Coded Allergies: No Known Allergies (Unverified , 12/10/11) ROS Limited/Unobtainable: Yes Subjective 87 YO M admitted with respiratory failure and pneumonia. Cover for Int Med-Dr Malave. MASSIEL. Objective Last Vital Signs Date Time Temp Pulse Resp B/P (MAP) Pulse Ox O2 Delivery O2 Flow Rate FiO2 11/19/18 16:00 97.7 68 20 148/79 (102) 95 11/19/18 16:00 Nasal Cannula 2.0 11/19/18 07:32 28 Laboratory Tests Test 11/19/18 08:55 White Blood Count 9.0 K/UL (4.8-10.8) # Red Blood Count 4.19 M/UL (4.70-6.10) L Hemoglobin 12.6 G/DL (14.2-18.0) L Hematocrit 36.6 % (42.0-52.0) L Mean Corpuscular Volume 88 FL (80-99) Mean Corpuscular Hemoglobin 30.2 PG (27.0-31.0) Mean Corpuscular Hemoglobin Concent 34.5 G/DL (32.0-36.0) Red Cell Distribution Width 14.5 % (11.6-14.8) Platelet Count 140 K/UL (150-450) #L Mean Platelet Volume 7.0 FL (6.5-10.1) Neutrophils (%) (Auto) % (45.0-75.0) Lymphocytes (%) (Auto) % (20.0-45.0) Monocytes (%) (Auto) % (1.0-10.0) Eosinophils (%) (Auto) % (0.0-3.0) Basophils (%) (Auto) % (0.0-2.0) Differential Total Cells Counted 100 Neutrophils % (Manual) 86 % (45-75) H Lymphocytes % (Manual) 6 % (20-45) L Monocytes % (Manual) 3 % (1-10) Eosinophils % (Manual) 0 % (0-3) Basophils % (Manual) 0 % (0-2) Band Neutrophils 5 % (0-8) Platelet Estimate Decreased L Platelet Morphology Normal Anisocytosis 1+ Sodium Level 136 MMOL/L (136-145) Potassium Level 5.3 MMOL/L (3.5-5.1) H Chloride Level 97 MMOL/L (98-107) L Carbon Dioxide Level 36 MMOL/L (21-32) H Anion Gap 3 mmol/L (5-15) L Blood Urea Nitrogen 36 mg/dL (7-18) H Creatinine 1.1 MG/DL (0.55-1.30) Estimat Glomerular Filtration Rate mL/min (>60) Glucose Level 208 MG/DL (74-106) H Calcium Level 9.2 MG/DL (8.5-10.1) Phosphorus Level 3.4 MG/DL (2.5-4.9) Magnesium Level 2.1 MG/DL (1.8-2.4) Intake and Output 11/18/18 11/19/18 18:59 06:59 Intake Total 1467.416 ml 1503.75 ml Output Total 1000 ml 1300 ml Balance 467.416 ml 203.75 ml Free Water 50 ml 200 ml IV Total 1087.416 ml 643.75 ml Tube Feeding 330 ml 660 ml Output Urine Total 1000 ml 1300 ml # Voids 1 Objective PHYSICAL EXAMINATION: GENERAL: The patient is well-developed and well-nourished white male, in respiratory distress. HEENT: Eyes, pupils are equal and responsive to light and accommodation. Extraocular movements are intact. NECK: Supple without lymphadenopathy. CHEST: nasal canula; Decreased breath sounds in bilateral bases with crackles on the left. Otherwise, without wheezes. ABDOMEN: Soft, nontender, and nondistended. Positive bowel sounds. No evidence of hepatosplenomegaly. Currently, no rebound or guarding noted. EXTREMITIES: Negative for clubbing, cyanosis, or edema. RECTAL/GENITAL: Refused. NEUROLOGIC: Cranial nerves II through XII are grossly intact without focal deficits. Motor strength is 5/5 bilaterally. Deep tendon reflexes are 2+ plantar. Assessment/Plan Assessment/Plan ASSESSMENT: This is an 87-year-old white male. 1. Pneumonia. 2. Respiratory failure. 3. Diarrhea. 4. Nausea with vomiting. 5. Fever. 6. Hypertension. 7. Hypercholesterolemia. 8. Attrial fibrillation witbh rapid ventricular rate TREATMENT: 1. Pneumonia/respiratory failure. A Pulmonary consultation has been obtained with Dr. Joan Nugent. The patient is currently off BiPAP in the intensive care unit. We will follow recommendations of Pulmonary. The patient has been started empirically on intravenous vancomycin, cefepime, and azithromycin. 2. Diarrhea/nausea/vomiting. A Gastroenterology consultation has been obtained with Dr. Nito Joseph. 3. Fever. This probably is secondary to pneumonia as above. 4. Hypertension. The patient is currently hypotensive. 5. Hypercholesterolemia. Continue Crestor as above. 6. Continue amiodarone and cardizem Louis Galarza MD November 19, 2018 18:35
--- NOTE | 2018-11-19 19:05 | NUR ---
HAND-OFF: Report given to Lashae Ram RN. Patient in stable condition.
--- NOTE | 2018-11-19 19:06 | NUR ---
NURSE NOTES: Report received from Carla Barahona RN. Patient seen in bed ins semi lama position with oxygen 4L/min via NC , sp02 95%. is by bedside. patient is alert, verbally responsive, able to make need known with episode of confusion. Denies any pain at this time. IV site is to right upper arm 22g and is intact, Currently running IVF of D5 1/2 NS at 75cc/hr. Noted with heard cath and is intact. bed is in lowest position. Call light is within easy reach while in bed. Will continue to monitor.
[2018-11-19] MEDS: Ipratropium 0.02% Inh Soln 2.5ml UD HHN SCH (19:08)
[2018-11-19 20:00] VITALS: BP 149/79
[2018-11-19] MEDS ORDERED: Solu-MEDROL 40mg Inj IVP SCH (21:00)
[2018-11-20] VITALS: BP 154/76
[2018-11-20] MEDS: Ipratropium 0.02% Inh Soln 2.5ml UD HHN SCH ×4 (00:03→20:20)
--- NOTE | 2018-11-20 00:15 | Progress Note ---
DATE: 11/19/2018 SUBJECTIVE: The patient is more alert and is able to answer the questions, more responsive. Decreased levels of agitation however the patient is more responsive. Self restrain was discontinued. The patient is calm. MENTAL STATUS EXAMINATION: The patient is alert and oriented times self and place. Mood is neutral. Affect is flat. Thought process, there is a paucity of thought content. Thought content, no suicidal or homicidal ideations. ASSESSMENT: Acute encephalopathy improving. PLAN: 1. We will continue current medications. 2. Discontinue restrains. Trace Rodarte M.D. DR: Alessandra JOB#: [id number] CC:
[2018-11-20] MEDS: D5 1/2NS 1,000 ML IV SCH ×3 (01:09→20:20)
[2018-11-20] MEDS: Vancomycin 1 GM in D5W 275 ML IVPB SCH (02:17)
[2018-11-20] MEDS: Haloperidol 5mg/ml Inj IM PRN (03:15)
[2018-11-20 04:00] VITALS: BP 149/97
[2018-11-20] MEDS: dilTIAZem HCl 60mg tab NG SCH ×4 (05:06→17:50)
[2018-11-20 05:19] LABS: HEMATOCRIT 38.2 % (42.0-52.0); HEMOGLOBIN 12.8 G/DL (14.2-18.0); MEAN CORPUSCULAR VOLUME 89 FL (80-99); PLATELET COUNT 175 K/UL (150-450); RED BLOOD COUNT 4.31 M/UL (4.70-6.10); RED CELL DISTRIBUTION WIDTH 14.4 % (11.6-14.8); WHITE BLOOD COUNT 8.6 K/UL (4.8-10.8)
[2018-11-20 05:38] LABS: ANION GAP 5 mmol/L (5-15); BLOOD UREA NITROGEN 33 mg/dL (7-18); CALCIUM 8.8 MG/DL (8.5-10.1); CARBON DIOXIDE 35 MMOL/L (21-32); CHLORIDE 97 MMOL/L (98-107); POTASSIUM 4.4 MMOL/L (3.5-5.1); SODIUM 137 MMOL/L (136-145)
--- NOTE | 2018-11-20 06:30 | NUR ---
NURSE NOTES: Received pt from [facility] via bed. Pt transferred to room and unit without any incident. Received report from ANN Woods. court recording monitor in placed, IV site intact, asymptomatic, and patent. Bed is in the lowest position and locked. Belongings list checked and accounted for. Medications received. No signs and symptoms of acute distress noted at this time. Will continue plan of care.
--- NOTE | 2018-11-20 06:30 | NUR ---
HAND-OFF: Patient was transfered to TELE room 203-1 via bed accompanied by 3 RN and 1 TAX COLLECTOR. Portable oxygen tank 4L/min via NC. Sp02 95%. No S/Sx of pain is noted via FLACC scale. Bedside report given to Milena (Cathy)ANN. Belonging list signed with ANN Abbott.
[2018-11-20] MEDS ORDERED: Ipratropium 0.02% Inh Soln 2.5ml UD HHN PRN (07:04)
[2018-11-20] MEDS ORDERED: Haloperidol 5mg/ml Inj IM PRN (07:04)
[2018-11-20] MEDS ORDERED: Acetaminophen 650mg/20.3ml NG PRN (07:05)
[2018-11-20] MEDS ORDERED: Promethazine/Codeine 5ml UD NG PRN (07:05)
--- NOTE | 2018-11-20 07:15 | NUR ---
NURSE NOTES: Received report from ANN Morgan. Patient observed in bed, awake and verbally responsive; Mauritanian speaking. On O2 2L via NC, SpO2 99%, no acute respiratory distress noted. Was endorsed that NGT was removed and will follow up with GI consult. HOB elevated 35 degree. Chavez catheter intact and draining well to gravity. IV on right AC 20g intact and patent with IV fluids infusing at prescribed rate. Bed locked, alarmed, and in lowest position, and side rails up. Will continue to monitor.
[2018-11-20 08:00] VITALS: BP 176/89
--- NOTE | 2018-11-20 08:05 | NUR ---
HAND-OFF: Report given to ANN Dwyer. Pt is in stable condition. Endorsed to ANN Dwyer regarding redness in between buttocks. ANN Dwyer said he will assess and take WCP.
[2018-11-20] MEDS ORDERED: Amiodarone 200mg tab NG SCH (09:00)
[2018-11-20] MEDS ORDERED: Solu-MEDROL 40mg Inj IVP SCH (09:00)
[2018-11-20] MEDS: Amiodarone 200mg tab NG SCH ×2 (09:00→15:08)
--- NOTE | 2018-11-20 09:00 | NUR ---
NURSE NOTES: Upon skin assessment, patient has ecchymosis on bilateral arms. Sacral and heels are intact. Patient right big toe is enlarged.
--- NOTE | 2018-11-20 10:26 | GI Progress Note ---
Assessment/Plan Problems: (1) Thrombocytopenia ICD Codes: D69.6 - Thrombocytopenia, unspecified SNOMED: 338248203 (2) Nausea & vomiting ICD Codes: R11.2 - Nausea with vomiting, unspecified SNOMED: 13808385 (3) Dehydration ICD Codes: E86.0 - Dehydration SNOMED: 28661284 (4) Diarrhea ICD Codes: R19.7 - Diarrhea, unspecified SNOMED: 78641096 (5) Electrolyte imbalance ICD Codes: E87.8 - Other disorders of electrolyte and fluid balance, not elsewhere classified SNOMED: 625385777 Status: unchanged Status Narrative Discussed with Dr. Joseph Assessment/Plan OB stool positive BIPAP Stool culture negative patient failed swallow evaluation Plan to reinsert D[place] today, consider PEG placement if patient does not improve - NGT refused by patient. At this time, family does not agree to PEG. - PO trial per ST with strict aspiration precautions and 1:1 feeder. Imodium as needed Zofran as needed, Reglan for persistent vomiting IV hydration plus electrolyte correction monitor H&H, prn transfusions bowel regime ppi abx per ID fu labs The patient was seen and examined at bedside and all new and available data was reviewed in the patients chart. I agree with the above findings, impression and plan. (Patient seen earlier today. Signature stamp does not reflect patient encounter time.). - Nito Joseph MD Subjective Subjective limited Objective Last 24 Hour Vital Signs Date Time Temp Pulse Resp B/P (MAP) Pulse Ox O2 Delivery O2 Flow Rate FiO2 11/20/18 08:00 98.1 72 18 176/89 (118) 92 11/20/18 07:36 78 18 99 Nasal Cannula 4.0 36 11/20/18 07:32 92 Nasal Cannula 4.0 36 11/20/18 07:31 90 18 92 Nasal Cannula 4.0 36 11/20/18 05:06 79 149/97 11/20/18 04:00 Nasal Cannula 4.0 11/20/18 04:00 97.2 79 16 149/97 (114) 92 11/20/18 03:18 67 11/20/18 00:03 66 18 93 Nasal Cannula 3.0 32 11/20/18 00:00 66 154/76 11/20/18 00:00 Nasal Cannula 4.0 11/20/18 00:00 97.2 77 16 154/76 (102) 92 11/19/18 23:33 66 11/19/18 20:00 Nasal Cannula 4.0 11/19/18 20:00 97.7 72 18 149/79 (102) 93 11/19/18 19:18 66 18 97 Nasal Cannula 2.0 28 11/19/18 19:10 64 11/19/18 19:08 65 16 95 Nasal Cannula 2.0 28 11/19/18 19:08 95 Nasal Cannula 2.0 28 11/19/18 16:00 97.7 68 20 148/79 (102) 95 11/19/18 16:00 Nasal Cannula 4.0 11/19/18 15:18 67 11/19/18 12:00 96.9 67 20 149/80 (103) 95 11/19/18 12:00 Nasal Cannula 4.0 11/19/18 12:00 67 149/80 11/19/18 11:26 61 Intake and Output 11/19/18 11/20/18 18:59 06:59 Intake Total 950.000 ml 900.00 ml Output Total 1400 ml 1000 ml Balance -450.000 ml -100.00 ml IV Total 950.000 ml 900.00 ml Tube Feeding 0 ml 0 ml Output Urine Total 1400 ml 1000 ml Laboratory Tests Test 11/20/18 03:15 White Blood Count 8.6 K/UL (4.8-10.8) Red Blood Count 4.31 M/UL (4.70-6.10) L Hemoglobin 12.8 G/DL (14.2-18.0) L Hematocrit 38.2 % (42.0-52.0) L Mean Corpuscular Volume 89 FL (80-99) Mean Corpuscular Hemoglobin 29.7 PG (27.0-31.0) Mean Corpuscular Hemoglobin Concent 33.5 G/DL (32.0-36.0) Red Cell Distribution Width 14.4 % (11.6-14.8) Platelet Count 175 K/UL (150-450) Mean Platelet Volume 6.6 FL (6.5-10.1) Neutrophils (%) (Auto) % (45.0-75.0) Lymphocytes (%) (Auto) % (20.0-45.0) Monocytes (%) (Auto) % (1.0-10.0) Eosinophils (%) (Auto) % (0.0-3.0) Basophils (%) (Auto) % (0.0-2.0) Differential Total Cells Counted 100 Neutrophils % (Manual) 95 % (45-75) H Lymphocytes % (Manual) 4 % (20-45) L Monocytes % (Manual) 1 % (1-10) Eosinophils % (Manual) 0 % (0-3) Basophils % (Manual) 0 % (0-2) Band Neutrophils 0 % (0-8) Platelet Estimate Adequate Platelet Morphology Normal Red Blood Cell Morphology Normal Sodium Level 137 MMOL/L (136-145) Potassium Level 4.4 MMOL/L (3.5-5.1) Chloride Level 97 MMOL/L (98-107) L Carbon Dioxide Level 35 MMOL/L (21-32) H Anion Gap 5 mmol/L (5-15) Blood Urea Nitrogen 33 mg/dL (7-18) H Creatinine 1.0 MG/DL (0.55-1.30) Estimat Glomerular Filtration Rate mL/min (>60) Glucose Level 248 MG/DL (74-106) H Calcium Level 8.8 MG/DL (8.5-10.1) Height (Feet): 5 Height (Inches): 10.00 Weight (Pounds): 176 General Appearance: alert Cardiovascular: normal rate Respiratory/Chest: other - Nasal cannula Abdominal Exam: soft Objective Pulled out NGT today Edy Rice NP November 20, 2018 10:26
--- NOTE | 2018-11-20 11:18 | Internal Med Progress Note ---
Subjective Date of Service: November 20, 2018 Physician Name Louis Galarza Attending Physician Star Malave MD Current Medications Medications (Trade) Dose Ordered Sig/Keith Route PRN Reason Start Time Stop Time Status Last Admin Dose Admin Acetaminophen (Tylenol) 650 mg Q4H PRN NG Mild Pain/Temp > 100.5 11/20/18 07:05 12/20/18 07:04 Amiodarone HCl (Cordarone) 400 mg DAILY NG 11/20/18 09:00 12/16/18 20:59 Dextrose/Sodium Chloride 1,000 ml @ 75 mls/hr [id number] IV 11/20/18 07:03 12/20/18 07:02 11/20/18 07:57 Diltiazem HCl (Cardizem) 60 mg EVERY 6 HOURS NG 11/20/18 12:00 12/16/18 17:59 Haloperidol Lactate (Haldol) 5 mg Q6H PRN IM Agitation 11/20/18 07:04 12/20/18 07:03 Ipratropium [place] (Atrovent) 500 mcg Q4H PRN HHN Shortness of Breath 11/20/18 07:04 11/25/18 07:03 Ipratropium [place] (Atrovent) 500 mcg Q6HRT HHN 11/20/18 07:00 11/24/18 18:59 11/20/18 07:28 Methylprednisolone Sodium Succinate (Solu-MEDROL) 30 mg EVERY 12 HOURS IVP 11/20/18 09:00 12/14/18 08:59 11/20/18 09:36 Ondansetron HCl (Zofran) 4 mg Q6H PRN IVP Nausea & Vomiting 11/20/18 07:04 12/20/18 07:03 Promethazine HCl/ Codeine (Phenergan with Codeine) 5 ml Q4H PRN NG For Cough 11/20/18 07:05 12/20/18 07:04 Temazepam (Restoril) 15 mg HSPRN PRN NG Insomnia 11/20/18 07:06 11/27/18 07:05 Vancomycin HCl (Vanco rx to dose) 1 ea DAILY PRN MISC Per rx protocol 11/20/18 09:00 12/17/18 18:59 Vancomycin HCl 1 gm/Dextrose 275 ml @ 183.708 mls/hr Q12HR@0300,1500 IVPB 11/20/18 15:00 11/22/18 14:59 Allergies: Coded Allergies: No Known Allergies (Unverified , 12/10/11) ROS Limited/Unobtainable: Yes Constitutional: Reports: no symptoms HEENT: Reports: no symptoms Cardiovascular: Reports: no symptoms Respiratory: Reports: shortness of breath Gastrointestinal/Abdominal: Reports: no symptoms Genitourinary: Reports: no symptoms Neurologic/Psychiatric: Reports: no symptoms Subjective 87 YO M admitted with respiratory failure and pneumonia. Cover for Int Arjun-Dr Malave. Objective Last Vital Signs Date Time Temp Pulse Resp B/P (MAP) Pulse Ox O2 Delivery O2 Flow Rate FiO2 11/20/18 08:00 Nasal Cannula 3.0 11/20/18 08:00 98.1 72 18 176/89 (118) 92 11/20/18 07:36 36 Laboratory Tests Test 11/20/18 03:15 White Blood Count 8.6 K/UL (4.8-10.8) Red Blood Count 4.31 M/UL (4.70-6.10) L Hemoglobin 12.8 G/DL (14.2-18.0) L Hematocrit 38.2 % (42.0-52.0) L Mean Corpuscular Volume 89 FL (80-99) Mean Corpuscular Hemoglobin 29.7 PG (27.0-31.0) Mean Corpuscular Hemoglobin Concent 33.5 G/DL (32.0-36.0) Red Cell Distribution Width 14.4 % (11.6-14.8) Platelet Count 175 K/UL (150-450) Mean Platelet Volume 6.6 FL (6.5-10.1) Neutrophils (%) (Auto) % (45.0-75.0) Lymphocytes (%) (Auto) % (20.0-45.0) Monocytes (%) (Auto) % (1.0-10.0) Eosinophils (%) (Auto) % (0.0-3.0) Basophils (%) (Auto) % (0.0-2.0) Differential Total Cells Counted 100 Neutrophils % (Manual) 95 % (45-75) H Lymphocytes % (Manual) 4 % (20-45) L Monocytes % (Manual) 1 % (1-10) Eosinophils % (Manual) 0 % (0-3) Basophils % (Manual) 0 % (0-2) Band Neutrophils 0 % (0-8) Platelet Estimate Adequate Platelet Morphology Normal Red Blood Cell Morphology Normal Sodium Level 137 MMOL/L (136-145) Potassium Level 4.4 MMOL/L (3.5-5.1) Chloride Level 97 MMOL/L (98-107) L Carbon Dioxide Level 35 MMOL/L (21-32) H Anion Gap 5 mmol/L (5-15) Blood Urea Nitrogen 33 mg/dL (7-18) H Creatinine 1.0 MG/DL (0.55-1.30) Estimat Glomerular Filtration Rate mL/min (>60) Glucose Level 248 MG/DL (74-106) H Calcium Level 8.8 MG/DL (8.5-10.1) Intake and Output 11/19/18 11/20/18 19:00 07:00 Intake Total 950.000 ml 825.00 ml Output Total 1400 ml 1000 ml Balance -450.000 ml -175.00 ml IV Total 950.000 ml 825.00 ml Tube Feeding 0 ml 0 ml Output Urine Total 1400 ml 1000 ml Objective PHYSICAL EXAMINATION: GENERAL: The patient is well-developed and well-nourished white male, in respiratory distress. HEENT: Eyes, pupils are equal and responsive to light and accommodation. Extraocular movements are intact. NECK: Supple without lymphadenopathy. CHEST: nasal canula; Decreased breath sounds in bilateral bases with crackles on the left. Otherwise, without wheezes. ABDOMEN: Soft, nontender, and nondistended. Positive bowel sounds. No evidence of hepatosplenomegaly. Currently, no rebound or guarding noted. EXTREMITIES: Negative for clubbing, cyanosis, or edema. RECTAL/GENITAL: Refused. NEUROLOGIC: Cranial nerves II through XII are grossly intact without focal deficits. Motor strength is 5/5 bilaterally. Deep tendon reflexes are 2+ plantar. Assessment/Plan Assessment/Plan ASSESSMENT: This is an 87-year-old white male. 1. Pneumonia=MRSA 2. Respiratory failure. 3. Diarrhea. 4. Nausea with vomiting. 5. Fever. 6. Hypertension. 7. Hypercholesterolemia. 8. Attrial fibrillation witbh rapid ventricular rate TREATMENT: 1. Pneumonia/respiratory failure. A Pulmonary consultation has been obtained with Dr. Joan Nugent. The patient is currently off BiPAP in the intensive care unit. We will follow recommendations of Pulmonary. Abx=intravenous vancomycin per ID 2. Diarrhea/nausea/vomiting. A Gastroenterology consultation has been obtained with Dr. Nito Joseph. 3. Fever. This probably is secondary to pneumonia as above. 4. Hypertension. The patient is currently hypotensive. 5. Hypercholesterolemia. Continue Crestor as above. 6. Continue amiodarone and cardizem Louis Galarza MD November 20, 2018 11:18
[2018-11-20 12:00] VITALS: BP 162/86
--- NOTE | 2018-11-20 12:02 | Pulmonology Progress Note ---
Assessment/Plan Problems: (1) COPD exacerbation (2) Respiratory failure with hypoxia (3) Pneumonia (4) Paroxysmal atrial fibrillation (5) Thrombocytopenia (6) Electrolyte imbalance (7) History of hypertension Assessment/Plan BiPAP 18/5 qHS & PRN, encourage nocturnal usage Optimize pulmonary hygiene/mobilize as tolerated Titrate down FiO2 to keep SaO2 > 90% RTC and PRN ATROVENT HHN's Decrease SM to 20 IV BID Abx (Vanco) per ID Monitor volumes and renal function, consider decrease IVF NPO, F/U STORE STOCK HELP recs, may need DOBHOFF or GT DVT Px: SCD FC D/W RN and RT Subjective Allergies: Coded Allergies: No Known Allergies (Unverified , 12/10/11) Subjective AFVSS on 2-4 L failed VSS TTF no FC no CP no cough no wheezing + SOB Objective Last 24 Hour Vital Signs Date Time Temp Pulse Resp B/P (MAP) Pulse Ox O2 Delivery O2 Flow Rate FiO2 11/20/18 08:00 Nasal Cannula 3.0 11/20/18 08:00 98.1 72 18 176/89 (118) 92 11/20/18 07:36 78 18 99 Nasal Cannula 4.0 36 11/20/18 07:32 92 Nasal Cannula 4.0 36 11/20/18 07:31 90 18 92 Nasal Cannula 4.0 36 11/20/18 05:06 79 149/97 11/20/18 04:00 Nasal Cannula 4.0 11/20/18 04:00 97.2 79 16 149/97 (114) 92 11/20/18 03:18 67 11/20/18 00:03 66 18 93 Nasal Cannula 3.0 32 11/20/18 00:00 66 154/76 11/20/18 00:00 Nasal Cannula 4.0 11/20/18 00:00 97.2 77 16 154/76 (102) 92 11/19/18 23:33 66 11/19/18 20:00 Nasal Cannula 4.0 11/19/18 20:00 97.7 72 18 149/79 (102) 93 11/19/18 19:18 66 18 97 Nasal Cannula 2.0 28 11/19/18 19:10 64 11/19/18 19:08 65 16 95 Nasal Cannula 2.0 28 11/19/18 19:08 95 Nasal Cannula 2.0 28 11/19/18 16:00 97.7 68 20 148/79 (102) 95 11/19/18 16:00 Nasal Cannula 4.0 11/19/18 15:18 67 11/19/18 12:00 96.9 67 20 149/80 (103) 95 11/19/18 12:00 Nasal Cannula 4.0 11/19/18 12:00 67 149/80 Intake and Output 11/19/18 11/20/18 19:00 07:00 Intake Total 950.000 ml 825.00 ml Output Total 1400 ml 1000 ml Balance -450.000 ml -175.00 ml IV Total 950.000 ml 825.00 ml Tube Feeding 0 ml 0 ml Output Urine Total 1400 ml 1000 ml General Appearance: no acute distress, cachetic HEENT: normocephalic, atraumatic, anicteric, mucous membranes moist Respiratory/Chest: chest wall non-tender, lungs clear - but distant, no respiratory distress, no accessory muscle use Cardiovascular: normal peripheral pulses, normal rate, regular rhythm Abdomen: normal bowel sounds, soft, non tender, no organomegaly, non distended , no mass Extremities: no cyanosis, no clubbing, no edema Laboratory Tests 11/20/18 03:15: White Blood Count 8.6, Red Blood Count 4.31L, Hemoglobin 12.8L, Hematocrit 38.2L , Mean Corpuscular Volume 89, Mean Corpuscular Hemoglobin 29.7, Mean Corpuscular Hemoglobin Concent 33.5, Red Cell Distribution Width 14.4, Platelet Count 175, Mean Platelet Volume 6.6, Neutrophils (%) (Auto) , Lymphocytes (%) ( Auto) , Monocytes (%) (Auto) , Eosinophils (%) (Auto) , Basophils (%) (Auto) , Differential Total Cells Counted 100, Neutrophils % (Manual) 95H, Lymphocytes % (Manual) 4L, Monocytes % (Manual) 1, Eosinophils % (Manual) 0, Basophils % ( Manual) 0, Band Neutrophils 0, Platelet Estimate Adequate, Platelet Morphology Normal, Red Blood Cell Morphology Normal, Sodium Level 137, Potassium Level 4.4 , Chloride Level 97L, Carbon Dioxide Level 35H, Anion Gap 5, Blood Urea Nitrogen 33H, Creatinine 1.0, Estimat Glomerular Filtration Rate , Glucose Level 248H, Calcium Level 8.8 Current Medications Medications (Trade) Dose Ordered Sig/Keith Route PRN Reason Start Time Stop Time Status Last Admin Dose Admin Acetaminophen (Tylenol) 650 mg Q4H PRN NG Mild Pain/Temp > 100.5 11/20/18 07:05 12/20/18 07:04 Amiodarone HCl (Cordarone) 400 mg DAILY NG 11/20/18 09:00 12/16/18 20:59 Dextrose/Sodium Chloride 1,000 ml @ 75 mls/hr [id number] IV 11/20/18 07:03 12/20/18 07:02 11/20/18 07:57 Diltiazem HCl (Cardizem) 60 mg EVERY 6 HOURS NG 11/20/18 12:00 12/16/18 17:59 Haloperidol Lactate (Haldol) 5 mg Q6H PRN IM Agitation 11/20/18 07:04 12/20/18 07:03 Ipratropium [place] (Atrovent) 500 mcg Q4H PRN HHN Shortness of Breath 11/20/18 07:04 11/25/18 07:03 Ipratropium [place] (Atrovent) 500 mcg Q6HRT HHN 11/20/18 07:00 11/24/18 18:59 11/20/18 07:28 Methylprednisolone Sodium Succinate (Solu-MEDROL) 30 mg EVERY 12 HOURS IVP 11/20/18 09:00 12/14/18 08:59 11/20/18 09:36 Ondansetron HCl (Zofran) 4 mg Q6H PRN IVP Nausea & Vomiting 11/20/18 07:04 12/20/18 07:03 Promethazine HCl/ Codeine (Phenergan with Codeine) 5 ml Q4H PRN NG For Cough 11/20/18 07:05 12/20/18 07:04 Temazepam (Restoril) 15 mg HSPRN PRN NG Insomnia 11/20/18 07:06 11/27/18 07:05 Vancomycin HCl (Vanco rx to dose) 1 ea DAILY PRN MISC Per rx protocol 11/20/18 09:00 12/17/18 18:59 Vancomycin HCl 1 gm/Dextrose 275 ml @ 183.708 mls/hr Q12HR@0300,1500 IVPB 5/29/19 15:00 11/22/18 14:59 Ashish Solis MD November 20, 2018 12:02
--- NOTE | 2018-11-20 12:21 | Cardiac Electrophysiology PN ---
Assessment/Plan Assessment/Plan 1. Paroxysmal Atrial fibrillation with rapid ventricular response. In and out of SR Off anticoagulation for thrombocytopenia. Echo EF 60% to 65%. On amiodarone 400 daily and Cardizem 60q 6hr that will be resumed as soon as the NG is back in 2. Hypertension, on Cardizem. 3. COPD and pneumonia, on IV abx and Solu-Medrol. 4. Thrombocytopenia, off anticoagulation. 5. Nausea, vomiting, and abdominal pain. Follow up with Dr. Joseph. 6. Failed swallow eval. NG reinsertion pending. PITA RN Subjective Subjective In SR today but didn't get amiodarone or metoprolol as he pulled out NG tube. Failed swallow eval Objective Last 24 Hour Vital Signs Date Time Temp Pulse Resp B/P (MAP) Pulse Ox O2 Delivery O2 Flow Rate FiO2 11/20/18 08:00 Nasal Cannula 3.0 11/20/18 08:00 98.1 72 18 176/89 (118) 92 11/20/18 07:36 78 18 99 Nasal Cannula 4.0 36 11/20/18 07:32 92 Nasal Cannula 4.0 36 11/20/18 07:31 90 18 92 Nasal Cannula 4.0 36 11/20/18 05:06 79 149/97 11/20/18 04:00 Nasal Cannula 4.0 11/20/18 04:00 97.2 79 16 149/97 (114) 92 11/20/18 03:18 67 11/20/18 00:03 66 18 93 Nasal Cannula 3.0 32 11/20/18 00:00 66 154/76 11/20/18 00:00 Nasal Cannula 4.0 11/20/18 00:00 97.2 77 16 154/76 (102) 92 11/19/18 23:33 66 11/19/18 20:00 Nasal Cannula 4.0 11/19/18 20:00 97.7 72 18 149/79 (102) 93 11/19/18 19:18 66 18 97 Nasal Cannula 2.0 28 11/19/18 19:10 64 11/19/18 19:08 65 16 95 Nasal Cannula 2.0 28 11/19/18 19:08 95 Nasal Cannula 2.0 28 11/19/18 16:00 97.7 68 20 148/79 (102) 95 11/19/18 16:00 Nasal Cannula 4.0 11/19/18 15:18 67 Intake and Output 11/19/18 11/20/18 19:00 07:00 Intake Total 950.000 ml 825.00 ml Output Total 1400 ml 1000 ml Balance -450.000 ml -175.00 ml IV Total 950.000 ml 825.00 ml Tube Feeding 0 ml 0 ml Output Urine Total 1400 ml 1000 ml Laboratory Tests Test 11/20/18 03:15 White Blood Count 8.6 K/UL (4.8-10.8) Red Blood Count 4.31 M/UL (4.70-6.10) L Hemoglobin 12.8 G/DL (14.2-18.0) L Hematocrit 38.2 % (42.0-52.0) L Mean Corpuscular Volume 89 FL (80-99) Mean Corpuscular Hemoglobin 29.7 PG (27.0-31.0) Mean Corpuscular Hemoglobin Concent 33.5 G/DL (32.0-36.0) Red Cell Distribution Width 14.4 % (11.6-14.8) Platelet Count 175 K/UL (150-450) Mean Platelet Volume 6.6 FL (6.5-10.1) Neutrophils (%) (Auto) % (45.0-75.0) Lymphocytes (%) (Auto) % (20.0-45.0) Monocytes (%) (Auto) % (1.0-10.0) Eosinophils (%) (Auto) % (0.0-3.0) Basophils (%) (Auto) % (0.0-2.0) Differential Total Cells Counted 100 Neutrophils % (Manual) 95 % (45-75) H Lymphocytes % (Manual) 4 % (20-45) L Monocytes % (Manual) 1 % (1-10) Eosinophils % (Manual) 0 % (0-3) Basophils % (Manual) 0 % (0-2) Band Neutrophils 0 % (0-8) Platelet Estimate Adequate Platelet Morphology Normal Red Blood Cell Morphology Normal Sodium Level 137 MMOL/L (136-145) Potassium Level 4.4 MMOL/L (3.5-5.1) Chloride Level 97 MMOL/L (98-107) L Carbon Dioxide Level 35 MMOL/L (21-32) H Anion Gap 5 mmol/L (5-15) Blood Urea Nitrogen 33 mg/dL (7-18) H Creatinine 1.0 MG/DL (0.55-1.30) Estimat Glomerular Filtration Rate mL/min (>60) Glucose Level 248 MG/DL (74-106) H Calcium Level 8.8 MG/DL (8.5-10.1) Objective HEAD AND NECK: No JVD. LUNGS: Decreased breath sounds. CARDIOVASCULAR: Regular S1-S2 with no gallop. ABDOMEN: Soft. EXTREMITIES: 1+ pitting edema. Jose Vee MD November 20, 2018 12:21
--- NOTE | 2018-11-20 13:59 | Infectious Diseases Prog Note ---
Assessment/Plan Assessment/Plan Assessment: Sepsis 2ry to MRSA PNA -11/13 CXR: Suspected CHF/interstitial edema. Right pleural effusion not excluded -u/a neg -Bcx Neg -CXR: Pulmonary vascular congestion suspected. Airspace disease in the right mid and upper lung field. Could be superimposed pneumonia or related to the vascular congestion. Correlate clinically -influenza sc and legionella neg -sp cx MRSA, jodie albicans Fever, Sp Leukocytosis, recurrent mild (on high dose steroids)- resolved Diarrhea- SP -stool cx normal enteric montez Lactic acidosis; SP VARSHA HTN COPD Plan: -Continue IV Vancomycin # 9/10 for MRSA PNA - 11/16 sp Azithromycin # 5 for atypical coverage -11/14 SP Cefepime #4 -f/u cx -Monitor CBC/CMP, temperatures, -aspiration precautions Subjective Allergies: Coded Allergies: No Known Allergies (Unverified , 12/10/11) Subjective afebrile at 4l NC no leukocytosis Objective Vital Signs Last 24 Hour Vital Signs Date Time Temp Pulse Resp B/P (MAP) Pulse Ox O2 Delivery O2 Flow Rate FiO2 11/20/18 12:41 80 18 93 Nasal Cannula 4.0 36 11/20/18 12:00 Nasal Cannula 3.0 11/20/18 12:00 97.9 78 18 162/86 (111) 92 11/20/18 11:40 80 11/20/18 08:00 Nasal Cannula 3.0 11/20/18 08:00 98.1 72 18 176/89 (118) 92 11/20/18 07:36 78 18 99 Nasal Cannula 4.0 36 11/20/18 07:36 71 11/20/18 07:32 92 Nasal Cannula 4.0 36 11/20/18 07:31 90 18 92 Nasal Cannula 4.0 36 11/20/18 05:06 79 149/97 11/20/18 04:00 Nasal Cannula 4.0 11/20/18 04:00 97.2 79 16 149/97 (114) 92 11/20/18 03:18 67 11/20/18 00:03 66 18 93 Nasal Cannula 3.0 32 11/20/18 00:00 66 154/76 11/20/18 00:00 Nasal Cannula 4.0 11/20/18 00:00 97.2 77 16 154/76 (102) 92 11/19/18 23:33 66 11/19/18 20:00 Nasal Cannula 4.0 11/19/18 20:00 97.7 72 18 149/79 (102) 93 11/19/18 19:18 66 18 97 Nasal Cannula 2.0 28 11/19/18 19:10 64 11/19/18 19:08 65 16 95 Nasal Cannula 2.0 28 11/19/18 19:08 95 Nasal Cannula 2.0 28 11/19/18 16:00 97.7 68 20 148/79 (102) 95 11/19/18 16:00 Nasal Cannula 4.0 11/19/18 15:18 67 Height (Feet): 5 Height (Inches): 10.00 Weight (Pounds): 176 Objective General Appearance: WD/WN Lines, tubes and drains: peripheral HEENT: normocephalic, atraumatic Neck: non-tender, normal alignment Respiratory/Chest: rhonchi - left, rhonchi - right Cardiovascular/Chest: normal peripheral pulses, normal rate Abdomen: normal bowel sounds, non tender Genitourinary/Rectal: normal genital exam Extremities: normal range of motion, non-tender Skin Exam: normal pigmentation Laboratory Tests Test 11/20/18 03:15 White Blood Count 8.6 K/UL (4.8-10.8) Red Blood Count 4.31 M/UL (4.70-6.10) L Hemoglobin 12.8 G/DL (14.2-18.0) L Hematocrit 38.2 % (42.0-52.0) L Mean Corpuscular Volume 89 FL (80-99) Mean Corpuscular Hemoglobin 29.7 PG (27.0-31.0) Mean Corpuscular Hemoglobin Concent 33.5 G/DL (32.0-36.0) Red Cell Distribution Width 14.4 % (11.6-14.8) Platelet Count 175 K/UL (150-450) Mean Platelet Volume 6.6 FL (6.5-10.1) Neutrophils (%) (Auto) % (45.0-75.0) Lymphocytes (%) (Auto) % (20.0-45.0) Monocytes (%) (Auto) % (1.0-10.0) Eosinophils (%) (Auto) % (0.0-3.0) Basophils (%) (Auto) % (0.0-2.0) Differential Total Cells Counted 100 Neutrophils % (Manual) 95 % (45-75) H Lymphocytes % (Manual) 4 % (20-45) L Monocytes % (Manual) 1 % (1-10) Eosinophils % (Manual) 0 % (0-3) Basophils % (Manual) 0 % (0-2) Band Neutrophils 0 % (0-8) Platelet Estimate Adequate Platelet Morphology Normal Red Blood Cell Morphology Normal Sodium Level 137 MMOL/L (136-145) Potassium Level 4.4 MMOL/L (3.5-5.1) Chloride Level 97 MMOL/L (98-107) L Carbon Dioxide Level 35 MMOL/L (21-32) H Anion Gap 5 mmol/L (5-15) Blood Urea Nitrogen 33 mg/dL (7-18) H Creatinine 1.0 MG/DL (0.55-1.30) Estimat Glomerular Filtration Rate mL/min (>60) Glucose Level 248 MG/DL (74-106) H Calcium Level 8.8 MG/DL (8.5-10.1) Current Medications Medications (Trade) Dose Ordered Sig/Keith Route PRN Reason Start Time Stop Time Status Last Admin Dose Admin Acetaminophen (Tylenol) 650 mg Q4H PRN NG Mild Pain/Temp > 100.5 11/20/18 07:05 12/20/18 07:04 Amiodarone HCl (Cordarone) 400 mg DAILY NG 11/20/18 09:00 12/16/18 20:59 Dextrose/Sodium Chloride 1,000 ml @ 75 mls/hr [id number] IV 11/20/18 07:03 12/20/18 07:02 11/20/18 07:57 Diltiazem HCl (Cardizem) 60 mg EVERY 6 HOURS NG 11/20/18 12:00 12/16/18 17:59 Haloperidol Lactate (Haldol) 5 mg Q6H PRN IM Agitation 11/20/18 07:04 12/20/18 07:03 Ipratropium [place] (Atrovent) 500 mcg Q4H PRN HHN Shortness of Breath 11/20/18 07:04 11/25/18 07:03 Ipratropium [place] (Atrovent) 500 mcg Q6HRT HHN 11/20/18 07:00 11/24/18 18:59 11/20/18 12:41 Methylprednisolone Sodium Succinate (Solu-MEDROL) 20 mg EVERY 12 HOURS IVP 11/20/18 21:00 12/14/18 08:59 Ondansetron HCl (Zofran) 4 mg Q6H PRN IVP Nausea & Vomiting 11/20/18 07:04 12/20/18 07:03 Promethazine HCl/ Codeine (Phenergan with Codeine) 5 ml Q4H PRN NG For Cough 11/20/18 07:05 12/20/18 07:04 Temazepam (Restoril) 15 mg HSPRN PRN NG Insomnia 11/20/18 07:06 11/27/18 07:05 Vancomycin HCl (Vanco rx to dose) 1 ea DAILY PRN MISC Per rx protocol 11/20/18 09:00 12/17/18 18:59 Vancomycin HCl 1 gm/Dextrose 275 ml @ 183.708 mls/hr Q12HR@0300,1500 IVPB 11/20/18 15:00 11/22/18 14:59 Bety William M.D. November 20, 2018 13:59
--- NOTE | 2018-11-20 14:00 | NUR ---
NURSE NOTES: After several discussion to insert NG tube, agreed to do another swallow evaluation with patient's son and agreement.
[2018-11-20] MEDS ORDERED: Vancomycin 1 GM in D5W 275 ML IVPB SCH (15:00)
--- NOTE | 2018-11-20 15:45 | NUR ---
ST NOTE: SWALLOW/SPEECH/LANGUAGE/COGNITIONS STATUS: PT SEEN AT BEDSIDE IN PM WITH PT'S SON AND PRESENTED. DISCUSSED WITH PT'S SON RE: PT'S CONDITIONS. PER SON, PT WAS TOTALLY INDEPENDENT AND MIND WAS CLEAR. HOWEVER, SON NOTICED THAT PT IS CONFUSED. ALSO DISCUSSED WITH DR. HEALY, PER MD, PT IS UNABLE TO MAKE HIS OWN DECISION DUE TO CONFUSION. EXPLAINED TO PT'S SON WITH MODIFIED BARIUM SWALLOW STUDY RE: PT IS AT HIGH RISK FOR CHRONIC ASPIRATION DUE TO OVERALL PHARYNGEAL WEAKNESS IF PT IS EAT/DRINK BY MOUTH. RECOMMENDED TEMPORARILY NGT FOR NOW AND RE-ASSESS PT'S THE END OF THE WEEK. PT'S SON AGREED THE PLAN OF CARE. ALIA Leon INFORMED AND ATTEMPTED TO PUT THE SMALLEST NGT(DOBHOFF), PT REFUSED AND STATED THAT "HE WILL PULL OUT THE NGT". UNABLE TO INSERT THE NGT. DISCUSSED WITH SON WITH ALIA Vuong RE: PLAN OF CARE. G-TUBE WOULD NOT BE A GOOD OPTION(PT PROBABLY WILL PULL IT OUT). GIVEN HONEY THICK LIQUID VIA TSP X 3, MILDLY INCREASED ORAL TRANSIT TIME(3 SECONDS) UNTIL PT INITIATED PHARYNGEAL SWALLOW, FAIR LARYNGEAL ELEAVTION, NO OVERT S/S OF ASPIRATION, REDUCED ABILITY IN INITIATING SECOND DRY SWALLOW, NO OVERT S/S OF ASPIRATION. FOR QUALITY OF LIFE, SLOWLY INITIATE LIQUIFIED PUREED, LIKE HONEY THICK SOUP CONSISTENCY WITH HONEY THICK LIQUIDS(1/2 TEASPOON) STRICT ASPIRATION PRECAUTIONS WITH 1TO1 FEEDING. D/W PT'S FAMILY, AGREED WITH THE POC. INFORMED ALIA AND , DR. MCCRAY. POSTED ASPIRATION PRECAUTIONS SIGN
[2018-11-20 16:00] VITALS: BP 158/80
--- NOTE | 2018-11-20 17:00 | NUR ---
NURSE NOTES: Patient able to take medications after crushing and in apple sauce. Patient ate 15% of meal.
[2018-11-20] MEDS: Nystatin Susp 500,000 units/5ml ORAL SCH ×2 (17:50→21:00)
--- NOTE | 2018-11-20 19:21 | NUR ---
HAND-OFF: Report given to ANN Franco.
--- NOTE | 2018-11-20 19:30 | NUR ---
NURSE NOTES: Received report from ANN Dwyer. Pt is awake and resting in bed. In no acute distress. IV line intact and patent. Bed in lowest position, call light within reach. Will continue plan of care.
[2018-11-20 20:00] VITALS: BP 148/72
[2018-11-20] MEDS: Solu-MEDROL 40mg Inj IVP SCH (20:20)
[2018-11-21] VITALS: BP 156/80
[2018-11-21] MEDS: Ipratropium 0.02% Inh Soln 2.5ml UD HHN SCH ×4 (00:07→20:20)
[2018-11-21 04:00] VITALS: BP 164/86
[2018-11-21] MEDS: Vancomycin 750mg/D5W 275ml IVPB SCH ×4 (05:21→17:33)
[2018-11-21] MEDS: dilTIAZem HCl 60mg tab ORAL SCH ×4 (05:22→19:05)
[2018-11-21 05:36] LABS: HEMATOCRIT 38.4 % (42.0-52.0); HEMOGLOBIN 13.1 G/DL (14.2-18.0); MEAN CORPUSCULAR VOLUME 89 FL (80-99); PLATELET COUNT 198 K/UL (150-450); RED BLOOD COUNT 4.34 M/UL (4.70-6.10); RED CELL DISTRIBUTION WIDTH 14.1 % (11.6-14.8); WHITE BLOOD COUNT 11.3 K/UL (4.8-10.8)
[2018-11-21 05:58] LABS: ANION GAP 4 mmol/L (5-15); BLOOD UREA NITROGEN 31 mg/dL (7-18); CALCIUM 8.8 MG/DL (8.5-10.1); CARBON DIOXIDE 36 MMOL/L (21-32); CHLORIDE 98 MMOL/L (98-107); CREATININE 1.1 MG/DL (0.55-1.30); POTASSIUM 4.4 MMOL/L (3.5-5.1); SODIUM 138 MMOL/L (136-145)
--- NOTE | 2018-11-21 07:30 | NUR ---
HAND-OFF: Report given to ANN Galaviz.
--- NOTE | 2018-11-21 07:30 | NUR ---
NURSE NOTES: Received report from Salvador/RN, Patient resting on bed, No acute distress/SOB noted at this time. Bed in low position and locked, Call light within reach. Will continue plan of care.
[2018-11-21 08:00] VITALS: BP 158/83
--- NOTE | 2018-11-21 08:38 | Infectious Diseases Prog Note ---
Assessment/Plan Assessment/Plan Assessment: Sepsis 2ry to MRSA PNA -11/13 CXR: Suspected CHF/interstitial edema. Right pleural effusion not excluded -u/a neg -Bcx Neg -CXR: Pulmonary vascular congestion suspected. Airspace disease in the right mid and upper lung field. Could be superimposed pneumonia or related to the vascular congestion. Correlate clinically -influenza sc and legionella neg -sp cx MRSA, jodie albicans Fever, Sp Leukocytosis, recurrent mild (on high dose steroids) Diarrhea- SP -stool cx normal enteric montez Lactic acidosis; SP VARSHA HTN COPD Plan: -Continue IV Vancomycin #10/10 for MRSA PNA - 11/16 sp Azithromycin # 5 for atypical coverage -11/14 SP Cefepime #4 -f/u cx -Monitor CBC/CMP, temperatures, -aspiration precautions Subjective Allergies: Coded Allergies: No Known Allergies (Unverified , 12/10/11) Subjective afebrile at 4l NC mild leukocytosis Objective Vital Signs Last 24 Hour Vital Signs Date Time Temp Pulse Resp B/P (MAP) Pulse Ox O2 Delivery O2 Flow Rate FiO2 11/21/18 07:13 76 18 97 Nasal Cannula 4.0 36 11/21/18 07:05 92 Nasal Cannula 4.0 36 11/21/18 07:03 72 18 92 Nasal Cannula 4.0 36 11/21/18 05:22 80 157/86 11/21/18 04:00 97.9 80 20 164/86 (112) 95 11/21/18 04:00 80 11/21/18 00:17 73 18 96 Nasal Cannula 4.0 36 11/21/18 00:07 72 18 94 Nasal Cannula 4.0 36 11/21/18 00:00 66 11/21/18 00:00 65 154/81 11/21/18 00:00 98.0 66 20 156/80 (105) 95 11/20/18 21:00 Nasal Cannula 4.0 11/20/18 20:27 79 18 95 Nasal Cannula 4.0 36 11/20/18 20:20 78 18 94 Nasal Cannula 4.0 36 11/20/18 20:00 98.1 78 18 148/72 (97) 94 11/20/18 20:00 78 11/20/18 19:52 94 Nasal Cannula 4.0 36 11/20/18 17:50 80 158/80 11/20/18 16:00 98.0 80 18 158/80 (106) 93 11/20/18 15:32 78 11/20/18 12:49 77 18 100 Nasal Cannula 4.0 36 11/20/18 12:41 80 18 93 Nasal Cannula 4.0 36 11/20/18 12:00 Nasal Cannula 3.0 11/20/18 12:00 97.9 78 18 162/86 (111) 92 11/20/18 11:40 80 Height (Feet): 5 Height (Inches): 10.00 Weight (Pounds): 174 Objective General Appearance: WD/WN Lines, tubes and drains: peripheral HEENT: normocephalic, atraumatic Neck: non-tender, normal alignment Respiratory/Chest: rhonchi - left, rhonchi - right Cardiovascular/Chest: normal peripheral pulses, normal rate Abdomen: normal bowel sounds, non tender Genitourinary/Rectal: normal genital exam Extremities: normal range of motion, non-tender Skin Exam: normal pigmentation Laboratory Tests Test 11/21/18 02:00 11/21/18 05:00 Vancomycin Level Trough 20.7 ug/mL (5.0-12.0) H White Blood Count 11.3 K/UL (4.8-10.8) H Red Blood Count 4.34 M/UL (4.70-6.10) L Hemoglobin 13.1 G/DL (14.2-18.0) L Hematocrit 38.4 % (42.0-52.0) L Mean Corpuscular Volume 89 FL (80-99) Mean Corpuscular Hemoglobin 30.3 PG (27.0-31.0) Mean Corpuscular Hemoglobin Concent 34.2 G/DL (32.0-36.0) Red Cell Distribution Width 14.1 % (11.6-14.8) Platelet Count 198 K/UL (150-450) Mean Platelet Volume 6.9 FL (6.5-10.1) Neutrophils (%) (Auto) % (45.0-75.0) Lymphocytes (%) (Auto) % (20.0-45.0) Monocytes (%) (Auto) % (1.0-10.0) Eosinophils (%) (Auto) % (0.0-3.0) Basophils (%) (Auto) % (0.0-2.0) Neutrophils % (Manual) Pending Lymphocytes % (Manual) Pending Platelet Estimate Pending Platelet Morphology Pending Sodium Level 138 MMOL/L (136-145) Potassium Level 4.4 MMOL/L (3.5-5.1) Chloride Level 98 MMOL/L (98-107) Carbon Dioxide Level 36 MMOL/L (21-32) H Anion Gap 4 mmol/L (5-15) L Blood Urea Nitrogen 31 mg/dL (7-18) H Creatinine 1.1 MG/DL (0.55-1.30) Estimat Glomerular Filtration Rate mL/min (>60) Glucose Level 214 MG/DL (74-106) H Calcium Level 8.8 MG/DL (8.5-10.1) Current Medications Medications (Trade) Dose Ordered Sig/Keith Route PRN Reason Start Time Stop Time Status Last Admin Dose Admin Acetaminophen (Tylenol) 650 mg Q4H PRN NG Mild Pain/Temp > 100.5 11/20/18 07:05 12/20/18 07:04 Amiodarone HCl (Cordarone) 400 mg DAILY NG 11/20/18 09:00 12/16/18 20:59 11/20/18 15:08 Dextrose/Sodium Chloride 1,000 ml @ 75 mls/hr [id number] IV 11/20/18 07:03 12/20/18 07:02 11/20/18 20:20 Diltiazem HCl (Cardizem) 60 mg EVERY 6 HOURS ORAL 11/21/18 00:00 12/16/18 17:59 11/21/18 05:22 Haloperidol Lactate (Haldol) 5 mg Q6H PRN IM Agitation 11/20/18 07:04 12/20/18 07:03 Ipratropium Carmine (Atrovent) 500 mcg Q4H PRN HHN Shortness of Breath 11/20/18 07:04 11/25/18 07:03 Ipratropium Carmine (Atrovent) 500 mcg Q6HRT HHN 11/20/18 07:00 11/24/18 18:59 11/21/18 07:02 Methylprednisolone Sodium Succinate (Solu-MEDROL) 20 mg EVERY 12 HOURS IVP 11/20/18 21:00 12/14/18 08:59 11/20/18 20:20 Nystatin (Nystatin) 5 ml QID ORAL 11/20/18 18:00 11/27/18 17:59 11/20/18 17:50 Ondansetron HCl (Zofran) 4 mg Q6H PRN IVP Nausea & Vomiting 11/20/18 07:04 12/20/18 07:03 Promethazine HCl/ Codeine (Phenergan with Codeine) 5 ml Q4H PRN NG For Cough 11/20/18 07:05 12/20/18 07:04 Temazepam (Restoril) 15 mg HSPRN PRN NG Insomnia 11/20/18 07:06 11/27/18 07:05 Vancomycin HCl (Vanco rx to dose) 1 ea DAILY PRN MISC Per rx protocol 11/20/18 09:00 12/17/18 18:59 Vancomycin HCl 750 mg/Dextrose 275 ml @ 183.333 mls/hr Q12H IVPB 11/21/18 05:00 11/26/18 04:59 11/21/18 05:21 Bety William M.D. November 21, 2018 08:38
[2018-11-21] MEDS: Solu-MEDROL 40mg Inj IVP SCH (09:05)
[2018-11-21] MEDS: Nystatin Susp 500,000 units/5ml ORAL SCH ×4 (09:05→20:54)
[2018-11-21] MEDS: Amiodarone 200mg tab NG SCH (09:05)
--- NOTE | 2018-11-21 09:26 | Cardiac Electrophysiology PN ---
Assessment/Plan Assessment/Plan 1. PAF with RVR . In and out of SR Off anticoagulation for thrombocytopenia. Echo EF 60% to 65%. On amiodarone 400 daily and Cardizem 60q 6hr crushed in with apple sauce 2. Hypertension, on Cardizem. 3. COPD and pneumonia, on IV abx and Solu-Medrol. 4. Thrombocytopenia, off anticoagulation. 5. Nausea, vomiting, and abdominal pain. Follow up with Dr. Joseph. 6. Failed swallow eval. Family refused NG reinsertion. DW RN Subjective Subjective Remained in SR on Amiodarone . RN and at bedside Objective Last 24 Hour Vital Signs Date Time Temp Pulse Resp B/P (MAP) Pulse Ox O2 Delivery O2 Flow Rate FiO2 11/21/18 08:00 97.6 74 19 158/83 (108) 95 11/21/18 07:13 76 18 97 Nasal Cannula 4.0 36 11/21/18 07:05 92 Nasal Cannula 4.0 36 11/21/18 07:03 72 18 92 Nasal Cannula 4.0 36 11/21/18 05:22 80 157/86 11/21/18 04:00 97.9 80 20 164/86 (112) 95 11/21/18 04:00 80 11/21/18 00:17 73 18 96 Nasal Cannula 4.0 36 11/21/18 00:07 72 18 94 Nasal Cannula 4.0 36 11/21/18 00:00 66 11/21/18 00:00 65 154/81 11/21/18 00:00 98.0 66 20 156/80 (105) 95 11/20/18 21:00 Nasal Cannula 4.0 11/20/18 20:27 79 18 95 Nasal Cannula 4.0 36 11/20/18 20:20 78 18 94 Nasal Cannula 4.0 36 11/20/18 20:00 98.1 78 18 148/72 (97) 94 11/20/18 20:00 78 11/20/18 19:52 94 Nasal Cannula 4.0 36 11/20/18 17:50 80 158/80 11/20/18 16:00 98.0 80 18 158/80 (106) 93 11/20/18 15:32 78 11/20/18 12:49 77 18 100 Nasal Cannula 4.0 36 11/20/18 12:41 80 18 93 Nasal Cannula 4.0 36 11/20/18 12:00 Nasal Cannula 3.0 11/20/18 12:00 97.9 78 18 162/86 (111) 92 11/20/18 11:40 80 Intake and Output 11/20/18 11/21/18 19:00 07:00 Intake Total 1025 ml Output Total 1300 ml 55 ml Balance -1300 ml 970 ml IV Total 1025 ml Output Urine Total 1300 ml 55 ml # Bowel Movements 1 Laboratory Tests Test 11/21/18 02:00 11/21/18 05:00 Vancomycin Level Trough 20.7 ug/mL (5.0-12.0) H White Blood Count 11.3 K/UL (4.8-10.8) H Red Blood Count 4.34 M/UL (4.70-6.10) L Hemoglobin 13.1 G/DL (14.2-18.0) L Hematocrit 38.4 % (42.0-52.0) L Mean Corpuscular Volume 89 FL (80-99) Mean Corpuscular Hemoglobin 30.3 PG (27.0-31.0) Mean Corpuscular Hemoglobin Concent 34.2 G/DL (32.0-36.0) Red Cell Distribution Width 14.1 % (11.6-14.8) Platelet Count 198 K/UL (150-450) Mean Platelet Volume 6.9 FL (6.5-10.1) Neutrophils (%) (Auto) % (45.0-75.0) Lymphocytes (%) (Auto) % (20.0-45.0) Monocytes (%) (Auto) % (1.0-10.0) Eosinophils (%) (Auto) % (0.0-3.0) Basophils (%) (Auto) % (0.0-2.0) Neutrophils % (Manual) Pending Lymphocytes % (Manual) Pending Platelet Estimate Pending Platelet Morphology Pending Sodium Level 138 MMOL/L (136-145) Potassium Level 4.4 MMOL/L (3.5-5.1) Chloride Level 98 MMOL/L (98-107) Carbon Dioxide Level 36 MMOL/L (21-32) H Anion Gap 4 mmol/L (5-15) L Blood Urea Nitrogen 31 mg/dL (7-18) H Creatinine 1.1 MG/DL (0.55-1.30) Estimat Glomerular Filtration Rate mL/min (>60) Glucose Level 214 MG/DL (74-106) H Calcium Level 8.8 MG/DL (8.5-10.1) Objective HEAD AND NECK: No JVD. LUNGS: Decreased breath sounds. CARDIOVASCULAR: Regular S1-S2 with no gallop. ABDOMEN: Soft. EXTREMITIES: 1+ pitting edema. Jose Vee MD November 21, 2018 09:26
--- NOTE | 2018-11-21 09:30 | Pulmonology Progress Note ---
Assessment/Plan Problems: (1) COPD exacerbation (2) Respiratory failure with hypoxia (3) Pneumonia (4) Paroxysmal atrial fibrillation (5) Thrombocytopenia (6) Electrolyte imbalance (7) History of hypertension Assessment/Plan BiPAP 18/5 qHS & PRN, encourage nocturnal usage Optimize pulmonary hygiene/mobilize as tolerated Titrate down FiO2 to keep SaO2 > 90% RTC and PRN ATROVENT HHN's D/C SM, start Pred 20 and taper Abx (Vanco) per ID Monitor volumes and renal function, D/C IVF Diet per [employer] with STRICT aspiration precautions DVT Px: SCD FC D/W RN and RT Subjective Allergies: Coded Allergies: No Known Allergies (Unverified , 12/10/11) Subjective Started on PO diet AFVSS O2 needs stable Less cough less SOB no FC no CP Objective Last 24 Hour Vital Signs Date Time Temp Pulse Resp B/P (MAP) Pulse Ox O2 Delivery O2 Flow Rate FiO2 11/21/18 08:00 97.6 74 19 158/83 (108) 95 11/21/18 07:13 76 18 97 Nasal Cannula 4.0 36 11/21/18 07:05 92 Nasal Cannula 4.0 36 11/21/18 07:03 72 18 92 Nasal Cannula 4.0 36 11/21/18 05:22 80 157/86 11/21/18 04:00 97.9 80 20 164/86 (112) 95 11/21/18 04:00 80 11/21/18 00:17 73 18 96 Nasal Cannula 4.0 36 11/21/18 00:07 72 18 94 Nasal Cannula 4.0 36 11/21/18 00:00 66 11/21/18 00:00 65 154/81 11/21/18 00:00 98.0 66 20 156/80 (105) 95 11/20/18 21:00 Nasal Cannula 4.0 11/20/18 20:27 79 18 95 Nasal Cannula 4.0 36 11/20/18 20:20 78 18 94 Nasal Cannula 4.0 36 11/20/18 20:00 98.1 78 18 148/72 (97) 94 11/20/18 20:00 78 11/20/18 19:52 94 Nasal Cannula 4.0 36 11/20/18 17:50 80 158/80 11/20/18 16:00 98.0 80 18 158/80 (106) 93 5/29/19 15:32 78 11/20/18 12:49 77 18 100 Nasal Cannula 4.0 36 11/20/18 12:41 80 18 93 Nasal Cannula 4.0 36 11/20/18 12:00 Nasal Cannula 3.0 11/20/18 12:00 97.9 78 18 162/86 (111) 92 11/20/18 11:40 80 Intake and Output 11/20/18 11/21/18 19:00 07:00 Intake Total 1025 ml Output Total 1300 ml 55 ml Balance -1300 ml 970 ml IV Total 1025 ml Output Urine Total 1300 ml 55 ml # Bowel Movements 1 General Appearance: no acute distress, cachetic HEENT: normocephalic, atraumatic, anicteric, mucous membranes moist Respiratory/Chest: rhonchi Cardiovascular: normal peripheral pulses, normal rate, regular rhythm Abdomen: normal bowel sounds, soft, non tender, no organomegaly, non distended , no mass Extremities: no cyanosis, no clubbing Laboratory Tests 11/21/18 02:00: Vancomycin Level Trough 20.7H 11/21/18 05:00: White Blood Count 11.3H, Red Blood Count 4.34L, Hemoglobin 13.1L, Hematocrit 38.4L, Mean Corpuscular Volume 89, Mean Corpuscular Hemoglobin 30.3, Mean Corpuscular Hemoglobin Concent 34.2, Red Cell Distribution Width 14.1, Platelet Count 198, Mean Platelet Volume 6.9, Neutrophils (%) (Auto) , Lymphocytes (%) ( Auto) , Monocytes (%) (Auto) , Eosinophils (%) (Auto) , Basophils (%) (Auto) , Neutrophils % (Manual) [Pending], Lymphocytes % (Manual) [Pending], Platelet Estimate [Pending], Platelet Morphology [Pending], Sodium Level 138, Potassium Level 4.4, Chloride Level 98, Carbon Dioxide Level 36H, Anion Gap 4L, Blood Urea Nitrogen 31H, Creatinine 1.1, Estimat Glomerular Filtration Rate , Glucose Level 214H, Calcium Level 8.8 Current Medications Medications (Trade) Dose Ordered Sig/Keith Route PRN Reason Start Time Stop Time Status Last Admin Dose Admin Acetaminophen (Tylenol) 650 mg Q4H PRN NG Mild Pain/Temp > 100.5 11/20/18 07:05 12/20/18 07:04 Amiodarone HCl (Cordarone) 400 mg DAILY NG 11/20/18 09:00 12/16/18 20:59 11/21/18 09:05 Dextrose/Sodium Chloride 1,000 ml @ 75 mls/hr [id number] IV 11/20/18 07:03 12/20/18 07:02 11/20/18 20:20 Diltiazem HCl (Cardizem) 60 mg EVERY 6 HOURS ORAL 11/21/18 00:00 12/16/18 17:59 11/21/18 05:22 Haloperidol Lactate (Haldol) 5 mg Q6H PRN IM Agitation 11/20/18 07:04 12/20/18 07:03 Ipratropium Arg[place] (Atrovent) 500 mcg Q4H PRN HHN Shortness of Breath 11/20/18 07:04 11/25/18 07:03 Ipratropium [place] (Atrovent) 500 mcg Q6HRT HHN 11/20/18 07:00 11/24/18 18:59 11/21/18 07:02 Methylprednisolone Sodium Succinate (Solu-MEDROL) 20 mg EVERY 12 HOURS IVP 11/20/18 21:00 12/14/18 08:59 11/21/18 09:05 Nystatin (Nystatin) 5 ml QID ORAL 11/20/18 18:00 11/27/18 17:59 11/21/18 09:05 Ondansetron HCl (Zofran) 4 mg Q6H PRN IVP Nausea & Vomiting 11/20/18 07:04 12/20/18 07:03 Promethazine HCl/ Codeine (Phenergan with Codeine) 5 ml Q4H PRN NG For Cough 11/20/18 07:05 12/20/18 07:04 Temazepam (Restoril) 15 mg HSPRN PRN NG Insomnia 11/20/18 07:06 11/27/18 07:05 Vancomycin HCl (Vanco rx to dose) 1 ea DAILY PRN MISC Per rx protocol 11/20/18 09:00 12/17/18 18:59 Vancomycin HCl 750 mg/Dextrose 275 ml @ 183.333 mls/hr Q12H IVPB 11/21/18 05:00 11/26/18 04:59 11/21/18 05:21 Ashish Solis MD November 21, 2018 09:29
--- NOTE | 2018-11-21 10:16 | GI Progress Note ---
Assessment/Plan Problems: (1) Thrombocytopenia ICD Codes: D69.6 - Thrombocytopenia, unspecified SNOMED: 597193146 (2) Nausea & vomiting ICD Codes: R11.2 - Nausea with vomiting, unspecified SNOMED: 52399362 (3) Dehydration ICD Codes: E86.0 - Dehydration SNOMED: 34971758 (4) Diarrhea ICD Codes: R19.7 - Diarrhea, unspecified SNOMED: 87095181 (5) Electrolyte imbalance ICD Codes: E87.8 - Other disorders of electrolyte and fluid balance, not elsewhere classified SNOMED: 581313018 Status: stable Status Narrative Discussed with Dr. Joseph Assessment/Plan OB stool positive BIPAP Stool culture negative ST evaluation reviewed, patient high risk for aspiration NGT and PEG refused by family, patient able to tolerate p.o. trial Advance diet with strict aspiration precautions and 1:1 feeder. Imodium as needed Zofran as needed, Reglan for persistent vomiting IV hydration plus electrolyte correction monitor H&H, prn transfusions bowel regime ppi abx per ID fu labs PT evaluation dc planning The patient was seen and examined at bedside and all new and available data was reviewed in the patients chart. I agree with the above findings, impression and plan. (Patient seen earlier today. Signature stamp does not reflect patient encounter time.). - Nito Joseph MD Subjective Gastrointestinal/Abdominal: Reports: no symptoms Objective Last 24 Hour Vital Signs Date Time Temp Pulse Resp B/P (MAP) Pulse Ox O2 Delivery O2 Flow Rate FiO2 11/21/18 08:00 97.6 74 19 158/83 (108) 95 11/21/18 07:13 76 18 97 Nasal Cannula 4.0 36 11/21/18 07:05 92 Nasal Cannula 4.0 36 11/21/18 07:03 72 18 92 Nasal Cannula 4.0 36 11/21/18 05:22 80 157/86 11/21/18 04:00 97.9 80 20 164/86 (112) 95 11/21/18 04:00 80 11/21/18 00:17 73 18 96 Nasal Cannula 4.0 36 11/21/18 00:07 72 18 94 Nasal Cannula 4.0 36 11/21/18 00:00 66 11/21/18 00:00 65 154/81 11/21/18 00:00 98.0 66 20 156/80 (105) 95 11/20/18 21:00 Nasal Cannula 4.0 11/20/18 20:27 79 18 95 Nasal Cannula 4.0 36 11/20/18 20:20 78 18 94 Nasal Cannula 4.0 36 11/20/18 20:00 98.1 78 18 148/72 (97) 94 11/20/18 20:00 78 11/20/18 19:52 94 Nasal Cannula 4.0 36 11/20/18 17:50 80 158/80 11/20/18 16:00 98.0 80 18 158/80 (106) 93 11/20/18 15:32 78 11/20/18 12:49 77 18 100 Nasal Cannula 4.0 36 11/20/18 12:41 80 18 93 Nasal Cannula 4.0 36 11/20/18 12:00 Nasal Cannula 3.0 11/20/18 12:00 97.9 78 18 162/86 (111) 92 11/20/18 11:40 80 Intake and Output 11/20/18 11/21/18 19:00 07:00 Intake Total 1025 ml Output Total 1300 ml 55 ml Balance -1300 ml 970 ml IV Total 1025 ml Output Urine Total 1300 ml 55 ml # Bowel Movements 1 Laboratory Tests Test 11/21/18 02:00 11/21/18 05:00 Vancomycin Level Trough 20.7 ug/mL (5.0-12.0) H White Blood Count 11.3 K/UL (4.8-10.8) H Red Blood Count 4.34 M/UL (4.70-6.10) L Hemoglobin 13.1 G/DL (14.2-18.0) L Hematocrit 38.4 % (42.0-52.0) L Mean Corpuscular Volume 89 FL (80-99) Mean Corpuscular Hemoglobin 30.3 PG (27.0-31.0) Mean Corpuscular Hemoglobin Concent 34.2 G/DL (32.0-36.0) Red Cell Distribution Width 14.1 % (11.6-14.8) Platelet Count 198 K/UL (150-450) Mean Platelet Volume 6.9 FL (6.5-10.1) Neutrophils (%) (Auto) % (45.0-75.0) Lymphocytes (%) (Auto) % (20.0-45.0) Monocytes (%) (Auto) % (1.0-10.0) Eosinophils (%) (Auto) % (0.0-3.0) Basophils (%) (Auto) % (0.0-2.0) Neutrophils % (Manual) Pending Lymphocytes % (Manual) Pending Platelet Estimate Pending Platelet Morphology Pending Sodium Level 138 MMOL/L (136-145) Potassium Level 4.4 MMOL/L (3.5-5.1) Chloride Level 98 MMOL/L (98-107) Carbon Dioxide Level 36 MMOL/L (21-32) H Anion Gap 4 mmol/L (5-15) L Blood Urea Nitrogen 31 mg/dL (7-18) H Creatinine 1.1 MG/DL (0.55-1.30) Estimat Glomerular Filtration Rate mL/min (>60) Glucose Level 214 MG/DL (74-106) H Calcium Level 8.8 MG/DL (8.5-10.1) Height (Feet): 5 Height (Inches): 10.00 Weight (Pounds): 174 General Appearance: WD/WN, no apparent distress, alert Cardiovascular: normal rate Respiratory/Chest: normal breath sounds, no respiratory distress Abdominal Exam: normal bowel sounds, non tender, soft Extremities: normal range of motion, non-tender Edy Rice NP November 21, 2018 10:16
--- NOTE | 2018-11-21 11:00 | Progress Note ---
DATE: 11/21/2018 SUBJECTIVE: The patient is more alert; however, still has difficulty processing information. He is disoriented. was at bedside. The patient has failed swallow evaluation. was refusing NG placement. The speech therapist explained in detail to son in regards to NG placement. The son agreed; however, the who also has difficulty processing information is refusing. The patient lacks capacity. The patient is unable to understand, process, communicate, or the information given to him in regards to NG placement and his medical conditions. MENTAL STATUS EXAMINATION: The patient is alert and oriented to time, self, place, and has poor insight into the situation he is in. Mood is neutral to anxious. Affect is flat. Thought process, there is a paucity of thought content. Thought content, no suicidal or homicidal ideations. Memory is impaired. ASSESSMENT: Acute encephalopathy. PLAN: 1. The patient lacks capacity to make decision. The son should be the decision maker. 2. We will continue current medications. Trace Rodarte M.D. DR: CARTER JOB#: [id number] CC:
[2018-11-21 12:00] VITALS: BP 153/72
--- NOTE | 2018-11-21 14:36 | NUR ---
ST NOTE: SWALLOW STATUS: FOLLOWED UP PT'S CONDITIONS. CHART REVIEWED. DISCUSSED WITH RN RE:PT'S SWALLOWING CONDITION AND RECOMMENDATIONS. PER RN, FED PT THIS MORNING AND PT TOLERATED CURRENT DIET WITHOUT S/S OF ASPIRATION. D/W NCailinP.ALIA. WILL FOLLOW UP
[2018-11-21 16:00] VITALS: BP 153/83
--- NOTE | 2018-11-21 17:19 | Internal Med Progress Note ---
Subjective Date of Service: November 21, 2018 Physician Name Louis Galarza Attending Physician Star Malave MD Current Medications Medications (Trade) Dose Ordered Sig/Keith Route PRN Reason Start Time Stop Time Status Last Admin Dose Admin Acetaminophen (Tylenol) 650 mg Q4H PRN NG Mild Pain/Temp > 100.5 11/20/18 07:05 12/20/18 07:04 Amiodarone HCl (Cordarone) 400 mg DAILY NG 11/20/18 09:00 12/16/18 20:59 11/21/18 09:05 Diltiazem HCl (Cardizem) 60 mg EVERY 6 HOURS ORAL 11/21/18 00:00 12/16/18 17:59 11/21/18 13:00 Haloperidol Lactate (Haldol) 5 mg Q6H PRN IM Agitation 11/20/18 07:04 12/20/18 07:03 Ipratropium [place] (Atrovent) 500 mcg Q4H PRN HHN Shortness of Breath 11/20/18 07:04 11/25/18 07:03 Ipratropium [place] (Atrovent) 500 mcg Q6HRT HHN 11/20/18 07:00 11/24/18 18:59 11/21/18 13:27 Nystatin (Nystatin) 5 ml QID ORAL 11/20/18 18:00 11/27/18 17:59 11/21/18 12:58 Ondansetron HCl (Zofran) 4 mg Q6H PRN IVP Nausea & Vomiting 11/20/18 07:04 12/20/18 07:03 Prednisone (predniSONE) 20 mg DAILY ORAL 11/22/18 09:00 12/22/18 08:59 Promethazine HCl/ Codeine (Phenergan with Codeine) 5 ml Q4H PRN NG For Cough 11/20/18 07:05 12/20/18 07:04 Temazepam (Restoril) 15 mg HSPRN PRN NG Insomnia 11/20/18 07:06 11/27/18 07:05 Vancomycin HCl (Vanco rx to dose) 1 ea DAILY PRN MISC Per rx protocol 11/20/18 09:00 12/17/18 18:59 Vancomycin HCl 750 mg/Dextrose 275 ml @ 183.333 mls/hr Q12H IVPB 11/21/18 05:00 11/26/18 04:59 11/21/18 05:21 Allergies: Coded Allergies: No Known Allergies (Unverified , 12/10/11) ROS Limited/Unobtainable: No Constitutional: Reports: no symptoms HEENT: Reports: no symptoms Cardiovascular: Reports: no symptoms Respiratory: Reports: no symptoms Gastrointestinal/Abdominal: Reports: no symptoms Genitourinary: Reports: no symptoms Neurologic/Psychiatric: Reports: no symptoms Subjective 87 YO M admitted with respiratory failure and pneumonia. Cover for Int Med-Dr Malave. Objective Last Vital Signs Date Time Temp Pulse Resp B/P (MAP) Pulse Ox O2 Delivery O2 Flow Rate FiO2 11/21/18 13:37 80 18 97 Nasal Cannula 4.0 36 11/21/18 13:00 153/72 11/21/18 12:00 97.5 Laboratory Tests Test 11/21/18 02:00 11/21/18 05:00 Vancomycin Level Trough 20.7 ug/mL (5.0-12.0) H White Blood Count 11.3 K/UL (4.8-10.8) H Red Blood Count 4.34 M/UL (4.70-6.10) L Hemoglobin 13.1 G/DL (14.2-18.0) L Hematocrit 38.4 % (42.0-52.0) L Mean Corpuscular Volume 89 FL (80-99) Mean Corpuscular Hemoglobin 30.3 PG (27.0-31.0) Mean Corpuscular Hemoglobin Concent 34.2 G/DL (32.0-36.0) Red Cell Distribution Width 14.1 % (11.6-14.8) Platelet Count 198 K/UL (150-450) Mean Platelet Volume 6.9 FL (6.5-10.1) Neutrophils (%) (Auto) % (45.0-75.0) Lymphocytes (%) (Auto) % (20.0-45.0) Monocytes (%) (Auto) % (1.0-10.0) Eosinophils (%) (Auto) % (0.0-3.0) Basophils (%) (Auto) % (0.0-2.0) Differential Total Cells Counted 100 Neutrophils % (Manual) 95 % (45-75) H Lymphocytes % (Manual) 2 % (20-45) L Monocytes % (Manual) 3 % (1-10) Eosinophils % (Manual) 0 % (0-3) Basophils % (Manual) 0 % (0-2) Band Neutrophils 0 % (0-8) Platelet Estimate Adequate Platelet Morphology Normal Red Blood Cell Morphology Normal Sodium Level 138 MMOL/L (136-145) Potassium Level 4.4 MMOL/L (3.5-5.1) Chloride Level 98 MMOL/L (98-107) Carbon Dioxide Level 36 MMOL/L (21-32) H Anion Gap 4 mmol/L (5-15) L Blood Urea Nitrogen 31 mg/dL (7-18) H Creatinine 1.1 MG/DL (0.55-1.30) Estimat Glomerular Filtration Rate mL/min (>60) Glucose Level 214 MG/DL (74-106) H Calcium Level 8.8 MG/DL (8.5-10.1) Intake and Output 11/20/18 11/21/18 19:00 07:00 Intake Total 1025 ml Output Total 1300 ml 55 ml Balance -1300 ml 970 ml IV Total 1025 ml Output Urine Total 1300 ml 55 ml # Bowel Movements 1 Objective PHYSICAL EXAMINATION: GENERAL: The patient is well-developed and well-nourished white male, in respiratory distress. HEENT: Eyes, pupils are equal and responsive to light and accommodation. Extraocular movements are intact. NECK: Supple without lymphadenopathy. CHEST: nasal canula; Decreased breath sounds in bilateral bases with crackles on the left. Otherwise, without wheezes. ABDOMEN: Soft, nontender, and nondistended. Positive bowel sounds. No evidence of hepatosplenomegaly. Currently, no rebound or guarding noted. EXTREMITIES: Negative for clubbing, cyanosis, or edema. RECTAL/GENITAL: Refused. NEUROLOGIC: Cranial nerves II through XII are grossly intact without focal deficits. Motor strength is 5/5 bilaterally. Deep tendon reflexes are 2+ plantar. Assessment/Plan Assessment/Plan ASSESSMENT: This is an 87-year-old white male. 1. Pneumonia=MRSA 2. Respiratory failure. 3. Diarrhea. 4. Nausea with vomiting. 5. Fever. 6. Hypertension. 7. Hypercholesterolemia. 8. Attrial fibrillation witbh rapid ventricular rate TREATMENT: 1. Pneumonia/respiratory failure. A Pulmonary consultation has been obtained with Dr. Joan Nugent. The patient is currently off BiPAP in the intensive care unit. We will follow recommendations of Pulmonary. Abx=intravenous vancomycin D#10/10 per ID 2. Diarrhea/nausea/vomiting. A Gastroenterology consultation has been obtained with Dr. Nito Joseph. 3. Fever. This probably is secondary to pneumonia as above. 4. Hypertension. The patient is currently hypotensive. 5. Hypercholesterolemia. Continue Crestor as above. 6. Continue amiodarone and cardizem 7. Puree diet with honey thick liquid 8. Discharge planning Louis Galarza MD November 21, 2018 17:19
[2018-11-21 20:00] VITALS: BP 138/75
--- NOTE | 2018-11-21 20:00 | NUR ---
NURSE NOTES: Received pt and report from ANN Perez. Observed pt resting in bed with both eyes open and family members at bedside. library monitor is in placed, IV site intact, asymptomatic, and patent. Bed is in the lowest position and locked. Call light within reach. No signs/symptoms of acute distress noted at this time. Will continue plan of care.
--- NOTE | 2018-11-21 20:19 | NUR ---
HAND-OFF: Report given to Erin, Endorsed plan of care. Addendum: 11/21/18 at 2019 by Anastacia Morgan RN Radha
--- NOTE | 2018-11-21 20:30 | Progress Note ---
DATE: 11/21/2018 SUBJECTIVE: The patient is calm, has episodes of anxiety. The patient is unable to understand, process, communicate, or appreciate the informations given to him in regards to his medical condition. The patient is more alert and more logical. MENTAL STATUS EXAMINATION: Alert and oriented to time, self and place. Poor insight into the situation he is in. Mood is neutral to anxious. Affect is constricted. Congruent with mood. Thought process is concrete. Thought content, no suicidal or homicidal ideations. Memory is impaired. ASSESSMENT: 1. Dementia. 2. Encephalopathy, improving. PLAN: We will continue the low-dose of antipsychotics as needed. The patient lacks capacity to make decisions. Trace Rodarte M.D. DR: JF JOB#: [id number] CC:
[2018-11-22] VITALS: BP 132/95
[2018-11-22] MEDS: dilTIAZem HCl 60mg tab ORAL SCH ×4 (00:50→17:37)
[2018-11-22] MEDS: Ipratropium 0.02% Inh Soln 2.5ml UD HHN SCH ×4 (01:38→19:57)
[2018-11-22 04:00] VITALS: BP 132/85
[2018-11-22] MEDS: Vancomycin 750mg/D5W 275ml IVPB SCH ×4 (04:24→17:38)
[2018-11-22 06:16] LABS: HEMATOCRIT 39.9 % (42.0-52.0); HEMOGLOBIN 13.4 G/DL (14.2-18.0); MEAN CORPUSCULAR VOLUME 89 FL (80-99); PLATELET COUNT 195 K/UL (150-450); RED BLOOD COUNT 4.47 M/UL (4.70-6.10); RED CELL DISTRIBUTION WIDTH 14.7 % (11.6-14.8)
[2018-11-22 06:57] LABS: ANION GAP 2 mmol/L (5-15); BLOOD UREA NITROGEN 30 mg/dL (7-18); CALCIUM 8.9 MG/DL (8.5-10.1); CARBON DIOXIDE 39 MMOL/L (21-32); CHLORIDE 100 MMOL/L (98-107); POTASSIUM 3.7 MMOL/L (3.5-5.1); SODIUM 140 MMOL/L (136-145)
--- NOTE | 2018-11-22 07:24 | NUR ---
HAND-OFF: Report given to ANN Fregoso.
[2018-11-22 08:00] VITALS: BP 149/92
--- NOTE | 2018-11-22 08:05 | NUR ---
P.T NOTE: P.T EVALUATION COMPLETED AND TX INITIATED. PLEASE REFER TO P.T EVALUATION FOR CURRENT FUNCTIONAL STATUS. PATIENT IS ALERT ORIENTED TO SELF, PERIODICALLY CONFUSED HOWEVER PLEASANT AND FOLLOWS COMMANDS IN [place] AND [place]. NO C/O PAIN NOR DISCOMFORT HOWEVER PRESENTED GENERALIZED WEAKNESS AND DECONDITIONED STATE AFFECTING FUNCTIONAL MOBILITY INDEPENDENCE AND SAFETY. PATIENT CURRENTLY REQUIRED MOD A X1 FOR BED MOBILITIES, MOD/MAX A X 1 FOR TRANSFERS , WAS ABLE TO STAND NOT MORE THAN 10 SECS WITH BUCKLING EPISODE. PATIENT IS TOO WEAK AND DECONDITIONED TO AMBULATE AT THIS TIME. RECOMMEND SNF FOR FURTHER REHAB VS HOME P.T. AT [place]. THANK YOU FOR THIS REFERRAL.
[2018-11-22] MEDS: Nystatin Susp 500,000 units/5ml ORAL SCH ×3 (08:57→17:37)
[2018-11-22] MEDS: Amiodarone 200mg tab NG SCH (08:58)
--- NOTE | 2018-11-22 09:52 | GI Progress Note ---
Assessment/Plan Problems: (1) Thrombocytopenia ICD Codes: D69.6 - Thrombocytopenia, unspecified SNOMED: 044126363 (2) Nausea & vomiting ICD Codes: R11.2 - Nausea with vomiting, unspecified SNOMED: 67476112 (3) Dehydration ICD Codes: E86.0 - Dehydration SNOMED: 66292705 (4) Diarrhea ICD Codes: R19.7 - Diarrhea, unspecified SNOMED: 30556628 (5) Electrolyte imbalance ICD Codes: E87.8 - Other disorders of electrolyte and fluid balance, not elsewhere classified SNOMED: 721790198 Status: stable Status Narrative Discussed with Dr. Joseph. Assessment/Plan OB stool positive BIPAP Stool culture negative ST evaluation reviewed, patient high risk for aspiration PT evaluation, recommend for SNF placement NGT and PEG refused by family, patient able to tolerate p.o. trial Advance diet with strict aspiration precautions and 1:1 feeder. Imodium as needed Zofran as needed, Reglan for persistent vomiting IV hydration plus electrolyte correction monitor H&H, prn transfusions bowel regime ppi abx per ID fu labs dc planning The patient was seen and examined at bedside and all new and available data was reviewed in the patients chart. I agree with the above findings, impression and plan. (Patient seen earlier today. Signature stamp does not reflect patient encounter time.). - Nito Joseph MD Subjective Gastrointestinal/Abdominal: Reports: no symptoms Objective Last 24 Hour Vital Signs Date Time Temp Pulse Resp B/P (MAP) Pulse Ox O2 Delivery O2 Flow Rate FiO2 11/22/18 07:35 98 Nasal Cannula 3.0 32 11/22/18 07:35 71 18 98 Nasal Cannula 3.0 32 11/22/18 07:35 71 18 98 Nasal Cannula 3.0 32 11/22/18 05:37 72 140/74 11/22/18 04:00 98.4 80 19 132/85 (101) 93 11/22/18 04:00 75 11/22/18 01:47 74 18 98 Nasal Cannula 3.0 32 11/22/18 01:37 83 18 93 Nasal Cannula 3.0 32 11/22/18 01:37 83 18 93 Nasal Cannula 3.0 32 11/22/18 00:50 83 132/95 11/22/18 00:00 66 11/22/18 00:00 97.4 83 20 132/95 (107) 96 11/21/18 21:00 Nasal Cannula 4.0 11/21/18 20:30 71 18 97 Nasal Cannula 4.0 36 11/21/18 20:20 Nasal Cannula 3.0 32 11/21/18 20:20 78 18 94 Nasal Cannula 3.0 32 11/21/18 20:00 98.8 71 18 138/75 (96) 93 11/21/18 20:00 73 11/21/18 19:05 78 153/83 11/21/18 16:00 78 11/21/18 16:00 98.0 80 20 153/83 (106) 92 11/21/18 13:37 80 18 97 Nasal Cannula 4.0 36 11/21/18 13:27 80 18 94 Nasal Cannula 4.0 36 11/21/18 13:00 79 153/72 11/21/18 12:00 82 11/21/18 12:00 97.5 79 17 153/72 (99) 90 Intake and Output 11/21/18 11/22/18 19:00 07:00 Output Total 300 ml 1500 ml Balance -300 ml -1500 ml Output Urine Total 300 ml 1500 ml # Bowel Movements 1 Laboratory Tests Test 11/22/18 04:55 White Blood Count 15.0 K/UL (4.8-10.8) H Red Blood Count 4.47 M/UL (4.70-6.10) L Hemoglobin 13.4 G/DL (14.2-18.0) L Hematocrit 39.9 % (42.0-52.0) L Mean Corpuscular Volume 89 FL (80-99) Mean Corpuscular Hemoglobin 30.0 PG (27.0-31.0) Mean Corpuscular Hemoglobin Concent 33.6 G/DL (32.0-36.0) Red Cell Distribution Width 14.7 % (11.6-14.8) Platelet Count 195 K/UL (150-450) Mean Platelet Volume 7.0 FL (6.5-10.1) Neutrophils (%) (Auto) % (45.0-75.0) Lymphocytes (%) (Auto) % (20.0-45.0) Monocytes (%) (Auto) % (1.0-10.0) Eosinophils (%) (Auto) % (0.0-3.0) Basophils (%) (Auto) % (0.0-2.0) Neutrophils % (Manual) Pending Lymphocytes % (Manual) Pending Platelet Estimate Pending Platelet Morphology Pending Sodium Level 140 MMOL/L (136-145) Potassium Level 3.7 MMOL/L (3.5-5.1) Chloride Level 100 MMOL/L (98-107) Carbon Dioxide Level 39 MMOL/L (21-32) H Anion Gap 2 mmol/L (5-15) L Blood Urea Nitrogen 30 mg/dL (7-18) H Creatinine 1.0 MG/DL (0.55-1.30) Estimat Glomerular Filtration Rate mL/min (>60) Glucose Level 154 MG/DL (74-106) H Calcium Level 8.9 MG/DL (8.5-10.1) Height (Feet): 5 Height (Inches): 10.00 Weight (Pounds): 168 General Appearance: WD/WN, no apparent distress, alert Cardiovascular: normal rate Respiratory/Chest: normal breath sounds, no respiratory distress Abdominal Exam: normal bowel sounds, non tender, soft Extremities: non-tender Edy Rice NP November 22, 2018 09:51
--- NOTE | 2018-11-22 10:02 | Infectious Diseases Prog Note ---
Assessment/Plan Assessment/Plan Assessment: Sepsis 2ry to MRSA PNA -11/13 CXR: Suspected CHF/interstitial edema. Right pleural effusion not excluded -u/a neg -Bcx Neg -CXR: Pulmonary vascular congestion suspected. Airspace disease in the right mid and upper lung field. Could be superimposed pneumonia or related to the vascular congestion. Correlate clinically -influenza sc and legionella neg -sp cx MRSA, jodie albicans Fever, Sp Leukocytosis, recurrent mild (Sp high dose steroids) Diarrhea- SP -stool cx normal enteric montez Lactic acidosis; SP VARSHA HTN COPD Plan: -Continue IV Vancomycin #/-14 for MRSA PNA, upon DC will stop AB Rx - 11/16 sp Azithromycin # 5 for atypical coverage -11/14 SP Cefepime #4 -f/u cx -Monitor CBC/CMP, temperatures, -aspiration precautions Subjective Allergies: Coded Allergies: No Known Allergies (Unverified , 12/10/11) Subjective pt has cough + no new complain Objective Vital Signs Last 24 Hour Vital Signs Date Time Temp Pulse Resp B/P (MAP) Pulse Ox O2 Delivery O2 Flow Rate FiO2 11/22/18 07:35 98 Nasal Cannula 3.0 32 11/22/18 07:35 71 18 98 Nasal Cannula 3.0 32 11/22/18 07:35 71 18 98 Nasal Cannula 3.0 32 11/22/18 05:37 72 140/74 11/22/18 04:00 98.4 80 19 132/85 (101) 93 11/22/18 04:00 75 11/22/18 01:47 74 18 98 Nasal Cannula 3.0 32 11/22/18 01:37 83 18 93 Nasal Cannula 3.0 32 11/22/18 01:37 83 18 93 Nasal Cannula 3.0 32 11/22/18 00:50 83 132/95 11/22/18 00:00 66 11/22/18 00:00 97.4 83 20 132/95 (107) 96 11/21/18 21:00 Nasal Cannula 4.0 11/21/18 20:30 71 18 97 Nasal Cannula 4.0 36 11/21/18 20:20 Nasal Cannula 3.0 32 11/21/18 20:20 78 18 94 Nasal Cannula 3.0 32 11/21/18 20:00 98.8 71 18 138/75 (96) 93 11/21/18 20:00 73 11/21/18 19:05 78 153/83 11/21/18 16:00 78 11/21/18 16:00 98.0 80 20 153/83 (106) 92 11/21/18 13:37 80 18 97 Nasal Cannula 4.0 36 11/21/18 13:27 80 18 94 Nasal Cannula 4.0 36 11/21/18 13:00 79 153/72 11/21/18 12:00 82 11/21/18 12:00 97.5 79 17 153/72 (99) 90 Height (Feet): 5 Height (Inches): 10.00 Weight (Pounds): 168 HEENT: anicteric Respiratory/Chest: normal breath sounds Cardiovascular: normal rate Abdomen: soft, non tender Laboratory Tests Test 11/22/18 04:55 White Blood Count 15.0 K/UL (4.8-10.8) H Red Blood Count 4.47 M/UL (4.70-6.10) L Hemoglobin 13.4 G/DL (14.2-18.0) L Hematocrit 39.9 % (42.0-52.0) L Mean Corpuscular Volume 89 FL (80-99) Mean Corpuscular Hemoglobin 30.0 PG (27.0-31.0) Mean Corpuscular Hemoglobin Concent 33.6 G/DL (32.0-36.0) Red Cell Distribution Width 14.7 % (11.6-14.8) Platelet Count 195 K/UL (150-450) Mean Platelet Volume 7.0 FL (6.5-10.1) Neutrophils (%) (Auto) % (45.0-75.0) Lymphocytes (%) (Auto) % (20.0-45.0) Monocytes (%) (Auto) % (1.0-10.0) Eosinophils (%) (Auto) % (0.0-3.0) Basophils (%) (Auto) % (0.0-2.0) Neutrophils % (Manual) Pending Lymphocytes % (Manual) Pending Platelet Estimate Pending Platelet Morphology Pending Sodium Level 140 MMOL/L (136-145) Potassium Level 3.7 MMOL/L (3.5-5.1) Chloride Level 100 MMOL/L (98-107) Carbon Dioxide Level 39 MMOL/L (21-32) H Anion Gap 2 mmol/L (5-15) L Blood Urea Nitrogen 30 mg/dL (7-18) H Creatinine 1.0 MG/DL (0.55-1.30) Estimat Glomerular Filtration Rate mL/min (>60) Glucose Level 154 MG/DL (74-106) H Calcium Level 8.9 MG/DL (8.5-10.1) Current Medications Medications (Trade) Dose Ordered Sig/Keith Route PRN Reason Start Time Stop Time Status Last Admin Dose Admin Acetaminophen (Tylenol) 650 mg Q4H PRN NG Mild Pain/Temp > 100.5 11/20/18 07:05 12/20/18 07:04 Amiodarone HCl (Cordarone) 400 mg DAILY NG 11/20/18 09:00 12/16/18 20:59 11/22/18 08:58 Diltiazem HCl (Cardizem) 60 mg EVERY 6 HOURS ORAL 11/21/18 00:00 12/16/18 17:59 11/22/18 05:37 Haloperidol Lactate (Haldol) 5 mg Q6H PRN IM Agitation 11/20/18 07:04 12/20/18 07:03 11/22/18 08:59 Ipratropium [place] (Atrovent) 500 mcg Q4H PRN HHN Shortness of Breath 11/20/18 07:04 11/25/18 07:03 Ipratropium [place] (Atrovent) 500 mcg Q6HRT HHN 11/20/18 07:00 11/24/18 18:59 11/22/18 01:38 Nystatin (Nystatin) 5 ml QID ORAL 11/20/18 18:00 11/27/18 17:59 11/22/18 08:57 Ondansetron HCl (Zofran) 4 mg Q6H PRN IVP Nausea & Vomiting 11/20/18 07:04 12/20/18 07:03 Prednisone (predniSONE) 20 mg DAILY ORAL 11/22/18 09:00 12/22/18 08:59 11/22/18 08:58 Promethazine HCl/ Codeine (Phenergan with Codeine) 5 ml Q4H PRN NG For Cough 11/20/18 07:05 12/20/18 07:04 Temazepam (Restoril) 15 mg HSPRN PRN NG Insomnia 11/20/18 07:06 11/27/18 07:05 11/21/18 21:57 Vancomycin HCl (Vanco rx to dose) 1 ea DAILY PRN MISC Per rx protocol 11/20/18 09:00 12/17/18 18:59 Vancomycin HCl 750 mg/Dextrose 275 ml @ 183.333 mls/hr Q12H IVPB 11/21/18 05:00 11/26/18 04:59 11/22/18 04:24 Daren Cordero MD November 22, 2018 10:02
--- NOTE | 2018-11-22 10:30 | NUR ---
NURSE NOTES: removed folly cath as ordered. will continue to monitor per protocol
--- NOTE | 2018-11-22 10:36 | Cardiac Electrophysiology PN ---
Assessment/Plan Assessment/Plan 1. PAF with RVR . In and out of SR Off anticoagulation for thrombocytopenia. Echo EF 60% to 65%. On amiodarone 400 daily and Cardizem 60q 6hr crushed in with apple sauce 2. Hypertension, on Cardizem. 3. COPD and pneumonia, on IV abx and Solu-Medrol. 4. Thrombocytopenia, off anticoagulation. 5. Nausea, vomiting, and abdominal pain. Follow up with Dr. Joseph. 6. Failed swallow eval. Family refused NG reinsertion. 7. S/P Chavez that was removed today DW RN Subjective Subjective Remained in SR on Amiodarone. RN and at bedside. Chavez was removed. at bedside. Objective Last 24 Hour Vital Signs Date Time Temp Pulse Resp B/P (MAP) Pulse Ox O2 Delivery O2 Flow Rate FiO2 11/22/18 07:35 98 Nasal Cannula 3.0 32 11/22/18 07:35 71 18 98 Nasal Cannula 3.0 32 11/22/18 07:35 71 18 98 Nasal Cannula 3.0 32 11/22/18 05:37 72 140/74 11/22/18 04:00 98.4 80 19 132/85 (101) 93 11/22/18 04:00 75 11/22/18 01:47 74 18 98 Nasal Cannula 3.0 32 11/22/18 01:37 83 18 93 Nasal Cannula 3.0 32 11/22/18 01:37 83 18 93 Nasal Cannula 3.0 32 11/22/18 00:50 83 132/95 11/22/18 00:00 66 11/22/18 00:00 97.4 83 20 132/95 (107) 96 11/21/18 21:00 Nasal Cannula 4.0 11/21/18 20:30 71 18 97 Nasal Cannula 4.0 36 11/21/18 20:20 Nasal Cannula 3.0 32 11/21/18 20:20 78 18 94 Nasal Cannula 3.0 32 11/21/18 20:00 98.8 71 18 138/75 (96) 93 11/21/18 20:00 73 11/21/18 19:05 78 153/83 11/21/18 16:00 78 11/21/18 16:00 98.0 80 20 153/83 (106) 92 11/21/18 13:37 80 18 97 Nasal Cannula 4.0 36 11/21/18 13:27 80 18 94 Nasal Cannula 4.0 36 11/21/18 13:00 79 153/72 11/21/18 12:00 82 11/21/18 12:00 97.5 79 17 153/72 (99) 90 Intake and Output 11/21/18 11/22/18 19:00 07:00 Intake Total 120 ml Output Total 300 ml 1500 ml Balance -300 ml -1380 ml Intake Oral 120 ml Output Urine Total 300 ml 1500 ml # Bowel Movements 1 Laboratory Tests Test 11/22/18 04:55 White Blood Count 15.0 K/UL (4.8-10.8) H Red Blood Count 4.47 M/UL (4.70-6.10) L Hemoglobin 13.4 G/DL (14.2-18.0) L Hematocrit 39.9 % (42.0-52.0) L Mean Corpuscular Volume 89 FL (80-99) Mean Corpuscular Hemoglobin 30.0 PG (27.0-31.0) Mean Corpuscular Hemoglobin Concent 33.6 G/DL (32.0-36.0) Red Cell Distribution Width 14.7 % (11.6-14.8) Platelet Count 195 K/UL (150-450) Mean Platelet Volume 7.0 FL (6.5-10.1) Neutrophils (%) (Auto) % (45.0-75.0) Lymphocytes (%) (Auto) % (20.0-45.0) Monocytes (%) (Auto) % (1.0-10.0) Eosinophils (%) (Auto) % (0.0-3.0) Basophils (%) (Auto) % (0.0-2.0) Differential Total Cells Counted 100 Neutrophils % (Manual) 94 % (45-75) H Lymphocytes % (Manual) 4 % (20-45) L Monocytes % (Manual) 2 % (1-10) Eosinophils % (Manual) 0 % (0-3) Basophils % (Manual) 0 % (0-2) Band Neutrophils 0 % (0-8) Platelet Estimate Adequate Platelet Morphology Normal Red Blood Cell Morphology Normal Sodium Level 140 MMOL/L (136-145) Potassium Level 3.7 MMOL/L (3.5-5.1) Chloride Level 100 MMOL/L (98-107) Carbon Dioxide Level 39 MMOL/L (21-32) H Anion Gap 2 mmol/L (5-15) L Blood Urea Nitrogen 30 mg/dL (7-18) H Creatinine 1.0 MG/DL (0.55-1.30) Estimat Glomerular Filtration Rate mL/min (>60) Glucose Level 154 MG/DL (74-106) H Calcium Level 8.9 MG/DL (8.5-10.1) Objective HEAD AND NECK: No JVD. LUNGS: Decreased breath sounds. CARDIOVASCULAR: Regular S1-S2 with no gallop. ABDOMEN: Soft. EXTREMITIES: 1+ pitting edema. Jose Vee MD November 22, 2018 10:36
--- NOTE | 2018-11-22 11:37 | Diagnostic Imaging Report ---
Indication: Dysphasia Procedure and findings: Real-time fluoroscopic imaging performed in a lateral projection in conjunction with the speech pathologist evaluation. Variable consistencies of barium given per mouth. Findings: Significant abnormalities of both oral and pharyngeal phases of swallowing are demonstrated. There is fela aspiration of barium, both thin and nectar on sequences obtained. There was no cough. Total fluoroscopic time: 219 seconds. Abnormal video swallow. Please refer to speech pathology evaluation for more information.
[2018-11-22 12:00] VITALS: BP 146/81
--- NOTE | 2018-11-22 12:04 | NUR ---
ST NOTE: ST WEEKLY: PT PARTIALLY MET PO INTAKE GOALS. NURSING STAFF MET ASPIRATION PRECAUTIONS GOALS. CONTINUE SKILLED ST SERVICE.
--- NOTE | 2018-11-22 14:10 | NUR ---
*-* DISCHARGE PLANNING *-* PATIENT HAS BEEN REFERRED TO: [facility] F:[phone] P:[phone]
--- NOTE | 2018-11-22 14:16 | NUR ---
RD ASSESSMENT & RECOMMENDATIONS SEE CARE ACTIVITY FOR COMPLETE ASSESSMENT DAILY ESTIMATED NEEDS: Needs based on Pulmonary, wound 77.8kg adj 25-30 kcals/kg 1408-2691 total kcals 1.25-1.5 g protein/kg 97-117 g total protein 20-25 mL/kg 8675-2803 total fluid mLs NUTRITION DIAGNOSIS: 1) Increased protein needs r/t wound healing as evidenced by pt w/ lt heel nonblanchable erythema. 2) Swallowing difficulty r/t respiratory status, dysphagia as evidenced by pt now off BIPAP, on NC, refused NGT/PEG, on liquify pureed, HTL diet per MOVIE OPERATOR rec. CURRENT DIET:LOW NA, liquify pureed, NTL PO DIET RECOMMENDATIONS: LOW NA, CCHO MED/ texture per MOVIE OPERATOR ADDITIONAL RECOMMENDATIONS: 1) Recalibrate bed scale wt as able for accurate CBW 2) For skin integrity: add MVI x 1, Reyes 1pkt BID 3) Add Glucerna 1 tetra teagan TID w/ meals while on liquify pureed diet 4) Consider accucheck w/ SSI while on steroidal med -> BGs 154 214 248 208 .
--- NOTE | 2018-11-22 15:04 | NUR ---
[employer] NOTES SPOKE WITH PT'S PRIMARY NURSE, REQUESTING HOME OXYGEN. NOTIFIED NIRSE NO ORDER NOTED.ENCOURAGED NURSE TO CALL MD AND GET AN OFFICIAL ORDER FOR OXYGEN, ALSO REQUESTED FOR A RA O2 LEVEL TO VALIDATE HOME OXYGEN QUALIFICATION. WAITING FOR ORDER.
[2018-11-22 16:00] VITALS: BP 131/79
--- NOTE | 2018-11-22 16:34 | NUR ---
patient able to void x 5 since removed the folly cath no burning or pain when voiding HCP notified
--- NOTE | 2018-11-22 16:40 | NUR ---
pcg demanded to be discharge with progressive. 1999 home health contact # [phone] hcp notified that patient may need discharge with oxygen as patient oxygen saturation dropped to 83% when on room air. patient back on 2 litter oxygen via n/c and oxygen elevated to 94%
[2018-11-22 17:37] VITALS: BP 149/92
--- NOTE | 2018-11-22 18:02 | Pulmonology Progress Note ---
Assessment/Plan Problems: (1) COPD exacerbation (2) Respiratory failure with hypoxia (3) Pneumonia (4) Paroxysmal atrial fibrillation (5) Thrombocytopenia (6) Electrolyte imbalance (7) History of hypertension Assessment/Plan BiPAP 18/5 qHS & PRN, encourage nocturnal usage Optimize pulmonary hygiene/mobilize as tolerated Titrate down FiO2 to keep SaO2 > 90% RTC and PRN ATROVENT HHN's Continue Pred 20 and taper Abx (Vanco) per ID Monitor volumes and renal function Diet per FILM LOADER with STRICT aspiration precautions DVT Px: SCD FC Dispo planning: SNF vs home with HH D/W RN and RT Subjective Allergies: Coded Allergies: No Known Allergies (Unverified , 12/10/11) Subjective Gustavo PO AFVSS O2 needs stable Less cough less SOB no FC no CP Objective Last 24 Hour Vital Signs Date Time Temp Pulse Resp B/P (MAP) Pulse Ox O2 Delivery O2 Flow Rate FiO2 11/22/18 17:37 84 149/92 11/22/18 16:00 98.0 70 24 131/79 (96) 83 11/22/18 16:00 Room Air 4.0 11/22/18 12:59 84 149/92 11/22/18 12:58 69 18 98 Nasal Cannula 3.0 32 11/22/18 12:46 84 18 96 Nasal Cannula 3.0 32 11/22/18 12:00 73 11/22/18 12:00 97.1 82 20 146/81 (102) 93 11/22/18 10:36 Nasal Cannula 4.0 11/22/18 08:00 97.2 78 20 149/92 (111) 93 11/22/18 08:00 79 11/22/18 07:35 98 Nasal Cannula 3.0 32 11/22/18 07:35 71 18 98 Nasal Cannula 3.0 32 11/22/18 07:35 71 18 98 Nasal Cannula 3.0 32 11/22/18 05:37 72 140/74 11/22/18 04:00 98.4 80 19 132/85 (101) 93 11/22/18 04:00 75 11/22/18 01:47 74 18 98 Nasal Cannula 3.0 32 11/22/18 01:37 83 18 93 Nasal Cannula 3.0 32 11/22/18 01:37 83 18 93 Nasal Cannula 3.0 32 11/22/18 00:50 83 132/95 11/22/18 00:00 66 11/22/18 00:00 97.4 83 20 132/95 (107) 96 11/21/18 21:00 Nasal Cannula 4.0 11/21/18 20:30 71 18 97 Nasal Cannula 4.0 36 11/21/18 20:20 Nasal Cannula 3.0 32 11/21/18 20:20 78 18 94 Nasal Cannula 3.0 32 11/21/18 20:00 98.8 71 18 138/75 (96) 93 11/21/18 20:00 73 11/21/18 19:05 78 153/83 Intake and Output 11/21/18 11/22/18 19:00 07:00 Intake Total 120 ml Output Total 300 ml 1500 ml Balance -300 ml -1380 ml Intake Oral 120 ml Output Urine Total 300 ml 1500 ml # Bowel Movements 1 General Appearance: no acute distress, cachetic HEENT: normocephalic, atraumatic, anicteric, mucous membranes moist Respiratory/Chest: chest wall non-tender, lungs clear, normal breath sounds, no respiratory distress, no accessory muscle use Cardiovascular: normal peripheral pulses, normal rate, regular rhythm Abdomen: normal bowel sounds, soft, non tender, no organomegaly, non distended , no mass Extremities: no cyanosis, no clubbing, no edema Laboratory Tests 11/22/18 04:55: White Blood Count 15.0H, Red Blood Count 4.47L, Hemoglobin 13.4L, Hematocrit 39.9L, Mean Corpuscular Volume 89, Mean Corpuscular Hemoglobin 30.0, Mean Corpuscular Hemoglobin Concent 33.6, Red Cell Distribution Width 14.7, Platelet Count 195, Mean Platelet Volume 7.0, Neutrophils (%) (Auto) , Lymphocytes (%) ( Auto) , Monocytes (%) (Auto) , Eosinophils (%) (Auto) , Basophils (%) (Auto) , Differential Total Cells Counted 100, Neutrophils % (Manual) 94H, Lymphocytes % (Manual) 4L, Monocytes % (Manual) 2, Eosinophils % (Manual) 0, Basophils % ( Manual) 0, Band Neutrophils 0, Platelet Estimate Adequate, Platelet Morphology Normal, Red Blood Cell Morphology Normal, Sodium Level 140, Potassium Level 3.7 , Chloride Level 100, Carbon Dioxide Level 39H, Anion Gap 2L, Blood Urea Nitrogen 30H, Creatinine 1.0, Estimat Glomerular Filtration Rate , Glucose Level 154H, Calcium Level 8.9 Current Medications Medications (Trade) Dose Ordered Sig/Keith Route PRN Reason Start Time Stop Time Status Last Admin Dose Admin Acetaminophen (Tylenol) 650 mg Q4H PRN NG Mild Pain/Temp > 100.5 11/20/18 07:05 12/20/18 07:04 Amiodarone HCl (Cordarone) 400 mg DAILY NG 11/20/18 09:00 12/16/18 20:59 11/22/18 08:58 Diltiazem HCl (Cardizem) 60 mg EVERY 6 HOURS ORAL 11/21/18 00:00 12/16/18 17:59 11/22/18 17:37 Haloperidol Lactate (Haldol) 5 mg Q6H PRN IM Agitation 11/20/18 07:04 12/20/18 07:03 11/22/18 08:59 Ipratropium [place] (Atrovent) 500 mcg Q4H PRN HHN Shortness of Breath 11/20/18 07:04 11/25/18 07:03 Ipratropium [place] (Atrovent) 500 mcg Q6HRT HHN 11/20/18 07:00 11/24/18 18:59 11/22/18 12:45 Nystatin (Nystatin) 5 ml QID ORAL 11/20/18 18:00 11/27/18 17:59 11/22/18 17:37 Ondansetron HCl (Zofran) 4 mg Q6H PRN IVP Nausea & Vomiting 11/20/18 07:04 12/20/18 07:03 Prednisone (predniSONE) 20 mg DAILY ORAL 11/22/18 09:00 12/22/18 08:59 11/22/18 08:58 Promethazine HCl/ Codeine (Phenergan with Codeine) 5 ml Q4H PRN NG For Cough 11/20/18 07:05 12/20/18 07:04 Temazepam (Restoril) 15 mg HSPRN PRN NG Insomnia 11/20/18 07:06 11/27/18 07:05 11/21/18 21:57 Vancomycin HCl (Vanco rx to dose) 1 ea DAILY PRN MISC Per rx protocol 11/20/18 09:00 12/17/18 18:59 Vancomycin HCl 750 mg/Dextrose 275 ml @ 183.333 mls/hr Q12H IVPB 11/21/18 05:00 11/26/18 04:59 11/22/18 17:38 Ashish Solis MD November 22, 2018 18:02
--- NOTE | 2018-11-22 18:17 | NUR ---
ACADEMIC SUPPORT SPECIALIST NOTES RECEIVED ORDER FOR HOME OXYGEN, ORDER FAXED TO [facility]. SPOKE WITH PINEDA FROM [facility] ORDER RECEIVED. PERMIT SPECIALIST WILL DELIVER OXYGEN WITHIN ONE HOUR. NURSE TO CALL AMBULANCE ONCE OXYGEN IS DELIVERED.REFERRAL FAXED TO [facility]. RIGOBERTO SUNG [phone] [facility]
--- NOTE | 2018-11-22 18:20 | Internal Med Progress Note ---
Subjective Date of Service: November 22, 2018 Physician Name Louis Galarza Attending Physician Star Malave MD Current Medications Medications (Trade) Dose Ordered Sig/Keith Route PRN Reason Start Time Stop Time Status Last Admin Dose Admin Acetaminophen (Tylenol) 650 mg Q4H PRN NG Mild Pain/Temp > 100.5 11/20/18 07:05 12/20/18 07:04 Amiodarone HCl (Cordarone) 400 mg DAILY NG 11/20/18 09:00 12/16/18 20:59 11/22/18 08:58 Diltiazem HCl (Cardizem) 60 mg EVERY 6 HOURS ORAL 11/21/18 00:00 12/16/18 17:59 11/22/18 17:37 Haloperidol Lactate (Haldol) 5 mg Q6H PRN IM Agitation 11/20/18 07:04 12/20/18 07:03 11/22/18 08:59 Ipratropium [place] (Atrovent) 500 mcg Q4H PRN HHN Shortness of Breath 11/20/18 07:04 11/25/18 07:03 Ipratropium [place] (Atrovent) 500 mcg Q6HRT HHN 11/20/18 07:00 11/24/18 18:59 11/22/18 12:45 Nystatin (Nystatin) 5 ml QID ORAL 11/20/18 18:00 11/27/18 17:59 11/22/18 17:37 Ondansetron HCl (Zofran) 4 mg Q6H PRN IVP Nausea & Vomiting 11/20/18 07:04 12/20/18 07:03 Prednisone (predniSONE) 20 mg DAILY ORAL 11/22/18 09:00 12/22/18 08:59 11/22/18 08:58 Promethazine HCl/ Codeine (Phenergan with Codeine) 5 ml Q4H PRN NG For Cough 11/20/18 07:05 12/20/18 07:04 Temazepam (Restoril) 15 mg HSPRN PRN NG Insomnia 11/20/18 07:06 11/27/18 07:05 11/21/18 21:57 Vancomycin HCl (Vanco rx to dose) 1 ea DAILY PRN MISC Per rx protocol 11/20/18 09:00 12/17/18 18:59 Vancomycin HCl 750 mg/Dextrose 275 ml @ 183.333 mls/hr Q12H IVPB 11/21/18 05:00 11/26/18 04:59 11/22/18 17:38 Allergies: Coded Allergies: No Known Allergies (Unverified , 12/10/11) ROS Limited/Unobtainable: No Constitutional: Reports: no symptoms HEENT: Reports: no symptoms Cardiovascular: Reports: no symptoms Respiratory: Reports: shortness of breath Gastrointestinal/Abdominal: Reports: no symptoms Genitourinary: Reports: no symptoms Neurologic/Psychiatric: Reports: no symptoms Subjective 87 YO M admitted with respiratory failure and pneumonia. Cover for Int Med-Dr Malave. 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 Patient was discharged last pm- discharge was held due to low O2 sat. Patient family demanding and irritated that the patient is still here. Objective Last Vital Signs Date Time Temp Pulse Resp B/P (MAP) Pulse Ox O2 Delivery O2 Flow Rate FiO2 11/22/18 17:37 84 149/92 11/22/18 16:00 98.0 24 83 11/22/18 16:00 Room Air 4.0 11/22/18 12:58 32 Laboratory Tests Test 11/22/18 04:55 White Blood Count 15.0 K/UL (4.8-10.8) H Red Blood Count 4.47 M/UL (4.70-6.10) L Hemoglobin 13.4 G/DL (14.2-18.0) L Hematocrit 39.9 % (42.0-52.0) L Mean Corpuscular Volume 89 FL (80-99) Mean Corpuscular Hemoglobin 30.0 PG (27.0-31.0) Mean Corpuscular Hemoglobin Concent 33.6 G/DL (32.0-36.0) Red Cell Distribution Width 14.7 % (11.6-14.8) Platelet Count 195 K/UL (150-450) Mean Platelet Volume 7.0 FL (6.5-10.1) Neutrophils (%) (Auto) % (45.0-75.0) Lymphocytes (%) (Auto) % (20.0-45.0) Monocytes (%) (Auto) % (1.0-10.0) Eosinophils (%) (Auto) % (0.0-3.0) Basophils (%) (Auto) % (0.0-2.0) Differential Total Cells Counted 100 Neutrophils % (Manual) 94 % (45-75) H Lymphocytes % (Manual) 4 % (20-45) L Monocytes % (Manual) 2 % (1-10) Eosinophils % (Manual) 0 % (0-3) Basophils % (Manual) 0 % (0-2) Band Neutrophils 0 % (0-8) Platelet Estimate Adequate Platelet Morphology Normal Red Blood Cell Morphology Normal Sodium Level 140 MMOL/L (136-145) Potassium Level 3.7 MMOL/L (3.5-5.1) Chloride Level 100 MMOL/L (98-107) Carbon Dioxide Level 39 MMOL/L (21-32) H Anion Gap 2 mmol/L (5-15) L Blood Urea Nitrogen 30 mg/dL (7-18) H Creatinine 1.0 MG/DL (0.55-1.30) Estimat Glomerular Filtration Rate mL/min (>60) Glucose Level 154 MG/DL (74-106) H Calcium Level 8.9 MG/DL (8.5-10.1) Intake and Output 11/21/18 11/22/18 19:00 07:00 Intake Total 120 ml Output Total 300 ml 1500 ml Balance -300 ml -1380 ml Intake Oral 120 ml Output Urine Total 300 ml 1500 ml # Bowel Movements 1 Objective PHYSICAL EXAMINATION: GENERAL: The patient is well-developed and well-nourished white male, in respiratory distress. HEENT: Eyes, pupils are equal and responsive to light and accommodation. Extraocular movements are intact. NECK: Supple without lymphadenopathy. CHEST: nasal canula; Decreased breath sounds in bilateral bases with crackles on the left. Otherwise, without wheezes. ABDOMEN: Soft, nontender, and nondistended. Positive bowel sounds. No evidence of hepatosplenomegaly. Currently, no rebound or guarding noted. EXTREMITIES: Negative for clubbing, cyanosis, or edema. RECTAL/GENITAL: Refused. NEUROLOGIC: Cranial nerves II through XII are grossly intact without focal deficits. Motor strength is 5/5 bilaterally. Deep tendon reflexes are 2+ plantar. Assessment/Plan Assessment/Plan ASSESSMENT: This is an 87-year-old white male. 1. Pneumonia=MRSA 2. Respiratory failure. 3. Diarrhea. 4. Nausea with vomiting. 5. Fever. 6. Hypertension. 7. Hypercholesterolemia. 8. Attrial fibrillation witbh rapid ventricular rate TREATMENT: 1. Pneumonia/respiratory failure. A Pulmonary consultation has been obtained with Dr. Joan Nugent. The patient is currently off BiPAP in the intensive care unit. We will follow recommendations of Pulmonary. S/P Abx=intravenous vancomycin D#10/10 per ID 2. Diarrhea/nausea/vomiting. A Gastroenterology consultation has been obtained with Dr. Nito Joseph. 3. Fever. This probably is secondary to pneumonia as above. 4. Hypertension. The patient is currently hypotensive. 5. Hypercholesterolemia. Continue Crestor as above. 6. Continue amiodarone and cardizem 7. Puree diet with honey thick liquid 8. Discharge planning Patient family requesting specific home health. [facility] [phone]. Case management - Amy arranged home oxygen and ambulance transport. D/C HOME TONIGHT Louis Galarza MD November 22, 2018 18:20
[2018-11-22] MEDS ORDERED: CARDIZEM60 MG ORAL (18:28)
[2018-11-22] MEDS ORDERED: PREDNISONE20 MG ORAL (18:28)
[2018-11-22] MEDS ORDERED: PACERONE200 MG NG (18:28)
--- NOTE | 2018-11-22 19:30 | NUR ---
NURSE NOTES: Received pt and report from ANN Fregoso. Observed pt resting in bed with both eyes closed and family members at bedside. quality assurance monitor body is in placed, IV site intact, asymptomatic, and patent. Bed is in the lowest position and locked. Call light within reach. No signs/symptoms of acute distress noted at this time. Pt is being discharge today; awaiting for [facility] to bring oxygen to pt's home. Discharged paperwork and education completed with ANN Fregoso. Will continue plan of care until discharged.
--- NOTE | 2018-11-22 19:41 | NUR ---
HAND-OFF: Report given to RIKKI JUAREZ.
--- NOTE | 2018-11-22 20:15 | NUR ---
NURSE NOTES: [facility] called to confirmed that oxygen tank has been delivered to pt's home. Pt's granddaughter, Sara, has also confirmed that oxygen tank is at home. Contacted [facility] and spoke to Abisai for ambulance arrangement. Awaiting for ambulance to arrive to discharge pt.
[2018-11-22] MEDS ORDERED: D5 1/2NS 1000ml IV ONE ×2 (21:19)
--- NOTE | 2018-11-22 21:20 | NUR ---
NURSE NOTES: Pt left home by ambulance; transferred via gurney to ambulance vehicle without any incident. Report given to medical personnel, Seth (unit# [id number]). Belongings list checked and taken home by family members. import/export administrator and IV removed. Vital signs are stable.
--- NOTE | 2018-11-23 07:31 | Progress Note ---
DATE: 11/22/2018 SUBJECTIVE: The patient is more clear at bedside. Continues to be having poor insight and judgment into his current medical condition. . Disoriented to date. MENTAL STATUS EXAMINATION: The patient is alert and oriented times self and place. Mood is dysphoric. Affect is constricted, congruent with mood. Thought process is concrete. Thought content, no suicidal or homicidal ideations. ASSESSMENT: 1. Encephalopathy, improved. 2. Dementia. 3. Anxiety disorder. PLAN: We will continue current medications. Provide the patient with reality orientation and supportive therapy. Trace Rodarte M.D. DR: MARTHA JOB#: [id number] CC:
--- NOTE | 2018-11-24 12:08 | Discharge Summary ---
Discharge Summary Discharge Summary _ DATE OF ADMISSION: 11/11/2018 DATE OF DISCHARGE: 11/22/2018 DISCHARGED BY: Dr. Malave REASON FOR ADMISSION: 87 years old male with past medical history of hypertension, COPD, DNR/DNI status, presented with chief complaint of respiratory distress/shortness of breath for one day and cough along with nausea, vomiting, and diarrhea. In route patient was placed on the BiPAP. Upon evaluation patient was tachycardic , tachypneic and hypoxic. ABG showed O2 sat 94% on BiPAP. Laboratory work-up revealed leukocytosis, stable hemoglobin hematocrit. BUN 43, creatinine 1.2. Troponin - 0.015. Pro BNP 506 . Urinalysis revealed no evidence of UTI. EKG revealed sinus tachycardia, no acute ischemic changes. Chest x-ray demonstrated pulmonary vascular congestion. Airspace disease in the right mid and upper lung nieves. Superimposed pneumonia versus vascular congestion. Patient provided with nebulizing treatment, pancultured, started on empiric antibiotic and subsequently was admitted to monitored floor for further management. CONSULTANTS: balance bridge assembler Dr. Gong pulmonary ID specialist Dr. Cordero GI specialist Dr. Joseph psychiatrist [facility] COURSE: Patient admitted to monitored floor. Tear Down Man closely followed. Patient initially was on BiPAP. Settings were titrated based on ABG results. Pulmonary toilet d via with hand-held nebulizing therapy with Atrovent provided [id number] and as needed. Patient started on empiric antibiotics and IV steroids with tapering. Patient was mobilized as tolerated Sputum culture revealed MRSA. Blood cultures were negative. Stool culture was negative. Patient subsequently was able to to be weaned to oxygen via nasal cannula. Tear Down Man recommended nocturnal use of BiPAP. Patient completed empiric antibiotic as per ID recommendation. Leukocytosis resolved , no fevers. IV steroids changed to oral with tapering upon discharge. DVT prophylaxis provided Volumes and cardiorenal parameters were closely monitored. Electrolytes corrected as needed. Nephrotoxins were avoided. Patient demonstrated paroxysmal atrial fibrillation with rapid ventricular response interchanged with sinus rhythm. Radiologist follow. Patient initially started on anticoagulation , but was later taken off anticoagulation due to thrombocytopenia. Echocardiogram revealed preserved ejection fraction 60 to 65%. Heart rate was controlled with amiodarone and Cardizem. Blood pressure was managed with Cardizem. Platelet count was closely monitored. Platelet count eventually stabilized and prior to discharge 195. Patient failed swallow evaluation. Next family refused nasogastric tube and percutaneous endoscopic gastrostomy tube. GI specialist followed. Diet texture provided as per speech therapist recommendations with strict aspiration/ reflux precautions and one-to-one supervision. Family was instructed on strict aspiration/reflux precaution with one-to-one supervision. Patient was able to tolerate oral trial of diet. Diet was further advanced as tolerated. Symptomatic treatment provided with Imodium and Zofran as needed. Hemoglobin and hematocrit were closely monitored with goal to keep hemoglobin above 7, remained stable. Prior to discharge hemoglobin 13.4, hematocrit 39.4. Stool for occult blood was positive. Bowel regimen instituted. GI prophylaxis provided. Psychiatrist followed. Patient initially presented with encephalopathy, which improved as patient clinically stabilized. Reality orientation and supportive therapy provided. Patient clinically improved. Hemodynamic status stable. No shortness of breath. Patient was stable for discharge home with home health services to follow. FINAL DIAGNOSES: Respiratory failure with hypoxia Sepsis secondary to MRSA pneumonia MRSA pneumonia COPD exacerbation Paroxysmal atrial fibrillation with rapid ventricular response Hypertension Thrombocytopenia- resolved Electrolyte imbalance. Dehydration due to nausea, vomiting, and diarrhea Encephalopathy Dementia Anxiety disorder DISCHARGE MEDICATIONS: See Medication Reconciliation list. DISCHARGE INSTRUCTIONS: Patient was discharged home with home health services. Follow up with primary care provider in one week. I have been assigned to dictate discharge summary for this account. I was not involved in the patient's management. Angely Patiño NP Nov 24, 2018 12:08
== END 2018-11-22 21:20 | disposition home health service (06) | DRG 871 ==
LOC: EDBD 22:08 → EMR 22:18 → 2W 23:17 → EDBEDREQ 23:32 → 2W 11-12 05:51 → ICU 11-12 07:50 → 2W 11-17 18:30 → 2E 11-20 06:31
DX: A41.02 Sepsis due to Methicillin resistant Staphylococcus aureus (principal); J96.01 Acute respiratory failure with hypoxia; G93.41 Metabolic encephalopathy; J15.212 Pneumonia due to Methicillin resistant Staphylococcus aureus; J44.1 Chronic obstructive pulmonary disease with (acute) exacerbation; N17.9 Acute kidney failure, unspecified; J44.0 Chronic obstructive pulmonary disease with (acute) lower respiratory infection; R65.20 Severe sepsis without septic shock; I10 Essential (primary) hypertension; R11.2 Nausea with vomiting, unspecified; R19.7 Diarrhea, unspecified; E78.00 Pure hypercholesterolemia, unspecified; Z66 Do not resuscitate; I48.0 Paroxysmal atrial fibrillation; Z79.01 Long term (current) use of anticoagulants; D69.6 Thrombocytopenia, unspecified; F03.90 Unspecified dementia, unspecified severity, without behavioral disturbance, psychotic disturbance, mood disturbance, and anxiety; F41.9 Anxiety disorder, unspecified; E86.0 Dehydration
CPT/HCPCS: 36415; 36600; 71045; 74018; 74230; 80048; 80053; 80069; 80202; 81001; 82043; 82164; 82248; 82270; 82378; 82550; 82553; 82607; 82728; 82746; 82803; 82962; 83540; 83550; 83605; 83735; 83880; 83935; 84100; 84300; 84439; 84443; 84484; 84550; 85007; 85025; 85044; 85610; 85730; 86710; 87040; 87045; 87070; 87181; 87205; 89050; 93005; 93306; 93970; 94640; 94660; 94664; 96365; 96368; 99291